=== PATIENT | male | born 1945 | race Caucasian/White ===

== ENCOUNTER → 2016-05-15 | Outpatient (CLI) | payer OTHER, MEDICARE ==
[~2016-05-15] MED LIST: ATV1 PO; CYCL5TAB PO; DOCU100C31 PO; ERGO1CAP35 PO; FERR325T51 PO; FLUO20CA36 PO; FRS/40 PO; GABA-113 PO; HYDR25CA PO; IPRA1AER2 INH; IPRASOL4 INH; ISOS30TA35 PO; MELATAB2 PO; METO25TA3 PO; MONT1TAB3 PO; NAPR1TAB9 PO; OXYC-57 PO; OXYC1TAB3 PO; PANT40TA PO; POLY1POW2 PO; POTA-65 PO; PRVC40 PO; RANI300C PO; SYMIN160 INH; TEMA15CA4 PO; TRAZ100T29 PO; VENL37.593 PO
--- NOTE | 2016-05-15 22:03 | DIAGNOSTIC IMAGING REPORT ---
CT OF THE LUMBAR SPINE WITHOUT CONTRAST CT DOSE: 1117.58 mGycm CLINICAL HISTORY: Right buttock pain. Evaluate for hardware failure. TECHNIQUE: Axial images of the lumbar spine were obtained without IV contrast. Sagittal and coronal reconstructions were viewed. COMPARISON STUDY: Lumbar spine MRI October 24, 2015 and lumbar spine radiographs October 26, 2015. FINDINGS: For purposes of numbering on this exam, the L5-S1 disc space is assigned to axial image 313 of 401. There is an L2-S1 bilateral pedicle screw fusion. Interconnecting rods are present. Lucency is noted surrounding the S1 screws. There are L2-L3, L3-L4 and L5-S1 discectomies with interbody spacers. There is erosion of the inferior endplate of L3, superior endplate of L4, inferior endplate of L5 and superior plate of S1 which has progressed since prior radiograph. There is slight loss of height of these endplates. No acute fracture is identified. Central canal and neural foramen are suboptimally assessed by CT. Bilateral iliac bolts are in place. There is a lucency surrounding the screws. The screws are partially located within the bilateral sacroiliac joints. There is minimal extension into the medial bilateral iliac bones. No suspicious osseous lesion is present. IMPRESSION: 1. Status post L2-S1 bilateral pedicle screw fusion. Mild lucency surrounding the S1 screws raises the possibility of loosening. 2. Status post L2-L3, L3-L4 and L5-S1 discectomies with development of erosion of the inferior endplate of L3, superior endplate of L4, inferior endplate of L5 and superior endplate of S1. No significant fusion at these levels. 3. Extensive lucency surrounding the bilateral iliac bolts which are predominantly located within the sacroiliac joints with minimal extension into the iliac bones. The findings suggest loosening. Electronically signed by: Jesse Gonzalez M.D. 05/15/2016 10:01 PM Dictated Date/Time: 05/15/2016 2:57 PM
== END | disposition home or self-care (01) ==
LOC: C.MRI 09:28
PROVIDERS: ATTEND Orthopaedic Surgery Orthopaedic Surgery of the Spine
DX: M79.1 Myalgia (principal); Z98.1 Arthrodesis status

== ENCOUNTER → 2016-05-17 | Outpatient (CLI) | payer OTHER, MEDICARE ==
--- NOTE | 2016-05-17 10:25 | DIAGNOSTIC IMAGING REPORT ---
LUMBAR SPINE MRI HISTORY: Pain RT BUTTOCK PAIN, ? HARDWARE FAILURE TECHNIQUE: Multiplanar multisequence MRI of the lumbar spine was performed without the use of contrast. COMPARISON: 10/24/2015 FINDINGS: For the purpose of the report the L5-S1 disc space will be located on axial image 27 of 30. Operative changes consistent with fusion from L2 through S1. Iliac bones are not well appreciated on this study. Hardware appears to be intact. Intervertebral disc spaces are generally uniform in appearance. There is moderate reactive bone marrow edema of the endplates about the L5-S1 disc. No major compromise of the spinal canal is appreciated. No evidence for disc herniation or significant component of foraminal stenosis is appreciated. L1-L2: No significant central canal or neural foraminal narrowing. L2-L3: No significant central canal or neural foraminal narrowing. L3-L4: No significant central canal or neural foraminal narrowing. L4-L5: No significant central canal or neural foraminal narrowing. L5-S1: No significant central canal or neural foraminal narrowing. IMPRESSION: Stable postoperative changes to the lumbosacral spine. 2. Hardware appears to be intact with no evidence for major disc herniation or significant component of spinal stenosis. 3. The iliac bones are not well seen in this examination Electronically signed by: Yohan Otto M.D. 05/17/2016 10:24 AM Dictated Date/Time: 05/17/2016 10:18 AM
[2016-05-17 13:32] LABS: HEMATOCRIT 42.1 % (42-52); MEAN CELL VOLUME 77.1 fL (80-100); MEAN CORPUSCULAR HEMOGLOBIN 25.6 pg (25-34); MEAN CORPUSCULAR HGB CONC 33.3 g/dl (32-36); MEAN PLATELET VOLUME 9.8 fL (7.4-10.4); PLATELET COUNT 261 K/uL (130-400); RED BLOOD COUNT 5.46 M/uL (4.7-6.1); WHITE BLOOD COUNT 5.44 K/uL (4.8-10.8)
[2016-05-17 13:45] LABS: ALT/SGPT 25 U/L (12-78); BLOOD UREA NITROGEN 19 mg/dl (7-18); BUN/CREATININE RATIO 17.6 (10-20); CALCIUM 8.9 mg/dl (8.5-10.1); CARBON DIOXIDE 28 mmol/L (21-32); CHLORIDE 102 mmol/L (98-107); CHOLESTEROL 122 mg/dl (0-200); GLUCOSE 117 mg/dl (70-99); POTASSIUM 3.7 mmol/L (3.5-5.1); SODIUM 137 mmol/L (136-145)
[2016-05-17 13:52] LABS: ESTIMATED AVERAGE GLUCOSE 126 mg/dl; HA1C FLAG Normal (Normal)
[2016-05-17 13:56] LABS: ALKALINE PHOSPHATASE 141 U/L (45-117); AST/SGOT 18 U/L (15-37); CHOLESTEROL/HDL RATIO 3.2; HDL CHOLESTEROL 38 mg/dl; LDL CHOLESTEROL CALCULATED 68 mg/dl; TRIGLYCERIDES 82 mg/dl (0-150); VERY LOW DENSITY LIPOPROT CALC 16 mg/dl
== END | disposition home or self-care (01) ==
LOC: C.MRIBC 09:06
PROVIDERS: ATTEND Orthopaedic Surgery Orthopaedic Surgery of the Spine
DX: M79.1 Myalgia (principal); I25.10 Atherosclerotic heart disease of native coronary artery without angina pectoris; R73.03 Prediabetes; E78.5 Hyperlipidemia, unspecified; Z98.890 Other specified postprocedural states; Z79.899 Other long term (current) drug therapy

== ENCOUNTER 2016-09-03 14:40 | Emergency (ER) | payer OTHER, MEDICARE ==
[~2016-09-03] VITALS: Ht 172.7 cm; Wt 108.1 kg
[~2016-09-03 14:40] MED LIST changes: -FLUO20CA36 PO
[2016-09-03 14:46] VITALS: TEMP 37; Ht 172.7 cm; Wt 108.1 kg
[2016-09-03] MEDS ORDERED: FLUO20CA36 PO (14:56)
--- NOTE | 2016-09-03 15:12 | EMERGENCY ROOM VISIT NOTE ---
ED Visit Note First contact with patient: 14:55 CHIEF COMPLAINT: Skin tag left inner thigh HISTORY OF PRESENT ILLNESS: This 71-year-old male presents the ER with chief complaint of a skin tag to his left inner thigh. The patient states that it is getting larger and it is bothersome. He states he would like it removed. The patient states he had other skin tags removed at [place] [facility]. The patient is on blood thinners. REVIEW OF SYSTEMS: 6 system review was performed and was negative unless stated otherwise in history of present illness. PMH: The patient is healthy; asthma, urinary problems SOCIAL HISTORY: Patient lives alone. The patient admits to tobacco use and occasional alcohol use. PHYSICAL EXAM: Vital Signs: Were reviewed Reviewed Nurse's notes. GENERAL: 71- year-old white male appears in no acute distress. MENTAL Status: Alert and oriented 3. LEFT THIGH: On the proximal inner aspect of the left thigh there is a 1 cm skin tag .there are no signs of infection. EMERGENCY DEPARTMENT COURSE: The patient was evaluated. The patient's EMR medication list were reviewed. Using string a knot was placed at the base of the skin tag. DIAGNOSIS: Skin tag left thigh DISCHARGE INSTRUCTIONS & TREATMENT: Keep string in place until skin tag falls off. Any signs of infection, follow-up with your family doctor. Your blood pressure in the emergency room today was 122/73. A blood pressure check in your family doctor's office in 2 days is recommended. Problem List Medical Problems: (1) Anemia Status: Chronic (2) ANXIETY STATE NOS Status: Chronic (3) CANNABIS ABUSE-CONTIN Status: Chronic (4) Carotid endarterectomy Status: Resolved (5) carpal tunnel surgery bilaterally Status: Resolved (6) CARPAL TUNNEL SYNDROME Status: Resolved (7) CHOLELITHIASIS NOS Status: Resolved (8) Chronic low back pain Status: Chronic (9) CHRONIC OBSTRUCTIVE ASTHMA, NOS Status: Chronic (10) CONGESTIVE HEART FAILURE NOS Status: Chronic (11) COPD (chronic obstructive pulmonary disease) Status: Chronic (12) CORONARY ATHEROSCLEROSIS OF [place] CORONARY VESSEL Status: Chronic (13) DEPRESSIVE DISORDER NEC Status: Chronic (14) DIVERTICULOSIS COLON (W/O MENT OF HEMORRHAGE) Status: Chronic (15) History of repair of inguinal hernia Status: Resolved (16) HYPERLIPIDEMIA NEC/NOS Status: Chronic (17) MIGRAINE UNSPECIFIED W/O INTRACT MGRN W/O STATUS MIGRAINOSUS Status: Chronic (18) OBESITY, NOS Status: Chronic (19) OSTEOARTHROS NOS-SHLDER Status: Chronic (20) PERSONAL HISTORY OF URINARY CALCULI Status: Resolved (21) PERSONAL HISTORY, PNEUMONIA (RECURRENT) Status: Resolved (22) PNEUMONIA, ORGANISM NOS Status: Resolved (23) Prior left CVA Status: Resolved (24) SPINAL STENOSIS-LUMBAR Status: Chronic (25) umbilical herniorrhaphy Status: Resolved Surgical Problems: (1) Hx of decompressive lumbar laminectomy Status: Chronic Current/Historical Medications Scheduled Budesonide/Formoterol Fumarate (Symbicort 160/4.5 Inhaler ), 2 PUFFS INH BID Docusate Sodium (Docusate Sodium), 100 MG PO BID Ergocalciferol (Vitamin D Cap), 50,000 INTER.UNIT PO Q2WK Ferrous Sulfate (Iron Supplement), 325 MG PO HS Fluoxetine HCl (Fluoxetine HCl), 20 MG PO DAILY Furosemide (Lasix), 40 MG PO BID Gabapentin (Neurontin), 900 MG PO TID Ipratropium-Albuterol (Combivent Respimat), 1 PUFFS INH QID Ipratropium-Albuterol (Duoneb), 1 TREATMENT INH Q6H Isosorbide Mononitrate Ext Rel (Imdur Ext Rel), 30 MG PO QAM Melatonin (Melatonin Maximum Strengt), 5 MG PO HS Metoprolol Succinate (Toprol Xl), 25 MG PO BID Montelukast Sodium (Singulair), 10 MG PO HS Pantoprazole (Protonix), 40 MG PO QAM Potassium Chloride (Potassium Chloride ER), 20 MEQ PO BID Pravastatin Sod (Pravastatin Sodium), 40 MG PO HS Ranitidine Hcl (Ranitidine Hcl), 300 MG PO BID Temazepam (Restoril), 1 CAP PO HS Venlafaxine Hcl (Venlafaxine Extended Rel), 75 MG PO QAM Scheduled PRN Cyclobenzaprine Hcl (Flexeril), 5 MG PO TID PRN for Muscle Spasms Hydroxyzine Pamoate (Vistaril), 25 MG PO TID PRN for Anxiety Lorazepam (Lorazepam), 1 MG PO Q6H PRN for ANXIETY/SPASMS Oxycodone Ir (Roxicodone Ir), 10 MG PO Q4H PRN for Severe Pain Oxycodone/Acetaminophen 5MG/325MG (Percocet 5MG/325MG), 1 TABLET PO Q6H PRN for Pain Polyethylene Glycol 3350 (Bulk (Polyethylene Glycol 3350), 17 GM PO DAILY PRN for Constipation Trazodone Hcl (Trazodone), 150 MG PO HS PRN for Insomnia Miscellaneous Medications Naproxen (Aleve), 220 MG PO Allergies Coded Allergies: Morphine (Verified Allergy, Intermediate, RASH, 01/23/16) Quinolones (Verified Allergy, Intermediate, unknown, 01/23/16) PATIENT WOULD LIKE TO BE TESTED FOR THIS AT SOME POINT BECAUSE HE DOES NOT BELIEVE HE IS ALLERGIC TO IT. Vital Signs Date Time Temp Pulse Resp B/P (MAP) Pulse Ox O2 Delivery O2 Flow Rate FiO2 09/03/16 14:46 37.0 79 20 131/75 95 Room Air Departure Information Referrals No Doctor, Assigned (PCP) Patient Instructions My [facility]
[2016-09-03 15:22] VITALS: BP 122/73; PULSE 88; O2SAT 95
== END 2016-09-03 15:23 | disposition home or self-care (01) ==
LOC: C.EDB 14:44 → C.EDD 15:23
DX: L91.8 Other hypertrophic disorders of the skin (principal); J45.909 Unspecified asthma, uncomplicated; D64.9 Anemia, unspecified; F41.9 Anxiety disorder, unspecified; I50.9 Heart failure, unspecified; J44.9 Chronic obstructive pulmonary disease, unspecified; E78.5 Hyperlipidemia, unspecified; F32.9 Major depressive disorder, single episode, unspecified; K57.30 Diverticulosis of large intestine without perforation or abscess without bleeding; G43.909 Migraine, unspecified, not intractable, without status migrainosus; E66.9 Obesity, unspecified; M19.90 Unspecified osteoarthritis, unspecified site; Z87.442 Personal history of urinary calculi; M48.06 Spinal stenosis, lumbar region; Z79.899 Other long term (current) drug therapy

== ENCOUNTER → 2016-10-24 | Outpatient (CLI) | payer OTHER, MEDICARE ==
[~2016-10-24] MED LIST changes: +FLUO20CA36 PO
[2016-10-24 12:52] LABS: BASO % 0.2 %; BASO ABS # 0.01 K/uL (0-0.2); COMPLETE YES; EOS % 3.4 %; HEMATOCRIT 41.4 % (42-52); IG% 0.3 %; LYMPH % 19.5 %; LYMPH ABS # 1.21 K/uL (1.2-3.4); MEAN CELL VOLUME 80.4 fL (80-100); MEAN CORPUSCULAR HGB CONC 33.6 g/dl (32-36); MONO % 10.6 %; PLATELET COUNT 336 K/uL (130-400); RED BLOOD COUNT 5.15 M/uL (4.7-6.1); WHITE BLOOD COUNT 6.22 K/uL (4.8-10.8)
[2016-10-24 13:01] LABS: ALT/SGPT 25 U/L (12-78); BLOOD UREA NITROGEN 24 mg/dl (7-18); CARBON DIOXIDE 30 mmol/L (21-32); CHLORIDE 105 mmol/L (98-107); GLUCOSE 100 mg/dl (70-99); POTASSIUM 3.9 mmol/L (3.5-5.1); SODIUM 139 mmol/L (136-145)
[2016-10-24 13:04] LABS: ALKALINE PHOSPHATASE 123 U/L (45-117); AST/SGOT 17 U/L (15-37); CHOLESTEROL 142 mg/dl (0-200); CHOLESTEROL/HDL RATIO 4.1; HDL CHOLESTEROL 35 mg/dl; LDL CHOLESTEROL CALCULATED 82 mg/dl; TRIGLYCERIDES 123 mg/dl (0-150); VERY LOW DENSITY LIPOPROT CALC 25 mg/dl
[2016-10-24 13:33] LABS: ESTIMATED AVERAGE GLUCOSE 126 mg/dl; HA1C FLAG Normal (Normal)
== END | disposition home or self-care (01) ==
LOC: C.LABPBG 07:48
PROVIDERS: ATTEND Family Medicine
DX: I25.10 Atherosclerotic heart disease of native coronary artery without angina pectoris (principal); R73.03 Prediabetes; E78.5 Hyperlipidemia, unspecified

== ENCOUNTER → 2017-02-12 | Outpatient (CLI) | payer OTHER, MEDICARE ==
[2017-02-12 17:22] LABS: BASO % 0.3 %; BASO ABS # 0.03 K/uL (0-0.2); COMPLETE YES; EOS % 1.8 %; IG% 0.5 %; LYMPH ABS # 1.38 K/uL (1.2-3.4); MEAN CELL VOLUME 80.7 fL (80-100); MEAN CORPUSCULAR HEMOGLOBIN 27.2 pg (25-34); MEAN CORPUSCULAR HGB CONC 33.7 g/dl (32-36); MEAN PLATELET VOLUME 9.9 fL (7.4-10.4); MONO % 7.1 %; NEUT % 75.3 %; PLATELET COUNT 243 K/uL (130-400); RED BLOOD COUNT 5.33 M/uL (4.7-6.1)
== END | disposition home or self-care (01) ==
LOC: C.LABPBG 15:45
PROVIDERS: ATTEND Family Medicine
DX: G25.81 Restless legs syndrome (principal)

== ENCOUNTER 2017-04-14 20:39 | Emergency (ER) | payer OTHER, MEDICARE ==
[~2017-04-14] VITALS: Ht 172.7 cm; Wt 104.7 kg
[2017-04-14 20:42] VITALS: TEMP 37.6; Ht 172.7 cm; Wt 104.7 kg
--- NOTE | 2017-04-14 21:19 | EMERGENCY ROOM VISIT NOTE ---
History First contact with patient: 20:48 Chief Complaint: SWELLING TO EXTREMITY Stated Complaint: RT LEG SWELLING History of Present Illness The patient is a 71 year old male who presents to the Emergency Room with complaints of right lower extremity swelling, redness, and pain. The patient states 4 months ago, he was chasing after his ex-girlfriend while drunk. He states he must of fell, because in the morning he noticed some swelling, redness , and multiple abrasions on the left anterior gonzalez. The patient states he was black, blue, and swollen for the past 4 months. He states those symptoms improved yesterday, but the swelling became significantly worse yesterday as well. He is describing pain from swelling. She was recently admitted to [facility] for 2 days, was discharged 3-4 days ago. He was on Lovenox at that time. The patient is having difficulty straightening the leg due to pain. He describes significant pain in the posterior calf, as well as the anterior knee. The patient denies any dyspnea. He denies any numbness or tingling. He can move his lower extremity, but this does cause significant pain. He denies any recent injury. He describes the pain as dull with occasional sharp jabs, and rates it 2/10. He has not taken any pain medication. He does report that he had multiple pulmonary emboli several years ago when he was in his 20s, related to a hospital admission. He denies any chest pain, headache, dizziness, pain in the left leg, or other associated symptoms. Review of Systems A complete 10 point review of systems was reviewed with the patient with pertinent positives and negatives as per history of present illness. All else were negative. Past Medical/Surgical History Medical Problems: (1) Anemia (2) ANXIETY STATE NOS (3) CANNABIS ABUSE-CONTIN (4) Carotid endarterectomy (5) carpal tunnel surgery bilaterally (6) CARPAL TUNNEL SYNDROME (7) CHOLELITHIASIS NOS (8) Chronic low back pain (9) CHRONIC OBSTRUCTIVE ASTHMA, NOS (10) CONGESTIVE HEART FAILURE NOS (11) COPD (chronic obstructive pulmonary disease) (12) CORONARY ATHEROSCLEROSIS OF [place] CORONARY VESSEL (13) DEPRESSIVE DISORDER NEC (14) DIVERTICULOSIS COLON (W/O MENT OF HEMORRHAGE) (15) History of repair of inguinal hernia (16) HYPERLIPIDEMIA NEC/NOS (17) Lumbar stenosis with neurogenic claudication (18) MIGRAINE UNSPECIFIED W/O INTRACT MGRN W/O STATUS MIGRAINOSUS (19) OBESITY, NOS (20) OSTEOARTHROS NOS-SHLDER (21) PERSONAL HISTORY OF URINARY CALCULI (22) PERSONAL HISTORY, PNEUMONIA (RECURRENT) (23) PNEUMONIA, ORGANISM NOS (24) Prior left CVA (25) SPINAL STENOSIS-LUMBAR (26) umbilical herniorrhaphy Surgical Problems: (1) Hx of decompressive lumbar laminectomy Family History Diabetes mellitus Heart disease Social History Smoking Status: Former Smoker Alcohol Use: occasionally Drug Use: marijuana Marital Status: in relationship Housing Status: other Occupation Status: retired Current/Historical Medications Scheduled Aspirin (Aspirin Ec), 81 MG PO DAILY Azithromycin (Zithromax), 500 MG PO DAILY Cephalexin Monohydrate (Keflex), 500 MG PO QID Cholecalciferol (Vitamin D3), 400 UNITS PO DAILY Clopidogrel Bisulfate (Plavix), 75 MG PO DAILY Docusate Sodium (Docusate Sodium), 100 MG PO BID Ferrous Sulfate (Ferrous Sulfate), 325 MG PO HS Fluoxetine (Prozac), 40 MG PO DAILY Fluoxetine HCl (Fluoxetine HCl), 20 MG PO DAILY Furosemide (Lasix), 40 MG PO BID Ipratropium-Albuterol (Combivent Respimat), 1 PUFFS INH QID Ipratropium-Albuterol (Duoneb), 1 TREATMENT INH TID Isosorbide Mononitrate Ext Rel (Imdur Ext Rel), 30 MG PO QAM Melatonin (Melatonin), 10 MG PO HS Metoprolol Succinate (Toprol Xl), 25 MG PO BID Montelukast Sodium (Singulair), 10 MG PO DAILY Pantoprazole (Protonix), 40 MG PO QAM Potassium Chloride (Potassium Chloride ER), 20 MEQ PO BID Pravastatin Sod (Pravastatin Sodium), 40 MG PO HS Prednisone (Prednisone), 10 MG PO DIRECTED Ranitidine Hcl (Ranitidine Hcl), 300 MG PO BID Ropinirole HCl (Ropinirole HCl), 0.5 MG PO HS Sulfa/Trimethoprim (Bactrim Ds 800MG/160MG), 1 TAB PO BID Venlafaxine Hcl (Venlafaxine Extended Rel), 75 MG PO QAM Scheduled PRN Cyclobenzaprine Hcl (Flexeril), 5 MG PO TID PRN for Muscle Spasms Hydroxyzine Pamoate (Vistaril), 25 MG PO TID PRN for Anxiety Lorazepam (Ativan), 1 MG PO Q6H PRN for ANXIETY/SPASMS Naproxen (Aleve), 220 MG PO DIRECTED PRN for Pain Polyethylene Glycol 3350 (Bulk (Polyethylene Glycol 3350), 17 GM PO DAILY PRN for Constipation Physical Exam Vital Signs Date Time Temp Pulse Resp B/P (MAP) Pulse Ox O2 Delivery O2 Flow Rate FiO2 04/14/17 20:42 37.6 114 22 155/85 95 Room Air Physical Exam VITALS: Vitals are noted on the nurse's note and reviewed by myself. Vital signs stable. GENERAL: This is a 71-year-old obese white male, in no acute distress, nondiaphoretic, well-developed well-nourished. SKIN: There is a scarred over area on the anterior right gonzalez. The mid to distal aspect of the right lower leg is edematous with 1+ Pitting edema noted. The posterior aspect of the right calf is erythematous. There is significant tenderness on palpation of the posterior right calf. The skin was without rashes, erythema, edema, or bruising. There is no tenting of the skin. Capillary reflex less than 2 seconds. HEAD: Normocephalic atraumatic. EARS: External auditory canals clear, tympanic membranes pearly hernandez without erythema or effusion bilaterally. EYES: Pupils equal round and reactive to light and accommodation. Conjunctivae without injection, sclerae without icterus. Extraocular movements intact. NOSE: Patent, turbinates without inflammation or discharge. No sinus tenderness. MOUTH: Mucous membranes moist. Tonsils are not enlarged. Pharynx without erythema or exudate. Uvula midline. Airway patent. Tongue does not deviate. NECK: Supple without nuchal rigidity. No lymphadenopathy. No thyromegaly. Cervical spine is nontender. No JVD. HEART: Regular rate and rhythm without murmurs gallops or rubs. Dorsal Pedal pulse 2+. LUNGS: Clear to auscultation bilaterally without wheezes, rales or rhonchi. No dullness to percussion. No retractions or accessory muscle use. ABDOMEN: Positive bowel sounds x 4. Normal tympanic percussion. Soft, nontender, without masses or organomegaly. Mendoza sign negative. No guarding or rebound tenderness. MUSCULOSKELETAL: No muscle atrophy, erythema, or edema noted, except as outlined above. Full range of motion without joint tenderness in all extremities. No tenderness to palpation. Normal gait. Strength 5/5 throughout. NEURO: Patient was alert and oriented to person place and time. Normal sensation to light and sharp touch. Deep tendon reflexes 2+ throughout. No focal neurological deficits. Medical Decision & Procedures ER Provider Diagnostic Interpretation: CBC was the leukocytosis, significant anemia, thrombocytopenia. PE RP did show elevated blood glucose of 144. Renal function and electrolytes normal. R VENOUS DOPP LOWER EXT UNILAT HISTORY: 71 years-old Male Right calf swelling/redness/tenderness acute right calf redness and tenderness COMPARISON: Duplex venous Doppler 07/25/2015 TECHNIQUE: Multiple real-time sonographic images of the right lower extremity deep venous structures were obtained assessing grayscale appearance, color and spectral flow. FINDINGS: Flow, phasicity, augmentation and compressibility within the right lower extremity deep venous structures. There is a large complex linear collection of the right popliteal region and distal calf likely intramuscular measures up to 20.0 x 2.1 x 5.0 cm without internal vascularity. IMPRESSION: 1. No sonographic evidence of deep venous thrombosis. 2. Complex hypoechoic collection within the popliteal fossa and distal calf measuring up to 20.0 cm in length suggests hematoma, likely with intramuscular extension. The above report was generated using voice recognition software. It may contain grammatical, syntax or spelling errors. Electronically signed by: Moi Mark M.D. 04/14/2017 10:15 PM Dictated Date/Time: 04/14/2017 10:09 PM Laboratory Results 04/14/17 21:41 Red Blood Count 4.88, Mean Corpuscular Volume 83.6, Mean Corpuscular Hemoglobin 28.1, Mean Corpuscular Hemoglobin Concent 33.6, Mean Platelet Volume 9.5, Neutrophils (%) (Auto) 82.1, Lymphocytes (%) (Auto) 10.5, Monocytes (%) (Auto) 5.7, Eosinophils (%) (Auto) 0.6, Basophils (%) (Auto) 0.2, Neutrophils # (Auto) 8.22, Lymphocytes # (Auto) 1.05, Monocytes # (Auto) 0.57, Eosinophils # (Auto) 0.06, Basophils # (Auto) 0.02 1/21/18 21:41 Test 04/14/17 21:41 White Blood Count 10.01 K/uL (4.8-10.8) Red Blood Count 4.88 M/uL (4.7-6.1) Hemoglobin 13.7 g/dL (14.0-18.0) Hematocrit 40.8 % (42-52) Mean Corpuscular Volume 83.6 fL (80-100) Mean Corpuscular Hemoglobin 28.1 pg (25-34) Mean Corpuscular Hemoglobin Concent 33.6 g/dl (32-36) Platelet Count 334 K/uL (130-400) Mean Platelet Volume 9.5 fL (7.4-10.4) Neutrophils (%) (Auto) 82.1 % Lymphocytes (%) (Auto) 10.5 % Monocytes (%) (Auto) 5.7 % Eosinophils (%) (Auto) 0.6 % Basophils (%) (Auto) 0.2 % Neutrophils # (Auto) 8.22 K/uL (1.4-6.5) Lymphocytes # (Auto) 1.05 K/uL (1.2-3.4) Monocytes # (Auto) 0.57 K/uL (0.11-0.59) Eosinophils # (Auto) 0.06 K/uL (0-0.5) Basophils # (Auto) 0.02 K/uL (0-0.2) RDW Standard Deviation 45.5 fL (36.4-46.3) RDW Coefficient of Variation 14.9 % (11.5-14.5) Immature Granulocyte % (Auto) 0.9 % Immature Granulocyte # (Auto) 0.09 K/uL (0.00-0.02) Anion Gap 10.0 mmol/L (3-11) Est Creatinine Clear Calc Drug Dose 62.9 ml/min Estimated GFR () 64.5 Estimated GFR (Non- 55.7 BUN/Creatinine Ratio 17.5 (10-20) Calcium Level 8.9 mg/dl (8.5-10.1) Medications Administered Medications (Trade) Dose Ordered Sig/Osiris Route Start Time Stop Time Status Last Admin Dose Admin Cephalexin Monohydrate (Keflex 500MG Home Pack) 1 homepack NOW STAT PO 04/14/17 22:49 04/14/17 22:51 DC 04/14/17 22:49 [facility] Trimethoprim/ Sulfamethoxazole (Sulfameth/ Trimeth Ds 800/ 160MG Home Pack) 1 [facility] UD STAT PO 04/14/17 22:49 04/14/17 22:51 DC 04/14/17 22:49 1 [facility] ED Course The patient was seen and evaluated as above. IV access obtained, labs drawn. The patient was sent for ultrasound of the right lower extremity. I discussed the case with Dr. Carvalho. I did review the ultrasound findings and labs. I discussed the findings with the patient at bedside. Discharge instructions reviewed, and the patient was discharged home in good condition. Medical Decision Etiologies such as DVT, joint effusion, infection, trauma, muscular, lymphedema , idiopathic, CHF, as well as others were entertained. This is a 71-year-old male patient presents to the emergency department today complaining of right lower extremity swelling. He states the swelling, pain, and redness began yesterday. The patient was recently hospitalized, and was on Lovenox. He does have history of a traumatic injury to the right lower extremity after a fall approximately 4 months ago. He is very concerned for DVT , as he had blood clots in his lungs approximately 40 years ago during a hospitalization, and does not want any blood clots from his legs to move to his lungs. Physical exam findings include erythematous, swollen, tender right calf and anterior gonzalez. DVT workup was initiated with basic labs to rule out significant infection. Ultrasound did show findings consistent with a hematoma within the popliteal fossa and distal calf. Based on the patient's physical examination findings and finding of hematoma on ultrasound, the patient will be treated with antibiotics. The patient states he is already on what he believes to be Augmentin for an upper respiratory infection. He will be switched to Keflex and Bactrim, as he is uncertain. The patient does have a follow-up appointment with his PCP scheduled for tomorrow morning at 940. He was encouraged to keep this appointment for follow-up, and return to the emergency Department for concerning symptoms. Medication Reconcilliation Current Medication List: was personally reviewed by me Blood Pressure Screening Patient's blood pressure: Elevated blood pressure Blood pressure disposition: Elevated BP felt to be situational Impression Primary Impression: Hematoma of right lower extremity Departure Information Dispostion Home / Self-Care Condition GOOD Prescriptions Sulfa/Trimethoprim (Bactrim Ds 800MG/160MG) Tab 1 TAB PO BID for 10 Days, #20 TAB Prov: Caterina Saldivar PA-C 04/14/17 Cephalexin Monohydrate (KEFLEX) 500 Mg Cap 500 MG PO QID for 10 Days, #40 CAP Prov: Caterina Saldivar PA-C 04/14/17 Referrals Bethany Goldman DO (PCP) Patient Instructions ED Hematoma, My [facility] Additional Instructions You were seen in the emergency department today for right leg swelling and redness. Hematoma was noted on the ultrasound. No DVT was noted. I do suspect an overlying infection causing the redness and swelling. Cephalexin(Keflex) 500mg: Take one pill four times daily for 10 days for your skin infection. All antibiotics can cause diarrhea. If this occurs and you feel worse or it does not resolve in 1-2 days follow up with your doctor or return to the Emergency Department as this could be signs of serious underlying problems. Any medication can cause an allergic reaction, stop the pills immediately and return to the ER for rash, hives, breathing difficulties, or swelling. Trimethoprim-Sulfamethoxazole(Bactrim DS): Take one pill twice daily for 10 days for your skin infection. All antibiotics can cause diarrhea. If this occurs and you feel worse or it does not resolve in 1-2 days follow up with your doctor or return to the Emergency Department as this could be signs of serious underlying problems. Any medication can cause an allergic reaction, stop the pills immediately and return to the ER for rash, hives, breathing difficulties, or swelling. DISCONTINUE THE AUGMENTIN (OR OTHER ANTIBIOTIC) WHICH YOU ARE CURRENTLY TAKING. As discussed, please follow-up with your PCP tomorrow at your already scheduled appointment for re-evaluation of the redness and swelling. Return to the ED for worsening redness, swelling, pain, purulent drainage, difficulty breathing, chest pain, or other concerning symptoms. Problem Qualifiers Primary Impression: Hematoma of right lower extremity Encounter type: initial encounter Qualified Codes: S80.11XA - Contusion of right lower leg, initial encounter
[2017-04-14] MEDS ORDERED: ATV/1 PO (21:29)
[2017-04-14] MEDS ORDERED: MELA1TAB48 PO (21:29)
[2017-04-14] MEDS ORDERED: FRRS300 PO (21:29)
[2017-04-14] MEDS ORDERED: RQP25 PO (21:34)
[2017-04-14] MEDS ORDERED: AZIT500T26 PO (21:34)
[2017-04-14] MEDS ORDERED: CLOP1TAB5 PO (21:34)
[2017-04-14] MEDS ORDERED: PRED10TA PO (21:34)
[2017-04-14] MEDS ORDERED: CHOL400T PO (21:34)
[2017-04-14] MEDS ORDERED: MONT1TAB3 PO (21:34)
[2017-04-14] MEDS ORDERED: ASPI81TA28 PO (21:34)
[2017-04-14] MEDS ORDERED: FLUO40CA8 PO (21:39)
[2017-04-14 21:45] LABS: BASO % 0.2 %; BASO ABS # 0.02 K/uL (0-0.2); EOS % 0.6 %; EOS ABS # 0.06 K/uL (0-0.5); HEMATOCRIT 40.8 % (42-52); HEMOGLOBIN 13.7 g/dL (14.0-18.0); IG# 0.09 K/uL (0.00-0.02); LYMPH % 10.5 %; LYMPH ABS # 1.05 K/uL (1.2-3.4); MEAN CELL VOLUME 83.6 fL (80-100); MEAN CORPUSCULAR HEMOGLOBIN 28.1 pg (25-34); MEAN CORPUSCULAR HGB CONC 33.6 g/dl (32-36); MEAN PLATELET VOLUME 9.5 fL (7.4-10.4); MONO % 5.7 %; MONO ABS # 0.57 K/uL (0.11-0.59); NEUT % 82.1 %; NEUT ABS # 8.22 K/uL (1.4-6.5); PLATELET COUNT 334 K/uL (130-400); RED CELL DISTRIBUTION WIDTH CV 14.9 % (11.5-14.5); RED CELL DISTRIBUTION WIDTH SD 45.5 fL (36.4-46.3); WHITE BLOOD COUNT 10.01 K/uL (4.8-10.8)
[2017-04-14 22:01] LABS: CALCIUM 8.9 mg/dl (8.5-10.1); CREATININE 1.3 mg/dl (0.60-1.40)
--- NOTE | 2017-04-14 22:09 | EMERGENCY ROOM VISIT NOTE ---
ED Visit Note First contact with patient: 20:48 This Patient was discussed with the physician assistant hvac mechanic, Caterina Saldivar PA-C. The pertinent historical and physical exam findings were confirmed. I agree with the studies ordered and with the interpretations of these studies. I agree with the disposition and care plan.
--- NOTE | 2017-04-14 22:16 | DIAGNOSTIC IMAGING REPORT ---
R VENOUS DOPP LOWER EXT UNILAT HISTORY: 71 years-old Male Right calf swelling/redness/tenderness acute right calf redness and tenderness COMPARISON: Duplex venous Doppler 07/25/2015 TECHNIQUE: Multiple real-time sonographic images of the right lower extremity deep venous structures were obtained assessing grayscale appearance, color and spectral flow. FINDINGS: Flow, phasicity, augmentation and compressibility within the right lower extremity deep venous structures. There is a large complex linear collection of the right popliteal region and distal calf likely intramuscular measures up to 20.0 x 2.1 x 5.0 cm without internal vascularity. IMPRESSION: 1. No sonographic evidence of deep venous thrombosis. 2. Complex hypoechoic collection within the popliteal fossa and distal calf measuring up to 20.0 cm in length suggests hematoma, likely with intramuscular extension. The above report was generated using voice recognition software. It may contain grammatical, syntax or spelling errors. Electronically signed by: Moi Mark M.D. 04/14/2017 10:15 PM Dictated Date/Time: 04/14/2017 10:09 PM
[2017-04-14] MEDS ORDERED: CEPH500C2 PO (22:48)
[2017-04-14] MEDS ORDERED: SULF800T23 PO (22:48)
[2017-04-14] MEDS ORDERED: CEPHALEXIN 500MG HOME PACK 1 EA BTL PO STA (22:49)
[2017-04-14] MEDS ORDERED: SEPTRA DS HOME PACK 1 EA VIAL PO STA (22:49)
[2017-04-14 23:09] VITALS: BP 166/96; PULSE 99; O2SAT 96
== END 2017-04-14 23:11 | disposition home or self-care (01) ==
LOC: C.EDB 20:41
DX: S80.11XD Contusion of right lower leg, subsequent encounter (principal); W19.XXXD Unspecified fall, subsequent encounter; Z86.711 Personal history of pulmonary embolism; D64.9 Anemia, unspecified; F41.9 Anxiety disorder, unspecified; F12.10 Cannabis abuse, uncomplicated; G89.29 Other chronic pain; M54.5 Low back pain; J44.9 Chronic obstructive pulmonary disease, unspecified; I25.10 Atherosclerotic heart disease of native coronary artery without angina pectoris; F32.9 Major depressive disorder, single episode, unspecified; E78.5 Hyperlipidemia, unspecified; E66.9 Obesity, unspecified; Z68.35 Body mass index [BMI] 35.0-35.9, adult; Z87.442 Personal history of urinary calculi; Z86.73 Personal history of transient ischemic attack (TIA), and cerebral infarction without residual deficits; Z83.3 Family history of diabetes mellitus; Z87.01 Personal history of pneumonia (recurrent); Z79.82 Long term (current) use of aspirin; Z79.01 Long term (current) use of anticoagulants; Z79.899 Other long term (current) drug therapy

== ENCOUNTER 2017-04-20 00:51 | Inpatient (IN) | payer OTHER, MEDICARE ==
[2017-04-20] VITALS (13 sets, daily range): BP systolic 115–141; BP diastolic 62–77; PULSE 66–82; TEMP 36.5–36.6; O2SAT 94–98; Ht 172.7 cm; Wt 103.6 kg
[~2017-04-20] VITALS: Ht 172.7 cm; Wt 103.6 kg
[~2017-04-20 00:51] MED LIST changes: +ASPI81TA28 PO; +ATV/1 PO; -ATV1 PO; +AZIT500T26 PO; +CEPH500C2 PO; +CHOL400T PO; +CLOP1TAB5 PO; -ERGO1CAP35 PO; -FERR325T51 PO; +FLUO40CA8 PO; +FRRS300 PO; -GABA-113 PO; +MELA1TAB48 PO; -MELATAB2 PO; -OXYC-57 PO; -OXYC1TAB3 PO; +PRED10TA PO; +RQP25 PO; +SULF800T23 PO; -SYMIN160 INH; -TEMA15CA4 PO; -TRAZ100T29 PO
[2017-04-20] MEDS ORDERED: ONDANSETRON INJ 2 MG/ML 2 ML VIAL IV STA (01:21)
[2017-04-20] MEDS ORDERED: HYDROmorphone INJ 1 MG/ML SYR IV STA ×4 (01:21→03:33)
--- NOTE | 2017-04-20 01:21 | EMERGENCY ROOM VISIT NOTE ---
History Report prepared by Anita: Carmine Del Valle Under the Supervision of: Dr. Farhan Newman M.D. First contact with patient: 01:10 Chief Complaint: LEG PAIN,LEG INJURY Stated Complaint: LEG SWELLING,WAS SEEN LAST SATURDAY FOR SAME SYMPTOM History of Present Illness The patient is a 71 year old male who presents to the Emergency Room with complaints of worsening right leg swelling that began a week ago. Patient has associated symptoms of right leg pain. Patient states that he was in the ED for similar symptoms a week ago. Patient states the original trauma to the leg occurred 4 months ago after a night of drinking. Patient has an extensive history of back surgery. Patient states that he currently takes muscle relaxers. He states he is currently taking antibiotics that he was discharged with last time. He states his doctor changed the antibiotics but he cannot remember to what. Patient states his pain management doctor is Dr. Denson. Source of History: patient Onset: a week ago Position: leg (right) Timing: worsening Modifying Factors (Relieving): other (None) Note: Patient has right leg pain. Review of Systems See HPI for pertinent positives & negatives. A total of 10 systems reviewed and were otherwise negative. 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 (14) DEPRESSIVE DISORDER NEC (15) DIVERTICULOSIS COLON (W/O MENT OF HEMORRHAGE) (16) History of repair of inguinal hernia (17) HYPERLIPIDEMIA NEC/NOS (18) Lumbar stenosis with neurogenic claudication (19) MIGRAINE UNSPECIFIED W/O INTRACT MGRN W/O STATUS MIGRAINOSUS (20) OBESITY, NOS (21) OSTEOARTHROS NOS-SHLDER (22) PERSONAL HISTORY OF URINARY CALCULI (23) PERSONAL HISTORY, PNEUMONIA (RECURRENT) (24) PNEUMONIA, ORGANISM NOS (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 (26) SPINAL STENOSIS-LUMBAR (27) umbilical herniorrhaphy Surgical Problems: (1) Hx of decompressive lumbar laminectomy Family History Diabetes mellitus Heart disease Social History Smoking Status: Former Smoker Alcohol Use: occasionally Drug Use: marijuana Marital Status: in relationship Housing Status: other Occupation Status: retired Current/Historical Medications Scheduled Aspirin (Aspirin Ec), 81 MG PO DAILY Azithromycin (Zithromax), 500 MG PO DAILY Cephalexin Monohydrate (Keflex), 500 MG PO QID Cholecalciferol (Vitamin D3), 400 UNITS PO DAILY Clopidogrel Bisulfate (Plavix), 75 MG PO DAILY Docusate Sodium (Docusate Sodium), 100 MG PO BID Ferrous Sulfate (Ferrous Sulfate), 325 MG PO HS Fluoxetine (Prozac), 40 MG PO DAILY Fluoxetine HCl (Fluoxetine HCl), 20 MG PO DAILY Furosemide (Lasix), 40 MG PO BID Ipratropium-Albuterol (Combivent Respimat), 1 PUFFS INH QID Ipratropium-Albuterol (Duoneb), 1 TREATMENT INH TID Isosorbide Mononitrate Ext Rel (Imdur Ext Rel), 30 MG PO QAM Melatonin (Melatonin), 10 MG PO HS Metoprolol Succinate (Toprol Xl), 25 MG PO BID Montelukast Sodium (Singulair), 10 MG PO DAILY Pantoprazole (Protonix), 40 MG PO QAM Potassium Chloride (Potassium Chloride ER), 20 MEQ PO BID Pravastatin Sod (Pravastatin Sodium), 40 MG PO HS Prednisone (Prednisone), 10 MG PO DIRECTED Ranitidine Hcl (Ranitidine Hcl), 300 MG PO BID Ropinirole HCl (Ropinirole HCl), 0.5 MG PO HS Sulfa/Trimethoprim (Bactrim Ds 800MG/160MG), 1 TAB PO BID Venlafaxine Hcl (Venlafaxine Extended Rel), 75 MG PO QAM Scheduled PRN Cyclobenzaprine Hcl (Flexeril), 5 MG PO TID PRN for Muscle Spasms Hydroxyzine Pamoate (Vistaril), 25 MG PO TID PRN for Anxiety Lorazepam (Ativan), 1 MG PO Q6H PRN for ANXIETY/SPASMS Naproxen (Aleve), 220 MG PO DIRECTED PRN for Pain Polyethylene Glycol 3350 (Bulk (Polyethylene Glycol 3350), 17 GM PO DAILY PRN for Constipation Allergies Coded Allergies: Morphine (Verified Allergy, Intermediate, RASH, 04/14/17) Quinolones (Verified Allergy, Intermediate, unknown, 04/14/17) PATIENT WOULD LIKE TO BE TESTED FOR THIS AT SOME POINT BECAUSE HE DOES NOT BELIEVE HE IS ALLERGIC TO IT. Levofloxacin (Verified Allergy, Unknown, "WAS TOLD NOT TO TAKE"., 04/14/17) Physical Exam Vital Signs Date Time Temp Pulse Resp B/P (MAP) Pulse Ox O2 Delivery O2 Flow Rate FiO2 04/20/17 04:49 85 22 156/92 92 Room Air 04/20/17 04:06 36.7 86 20 140/78 94 Room Air 04/20/17 03:12 89 04/20/17 03:07 36.7 89 20 165/93 94 Room Air 04/20/17 01:04 36.7 89 20 134/77 94 Room Air Physical Exam GENERAL: Patient is a healthy-appearing well-nourished male HEAD: Normocephalic atraumatic EYES: Ocular movements intact pupils equal and react to light OROPHARYNX mucous membranes are moist no exudates present no erythema or edema present NECK: Supple no nuchal rigidity CHEST: Good equal expansion LUNGS: Clear and equal to auscultation CARDIAC: Normal S1 and S2 ABDOMEN: Soft nontender no guarding BACK: No CVA tenderness EXTREMITIES: No pain upon palpation normal muscle strength in all groups no clubbing or cyanosis. Large swelling and bruising to posterior calf. No pain with flexion or extension of right foot. Good distal pulses NEURO: Patient is following commands and answering questions appropriately. Alert and oriented x3 Cranial Nerves 2-12 grossly intact Medical Decision & Procedures ER Provider Diagnostic Interpretation: Radiology results as stated below were interpreted by me: Foot X-Ray: No evidence of fracture, dislocation, or subluxation. Tibia/Fibula X-Ray: No evidence of fracture, dislocation, or subluxation. Laboratory Results 04/20/17 01:40 Red Blood Count 4.68, Mean Corpuscular Volume 83.3, Mean Corpuscular Hemoglobin 27.8, Mean Corpuscular Hemoglobin Concent 33.3, Mean Platelet Volume 9.5, Neutrophils (%) (Auto) 76.5, Lymphocytes (%) (Auto) 11.7, Monocytes (%) (Auto) 7.9, Eosinophils (%) (Auto) 2.3, Basophils (%) (Auto) 0.3, Neutrophils # (Auto) 10.18, Lymphocytes # (Auto) 1.55, Monocytes # (Auto) 1.05, Eosinophils # (Auto) 0.31, Basophils # (Auto) 0.04 04/20/17 01:40 Test 04/20/17 01:40 White Blood Count 13.30 K/uL (4.8-10.8) Red Blood Count 4.68 M/uL (4.7-6.1) Hemoglobin 13.0 g/dL (14.0-18.0) Hematocrit 39.0 % (42-52) Mean Corpuscular Volume 83.3 fL (80-100) Mean Corpuscular Hemoglobin 27.8 pg (25-34) Mean Corpuscular Hemoglobin Concent 33.3 g/dl (32-36) Platelet Count 349 K/uL (130-400) Mean Platelet Volume 9.5 fL (7.4-10.4) Neutrophils (%) (Auto) 76.5 % Lymphocytes (%) (Auto) 11.7 % Monocytes (%) (Auto) 7.9 % Eosinophils (%) (Auto) 2.3 % Basophils (%) (Auto) 0.3 % Neutrophils # (Auto) 10.18 K/uL (1.4-6.5) Lymphocytes # (Auto) 1.55 K/uL (1.2-3.4) Monocytes # (Auto) 1.05 K/uL (0.11-0.59) Eosinophils # (Auto) 0.31 K/uL (0-0.5) Basophils # (Auto) 0.04 K/uL (0-0.2) RDW Standard Deviation 45.7 fL (36.4-46.3) RDW Coefficient of Variation 15.2 % (11.5-14.5) Immature Granulocyte % (Auto) 1.3 % Immature Granulocyte # (Auto) 0.17 K/uL (0.00-0.02) Nucleated RBC Absolute Count (auto) 0.03 K/uL (0-0) Nucleated Red Blood Cells % 0.2 % Anion Gap 6.0 mmol/L (3-11) Est Creatinine Clear Calc Drug Dose 49.3 ml/min Estimated GFR () 49.5 Estimated GFR (Non- 42.7 BUN/Creatinine Ratio 13.7 (10-20) Calcium Level 8.4 mg/dl (8.5-10.1) Total Bilirubin 0.4 mg/dl (0.2-1) Direct Bilirubin < 0.1 mg/dl (0-0.2) Aspartate Amino Transf (AST/SGOT) 26 U/L (15-37) Alanine Aminotransferase (ALT/SGPT) 36 U/L (12-78) Alkaline Phosphatase 100 U/L (45-117) Total Creatine Kinase 183 U/L (39-308) Total Protein 6.9 gm/dl (6.4-8.2) Albumin 3.4 gm/dl (3.4-5.0) Lipase 226 U/L (73-393) Labs reviewed by ED physician. Medications Administered Medications (Trade) Dose Ordered Sig/Osiris Route Start Time Stop Time Status Last Admin Dose Admin Hydromorphone HCl (Dilaudid Inj) 1 mg NOW STAT IV 04/20/17 01:21 04/20/17 01:23 DC 04/20/17 01:41 1 MG Ondansetron HCl (Zofran Inj) 4 mg NOW STAT IV 04/20/17 01:21 04/20/17 01:23 DC 04/20/17 01:41 4 MG Hydromorphone HCl (Dilaudid Inj) 1 mg NOW STAT IV 04/20/17 02:08 04/20/17 02:09 DC 04/20/17 02:14 1 MG Sodium Chloride 1,000 ml @ 999 mls/hr Q1H1M STAT IV 04/20/17 02:37 04/20/17 03:37 DC 04/20/17 03:14 999 MLS/HR Hydromorphone HCl (Dilaudid Inj) 1 mg NOW STAT IV 04/20/17 03:07 04/20/17 03:08 DC 04/20/17 03:15 1 MG Ketorolac Tromethamine (Toradol Inj) 30 mg NOW STAT IV 04/20/17 03:07 04/20/17 03:08 DC 04/20/17 03:15 30 MG Ceftriaxone Sodium (Rocephin Inj) 1 gm NOW STAT IV 04/20/17 03:18 04/20/17 03:19 DC 04/20/17 03:29 1 GM Vancomycin HCl (Vancomycin 1gm/ 270ml Nss) 1 gm NOW STAT IV 04/20/17 03:18 04/20/17 03:20 DC 04/20/17 03:29 1 GM Hydromorphone HCl (Dilaudid Inj) 1 mg NOW STAT IV 04/20/17 03:33 04/20/17 03:34 DC 04/20/17 03:39 1 MG Lorazepam (Ativan Inj) 1 mg NOW STAT IV 04/20/17 05:05 04/20/17 05:06 DC 04/20/17 05:22 1 MG ED Course 0115: Past medical records reviewed. The patient was evaluated in room B5. A complete history and physical examination was performed. 0121: Zofran Inj 4mg IV, Dilaudid Inj 1mg IV 0208: Dilaudid Inj 1mg IV 0237: Sodium Chloride 1000 ml @ 999 mls/hr IV 0307: Toradol Inj 30mg IV, Dilaudid Inj 1mg IV 0318: Vancomycin HCl 1gm IV, Rocephin Inj 1gm IV Medical Decision Differential diagnosis: Etiologies such as cellulitis, abscess, MRSA infection, DVT, necrotizing fasciitis, dermatitis, drug eruption, as well as others were entertained. This is a 71-year-old male who presents emergency department complaining of severe calf pain. The patient was recently evaluated here in the emergency department for this issue and was started on Bactrim and Keflex however the pain has persisted. The patient was sent for CAT scan of the lower extremity as well as an ultrasound. This was concerning for what appears to be a hemorrhagic popliteal cyst. The patient is on Plavix. Over concerns of compartment syndrome based striking her was used to determine the patient's pressures. The pressure of the superficial posterior tibial compartment was found to be 130. After inserting a needle into this compartment a large amount of blood began to drain in the patient's symptoms began to markedly improve. The patient was given a large amount of Dilaudid to control his pain in the emergency department, 1 mg times for as well as Ativan. Over concerns that this popliteal cyst needs to be drained I did discuss the case with the orthopedist reproduction artist. I also discussed the case with the hospitalist. Impression Primary Impression: Leg pain, right Additional Impression: Compartment syndrome of right lower extremity Critical Care I have personally spent greater than 30 minutes of critical care time in the direct management of this patient. This includes bedside care, interpretation of diagnostic studies, and testing, discussion with consultants, patient, and family members, and other required patient management activities. This 30 minutes is in excess of all separately billable procedures. Scribe Attestation The scribe's documentation has been prepared under my direction and personally reviewed by me in its entirety. I confirm that the note above accurately reflects all work, treatment, procedures, and medical decision making performed by me. Departure Information Dispostion Still a Patient Referrals Bethany Goldman DO (PCP) Patient Instructions My [facility] Problem Qualifiers Additional Impression: Compartment syndrome of right lower extremity Encounter type: initial encounter Qualified Codes: T79.A21A - Traumatic compartment syndrome of right lower extremity, initial encounter
[2017-04-20 01:57] LABS: BASO % 0.3 %; BASO ABS # 0.04 K/uL (0-0.2); EOS % 2.3 %; EOS ABS # 0.31 K/uL (0-0.5); IG# 0.17 K/uL (0.00-0.02); LYMPH % 11.7 %; LYMPH ABS # 1.55 K/uL (1.2-3.4); MEAN CELL VOLUME 83.3 fL (80-100); MEAN CORPUSCULAR HEMOGLOBIN 27.8 pg (25-34); MEAN CORPUSCULAR HGB CONC 33.3 g/dl (32-36); MEAN PLATELET VOLUME 9.5 fL (7.4-10.4); MONO % 7.9 %; MONO ABS # 1.05 K/uL (0.11-0.59); NEUT % 76.5 %; NEUT ABS # 10.18 K/uL (1.4-6.5); NUCLEATED RED BLOOD CELL ABS 0.03 K/uL (0-0); PLATELET COUNT 349 K/uL (130-400); RED CELL DISTRIBUTION WIDTH CV 15.2 % (11.5-14.5); RED CELL DISTRIBUTION WIDTH SD 45.7 fL (36.4-46.3)
[2017-04-20 02:16] LABS: ALBUMIN 3.4 gm/dl (3.4-5.0); ALT/SGPT 36 U/L (12-78); AST/SGOT 26 U/L (15-37); BLOOD UREA NITROGEN 22 mg/dl (7-18); CALCIUM 8.4 mg/dl (8.5-10.1); CARBON DIOXIDE 29 mmol/L (21-32); CREATININE 1.62 mg/dl (0.60-1.40); GLUCOSE 143 mg/dl (70-99); LIPASE 226 U/L (73-393); POTASSIUM 3.9 mmol/L (3.5-5.1); SODIUM 138 mmol/L (136-145)
[2017-04-20 02:19] LABS: ALKALINE PHOSPHATASE 100 U/L (45-117); TOTAL PROTEIN 6.9 gm/dl (6.4-8.2)
[2017-04-20] MEDS ORDERED: SODIUM CHLORIDE 0.9% 1000ML 1,000 ML IV STA (02:37)
[2017-04-20] MEDS ORDERED: KETOROLAC TROMETHAMINE 30 MG/ML VIAL IV STA (03:07)
[2017-04-20] MEDS ORDERED: CEFTRIAXONE SOD INJ 1 GM ADDVIAL IV STA (03:18)
[2017-04-20] MEDS ORDERED: VANCOMYCIN 1GM/270ML NSS IV STA (03:18)
[2017-04-20] MEDS ORDERED: LORAZEPAM 2 MG/ML 1 ML VIAL IV STA ×2 (05:05→22:41)
[2017-04-20] MEDS ORDERED: LORAZEPAM 2 MG/ML 1 ML VIAL IV PRN (05:30)
[2017-04-20] MEDS ORDERED: ICU PROTOCOL FOR HYPERGLYCEMIA PRN ×2 (05:30→06:15)
[2017-04-20] MEDS ORDERED: ONDANSETRON INJ 2 MG/ML 2 ML VIAL IV PRN ×2 (05:30→09:15)
[2017-04-20] MEDS ORDERED: NITROGLYCERIN 0.4 MG SL PER TAB CHARGE SL PRN (05:30)
[2017-04-20] MEDS ORDERED: ACETAMINOPHEN IV 100 ML IV PRN (05:30)
[2017-04-20] MEDS ORDERED: PIPERACILL/TAZOBAC CONSULT ACTIVE PRN (06:15)
[2017-04-20] MEDS ORDERED: LEVALBUTEROL 1.25MG/0.5ML NEB INH PRN (06:15)
[2017-04-20] MEDS ORDERED: IPRATROPIUM BROMIDE NEB SOLN 0.02% 2.5 ML VIAL INH PRN (06:15)
[2017-04-20] MEDS ORDERED: VANCOMYCIN CONSULT ACTIVE PRN (06:15)
[2017-04-20] MEDS: SODIUM CHLORIDE 0.9% 1000ML 1,000 ML IV SCH ×3 (06:22→22:42)
[2017-04-20] MEDS ORDERED: VANCOMYCIN INJ 1,500 MG in SODIUM CHLORIDE 0.9% 500ML 500 ML IV STA (06:27)
[2017-04-20] MEDS ORDERED: PIPERACILL/TAZOBAC IV 4.5 GM in DEXTROSE 5% 100ML IV ONE (06:30)
--- NOTE | 2017-04-20 06:50 | Critical Care Consultation ---
Critical Care Consultation Date of Consultation: Apr 20, 2017. Attending Physician: Eben Ramirez M.D. Reason for Consultation: 71-year-old male residing with RIGHT lower extremity cellulitis with associated underlying RIGHT-sided intramuscular hematoma with elevated compartment pressures likely requiring evacuation. History of Present Illness Patient is a 71-year-old male with complicated past medical history who reports having fallen and injuring his RIGHT lower extremity while intoxicated and chasing his girlfriend. He had reported improvement of his symptoms over the last 4 months, however, after a recent admission for COPD exacerbation at an outside facility, he developed increasing pain and swelling to the posterior aspect of the calf after being on Lovenox while hospitalized. The patient initially presented to the ER 6 days ago with complaints of pain and swelling to the RIGHT lower extremity. He was found to have a complex RIGHT posterior calf intramuscular hematoma. In addition, there were concerns for cellulitis overlying this area. The patient was placed on Keflex and Bactrim and discharged home. Patient has complained of increasing pain and swelling to the RIGHT lower extremity prompting visit to the emergency Department this evening. I was asked to help perform compartment pressures by the emergency department physician. Patient was found to have elevation of the posterior medial compartment of the RIGHT lower extremity using the Ronak pressure gauge. Otherwise, the emergency department, the patient was found to have a leukocytosis. CPK was not elevated. Patient has strong pulses bilaterally. His range of motion is somewhat limited, but still intact. Orthopedic surgery was consult by emergency room physician. Patient to be admitted for surgical evaluation for possible hematoma evacuation. Upon arrival to the ICU, the patient recently received a dose of Ativan. He is sleepy and arouses easily to stimuli. He currently denies any headaches, chest pain, palpitations, shortness of breath, nausea, vomiting, abdominal pain, or other extremity pain. Patient lives at home with significant other. He drinks alcohol. He denies any other illicit substance use. Past Medical/Surgical History Medical Problems: (1) Anemia (2) ANXIETY STATE NOS (3) CANNABIS ABUSE-CONTIN (4) Carotid endarterectomy (5) carpal tunnel surgery bilaterally (6) CARPAL TUNNEL SYNDROME (7) CHOLELITHIASIS NOS (8) Chronic low back pain (9) CHRONIC OBSTRUCTIVE ASTHMA, NOS (10) Compartment syndrome of right lower extremity (11) CONGESTIVE HEART FAILURE NOS (12) COPD (chronic obstructive pulmonary disease) (13) CORONARY ATHEROSCLEROSIS OF [place] & [place] CORONARY VESSEL (14) DEPRESSIVE DISORDER NEC (15) DIVERTICULOSIS COLON (W/O MENT OF HEMORRHAGE) (16) History of repair of inguinal hernia (17) HYPERLIPIDEMIA NEC/NOS (18) Lumbar stenosis with neurogenic claudication (19) MIGRAINE UNSPECIFIED W/O INTRACT MGRN W/O STATUS MIGRAINOSUS (20) OBESITY, NOS (21) OSTEOARTHROS NOS-SHLDER (22) PERSONAL HISTORY OF URINARY CALCULI (23) PERSONAL HISTORY, PNEUMONIA (RECURRENT) (24) PNEUMONIA, ORGANISM NOS (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 (26) SPINAL STENOSIS-LUMBAR (27) umbilical herniorrhaphy Surgical Problems: (1) Hx of decompressive lumbar laminectomy Family History Diabetes mellitus Heart disease Noncontributory Social History Smoking Status: Former Smoker Smokeless Tobacco Use: No Alcohol Use: occasionally Drug Use: marijuana Marital Status: in relationship Housing Status: other Occupation Status: retired Allergies Coded Allergies: Morphine (Verified Allergy, Intermediate, RASH, 04/14/17) Quinolones (Verified Allergy, Intermediate, unknown, 04/14/17) PATIENT WOULD LIKE TO BE TESTED FOR THIS AT SOME POINT BECAUSE HE DOES NOT BELIEVE HE IS ALLERGIC TO IT. Levofloxacin (Verified Allergy, Unknown, "WAS TOLD NOT TO TAKE"., 04/14/17) Home Medications Scheduled Aspirin (Aspirin Ec), 81 MG PO DAILY Azithromycin (Zithromax), 500 MG PO DAILY Cephalexin Monohydrate (Keflex), 500 MG PO QID Cholecalciferol (Vitamin D3), 400 UNITS PO DAILY Clopidogrel Bisulfate (Plavix), 75 MG PO DAILY Docusate Sodium (Docusate Sodium), 100 MG PO BID Ferrous Sulfate (Ferrous Sulfate), 325 MG PO HS Fluoxetine (Prozac), 40 MG PO DAILY Fluoxetine HCl (Fluoxetine HCl), 20 MG PO DAILY Furosemide (Lasix), 40 MG PO BID Ipratropium-Albuterol (Combivent Respimat), 1 PUFFS INH QID Ipratropium-Albuterol (Duoneb), 1 TREATMENT INH TID Isosorbide Mononitrate Ext Rel (Imdur Ext Rel), 30 MG PO QAM Melatonin (Melatonin), 10 MG PO HS Metoprolol Succinate (Toprol Xl), 25 MG PO BID Montelukast Sodium (Singulair), 10 MG PO DAILY Pantoprazole (Protonix), 40 MG PO QAM Potassium Chloride (Potassium Chloride ER), 20 MEQ PO BID Pravastatin Sod (Pravastatin Sodium), 40 MG PO HS Prednisone (Prednisone), 10 MG PO DIRECTED Ranitidine Hcl (Ranitidine Hcl), 300 MG PO BID Ropinirole HCl (Ropinirole HCl), 0.5 MG PO HS Sulfa/Trimethoprim (Bactrim Ds 800MG/160MG), 1 TAB PO BID Venlafaxine Hcl (Venlafaxine Extended Rel), 75 MG PO QAM Scheduled PRN Cyclobenzaprine Hcl (Flexeril), 5 MG PO TID PRN for Muscle Spasms Hydroxyzine Pamoate (Vistaril), 25 MG PO TID PRN for Anxiety Lorazepam (Ativan), 1 MG PO Q6H PRN for ANXIETY/SPASMS Naproxen (Aleve), 220 MG PO DIRECTED PRN for Pain Polyethylene Glycol 3350 (Bulk (Polyethylene Glycol 3350), 17 GM PO DAILY PRN for Constipation Current Inpatient Medications Current Inpatient Medications Medications (Trade) Dose Ordered Sig/Osiris Route Start Time Stop Time Status Last Admin Dose Admin Sodium Chloride 1,000 ml @ 100 mls/hr Q10H IV 04/20/17 06:00 05/20/17 05:59 04/20/17 06:22 100 MLS/HR Acetaminophen (Tylenol Tab) 650 mg Q4H PRN PO 04/20/17 05:30 05/20/17 05:29 Lorazepam (Ativan Inj) 1 mg Q4H PRN IV 04/20/17 05:30 05/20/17 05:29 Nitroglycerin (Nitrostat Tab) 0.4 mg UD PRN SL 04/20/17 05:30 05/20/17 05:29 Pantoprazole Sodium 40 mg/ Syringe 10 ml @ 5 mls/min DAILY IV 04/20/17 09:00 05/20/17 08:59 Hydromorphone HCl (Dilaudid Inj) 1 mg Q4H PRN IV 04/20/17 05:30 05/04/17 05:29 Miscellaneous Information (Icu Protocol For Hyperglycemia) 1 ea PRN PRN N/A 04/20/17 05:30 04/22/17 05:29 Fluoxetine HCl (Prozac Cap) 60 mg DAILY PO 04/20/17 09:00 05/20/17 08:59 Nitroglycerin (Nitroglycerin 2% Oint) 1 inch Q6H EXT 04/20/17 06:00 05/20/17 05:59 Metoprolol Tartrate (Lopressor Iv) 5 mg Q4 IV. 04/20/17 08:00 05/20/17 07:59 Ondansetron HCl (Zofran Inj) 4 mg Q6H PRN IV 04/20/17 05:30 05/20/17 05:29 Acetaminophen 100 ml @ 400 mls/hr Q8H PRN IV 04/20/17 05:30 05/20/17 05:29 Ipratropium Dawson (Atrovent 0.02% 0.5MG/2.5ML Neb) 0.5 mg Q6R INH 04/20/17 09:00 05/20/17 08:59 Levalbuterol (Xopenex 1.25MG/ 0.5ML Neb) 1.25 mg Q6R INH 04/20/17 09:00 05/20/17 08:59 Ipratropium Dawson (Atrovent 0.02% 0.5MG/2.5ML Neb) 0.5 mg Q2H PRN INH 04/20/17 06:15 05/20/17 06:14 Levalbuterol (Xopenex 1.25MG/ 0.5ML Neb) 1.25 mg Q2H PRN INH 04/20/17 06:15 05/20/17 06:14 Miscellaneous Information (Icu Protocol For Hyperglycemia) 1 ea PRN PRN N/A 04/20/17 06:15 04/22/17 06:14 UNV Vancomycin HCl 1000 mg/Sodium Chloride 270 ml @ 125 mls/hr Q12 IV 04/20/17 09:00 04/30/17 08:59 UNV Miscellaneous Information (Consult) 1 ea UD PRN N/A 04/20/17 06:15 05/20/17 06:14 UNV Piperacillin Sod/ Tazobactam Sod 3.375 gm/Dextrose 115 ml @ 28.75 mls/ hr Q8 IV 04/20/17 14:00 04/30/17 13:59 UNV Miscellaneous Information (Consult) 1 ea UD PRN N/A 04/20/17 06:15 05/20/17 06:14 UNV Review of Systems A complete 10-point Review of Systems was discussed with the patient, with pertinent positives and negatives listed in the History of Present Illness. All remaining Review of Systems questions can be considered negative unless otherwise specified. Physical Exam Date Time Temp Pulse Resp B/P (MAP) Pulse Ox O2 Delivery O2 Flow Rate FiO2 04/20/17 05:46 36.5 80 21 128/69 96 Nasal Cannula 3.0 04/20/17 05:30 97 Nasal Cannula 3.0 04/20/17 05:30 36.7 83 22 146/84 96 Nasal Cannula 3.0 04/20/17 04:49 85 22 156/92 92 Room Air 04/20/17 04:06 36.7 86 20 140/78 94 Room Air 04/20/17 03:12 89 04/20/17 03:07 36.7 89 20 165/93 94 Room Air 04/20/17 01:04 36.7 89 20 134/77 94 Room Air VITAL SIGNS - Vital signs and nursing notes were reviewed. GENERAL - 71-year-old male appearing older than his stated age who is in no acute distress. Communicates well with provider and answers questions appropriately. SKIN - erythema and edema appreciated to the RIGHT lower extremity in circumferential fashion from the knee to the ankle. Moderate tenderness to palpation with tight skin appreciated in the described areas. HEAD - NC/AT. LUNGS - Chest wall symmetric without accessory muscle use, intercostals retractions, or central cyanosis. Normal vesicular breath sounds CTA B/L. No wheezes, rales, or rhonchi appreciated. CARDIAC - RRR with S1/S2. No murmur, rubs, or gallops appreciated. ABDOMEN - Abdominal contour obese without pulsations or visible masses. BS normoactive all four quadrants. No tenderness, palpable masses, hepatosplenomegaly, or ascites noted. MUSCULOSKELETAL - skin edema and erythema as described above. Moderate ecchymosis noted over the posterior aspect of the extremities. Tightness of the RIGHT lateral and medial compartments appreciated on exam. Still compressible. Posterior medial compartment found to be very taut. Patient able to perform dorsiflexion and plantarflexion of the affected RIGHT lower extremity. +3/5 dorsalis pedis pulses appreciated bilaterally. NEUROLOGIC - Cranial nerves II through XII grossly intact. Sensory intact to light touch throughout. PSYCH - A&Ox3 and cooperates fully with examiner. Pt is very pleasant and interacts well with examiner. Laboratory Results Last 24 Hours Test 04/20/17 01:40 04/20/17 06:15 White Blood Count 13.30 K/uL Red Blood Count 4.68 M/uL Hemoglobin 13.0 g/dL Hematocrit 39.0 % Mean Corpuscular Volume 83.3 fL Mean Corpuscular Hemoglobin 27.8 pg Mean Corpuscular Hemoglobin Concent 33.3 g/dl Platelet Count 349 K/uL Mean Platelet Volume 9.5 fL Neutrophils (%) (Auto) 76.5 % Lymphocytes (%) (Auto) 11.7 % Monocytes (%) (Auto) 7.9 % Eosinophils (%) (Auto) 2.3 % Basophils (%) (Auto) 0.3 % Neutrophils # (Auto) 10.18 K/uL Lymphocytes # (Auto) 1.55 K/uL Monocytes # (Auto) 1.05 K/uL Eosinophils # (Auto) 0.31 K/uL Basophils # (Auto) 0.04 K/uL RDW Standard Deviation 45.7 fL RDW Coefficient of Variation 15.2 % Immature Granulocyte % (Auto) 1.3 % Immature Granulocyte # (Auto) 0.17 K/uL Nucleated RBC Absolute Count (auto) 0.03 K/uL Nucleated Red Blood Cells % 0.2 % Sodium Level 138 mmol/L Potassium Level 3.9 mmol/L Chloride Level 103 mmol/L Carbon Dioxide Level 29 mmol/L Anion Gap 6.0 mmol/L Blood Urea Nitrogen 22 mg/dl Creatinine 1.62 mg/dl Est Creatinine Clear Calc Drug Dose 49.3 ml/min Estimated GFR () 49.5 Estimated GFR (Non- 42.7 BUN/Creatinine Ratio 13.7 Random Glucose 143 mg/dl Calcium Level 8.4 mg/dl Total Bilirubin 0.4 mg/dl Direct Bilirubin < 0.1 mg/dl Aspartate Amino Transf (AST/SGOT) 26 U/L Alanine Aminotransferase (ALT/SGPT) 36 U/L Alkaline Phosphatase 100 U/L Total Creatine Kinase 183 U/L Total Protein 6.9 gm/dl Albumin 3.4 gm/dl Lipase 226 U/L Diagnostic Results Laboratory studies, documentation, and Radiological imaging and reports were reviewed by myself. Assessment & Plan (1) Intramuscular hematoma (2) Lower extremity cellulitis (3) Chronic low back pain (4) Leg pain (5) COPD (chronic obstructive pulmonary disease) (6) Prior left CVA Reason Critically Ill: 71-year-old male residing with RIGHT lower extremity cellulitis with associated underlying RIGHT-sided intramuscular hematoma with elevated compartment pressures likely requiring evacuation. Neuro - * [facility] ICU: NEGATIVE * RIGHT Lower Extremity Pain - Intramuscular Hematoma: * Elevated compartment pressure of the RIGHT posterior-medial compartment. * CPK wnl * Strong distal pulses. * FROM in dorsiflexion/plantarflexion appreciated. * Suspect intramuscular hematoma causing pain. Possibly 2/2 recent Lovenox during hospitalization. * Pain - Dilaudid. * h/o Chronic Low Back Pain: * Order for Dilaudid 1 mg IV q4h - would be judicious at this point. * Depression/Anxiety: * Continue home Rx Cardiac - * Extensive PMHx (CAD, HTN, HLD, etc): * Home Rx. * Monitor on tele. * Will obtain EKG in anticipation for possible OR today (04/20). * ECHO (06/01/2015): * Normal biventricular systolic function.Mild concentric left ventricular hypertrophy.Left ventricular diastolic dysfunction.Borderline left atrial dilatation.No significant valvular abnormality.Borderline left atrial dilatation. Respiratory - * COPD - Home O2 dependent: * Continue NC O2 supplementation. * Home neb/inhalers. * Will add CXR this AM in anticipation for possible OR today. * Would encourage aggressive pulmonary toilet post-operatively. * Low threshold for steroid administration giving likely long-term use. GI - * Prophylaxis - Protonix. * NPO at this point. * AHA diet when able. RENAL/LYTES - * ZEHRA per prior records: * Gentle IVF hydration in the setting of CHF Hx. * Continue to monitor. * Monitor electrolytes. Replace appropriately. - * No Major at this time. Would suggest placement s/p surgical intervention. ENDO - * No h/o DM. * Monitor BSGs - ISS/gtt per protocol * No h/o Thyroid Dz HEME - * Stable H&H at this point. * Will add Type&Cross in the setting of intramuscular hematoma w/ possible need for evacuation. ID - * RIGHT Lower Extremity Cellulitis: * Initially on Bactrim/Keflex at home. * Received Rocephin/Vanc in the ED. * Will place on Zosyn/Vanc for added Pseudomonas coverage. * Blood cultures pending. LINES/IV ACCESS - * PIVs intact. DVT PROPHYLAXIS - * Will refrain from chemoprophylaxis 2/2 patient's described clinical presentation. * Consider avoiding Lovenox 2/2 possible associated bleeding. * Hold SCDs on RLE 2/2 hematoma/cellulitis. This patient was seen and evaluated as a level V inpatient billing. Thank you for this consultation allow us to be part of this patient's care. Please refer to my attending physician's documentation for any further recommendations. The patient was seen, examined independently, chart reviewed, agree with assessment and plan my colleague Wicho. In summary this is 71-year-old gentleman who sustained an injury to his right lower extremity while he was fishing, the patient went to a local hospital in [place] and initially he was evaluated for DVT which was negative, the patient was given Lovenox subcutaneous at that hospital. The patient returned back again to our institution with increasing the size of his calf area on the right. The patient maintains his pulse awls, but he did not have any altered sensation. And the patient was evaluated and seen by orthopedic and he is going to the OR for evacuation of the hematoma in the right calf. His physical exam revealed 71-year-old gentleman without any distress, vital signs are stable, heart examination S1-S2 regular rate and rhythm, lungs are clear, abdomen is benign, he does have almost 10 x 10 cm increase in size of his below popliteal area on the right leg. Pulses are palpable however he felt altered sensorium to touch. He does not appear toxic. Impression: #1 right leg hematoma, planned for OR IND. #2 history of COPD on home O2 but he is not using it religiously. #3 history of coronary artery disease in the past with a stent placement. Plan: #1 the patient will undergo evacuation of right leg hematoma by orthopedic. Case discussed with anesthesia. Appreciate the input of [place] and anesthesia. The patient afterwords can be recovered and disposition to the regular floor once the procedure is done uneventful. #2 continue his current medications. #3 pain control. #4 oral intake once is okay by or so after the procedure. All the records were reviewed, case discussed with multiple disciplines, CCT was 35 minutes. Problem Qualifiers (1) Lower extremity cellulitis: Laterality: right Qualified Codes: L03.115 - Cellulitis of right lower limb (2) Leg pain: Laterality: right Qualified Codes: M79.604 - Pain in right leg
[2017-04-20 07:04] LABS: PTT PATIENT 24.4 SECONDS (21.0-31.0)
--- NOTE | 2017-04-20 07:12 | History and Physical ---
History & Physical Date & Time of Service: Apr 20, 2017 at 07:00 Chief Complaint: Compartment Syndrome Of Right Lower Extremity Primary Care Physician: Bethany Goldman DO History of Present Illness Source: patient, hospital records The patient presents to the emergency department with complaint of worsening right leg pain and swelling that began a week prior to arrival. He reports that it occurred after a drinking episode, and does not report the exact sequence of events. In the emergency department, he was thought to have compartment syndrome, and had compartment pressure measured as elevated, orthopedics has been consulted by the ED, and plans to recommend to the hospital this morning and take the patient to surgery. The patient's symptoms have significantly improved as the pressure was measured, as some tension was released Past Medical/Surgical History Medical Problems: (1) Anemia Status: Chronic (2) ANXIETY STATE NOS Status: Chronic (3) CANNABIS ABUSE-CONTIN Status: Chronic (4) Carotid endarterectomy Status: Resolved (5) carpal tunnel surgery bilaterally Status: Resolved (6) CARPAL TUNNEL SYNDROME Status: Resolved (7) CHOLELITHIASIS NOS Status: Resolved (8) Chronic low back pain Status: Chronic (9) CHRONIC OBSTRUCTIVE ASTHMA, NOS Status: Chronic (10) CONGESTIVE HEART FAILURE NOS Status: Chronic (11) COPD (chronic obstructive pulmonary disease) Status: Chronic (12) CORONARY ATHEROSCLEROSIS OF [place] CORONARY VESSEL Status: Chronic (13) DEPRESSIVE DISORDER NEC Status: Chronic (14) DIVERTICULOSIS COLON (W/O MENT OF HEMORRHAGE) Status: Chronic (15) History of repair of inguinal hernia Status: Resolved (16) HYPERLIPIDEMIA NEC/NOS Status: Chronic (17) MIGRAINE UNSPECIFIED W/O INTRACT MGRN W/O STATUS MIGRAINOSUS Status: Chronic (18) OBESITY, NOS Status: Chronic (19) OSTEOARTHROS NOS-SHLDER Status: Chronic (20) PERSONAL HISTORY OF URINARY CALCULI Status: Resolved (21) PERSONAL HISTORY, PNEUMONIA (RECURRENT) Status: Resolved (22) PNEUMONIA, ORGANISM NOS Status: Resolved (23) Prior left CVA Status: Resolved (24) SPINAL STENOSIS-LUMBAR Status: Chronic (25) umbilical herniorrhaphy Status: Resolved Surgical Problems: (1) Hx of decompressive lumbar laminectomy Status: Chronic Family History Diabetes mellitus Heart disease Social History Smoking Status: Former Smoker Smokeless Tobacco Use: No Alcohol Use: occasionally Drug Use: marijuana Marital Status: in relationship Housing status: lives with family Occupational Status: retired Immunizations History of Influenza Vaccine: Yes Influenza Vaccine Date: Dec 12, 2012 History of Tetanus Vaccine?: Yes History of Pneumococcal: Yes Pneumococcal Date: Feb 04, 2004 History of Hepatitis B Vaccine: No Multi-Drug Resistant Organisms History of MDRO: No Allergies Coded Allergies: Morphine (Verified Allergy, Intermediate, RASH, 04/14/17) Quinolones (Verified Allergy, Intermediate, unknown, 04/14/17) PATIENT WOULD LIKE TO BE TESTED FOR THIS AT SOME POINT BECAUSE HE DOES NOT BELIEVE HE IS ALLERGIC TO IT. Levofloxacin (Verified Allergy, Unknown, "WAS TOLD NOT TO TAKE"., 04/14/17) Home Medications Scheduled Aspirin (Aspirin Ec), 81 MG PO DAILY Azithromycin (Zithromax), 500 MG PO DAILY Cephalexin Monohydrate (Keflex), 500 MG PO QID Cholecalciferol (Vitamin D3), 400 UNITS PO DAILY Clopidogrel Bisulfate (Plavix), 75 MG PO DAILY Docusate Sodium (Docusate Sodium), 100 MG PO BID Ferrous Sulfate (Ferrous Sulfate), 325 MG PO HS Fluoxetine (Prozac), 40 MG PO DAILY Fluoxetine HCl (Fluoxetine HCl), 20 MG PO DAILY Furosemide (Lasix), 40 MG PO BID Ipratropium-Albuterol (Combivent Respimat), 1 PUFFS INH QID Ipratropium-Albuterol (Duoneb), 1 TREATMENT INH TID Isosorbide Mononitrate Ext Rel (Imdur Ext Rel), 30 MG PO QAM Melatonin (Melatonin), 10 MG PO HS Metoprolol Succinate (Toprol Xl), 25 MG PO BID Montelukast Sodium (Singulair), 10 MG PO DAILY Pantoprazole (Protonix), 40 MG PO QAM Potassium Chloride (Potassium Chloride ER), 20 MEQ PO BID Pravastatin Sod (Pravastatin Sodium), 40 MG PO HS Prednisone (Prednisone), 10 MG PO DIRECTED Ranitidine Hcl (Ranitidine Hcl), 300 MG PO BID Ropinirole HCl (Ropinirole HCl), 0.5 MG PO HS Sulfa/Trimethoprim (Bactrim Ds 800MG/160MG), 1 TAB PO BID Venlafaxine Hcl (Venlafaxine Extended Rel), 75 MG PO QAM Scheduled PRN Cyclobenzaprine Hcl (Flexeril), 5 MG PO TID PRN for Muscle Spasms Hydroxyzine Pamoate (Vistaril), 25 MG PO TID PRN for Anxiety Lorazepam (Ativan), 1 MG PO Q6H PRN for ANXIETY/SPASMS Naproxen (Aleve), 220 MG PO DIRECTED PRN for Pain Polyethylene Glycol 3350 (Bulk (Polyethylene Glycol 3350), 17 GM PO DAILY PRN for Constipation Review of Systems The patient denies chest pain, palpitations, shortness of breath, dyspnea on exertion, cough, sore throat, fevers, chills, sweats, nausea, vomiting, diarrhea , constipation, abdominal pain, pelvic pain, blood in urine or stool, dysuria, urinary frequency or urgency, lightheadedness , dizziness, loss of consciousness, generalized weakness, numbness or tingling in arms or left leg, generalized arthralgias or myalgias, change in his chronic back or neck pain, or night sweats. The review of systems is otherwise negative other than for that already noted above, and at least 10 systems have been reviewed. Physical Exam Vital Signs Date Time Temp Pulse Resp B/P (MAP) Pulse Ox O2 Delivery O2 Flow Rate FiO2 04/20/17 05:46 36.5 80 21 128/69 96 Nasal Cannula 3.0 04/20/17 05:30 97 Nasal Cannula 3.0 04/20/17 05:30 36.7 83 22 146/84 96 Nasal Cannula 3.0 04/20/17 04:49 85 22 156/92 92 Room Air 04/20/17 04:06 36.7 86 20 140/78 94 Room Air 04/20/17 03:12 89 04/20/17 03:07 36.7 89 20 165/93 94 Room Air 04/20/17 01:04 36.7 89 20 134/77 94 Room Air The patient is awake, alert and oriented 3, well developed and well nourished, normocephalic and atraumatic, lying in bed and in no further acute distress post pressure release of right lower extremity. HEENT--PERRL, EOMI, mucous membranes and oropharynx dry. Neck--supple. No JVD. No bruits. Thyroid normal, trachea midline, no adenopathy. Heart--normal S1 and S2. No murmurs, rubs or gallops. Lungs--clear bilaterally, no respiratory distress, no accessory muscle use. Abdomen--normal bowel sounds and soft. Nontender. Nondistended, no hernias or masses. Obese Extremities--left lower extremity no cyanosis or clubbing. No edema. Right lower extremity with area of induration and edema. Dermatologic--as above Neurologic--cranial nerves II through XII grossly intact. Rheumatologic--limited range of motion right lower extremity Psychiatric--normal affect. Diagnostics Laboratory Results Results Past 24 Hours Test 04/20/17 01:40 04/20/17 06:38 04/20/17 06:39 Range/Units White Blood Count 13.30 4.8-10.8 K/uL Red Blood Count 4.68 4.7-6.1 M/uL Hemoglobin 13.0 14.0-18.0 g/dL Hematocrit 39.0 42-52 % Mean Corpuscular Volume 83.3 80-100 fL Mean Corpuscular Hemoglobin 27.8 25-34 pg Mean Corpuscular Hemoglobin Concent 33.3 32-36 g/dl Platelet Count 349 130-400 K/uL Mean Platelet Volume 9.5 7.4-10.4 fL Neutrophils (%) (Auto) 76.5 % Lymphocytes (%) (Auto) 11.7 % Monocytes (%) (Auto) 7.9 % Eosinophils (%) (Auto) 2.3 % Basophils (%) (Auto) 0.3 % Neutrophils # (Auto) 10.18 1.4-6.5 K/uL Lymphocytes # (Auto) 1.55 1.2-3.4 K/uL Monocytes # (Auto) 1.05 0.11-0.59 K/uL Eosinophils # (Auto) 0.31 0-0.5 K/uL Basophils # (Auto) 0.04 0-0.2 K/uL RDW Standard Deviation 45.7 36.4-46.3 fL RDW Coefficient of Variation 15.2 11.5-14.5 % Immature Granulocyte % (Auto) 1.3 % Immature Granulocyte # (Auto) 0.17 0.00-0.02 K/uL Nucleated RBC Absolute Count (auto) 0.03 0-0 K/uL Nucleated Red Blood Cells % 0.2 % Sodium Level 138 136-145 mmol/L Potassium Level 3.9 3.5-5.1 mmol/L Chloride Level 103 98-107 mmol/L Carbon Dioxide Level 29 21-32 mmol/L Anion Gap 6.0 3-11 mmol/L Blood Urea Nitrogen 22 7-18 mg/dl Creatinine 1.62 0.60-1.40 mg/dl Est Creatinine Clear Calc Drug Dose 49.3 ml/min Estimated GFR () 49.5 Estimated GFR (Non- 42.7 BUN/Creatinine Ratio 13.7 10-20 Random Glucose 143 70-99 mg/dl Calcium Level 8.4 8.5-10.1 mg/dl Total Bilirubin 0.4 0.2-1 mg/dl Direct Bilirubin < 0.1 0-0.2 mg/dl Aspartate Amino Transf (AST/SGOT) 26 15-37 U/L Alanine Aminotransferase (ALT/SGPT) 36 12-78 U/L Alkaline Phosphatase 100 45-117 U/L Total Creatine Kinase 183 39-308 U/L Total Protein 6.9 6.4-8.2 gm/dl Albumin 3.4 3.4-5.0 gm/dl Lipase 226 73-393 U/L Bedside Glucose 117 70-99 mg/dl Microbiology Results 04/20/17 Blood Culture, Received Pending 04/20/17 Blood Culture, Received Pending EKG EKG shows normal sinus rhythm at 76 bpm, incomplete right bundle branch block, no change compared to 06/03/2015 Impression Assessment and Plan Right lower extremity compartment syndrome-- Admit to the ICU, to undergo surgery by Dr. Dyer from [facility] later this morning Nothing by mouth except essential medications Vancomycin IV and Zosyn IV empirically. CAD/hypertension/CHF-- Hold aspirin, clopidogrel, iron sulfate, furosemide, Imdur extended release, metoprolol succinate and potassium chloride. Lopressor 5 mg IV every 4 hours hold for heart rate less than 60 or systolic blood pressure less than 120 Nitropaste to the anterior chest wall every 6 hours. GERD-- Change pantoprazole to 40 mg IV every morning. Hold oral pantoprazole and ranitidine COPD//marijuana/tobacco abuse-- Xopenex/Atrovent nebulizer every 6 hours while awake and every 2 hours when necessary Anxiety/depression-- continue fluoxetine 60 mg daily and have lorazepam 1 mg IV every 4 hours when necessary available Level of Care Critical Care Advanced Directives Existing Advance Directive: No Existing Living Will: No Existing Power of Quality Assurance Monitor Body: No Resuscitation Status FULL RESUSCITATION VTE Prophylaxis VTE Risk Assessment Done? Y/N: Yes Risk Level: Moderate Given or contraindicated: Contraindicated Note Total Time: Critical Care 30 - 74 minutes
[2017-04-20 07:27] LABS: PHOSPHORUS 4.3 mg/dl (2.5-4.9)
[2017-04-20] MEDS: IPRATROPIUM BROMIDE NEB SOLN 0.02% 2.5 ML VIAL INH SCH ×3 (07:43→19:56)
[2017-04-20] MEDS: LEVALBUTEROL 1.25MG/0.5ML NEB INH SCH ×3 (07:43→19:56)
--- NOTE | 2017-04-20 07:52 | DIAGNOSTIC IMAGING REPORT ---
CHEST ONE VIEW PORTABLE CLINICAL HISTORY: Preoperative evaluation. COMPARISON STUDY: Chest radiograph October 26, 2015. FINDINGS: Postoperative findings within the lower cervical spine are incidentally noted. No pneumothorax or pleural effusion is noted. Linear bibasilar opacities favor atelectasis. There is mild cardiomegaly without evidence of pulmonary edema. IMPRESSION: 1. Bibasilar opacities which favor atelectasis. 2. No acute cardiopulmonary findings. 3. Mild cardiomegaly without evidence of pulmonary edema. Electronically signed by: Jesse Gonzalez M.D. 04/20/2017 7:51 AM Dictated Date/Time: 04/20/2017 7:50 AM
--- NOTE | 2017-04-20 08:40 | Medical Consult ---
Consultation Date of Consultation: Apr 20, 2017. Attending Physician: Charlie Lou D.O. Reason for Consultation: 71 yo white male presenting to the ER last night after he sustained a fall after having some drinks and hitting the right lower leg. Worsening pain after the fall last night. Had prior history of swelling in the posterior aspect of his right knee several days prior which was evaluated by [facility] ED. Negative for DVT at that time. Difficult to obtain further information from the patient as he is falling asleep during our conversation. Past Medical/Surgical History Medical Problems: (1) Chronic low back pain Status: Chronic (2) Chronic shoulder pain Status: Acute (3) COPD (chronic obstructive pulmonary disease) Status: Chronic (4) COPD exacerbation Status: Acute (5) Hematoma of right lower extremity Status: Acute (6) Intractable back pain Status: Acute (7) Intractable pain Status: Acute (8) Intramuscular hematoma Status: Acute (9) Left hip pain Status: Acute (10) Leg pain Status: Acute (11) Lower extremity cellulitis Status: Acute (12) Lumbar radicular pain Status: Acute (13) Skin tag Status: Acute Family History Diabetes mellitus Heart disease Social History Smoking Status: Former Smoker Smokeless Tobacco Use: No Alcohol Use: occasionally Drug Use: marijuana Marital Status: in relationship Housing Status: other Occupation Status: retired Allergies Coded Allergies: Morphine (Verified Allergy, Intermediate, RASH, 04/14/17) Quinolones (Verified Allergy, Intermediate, unknown, 04/14/17) PATIENT WOULD LIKE TO BE TESTED FOR THIS AT SOME POINT BECAUSE HE DOES NOT BELIEVE HE IS ALLERGIC TO IT. Levofloxacin (Verified Allergy, Unknown, "WAS TOLD NOT TO TAKE"., 04/14/17) Current Inpatient Medications Current Inpatient Medications Medications (Trade) Dose Ordered Sig/Osiris Route Start Time Stop Time Status Last Admin Dose Admin Sodium Chloride 1,000 ml @ 100 mls/hr Q10H IV 04/20/17 06:00 05/20/17 05:59 04/20/17 06:22 100 MLS/HR Acetaminophen (Tylenol Tab) 650 mg Q4H PRN PO 04/20/17 05:30 05/20/17 05:29 Lorazepam (Ativan Inj) 1 mg Q4H PRN IV 04/20/17 05:30 05/20/17 05:29 Nitroglycerin (Nitrostat Tab) 0.4 mg UD PRN SL 04/20/17 05:30 05/20/17 05:29 Pantoprazole Sodium 40 mg/ Syringe 10 ml @ 5 mls/min DAILY IV 04/20/17 09:00 05/20/17 08:59 Hydromorphone HCl (Dilaudid Inj) 1 mg Q4H PRN IV 04/20/17 05:30 05/04/17 05:29 Miscellaneous Information (Icu Protocol For Hyperglycemia) 1 ea PRN PRN N/A 04/20/17 05:30 04/22/17 05:29 Fluoxetine HCl (Prozac Cap) 60 mg DAILY PO 04/20/17 09:00 05/20/17 08:59 Nitroglycerin (Nitroglycerin 2% Oint) 1 inch Q6H EXT 04/20/17 06:00 05/20/17 05:59 Metoprolol Tartrate (Lopressor Iv) 5 mg Q4 IV. 04/20/17 08:00 05/20/17 07:59 Ondansetron HCl (Zofran Inj) 4 mg Q6H PRN IV 04/20/17 05:30 05/20/17 05:29 Acetaminophen 100 ml @ 400 mls/hr Q8H PRN IV 04/20/17 05:30 05/20/17 05:29 Ipratropium Chandler (Atrovent 0.02% 0.5MG/2.5ML Neb) 0.5 mg Q6R INH 04/20/17 09:00 05/20/17 08:59 04/20/17 07:43 0.5 MG Levalbuterol (Xopenex 1.25MG/ 0.5ML Neb) 1.25 mg Q6R INH 04/20/17 09:00 05/20/17 08:59 04/20/17 07:43 1.25 MG Ipratropium Chandler (Atrovent 0.02% 0.5MG/2.5ML Neb) 0.5 mg Q2H PRN INH 04/20/17 06:15 05/20/17 06:14 Levalbuterol (Xopenex 1.25MG/ 0.5ML Neb) 1.25 mg Q2H PRN INH 04/20/17 06:15 05/20/17 06:14 Miscellaneous Information (Consult) 1 ea UD PRN N/A 04/20/17 06:15 05/20/17 06:14 Miscellaneous Information (Consult) 1 ea UD PRN N/A 04/20/17 06:15 05/20/17 06:14 Vancomycin HCl 1500 mg/Sodium Chloride 530 ml @ 200 mls/hr NOW STAT IV 04/20/17 06:27 04/20/17 09:05 04/20/17 06:46 200 MLS/HR Piperacillin Sod/ Tazobactam Sod 4.5 gm/Dextrose 120 ml @ 30 mls/hr Q8H IV 04/20/17 11:00 04/30/17 10:59 Review of Systems Constitutional: No fever, No chills Respiratory: + dyspnea on exertion, No cough Cardiovascular: No chest pain Musculoskeletal: + calf pain Physical Exam Date Time Temp Pulse Resp B/P (MAP) Pulse Ox O2 Delivery O2 Flow Rate FiO2 04/20/17 07:59 36.5 79 18 119/69 (86) 94 Room Air 04/20/17 07:43 71 16 97 Nasal Cannula 1.0 04/20/17 05:46 36.5 80 21 128/69 96 Nasal Cannula 3.0 04/20/17 05:30 97 Nasal Cannula 3.0 04/20/17 05:30 36.7 83 22 146/84 96 Nasal Cannula 3.0 04/20/17 04:49 85 22 156/92 92 Room Air 04/20/17 04:06 36.7 86 20 140/78 94 Room Air 04/20/17 03:12 89 04/20/17 03:07 36.7 89 20 165/93 94 Room Air 04/20/17 01:04 36.7 89 20 134/77 94 Room Air General Appearance: no apparent distress, + obese Respiratory/Chest: lungs clear Cardiovascular: regular rate, rhythm Extremities/Musculoskelatal: + swelling, + pertinent finding (Left lower extremity no swelling right lower extremity pitting edema with calf pain) Laboratory Results Last 24 Hours Test 04/20/17 01:40 04/20/17 06:38 04/20/17 06:39 White Blood Count 13.30 K/uL Red Blood Count 4.68 M/uL Hemoglobin 13.0 g/dL Hematocrit 39.0 % Mean Corpuscular Volume 83.3 fL Mean Corpuscular Hemoglobin 27.8 pg Mean Corpuscular Hemoglobin Concent 33.3 g/dl Platelet Count 349 K/uL Mean Platelet Volume 9.5 fL Neutrophils (%) (Auto) 76.5 % Lymphocytes (%) (Auto) 11.7 % Monocytes (%) (Auto) 7.9 % Eosinophils (%) (Auto) 2.3 % Basophils (%) (Auto) 0.3 % Neutrophils # (Auto) 10.18 K/uL Lymphocytes # (Auto) 1.55 K/uL Monocytes # (Auto) 1.05 K/uL Eosinophils # (Auto) 0.31 K/uL Basophils # (Auto) 0.04 K/uL RDW Standard Deviation 45.7 fL RDW Coefficient of Variation 15.2 % Immature Granulocyte % (Auto) 1.3 % Immature Granulocyte # (Auto) 0.17 K/uL Nucleated RBC Absolute Count (auto) 0.03 K/uL Nucleated Red Blood Cells % 0.2 % Sodium Level 138 mmol/L Potassium Level 3.9 mmol/L Chloride Level 103 mmol/L Carbon Dioxide Level 29 mmol/L Anion Gap 6.0 mmol/L Blood Urea Nitrogen 22 mg/dl Creatinine 1.62 mg/dl Est Creatinine Clear Calc Drug Dose 49.3 ml/min Estimated GFR () 49.5 Estimated GFR (Non- 42.7 BUN/Creatinine Ratio 13.7 Random Glucose 143 mg/dl Calcium Level 8.4 mg/dl Total Bilirubin 0.4 mg/dl Direct Bilirubin < 0.1 mg/dl Aspartate Amino Transf (AST/SGOT) 26 U/L Alanine Aminotransferase (ALT/SGPT) 36 U/L Alkaline Phosphatase 100 U/L Total Creatine Kinase 183 U/L Total Protein 6.9 gm/dl Albumin 3.4 gm/dl Lipase 226 U/L Prothrombin Time 10.3 SECONDS Prothromb Time International Ratio 1.0 Activated Partial Thromboplast Time 24.4 SECONDS Partial Thromboplastin Ratio 0.9 Lactic Acid Level 0.7 mmol/L Phosphorus Level 4.3 mg/dl Magnesium Level 2.3 mg/dl Procalcitonin 0.06 ng/ml Bedside Glucose 117 mg/dl Assessment & Plan Right posterior popliteal fossa and posterior lower extremity, large, complex, dissecting hematoma Right popliteal fossa complex mass Plan will be for OR today to evacuate right lower extremity hematoma and excise complex mass this AM by Dr. Dyer
--- NOTE | 2017-04-20 08:55 | DIAGNOSTIC IMAGING REPORT ---
RIGHT LOWER EXTREMITY VENOUS DOPPLER CLINICAL HISTORY: Right lower extremity swelling. COMPARISON STUDY: Right lower extremity venous Doppler April 14, 2017. TECHNIQUE: Sonography of the deep venous system of the right lower extremity was performed. Compression and augmentation were evaluated. FINDINGS: The right common femoral, superficial femoral and popliteal veins were compressible. Augmentation was normal. The calf vessels were suboptimally assessed on this exam. Note is again made of a complex collection which extends from the right popliteal fossa to the distal right calf. This measures 18.4 x 4.3 x 10.1 cm. Overall, this has increased in size since exam of April 14, 2017 with increased complexity. Possible color flow within this abnormality is noted. This could be artifactual. IMPRESSION: 1. No deep venous thrombus within the right lower extremity. 2. Increase in size and complexity of a large right lower leg collection which extends from the level of the popliteal fossa to the distal medial right calf. This suggests a large hematoma. Possible color flow within this abnormality which may be artifactual. However, sonographic follow-up to ensure resolution and exclude the possibility of an underlying mass is recommended. Electronically signed by: Jesse Gonzalez M.D. 04/20/2017 8:53 AM Dictated Date/Time: 04/20/2017 8:47 AM
--- NOTE | 2017-04-20 08:55 | DIAGNOSTIC IMAGING REPORT ---
R TIBIA/FIBULA 2 VIEWS ROUTINE CLINICAL HISTORY: Right leg pain. COMPARISON: Right knee radiographs July 14, 2015. FINDINGS: No acute fracture of the right tibia or fibula is identified. Degenerative changes of the right ankle are noted. There is apparent soft tissue swelling of the right calf. IMPRESSION: No acute fracture of the right tibia or fibula. Right calf soft tissue swelling. Electronically signed by: Jesse Gonzalez M.D. 04/20/2017 8:54 AM Dictated Date/Time: 04/20/2017 8:53 AM
--- NOTE | 2017-04-20 08:57 | DIAGNOSTIC IMAGING REPORT ---
R FOOT MIN 3 VIEWS ROUTINE CLINICAL HISTORY: Right foot pain. COMPARISON: None FINDINGS: Tarsometatarsal joints are intact. Osteoarthritis of the tibiotalar joint is noted. There is no acute fracture within the right foot. IMPRESSION: 1. No acute fracture or dislocation of the right foot. 2. Tibiotalar joint osteoarthritis. Electronically signed by: Jesse Gonzalze M.D. 04/20/2017 8:56 AM Dictated Date/Time: 04/20/2017 8:54 AM
[2017-04-20] MEDS ORDERED: VANCOMYCIN INJ 1,000 MG in SODIUM CHLORIDE 0.9% 250ML 250 ML IV SCH (09:00)
[2017-04-20] MEDS: FLUOXETINE HCL 20 MG CAP PO SCH (09:00)
[2017-04-20] MEDS ORDERED: LEVALBUTEROL/IPRATROPIUM NEB INH SCH (09:00)
[2017-04-20] MEDS ORDERED: PANTOprazole INJ 40 MG in SYRINGE 0 ML IV SCH (09:00)
[2017-04-20] MEDS ORDERED: FLUOXETINE HCL 20 MG CAP PO SCH (09:00)
[2017-04-20] MEDS ORDERED: GLYCOPYRROLATE INJ 0.2 MG/ML VIAL ONE (09:11)
[2017-04-20] MEDS ORDERED: FENTANYL CITRATE INJ 50 MCG/1 ML 2 ML VIAL ONE ×2 (09:11)
[2017-04-20] MEDS ORDERED: MIDAZOLAM HCL 1 MG/ML 2ML VIAL ONE (09:11)
[2017-04-20] MEDS ORDERED: LIDOCAINE HCL 2% 2 ML VIAL (20MG/ML) ONE (09:11)
[2017-04-20] MEDS ORDERED: DEXAMETHASONE SOD INJ 4 MG/ML VIAL ONE (09:11)
[2017-04-20] MEDS ORDERED: ONDANSETRON INJ 2 MG/ML 2 ML VIAL ONE (09:11)
[2017-04-20] MEDS ORDERED: NEOSTIGMINE METHYLSULFATE 5 MG/5 ML SYR ONE (09:11)
[2017-04-20] MEDS ORDERED: PROPOFOL IV EMULSION 10 MG/ML 20 ML VIAL IV ONE (09:11)
[2017-04-20] MEDS ORDERED: EpHEDrine SULFATE INJ 50 MG/ML AMP IV PRN (09:15)
[2017-04-20] MEDS ORDERED: PHENYLEPHRINE 100MCG/ML 5ML SYR IV PRN (09:15)
[2017-04-20] MEDS ORDERED: ATROPINE SULFATE 0.1 MG/ML 5ML SYR IV PRN (09:15)
[2017-04-20] MEDS ORDERED: HYDROmorphone INJ 2 MG/ML SYR/VIAL IV PRN (09:15)
[2017-04-20] MEDS: NITROGLYCERIN 2% OINTMENT 30GM TUBE EXT SCH ×2 (09:16→13:15)
[2017-04-20] MEDS: METOPROLOL TARTRATE 1 MG/ML VIAL IV. SCH ×2 (09:17→13:16)
[2017-04-20] MEDS ORDERED: BACITRACIN 50000 UNIT VIAL ONE (09:26)
[2017-04-20] MEDS ORDERED: BUPIVACAINE 0.5 % 5 MG/1 ML MPF 30ML VIAL ONE (09:26)
--- NOTE | 2017-04-20 09:39 | DIAGNOSTIC IMAGING REPORT ---
CT OF THE RIGHT LOWER LEG WITHOUT CONTRAST CLINICAL HISTORY: Right leg swelling. COMPARISON STUDY: Right lower extremity venous Doppler April 14, 2017 and April 20, 2017 and right tibia and fibula radiographs April 20, 2017. TECHNIQUE: Axial images of the right lower leg were obtained without IV contrast. Sagittal and coronal reconstructions were viewed. FINDINGS: No acute fracture of the right tibia or fibula is noted. There is a moderate size right knee joint effusion without lipohemarthrosis. Note is made of a large mixed attenuation fluid collection of the right lower leg that begins at the level the popliteal fossa and extends to the level of the distal calf. This collection measures 14 x 9.4 x 5.1 cm. Areas of increased attenuation suggest acute clot. The collection extends toward a complex right popliteal cyst. This may be related to a right popliteal cysts or represent a cyst separate hematoma. The hematoma appears to be subfascial in location with significant mass effect upon the medial head of the gastrocnemius. No additional hematomas are present. Degenerative changes of the right knee and ankle are noted. IMPRESSION: 1. 14 x 9.4 x 5.1 cm right lower leg hematoma, likely subfascial in location with significant mass effect upon the adjacent medial head of the gastrocnemius. The findings could be correlated with clinical evidence for compartment syndrome. Complex right popliteal cyst which may be related to hematoma. Findings discussed with Dr. Dyer at time of dictation. 2. No acute fracture of the right tibia or fibula. Electronically signed by: Jesse Gonzalez M.D. 04/20/2017 9:37 AM Dictated Date/Time: 04/20/2017 9:26 AM
--- NOTE | 2017-04-20 09:44 | History & Physical Bridge Note ---
H&P Re-Evaluation Bridge Note: I have examined the patient, reviewed the History & Physical and in the interval since the performance of the History & Physical I have noted the following changes of clinical significance: To OR for evacuation hematoma lower right leg.
--- NOTE | 2017-04-20 10:36 | [facility] Post Operative Brief Note ---
Immediate Operative Summary Operative Date Apr 20, 2017. Pre-Operative Diagnosis Right posterior popliteal fossa and posterior lower extremity, large, complex, dissecting hematoma Post-Operative Diagnosis Right posterior popliteal fossa and posterior lower extremity, large, complex, dissecting hematoma Procedure(s) Performed Evacuation large hematoma right lower leg Surgeon Dr. Maira Dyer Block Making Machine Operator Surgeon(s) Helena Orona PA-C Estimated Blood Loss 5 ML Findings Consistent with Post-Op Diagnosis Specimens None per Surgeon Drains HV x 2 Anesthesia Type General Complication(s) none Disposition Accompanied Pt To Recover: no Disposition: Recovery Room / PACU
--- NOTE | 2017-04-20 11:11 | Anesthesiology Progress Note ---
Anesthesia Post Op Note Date & Time Apr 20, 2017 at 11:11 Vital Signs Pain Intensity: 0 Vital Signs Past 12 Hours Date Time Temp Pulse Resp B/P (MAP) Pulse Ox O2 Delivery O2 Flow Rate FiO2 04/20/17 11:00 36.0 70 16 123/72 94 Oxymask 5 04/20/17 10:50 73 16 120/73 98 Oxymask 10 04/20/17 10:42 36.0 77 16 137/78 Oxymask 10 04/20/17 09:17 78 133/83 04/20/17 08:00 94 Room Air 04/20/17 08:00 94 Room Air 04/20/17 07:59 36.5 79 18 119/69 (86) 94 Room Air 04/20/17 07:43 71 16 97 Nasal Cannula 1.0 04/20/17 05:46 36.5 80 21 128/69 96 Nasal Cannula 3.0 04/20/17 05:30 97 Nasal Cannula 3.0 04/20/17 05:30 36.7 83 22 146/84 96 Nasal Cannula 3.0 04/20/17 04:49 85 22 156/92 92 Room Air 04/20/17 04:06 36.7 86 20 140/78 94 Room Air 04/20/17 03:12 89 04/20/17 03:07 36.7 89 20 165/93 94 Room Air 04/20/17 01:04 36.7 89 20 134/77 94 Room Air Notes Mental Status: alert / awake / arousable, participated in evaluation Pt Amnestic to Procedure: Yes Nausea / Vomiting: adequately controlled Pain: adequately controlled Airway Patency, RR, SpO2: stable & adequate BP & HR: stable & adequate Hydration State: stable & adequate Anesthetic Complications: no major complications apparent
[2017-04-20] MEDS: PIPERACILL/TAZOBAC IV 4.5 GM in DEXTROSE 5% 100ML IV SCH ×2 (11:21→18:43)
[2017-04-20 13:51] LABS: CKMB 2.8 ng/ml (0.5-3.6)
[2017-04-20] MEDS ORDERED: PIPERACILL/TAZOBAC IV 3.375 GM in DEXTROSE 5% 100ML 100 ML IV SCH (14:00)
--- NOTE | 2017-04-20 14:51 | Progress Note ---
Progress Note Date of Service Apr 20, 2017. Progress Note follow up note from admission earlier today patient went to the OR this AM, evacuation of complex right lower extremity hematoma, no immediate complications, returned to ICU, stable to be transferred to PCU patient denies chest pain, difficulty breathing, nausea BP elevated, resumed home medications - Complex right lower extremity hematoma, s/p evacuation on 04/20, concerns for compartment syndrome on my exam this AM he had pulses, foot was warm, good sensation, no pallor, mild paresthesias Dr. Dyer following continue Vancomycin and Zosyn for now, follow up cultures repeat labs tomorrow AM transfer to PCU - CAD: no chest pain, EKG normal resume aspirin and Plavix when okay with ortho - HTN: resume Toprol and Imdur PO, resume Lasix tomorrow GERD-- Change pantoprazole to 40 mg IV every morning. Hold oral pantoprazole and ranitidine COPD//marijuana/tobacco abuse-- Xopenex/Atrovent nebulizer every 6 hours while awake and every 2 hours when necessary Anxiety/depression-- continue fluoxetine 60 mg daily and have lorazepam 1 mg IV every 4 hours when necessary available
--- NOTE | 2017-04-20 15:31 | OPERATIVE REPORT ---
DATE OF OPERATION: 04/20/2017 PREOPERATIVE DIAGNOSIS: Right posterior lower leg large hematoma. POSTOPERATIVE DIAGNOSIS: Same. PROCEDURE PERFORMED: Evacuation of hematoma, right medial posterior lower leg. SURGEON: Suhas Dyer DO. HEALTHCARE SPECIALIST: Helena Orona PA-C, who was present for patient positioning, sterile prep and drape, management of retractors and instruments. He was present through the critical portions of the case including wound closure, application of sterile dressing and transport of the patient to recovery. ANESTHESIA: General endotracheal tube. SPECIMENS: None. DRAINS: Hemovac x2. COMPLICATIONS: None. BLOOD LOSS: 5 mL. PERTINENT HISTORY: This is a 71-year-old gentleman, who had history of right lower leg pain and swelling over the last several days. Apparently, he had injury to his leg previously and was seen and evaluated in the Emergency Department and had ultrasound performed noting no evidence of DVT. The patient is chronically on Plavix. The patient had another fall in his right lower leg yesterday. He then presented to the Emergency Department again, had significant increased size, swelling, and pain in the right posterior lower leg. Compartment pressures were checked and within the region of the hematoma. Pressures were noted to be high; however, the true muscle compartments were soft and within normal range. The patient was then admitted to the hospital with Orthopedics consulted for evacuation of hematoma. The patient was then seen and evaluated and scheduled for surgery as indicated. All potential risks, benefits, complications, alternatives, rehab, potential for incomplete relief of symptoms, need for further surgery, DVT, PE, , persistent pain, swelling, scarring, weakness, neurovascular injury, wound complications, need for further surgery were discussed with the patient. The patient decided to proceed with the procedure as indicated. DESCRIPTION OF PROCEDURE: The patient was taken to the operative suite, placed supine on the operating table. I reviewed consent and identification of proper operative site. The patient was anesthetized. Endotracheal tube was placed. Tourniquet was placed on the right thigh over cast padding. Right lower extremity was then sterilely prepped and draped in the usual fashion, elevated and exsanguinated with an Esmarch bandage. Tourniquet was inflated to 350 mmHg. Next, a 15 blade scalpel was used to make an incision along the posteromedial aspect of the right lower leg, centered over the medial aspect of the medial meatus. Next, the incision was deepened through the skin and subcutaneous tissue. At the level of the fascia, the fascia was then incised and then a significant partially organized hematoma was encountered, at least 200 mL in total. The hematoma was evacuated and then pulsatile lavage 3 L with bacitracin was then used to cleanse the hematoma. There was no active bleeding noted. Two deep 10-[place] Hemovac drains were then placed into the hematoma pouch, and the dermis was closed using buried interrupted 2-0 Vicryl. Skin was closed using 3-0 nylon. A sterile compressive dressing from the toes to the knee was applied consisting of Xeroform gauze, sterile 4 x 4's, cast padding, and an Bill wrap. The tourniquet was released. The patient was awakened and taken to recovery in stable condition. I attest to the content of the Intraoperative Record and any orders documented therein. Any exception s are noted below.
--- NOTE | 2017-04-20 15:50 | Pharmacy Progress Note ---
Pharmacy Abx Initial Consult Date of Service Apr 20, 2017. Pharmacy Dosing Scope Date of Consult: 04/20/17 Consultation requested by: [facility] is consulted to initiate Vancomycin and Zosyn IV dosing therapies for RLE cellulitis in an obese patient (BMI 35kg/m2 or greater; BMI= 35kg/m2), order appropriate labs and adjust drug dose/frequency. Subjective The patient is a 71 year old male admitted on Apr 20, 2017 at 05:18. Objective Height (Feet): 5 Height (Inches): 8.00 Weight (Kilograms): 104.300 Vital Signs (Past 12Hrs) Vital Signs Past 12 Hours Date Time Temp Pulse Resp B/P (MAP) Pulse Ox O2 Delivery O2 Flow Rate FiO2 04/20/17 14:16 75 16 98 Nasal Cannula 3.0 04/20/17 14:00 82 18 115/67 (83) 95 Nasal Cannula 4.0 04/20/17 13:16 78 136/68 04/20/17 12:00 36.5 66 18 122/62 (82) 94 Oxymask 4.0 04/20/17 12:00 95 Oxymask 4.0 04/20/17 11:10 94 Oxymask 5.0 04/20/17 11:00 36.0 70 16 123/72 94 Oxymask 5 04/20/17 10:50 73 16 120/73 98 Oxymask 10 04/20/17 10:42 36.0 77 16 137/78 Oxymask 10 04/20/17 09:17 78 133/83 04/20/17 08:00 94 Room Air 04/20/17 08:00 94 Room Air 04/20/17 07:59 36.5 79 18 119/69 (86) 94 Room Air 04/20/17 07:43 71 16 97 Nasal Cannula 1.0 04/20/17 05:46 36.5 80 21 128/69 96 Nasal Cannula 3.0 04/20/17 05:30 97 Nasal Cannula 3.0 04/20/17 05:30 36.7 83 22 146/84 96 Nasal Cannula 3.0 04/20/17 04:49 85 22 156/92 92 Room Air 04/20/17 04:06 36.7 86 20 140/78 94 Room Air Lab Results (24Hrs) Laboratory Tests (24 Hours) Test 04/20/17 01:40 04/20/17 06:38 04/20/17 13:08 White Blood Count 13.30 K/uL (4.8-10.8) H Red Blood Count 4.68 M/uL (4.7-6.1) L Hemoglobin 13.0 g/dL (14.0-18.0) L Hematocrit 39.0 % (42-52) L Mean Corpuscular Volume 83.3 fL (80-100) Mean Corpuscular Hemoglobin 27.8 pg (25-34) Mean Corpuscular Hemoglobin Concent 33.3 g/dl (32-36) Platelet Count 349 K/uL (130-400) Mean Platelet Volume 9.5 fL (7.4-10.4) Neutrophils (%) (Auto) 76.5 % Lymphocytes (%) (Auto) 11.7 % Monocytes (%) (Auto) 7.9 % Eosinophils (%) (Auto) 2.3 % Basophils (%) (Auto) 0.3 % Neutrophils # (Auto) 10.18 K/uL (1.4-6.5) H Lymphocytes # (Auto) 1.55 K/uL (1.2-3.4) Monocytes # (Auto) 1.05 K/uL (0.11-0.59) H Eosinophils # (Auto) 0.31 K/uL (0-0.5) Basophils # (Auto) 0.04 K/uL (0-0.2) Lactic Acid Level 0.7 mmol/L (0.4-2.0) Procalcitonin 0.06 ng/ml (0-0.5) Total Creatine Kinase 213 U/L (39-308) Micro Results Date/Time Source Procedure Growth Status 04/20/17 06:38 Blood Blood Culture Pending Received 04/20/17 06:30 Blood Blood Culture Pending Received 04/20/17 06:55 Nasal MRSA DNA Surveillance Screen - Final Specimen Negative for MRSA by DNA Probe Complete Risk Factors for Resistance * Antimicrobial use within the last 90 days Keflex and Bactrim (started 04/14/17) Assessment & Plan Assessment 71 year old male * obese (BMI 35kg/m2 or greater; BMI= 35kg/m2) * seen in ED 04/14/17 for RLE cellulitis -- prescribed Keflex and Bactrim --> failed out patient therapy * h/o COPD * h/o tobacco and marijuana use Plan Pharmacy has been consulted for treatment of RLE cellulitis that failed out patient therapy Vancomycin IV * Loading dose: 1000 mg x 1 dose in the ED PLUS 1500 mg once patient admitted to floor (total dose= 2500mg; 24 mg/kg) * Maintenance dose: 1500 mg IV (15 mg/kg) x 1 dose * Patient in [facility] (baseline serum creat. ~1.1 - 1.2mg/dL; serum creat 04/20/17= 1.62mg/dL) * Will give one 15mg/kg dose based on half-life of current serum creat. when estimated Vancomycin serum concentrations are expected to be less than therapeutic. * Goal trough level for cellulitis : ~15 mcg/mL * Random level ordered for 04/21/17 with AM labs * Patient renal function expected to improve. Once serum creat. returns to baseline, pharmacy to establish maintenance Vancomycin dosing. Piperacillin/tazobactam * 4.5 g bolus administered over 30 minutes, then 4.5 g IV extended infusion every 8 hours for CrCl greater than 20 mL/min * Aggressive dosing selected due to BMI 35 or more. Pharmacy will continue to follow and will adjust dose/frequency as necessary. Thank you.
[2017-04-20] MEDS: HYDROmorphone INJ 1 MG/ML SYR IV PRN ×2 (17:47→22:49)
[2017-04-20] MEDS: PRAVASTATIN SOD 40 MG TAB PO SCH (20:00)
[2017-04-20] MEDS: ACETAMINOPHEN 325 MG TAB PO PRN (20:00)
[2017-04-20] MEDS: METOPROLOL SUCC 25MG EXT REL TAB PO SCH (20:00)
[2017-04-20] MEDS ORDERED: VANCOMYCIN INJ 1,500 MG in SODIUM CHLORIDE 0.9% 500ML 500 ML IV SCH (22:00)
[2017-04-20] MEDS ORDERED: NURSING VERBAL MED ORDER ONE (22:45)
[2017-04-21] VITALS (19 sets, daily range): BP systolic 117–158; BP diastolic 55–90; PULSE 67–90; TEMP 36.4–37.9; O2SAT 94–99
[2017-04-21] MEDS: LEVALBUTEROL 1.25MG/0.5ML NEB INH SCH ×4 (02:11→19:42)
[2017-04-21] MEDS: IPRATROPIUM BROMIDE NEB SOLN 0.02% 2.5 ML VIAL INH SCH ×4 (02:11→19:42)
[2017-04-21] MEDS: PIPERACILL/TAZOBAC IV 4.5 GM in DEXTROSE 5% 100ML IV SCH ×3 (03:07→19:00)
[2017-04-21 04:48] LABS: BASO % 0.1 %; BASO ABS # 0.01 K/uL (0-0.2); EOS % 1.2 %; EOS ABS # 0.13 K/uL (0-0.5); HEMATOCRIT 31.7 % (42-52); HEMOGLOBIN 10.2 g/dL (14.0-18.0); IG# 0.06 K/uL (0.00-0.02); LYMPH % 10.8 %; LYMPH ABS # 1.15 K/uL (1.2-3.4); MEAN CELL VOLUME 86.1 fL (80-100); MEAN CORPUSCULAR HEMOGLOBIN 27.7 pg (25-34); MEAN CORPUSCULAR HGB CONC 32.2 g/dl (32-36); MEAN PLATELET VOLUME 9.5 fL (7.4-10.4); MONO % 5.9 %; MONO ABS # 0.63 K/uL (0.11-0.59); NEUT % 81.4 %; PLATELET COUNT 255 K/uL (130-400); RED CELL DISTRIBUTION WIDTH CV 15.3 % (11.5-14.5); RED CELL DISTRIBUTION WIDTH SD 47.6 fL (36.4-46.3); WHITE BLOOD COUNT 10.68 K/uL (4.8-10.8)
[2017-04-21 05:09] LABS: CALCIUM 7.8 mg/dl (8.5-10.1); CREATININE 1.12 mg/dl (0.60-1.40); POTASSIUM 4.2 mmol/L (3.5-5.1)
[2017-04-21] MEDS: SODIUM CHLORIDE 0.9% 1000ML 1,000 ML IV SCH (07:43)
[2017-04-21] MEDS: ISOSORBIDE MONONITRATE 30 MG TABCR PO SCH (07:44)
[2017-04-21] MEDS: PANTOprazole SOD 40 MG TAB PO SCH (07:44)
[2017-04-21] MEDS: METOPROLOL SUCC 25MG EXT REL TAB PO SCH ×2 (07:44→20:56)
[2017-04-21] MEDS: FLUOXETINE HCL 20 MG CAP PO SCH (07:44)
[2017-04-21] MEDS ORDERED: VENLAFAXINE HCL XR 75 MG CAPXR PO SCH (09:00)
--- NOTE | 2017-04-21 10:16 | Orthopedic Progress Note ---
Orthopedic Progress Note Date of Service Apr 21, 2017. Subjective Post OP Day: 1 Reports: feeling well, Denies: chest pain, nausea / vomiting, calf pain Objective calves soft nontender, N/V intact, capillary refill less than 2 sec., A&O x3, toes mobile, hemovac drainage Date Time Temp Pulse Resp B/P (MAP) Pulse Ox O2 Delivery O2 Flow Rate FiO2 04/21/17 08:00 Room Air 04/21/17 07:53 36.7 81 21 147/90 (109) 96 Room Air 04/21/17 07:07 67 18 95 Nasal Cannula 2.0 04/21/17 06:00 72 18 125/79 (94) 98 Nasal Cannula 3.0 04/21/17 05:01 78 25 129/83 (98) 99 Nasal Cannula 3.0 04/21/17 04:00 Nasal Cannula 3.0 04/21/17 04:00 36.6 73 16 118/73 (88) 96 Nasal Cannula 3.0 04/21/17 03:00 80 24 132/86 (101) 98 CPAP 3.0 04/21/17 02:59 81 18 133/78 (96) 94 CPAP 3.0 04/21/17 02:12 76 20 95 BiPAP/CPAP 3.0 04/21/17 02:00 75 15 120/70 (87) 98 CPAP 3.0 04/21/17 01:16 77 15 122/63 (82) 95 CPAP 3.0 04/21/17 01:00 80 16 122/63 (82) 96 CPAP 3.0 04/21/17 00:01 Nasal Cannula 3.0 04/21/17 00:00 36.4 81 17 126/71 (89) 96 CPAP 3.0 04/20/17 22:00 36.5 74 16 141/77 (98) 95 Nasal Cannula 3.0 04/20/17 20:00 82 17 129/66 (87) 98 Nasal Cannula 3.0 04/20/17 20:00 Nasal Cannula 3.0 04/20/17 19:56 80 16 95 Nasal Cannula 3.0 04/20/17 19:01 81 16 119/70 (86) 97 Nasal Cannula 3.0 04/20/17 16:00 36.6 74 18 116/69 (85) 96 Nasal Cannula 4.0 04/20/17 16:00 96 Nasal Cannula 4.0 04/20/17 14:16 75 16 98 Nasal Cannula 3.0 04/20/17 14:00 82 18 115/67 (83) 95 Nasal Cannula 4.0 04/20/17 13:16 78 136/68 04/20/17 12:00 36.5 66 18 122/62 (82) 94 Oxymask 4.0 04/20/17 12:00 95 Oxymask 4.0 04/20/17 11:10 94 Oxymask 5.0 04/20/17 11:00 36.0 70 16 123/72 94 Oxymask 5 04/20/17 10:50 73 16 120/73 98 Oxymask 10 04/20/17 10:42 36.0 77 16 137/78 Oxymask 10 Laboratory Results 24 Hours: Test 04/21/17 04:40 White Blood Count 10.68 K/uL Red Blood Count 3.68 M/uL Hemoglobin 10.2 g/dL Hematocrit 31.7 % Mean Corpuscular Volume 86.1 fL Mean Corpuscular Hemoglobin 27.7 pg Mean Corpuscular Hemoglobin Concent 32.2 g/dl Platelet Count 255 K/uL Mean Platelet Volume 9.5 fL Neutrophils (%) (Auto) 81.4 % Lymphocytes (%) (Auto) 10.8 % Monocytes (%) (Auto) 5.9 % Eosinophils (%) (Auto) 1.2 % Basophils (%) (Auto) 0.1 % Neutrophils # (Auto) 8.70 K/uL Lymphocytes # (Auto) 1.15 K/uL Monocytes # (Auto) 0.63 K/uL Eosinophils # (Auto) 0.13 K/uL Basophils # (Auto) 0.01 K/uL Assessment & Plan Assessment: s/p right lower leg evacuation hematoma Plan: dressing changed today and hemavac was detached, hemavac was reattached and draining Plan for dc drain tomorrow. Inhouse Planning Pain Management: Dilaudid, PO Tylenol DVT Prophylaxis: TEDs Discharge Planning Discharge Planning: uncertain
--- NOTE | 2017-04-21 10:21 | Pharmacy Progress Note ---
Pharmacy Abx Dose Short Note Date of Service Apr 21, 2017. Assessment & Plan Assessment 71 year old male receiving Vancomycin and Zosyn for treatment of cellulitis Day # 2 of antimicrobial therapy. * Renal function improved to baseline @ 1.12 mg/dl * Blood cultures pending * leukocytosis improving Plan Vancomycin * Random level of 13.6 mcg/mL is therapeutic * Ordered a maintenance dose of 1500mg (15mg/kg) q 14 hours. * Goal trough level for cellulitis ~15 mcg/mL * Trough level ordered for: 04/22 @1330 Zosyn * Continue current dose of 4.5gm iv q 8 hours Pharmacy will continue to follow and will adjust dose/frequency as necessary. Thank you.
[2017-04-21] MEDS ORDERED: VANCOMYCIN INJ 1,500 MG in SODIUM CHLORIDE 0.9% 500ML 500 ML IV ONE (10:30)
--- NOTE | 2017-04-21 14:36 | Progress Note ---
Subjective Date of Service: Apr 21, 2017. Subjective Pt evaluation today including: conversation w/ patient, physical exam, lab review, conversation w/ funeral pre need consultant, review of inpatient medication list Pain: better today PO Intake: adequate Voiding: no voiding problems patient feeling well overall, no chest pain, no dyspnea c/o a cough that he has had for a while pain in right leg is subsiding ortho plans to d/c the drain tomorrow Problem List Medical Problems: (1) Chronic low back pain Status: Chronic (2) Chronic shoulder pain Status: Acute (3) COPD (chronic obstructive pulmonary disease) Status: Chronic (4) COPD exacerbation Status: Acute (5) Hematoma of right lower extremity Status: Acute (6) Intractable back pain Status: Acute (7) Intractable pain Status: Acute (8) Intramuscular hematoma Status: Acute (9) Left hip pain Status: Acute (10) Leg pain Status: Acute (11) Lower extremity cellulitis Status: Acute (12) Lumbar radicular pain Status: Acute (13) Skin tag Status: Acute Review of Systems Constitutional: + weakness, + fatigue Respiratory: + cough, + sputum (clear) Musculoskeletal: + swelling (right calf) All Other Systems: Reviewed and Negative Medications Current Inpatient Medications Medications (Trade) Dose Ordered Sig/Osiris Route Start Time Stop Time Status Last Admin Dose Admin Acetaminophen (Tylenol Tab) 650 mg Q4H PRN PO 04/20/17 05:30 05/20/17 05:29 04/20/17 20:00 650 MG Nitroglycerin (Nitrostat Tab) 0.4 mg UD PRN SL 04/20/17 05:30 05/20/17 05:29 Hydromorphone HCl (Dilaudid Inj) 1 mg Q4H PRN IV 04/20/17 05:30 05/04/17 05:29 04/20/17 22:49 1 MG Fluoxetine HCl (Prozac Cap) 60 mg DAILY PO 04/20/17 09:00 05/20/17 08:59 04/21/17 07:44 60 MG Ondansetron HCl (Zofran Inj) 4 mg Q6H PRN IV 04/20/17 05:30 05/20/17 05:29 Acetaminophen 100 ml @ 400 mls/hr Q8H PRN IV 04/20/17 05:30 05/20/17 05:29 Ipratropium [place] (Atrovent 0.02% 0.5MG/2.5ML Neb) 0.5 mg Q6R INH 04/20/17 09:00 05/20/17 08:59 04/21/17 12:59 0.5 MG Levalbuterol (Xopenex 1.25MG/ 0.5ML Neb) 1.25 mg Q6R INH 04/20/17 09:00 05/20/17 08:59 04/21/17 12:59 1.25 MG Ipratropium [place] (Atrovent 0.02% 0.5MG/2.5ML Neb) 0.5 mg Q2H PRN INH 04/20/17 06:15 05/20/17 06:14 Levalbuterol (Xopenex 1.25MG/ 0.5ML Neb) 1.25 mg Q2H PRN INH 04/20/17 06:15 05/20/17 06:14 Miscellaneous Information (Consult) 1 ea UD PRN N/A 04/20/17 06:15 05/20/17 06:14 Miscellaneous Information (Consult) 1 ea UD PRN N/A 04/20/17 06:15 05/20/17 06:14 Piperacillin Sod/ Tazobactam Sod 4.5 gm/Dextrose 120 ml @ 30 mls/hr Q8H IV 04/20/17 11:00 04/30/17 10:59 04/21/17 11:33 30 MLS/HR Pantoprazole Sodium (Protonix Tab) 40 mg QAM PO 04/21/17 09:00 05/21/17 08:59 04/21/17 07:44 40 MG Pravastatin Sodium (Pravachol Tab) 40 mg HS PO 04/20/17 21:00 05/20/17 20:59 04/20/17 20:00 40 MG Metoprolol Succinate (Toprol Xl Tab) 25 mg BID PO 04/20/17 21:00 05/20/17 20:59 04/21/17 07:44 25 MG Isosorbide Mononitrate (Imdur Ext Rel Tab) 30 mg QAM PO 04/21/17 09:00 05/21/17 08:59 04/21/17 07:44 30 MG Vancomycin HCl 1500 mg/Sodium Chloride 530 ml @ 200 mls/hr Q14H IV 04/22/17 00:00 04/30/17 03:29 Codeine Phosphate/ Guaifenesin (Robitussin-AC Sugar Free Syrup) 10 ml Q6H PRN PO 04/21/17 14:30 05/21/17 14:29 UNV Objective Vital Signs Date Time Temp Pulse Resp B/P (MAP) Pulse Ox O2 Delivery O2 Flow Rate FiO2 04/21/17 12:59 84 18 94 Room Air 04/21/17 12:15 37.0 82 16 117/67 (84) 94 Room Air 04/21/17 12:15 Room Air 04/21/17 08:00 Room Air 04/21/17 07:53 36.7 81 21 147/90 (109) 96 Room Air 04/21/17 07:07 67 18 95 Nasal Cannula 2.0 04/21/17 06:00 72 18 125/79 (94) 98 Nasal Cannula 3.0 04/21/17 05:01 78 25 129/83 (98) 99 Nasal Cannula 3.0 04/21/17 04:00 Nasal Cannula 3.0 04/21/17 04:00 36.6 73 16 118/73 (88) 96 Nasal Cannula 3.0 04/21/17 03:00 80 24 132/86 (101) 98 CPAP 3.0 04/21/17 02:59 81 18 133/78 (96) 94 CPAP 3.0 04/21/17 02:12 76 20 95 BiPAP/CPAP 3.0 04/21/17 02:00 75 15 120/70 (87) 98 CPAP 3.0 04/21/17 01:16 77 15 122/63 (82) 95 CPAP 3.0 04/21/17 01:00 80 16 122/63 (82) 96 CPAP 3.0 04/21/17 00:01 Nasal Cannula 3.0 04/21/17 00:00 36.4 81 17 126/71 (89) 96 CPAP 3.0 04/20/17 22:00 36.5 74 16 141/77 (98) 95 Nasal Cannula 3.0 04/20/17 20:00 82 17 129/66 (87) 98 Nasal Cannula 3.0 04/20/17 20:00 Nasal Cannula 3.0 04/20/17 19:56 80 16 95 Nasal Cannula 3.0 04/20/17 19:01 81 16 119/70 (86) 97 Nasal Cannula 3.0 04/20/17 16:00 36.6 74 18 116/69 (85) 96 Nasal Cannula 4.0 04/20/17 16:00 96 Nasal Cannula 4.0 Physical Exam General Appearance: no apparent distress, + obese Eyes: normal inspection, EOMI, sclerae normal ENT: normal ENT inspection, hearing grossly normal, pharynx normal Neck: supple, no adenopathy, no JVD, trachea midline Respiratory/Chest: chest non-tender, lungs clear, normal breath sounds, no respiratory distress, no accessory muscle use Cardiovascular: regular rate, rhythm, no edema, no gallop, no JVD, no murmur Abdomen: normal bowel sounds, non tender, soft, no organomegaly Extremities: no pedal edema, normal capillary refill, pelvis stable, + pertinent finding (right calf tender, less swollen, drain intact) Neurologic/Psychiatric: needle molder II-XII nml as tested, no motor/sensory deficits, alert, normal mood/affect, oriented x 3 Skin: normal color, warm/dry, no rash Laboratory Results Last 24 Hours Test 04/20/17 21:10 04/20/17 22:21 04/21/17 04:40 Total Creatine Kinase 218 U/L Creatine Kinase MB 3.0 ng/ml Creatine Kinase MB Ratio 1.4 Troponin I < 0.015 ng/ml Bedside Glucose 136 mg/dl White Blood Count 10.68 K/uL Red Blood Count 3.68 M/uL Hemoglobin 10.2 g/dL Hematocrit 31.7 % Mean Corpuscular Volume 86.1 fL Mean Corpuscular Hemoglobin 27.7 pg Mean Corpuscular Hemoglobin Concent 32.2 g/dl Platelet Count 255 K/uL Mean Platelet Volume 9.5 fL Neutrophils (%) (Auto) 81.4 % Lymphocytes (%) (Auto) 10.8 % Monocytes (%) (Auto) 5.9 % Eosinophils (%) (Auto) 1.2 % Basophils (%) (Auto) 0.1 % Neutrophils # (Auto) 8.70 K/uL Lymphocytes # (Auto) 1.15 K/uL Monocytes # (Auto) 0.63 K/uL Eosinophils # (Auto) 0.13 K/uL Basophils # (Auto) 0.01 K/uL RDW Standard Deviation 47.6 fL RDW Coefficient of Variation 15.3 % Immature Granulocyte % (Auto) 0.6 % Immature Granulocyte # (Auto) 0.06 K/uL Sodium Level 138 mmol/L Potassium Level 4.2 mmol/L Chloride Level 106 mmol/L Carbon Dioxide Level 29 mmol/L Anion Gap 3.0 mmol/L Blood Urea Nitrogen 19 mg/dl Creatinine 1.12 mg/dl Est Creatinine Clear Calc Drug Dose 72.9 ml/min Estimated GFR () 77.3 Estimated GFR (Non- 66.7 BUN/Creatinine Ratio 16.7 Random Glucose 129 mg/dl Calcium Level 7.8 mg/dl Magnesium Level 2.5 mg/dl Random Vancomycin Level 13.6 mcg/ml Assessment and Plan - Complex right lower extremity hematoma, s/p evacuation on 04/20, concerns for compartment syndrome pulses intact, foot was warm, good sensation, no pallor, can wiggle toes Dr. Dyer following continue Vancomycin and Zosyn for now, if blood cultures negative tomorrow then stop antibiotics WBC now normal, Hb dropped to 10, follow daily, BP stable transfer to medical floor today - CAD: no chest pain, EKG normal resume aspirin and Plavix when okay with ortho - HTN: resume Toprol and Imdur PO, resume Lasix this evening, BID dosing - GERD: Protonix COPD//marijuana/tobacco abuse-- Xopenex/Atrovent nebulizer every 6 hours while awake and every 2 hours when necessary Anxiety/depression-- continue fluoxetine 60 mg daily and have lorazepam 1 mg IV every 4 hours when necessary available Mild productive cough: Robitussin AC PRN, patient on Vancomycin and Zosyn, no signs of infiltrate on CXR transfer to medical floor
[2017-04-21] MEDS: GUAIFENESIN/CODEINE 200MG/20MG 10ML UDC PO PRN ×2 (15:46→21:56)
[2017-04-21] MEDS: HYDROmorphone INJ 1 MG/ML SYR IV PRN (15:47)
[2017-04-21] MEDS: FUROSEMIDE 40 MG TAB PO SCH (17:08)
[2017-04-21] MEDS ORDERED: NURSING VERBAL MED ORDER ONE (19:00)
[2017-04-21] MEDS ORDERED: POLYETHYLENE (MIRALAX) 17 GM PACK PO PRN (19:15)
[2017-04-21] MEDS ORDERED: hydrOXYzine HCL 25 MG TAB PO PRN (19:15)
[2017-04-21] MEDS ORDERED: CYCLOBENZAPRINE HCL 5 MG TAB PO PRN (19:15)
[2017-04-21] MEDS: FERROUS SULFATE 325 MG TAB PO SCH (20:54)
[2017-04-21] MEDS: DOCUSATE SODIUM 100 MG CAP PO SCH (20:54)
[2017-04-21] MEDS: MONTELUKAST SOD 10 MG TAB PO SCH (20:55)
[2017-04-21] MEDS: RANITIDINE HCL 150 MG TAB PO SCH (20:55)
[2017-04-21] MEDS: ROPINIROLE HCL 0.25 MG TAB PO SCH (20:55)
[2017-04-21] MEDS: PRAVASTATIN SOD 40 MG TAB PO SCH (20:56)
[2017-04-21] MEDS: LORAZEPAM 1 MG TAB PO PRN (21:56)
[2017-04-22] VITALS (9 sets, daily range): BP systolic 109–113; BP diastolic 64–74; PULSE 71–92; TEMP 36.7–36.9; O2SAT 92–98
[2017-04-22] MEDS: VANCOMYCIN INJ 1,500 MG in SODIUM CHLORIDE 0.9% 500ML 500 ML IV SCH ×2 (00:17→14:25)
[2017-04-22] MEDS: IPRATROPIUM BROMIDE NEB SOLN 0.02% 2.5 ML VIAL INH SCH ×4 (01:53→20:11)
[2017-04-22] MEDS: LEVALBUTEROL 1.25MG/0.5ML NEB INH SCH ×4 (01:53→20:11)
[2017-04-22] MEDS: PIPERACILL/TAZOBAC IV 4.5 GM in DEXTROSE 5% 100ML IV SCH ×3 (02:35→20:07)
[2017-04-22 07:25] LABS: BASO % 0.4 %; BASO ABS # 0.03 K/uL (0-0.2); EOS % 3.3 %; EOS ABS # 0.27 K/uL (0-0.5); HEMATOCRIT 33.3 % (42-52); HEMOGLOBIN 10.8 g/dL (14.0-18.0); IG# 0.05 K/uL (0.00-0.02); LYMPH % 16.5 %; LYMPH ABS # 1.36 K/uL (1.2-3.4); MEAN CORPUSCULAR HEMOGLOBIN 27.9 pg (25-34); MEAN CORPUSCULAR HGB CONC 32.4 g/dl (32-36); MEAN PLATELET VOLUME 9.3 fL (7.4-10.4); MONO % 5.4 %; MONO ABS # 0.44 K/uL (0.11-0.59); NEUT % 73.8 %; NEUT ABS # 6.07 K/uL (1.4-6.5); PLATELET COUNT 265 K/uL (130-400); RED CELL DISTRIBUTION WIDTH CV 15.6 % (11.5-14.5); RED CELL DISTRIBUTION WIDTH SD 48.1 fL (36.4-46.3); WHITE BLOOD COUNT 8.22 K/uL (4.8-10.8)
[2017-04-22 07:55] LABS: CALCIUM 8.6 mg/dl (8.5-10.1); CREATININE 0.92 mg/dl (0.60-1.40)
--- NOTE | 2017-04-22 08:14 | Orthopedic Progress Note ---
Orthopedic Progress Note Date of Service Apr 22, 2017. Subjective Post OP Day: 2 Reports: feeling well, Denies: chest pain, SOB, light headedness, calf pain Additional Notes: FEELING WELL. STATES PAIN IS A LOT BETTER THAN ON ARRIVAL. HAS BEEN OOB MULTIPLE TIMES TO THE BR. Objective N/V intact, capillary refill less than 2 sec., incision C/D/I, A&O x3, toes mobile MODERATE EDEMA, ECCHYMOSIS. TENDER ALONG ANTERIOLATERAL ASPECT OF THE TIBIAL. NO WOUND DRAINAGE. Date Time Temp Pulse Resp B/P (MAP) Pulse Ox O2 Delivery O2 Flow Rate FiO2 04/22/17 07:30 Room Air 04/22/17 07:18 71 16 98 BiPAP/CPAP 4.5 04/22/17 07:09 78 16 110/65 (80) 98 CPAP 4.5 04/22/17 01:54 85 18 96 BiPAP/CPAP 3.0 04/22/17 01:42 CPAP 04/21/17 23:17 36.6 82 18 158/55 (89) 96 CPAP 04/21/17 20:00 37.9 81 16 129/76 (93) 04/21/17 19:43 84 18 95 Room Air 04/21/17 16:11 86 18 96 Room Air 04/21/17 15:45 Room Air 04/21/17 15:26 36.9 90 16 134/75 (94) 94 Room Air 04/21/17 12:59 84 18 94 Room Air 04/21/17 12:15 37.0 82 16 117/67 (84) 94 Room Air 04/21/17 12:15 Room Air Laboratory Results 24 Hours: Test 04/22/17 06:55 White Blood Count 8.22 K/uL Red Blood Count 3.87 M/uL Hemoglobin 10.8 g/dL Hematocrit 33.3 % Mean Corpuscular Volume 86.0 fL Mean Corpuscular Hemoglobin 27.9 pg Mean Corpuscular Hemoglobin Concent 32.4 g/dl Platelet Count 265 K/uL Mean Platelet Volume 9.3 fL Neutrophils (%) (Auto) 73.8 % Lymphocytes (%) (Auto) 16.5 % Monocytes (%) (Auto) 5.4 % Eosinophils (%) (Auto) 3.3 % Basophils (%) (Auto) 0.4 % Neutrophils # (Auto) 6.07 K/uL Lymphocytes # (Auto) 1.36 K/uL Monocytes # (Auto) 0.44 K/uL Eosinophils # (Auto) 0.27 K/uL Basophils # (Auto) 0.03 K/uL Assessment & Plan Assessment: s/p right lower leg evacuation hematoma Plan: DRESSING CHANGED TODAY. WILL HAVE BARTER RECHECK TODAY ON PM ROUNDS HEMOVAC WAS DISCONNECTED, THEN FELL OUT WHICH MAY ACCOUNT FOR THE SWELLING. WBAT WITH WALKER. WILL HAVE PT/OT SEE HIM TODAY. PAIN MANAGEMENT- TYLENOL ORDERED. WILL ADD TRAMADOL CONTINUE IV VANCO Inhouse Planning Pain Management: Dilaudid, PO Tylenol DVT Prophylaxis: TEDs Discharge Planning Discharge Planning: uncertain
[2017-04-22] MEDS: FUROSEMIDE 40 MG TAB PO SCH ×2 (08:23→16:55)
[2017-04-22] MEDS: ISOSORBIDE MONONITRATE 30 MG TABCR PO SCH (08:23)
[2017-04-22] MEDS: METOPROLOL SUCC 25MG EXT REL TAB PO SCH ×2 (08:23→20:54)
[2017-04-22] MEDS: PANTOprazole SOD 40 MG TAB PO SCH (08:23)
[2017-04-22] MEDS: DOCUSATE SODIUM 100 MG CAP PO SCH ×2 (08:24→20:50)
[2017-04-22] MEDS: CHOLECALCIFEROL 400 INTER.UNIT TAB PO SCH (08:24)
[2017-04-22] MEDS: FLUOXETINE HCL 20 MG CAP PO SCH (08:24)
[2017-04-22] MEDS: RANITIDINE HCL 150 MG TAB PO SCH ×2 (08:24→20:54)
[2017-04-22] MEDS: LORAZEPAM 1 MG TAB PO PRN (08:30)
--- NOTE | 2017-04-22 08:43 | Hospitalist Progress Note ---
Hospitalist Progress Note Date of Service Apr 22, 2017. Subjective Pt evaluation today including: conversation w/ patient, physical exam, chart review, lab review, review of studies Pain: Mild LLE pain with walking PO Intake: Good Voiding: no voiding problems The patient was seen and examined this morning. Pt reports doing fairly well today. He has been up and ambulating without difficulty, using the walker, and pain is well controlled. He had some discomfort overnight. Pt bowels moved this morning. He denies any other acute complaints. ROS: 6 point ROS reviewed and negative otherwise. Objective Vital Signs Date Time Temp Pulse Resp B/P (MAP) Pulse Ox O2 Delivery O2 Flow Rate FiO2 04/22/17 07:30 Room Air 04/22/17 07:18 71 16 98 BiPAP/CPAP 4.5 04/22/17 07:09 78 16 110/65 (80) 98 CPAP 4.5 04/22/17 01:54 85 18 96 BiPAP/CPAP 3.0 04/22/17 01:42 CPAP 04/21/17 23:17 36.6 82 18 158/55 (89) 96 CPAP 04/21/17 20:00 37.9 81 16 129/76 (93) 04/21/17 19:43 84 18 95 Room Air 04/21/17 16:11 86 18 96 Room Air 04/21/17 15:45 Room Air 04/21/17 15:26 36.9 90 16 134/75 (94) 94 Room Air 04/21/17 12:59 84 18 94 Room Air 04/21/17 12:15 37.0 82 16 117/67 (84) 94 Room Air 04/21/17 12:15 Room Air Physical Exam General Appearance: WD/WN, no apparent distress, + obese Eyes: PERRL, EOMI ENT: hearing grossly normal, pharynx normal, + pertinent finding (MMM) Neck: supple, no JVD Respiratory/Chest: lungs clear, no respiratory distress, no accessory muscle use Cardiovascular: regular rate, rhythm, + systolic murmur (soft) Abdomen: normal bowel sounds, non tender, soft Extremities: non-tender, no pedal edema, no calf tenderness, + pertinent finding (LLE with reyes wrap intact, minimal edema around ankle, drain out. ) Neurologic/Psychiatric: no motor/sensory deficits, alert, normal mood/affect Skin: normal color, warm/dry Laboratory Results Last 24 Hours Test 04/21/17 15:55 04/22/17 06:55 Urine Color YELLOW Urine Appearance CLEAR Urine pH 7.0 Urine Specific [place] 1.019 Urine Protein NEG Urine Glucose (UA) NEG Urine Ketones NEG Urine Occult Blood NEG Urine Nitrite NEG Urine Bilirubin NEG Urine Urobilinogen NEG Urine Leukocyte Esterase NEG White Blood Count 8.22 K/uL Red Blood Count 3.87 M/uL Hemoglobin 10.8 g/dL Hematocrit 33.3 % Mean Corpuscular Volume 86.0 fL Mean Corpuscular Hemoglobin 27.9 pg Mean Corpuscular Hemoglobin Concent 32.4 g/dl Platelet Count 265 K/uL Mean Platelet Volume 9.3 fL Neutrophils (%) (Auto) 73.8 % Lymphocytes (%) (Auto) 16.5 % Monocytes (%) (Auto) 5.4 % Eosinophils (%) (Auto) 3.3 % Basophils (%) (Auto) 0.4 % Neutrophils # (Auto) 6.07 K/uL Lymphocytes # (Auto) 1.36 K/uL Monocytes # (Auto) 0.44 K/uL Eosinophils # (Auto) 0.27 K/uL Basophils # (Auto) 0.03 K/uL RDW Standard Deviation 48.1 fL RDW Coefficient of Variation 15.6 % Immature Granulocyte % (Auto) 0.6 % Immature Granulocyte # (Auto) 0.05 K/uL Sodium Level 140 mmol/L Potassium Level 4.0 mmol/L Chloride Level 106 mmol/L Carbon Dioxide Level 28 mmol/L Anion Gap 7.0 mmol/L Blood Urea Nitrogen 11 mg/dl Creatinine 0.92 mg/dl Est Creatinine Clear Calc Drug Dose 88.7 ml/min Estimated GFR () 98.0 Estimated GFR (Non- 84.6 BUN/Creatinine Ratio 11.8 Random Glucose 92 mg/dl Calcium Level 8.6 mg/dl Magnesium Level 2.4 mg/dl Assessment and Plan 71 yo M with PMhx of CHF, anemia, CAD, HLD, hx CVA, spinal stenosis, COPD, mariguana and tobacco abuse, depression, anxiety Complex right lower extremity hematoma, s/p evacuation on 04/20, concerns for compartment syndrome - pulses intact, foot was warm, good sensation, no pallor, can wiggle toes - Ortho on board - Dr. Dyer following - On Vancomycin and Zosyn for now, blood cultures negative, pt had low grade fever overnight so will wait until afebrile x 24 hours before d/c abx. - WBC now normal, Hbg 10.8, follow daily, BP stable CAD: no chest pain, EKG normal - resume aspirin and Plavix when okay with ortho HTN - resume Toprol and Imdur PO, Lasix 40 mg PO BID GERD: stable - Protonix COPD//marijuana/tobacco abuse - Xopenex/Atrovent nebulizer every 6 hours while awake and every 2 hours when necessary Anxiety/depression-- continue fluoxetine 60 mg daily and have lorazepam 1 mg IV every 4 hours when necessary available Mild productive cough: Robitussin AC PRN, patient on Vancomycin and Zosyn, no signs of infiltrate on CXR CODE: FULL Disposition: From home, PT/OT on board, CM assisting with dc planning
[2017-04-22] MEDS ORDERED: OXYCODONE HCL IR 5 MG TAB (IMMEDIATE RELEASE) PO PRN (08:45)
[2017-04-22] MEDS ORDERED: OXYCODONE HCL IR 5 MG TAB (IMMEDIATE RELEASE) ONE (08:58)
[2017-04-22] MEDS: HYDROmorphone INJ 1 MG/ML SYR IV PRN (10:35)
--- NOTE | 2017-04-22 10:53 | Clinical Documentation Query ---
CLINICAL DOCUMENTATION QUERY QUERY 1 OF 2 A 71 year old male who presents to the Emergency Room with complaints of worsening right leg swelling that began a week ago. In your clinical opinion is this patient being managed for: ( X ) Acute kidney failure, resolved ( ) Not Agree ( ) Other explanation of clinical findings (Please Explain) ( ) Unable to determine (Please Define) ( ) Need to Discuss The medical record reflects the following clinical findings, treatment, and risk factors. Clinical Indicators: Creatinine 1.62 trending down to 0.92, GFR 42.7 trending up to 84.6 Treatment: IV hydration, I&O, serial PRPs Risk Factors: Age, alcohol abuse, CHF QUERY 2 OF 2 In your clinical opinion is this patient being managed for: ( X ) Chronic diastolic CHF ( ) Not Agree ( ) Other explanation of clinical findings (Please Explain) ( ) Unable to determine (Please Define) ( ) Need to Discuss The medical record reflects the following clinical findings, treatment, and risk factors. Clinical Indicators: Echo mild concentric left ventricular hypertrophy, grade I diastolic dysfunction, EF = 65-70% Treatment: Home Lasix PO Risk Factors: Age, documented CHF Please clarify and document your clinical opinion in the progress notes and discharge summary. Terms such as "probable", "suspected", "likely", "questionable", "possible", or "still to be ruled out" are acceptable. IF IN AGREEMENT, YOU MUST DOCUMENT ABOVE DIAGNOSTIC STATEMENT IN DAILY PROGRESS NOTES AND DISCHARGE SUMMARY. This document is not part of the patient's record. Thank You, Yesy Limon RN [phone]
[2017-04-22] MEDS ORDERED: VANCOMYCIN TROUGH ONE (13:31)
--- NOTE | 2017-04-22 15:15 | Pharmacy Progress Note ---
Pharmacy Abx Dose Progress Nt Date of Service Apr 22, 2017. Pharmacy Dosing Scope The patient is currently receiving the following antimicrobial agents per Pharmacy consult: Vancomycin 1500 mg IV every 14 hours Objective Height (Feet): 5 Height (Inches): 8.00 Weight (Kilograms): 104.300 Vital Signs (Past 12Hrs) Vital Signs Past 12 Hours Date Time Temp Pulse Resp B/P (MAP) Pulse Ox O2 Delivery O2 Flow Rate FiO2 04/22/17 14:41 85 16 92 Room Air 04/22/17 09:56 92 97 04/22/17 07:30 Room Air 04/22/17 07:18 71 16 98 BiPAP/CPAP 4.5 04/22/17 07:09 78 16 110/65 (80) 98 CPAP 4.5 Lab Results (24Hrs) Laboratory Tests (24 Hours) Test 04/22/17 06:55 White Blood Count 8.22 K/uL (4.8-10.8) Red Blood Count 3.87 M/uL (4.7-6.1) L Hemoglobin 10.8 g/dL (14.0-18.0) L Hematocrit 33.3 % (42-52) L Mean Corpuscular Volume 86.0 fL (80-100) Mean Corpuscular Hemoglobin 27.9 pg (25-34) Mean Corpuscular Hemoglobin Concent 32.4 g/dl (32-36) Platelet Count 265 K/uL (130-400) Mean Platelet Volume 9.3 fL (7.4-10.4) Neutrophils (%) (Auto) 73.8 % Lymphocytes (%) (Auto) 16.5 % Monocytes (%) (Auto) 5.4 % Eosinophils (%) (Auto) 3.3 % Basophils (%) (Auto) 0.4 % Neutrophils # (Auto) 6.07 K/uL (1.4-6.5) Lymphocytes # (Auto) 1.36 K/uL (1.2-3.4) Monocytes # (Auto) 0.44 K/uL (0.11-0.59) Eosinophils # (Auto) 0.27 K/uL (0-0.5) Basophils # (Auto) 0.03 K/uL (0-0.2) Micro Results Date/Time Source Procedure Growth Status 04/20/17 06:38 Blood Blood Culture - Preliminary NO GROWTH TO DATE. Resulted 04/20/17 06:30 Blood Blood Culture - Preliminary NO GROWTH TO DATE. Resulted 04/20/17 06:55 Nasal MRSA DNA Surveillance Screen - Final Specimen Negative for MRSA by DNA Probe Complete Assessment & Plan Assessment 71 year old male receiving Vancomycin and Zosyn for the treatment of cellulitis/ hematoma. Pt did spike a fever overnight, ergo, will hold off on de-escalating for now. Plan Vancomycin IV * Trough level of 12.9 mcg/mL is therapeutic. This is prior to Css and his body habitus may indicate potential Vanco accumulation. However, will hold of adjusting Vanco regimen due to his renal fxn improving. * Continue dose of 1500 mg IV every 14 hours * Goal trough level for Vanco : 15 to 20 mcg/mL * Trough level ordered for: 04/24/17 Zosyn IV * Continue EI Zosyn 4.5g q8, appropriate for eCrCl>20cc/min and clinical status Pharmacy will continue to follow and will adjust dose/frequency as necessary. Thank you.
[2017-04-22] MEDS: OXYCODONE HCL IR 5 MG TAB (IMMEDIATE RELEASE) PO PRN (20:08)
[2017-04-22] MEDS: ACETAMINOPHEN 325 MG TAB PO PRN (20:09)
[2017-04-22] MEDS: MONTELUKAST SOD 10 MG TAB PO SCH (20:54)
[2017-04-22] MEDS: ROPINIROLE HCL 0.25 MG TAB PO SCH (20:54)
[2017-04-22] MEDS: FERROUS SULFATE 325 MG TAB PO SCH (20:54)
[2017-04-22] MEDS: PRAVASTATIN SOD 40 MG TAB PO SCH (20:55)
[2017-04-23] MEDS: PIPERACILL/TAZOBAC IV 4.5 GM in DEXTROSE 5% 100ML IV SCH ×2 (02:17→12:00)
[2017-04-23] MEDS: IPRATROPIUM BROMIDE NEB SOLN 0.02% 2.5 ML VIAL INH SCH ×3 (02:23→14:32)
[2017-04-23] MEDS: LEVALBUTEROL 1.25MG/0.5ML NEB INH SCH ×3 (02:23→14:32)
[2017-04-23 02:24] VITALS: PULSE 77; O2SAT 95
[2017-04-23] MEDS: VANCOMYCIN INJ 1,500 MG in SODIUM CHLORIDE 0.9% 500ML 500 ML IV SCH (03:43)
[2017-04-23] MEDS: OXYCODONE HCL IR 5 MG TAB (IMMEDIATE RELEASE) PO PRN (03:48)
[2017-04-23] MEDS: ACETAMINOPHEN 325 MG TAB PO PRN ×2 (03:49→11:56)
[2017-04-23 06:35] LABS: BASO % 0.4 %; BASO ABS # 0.03 K/uL (0-0.2); EOS % 4.9 %; EOS ABS # 0.34 K/uL (0-0.5); HEMATOCRIT 32.8 % (42-52); HEMOGLOBIN 10.7 g/dL (14.0-18.0); IG# 0.04 K/uL (0.00-0.02); LYMPH % 18.2 %; LYMPH ABS # 1.27 K/uL (1.2-3.4); MEAN CELL VOLUME 85.9 fL (80-100); MEAN CORPUSCULAR HGB CONC 32.6 g/dl (32-36); MEAN PLATELET VOLUME 9.4 fL (7.4-10.4); MONO % 6.8 %; MONO ABS # 0.47 K/uL (0.11-0.59); NEUT % 69.1 %; NEUT ABS # 4.81 K/uL (1.4-6.5); PLATELET COUNT 246 K/uL (130-400); RED CELL DISTRIBUTION WIDTH CV 15.4 % (11.5-14.5); RED CELL DISTRIBUTION WIDTH SD 47.9 fL (36.4-46.3); WHITE BLOOD COUNT 6.96 K/uL (4.8-10.8)
[2017-04-23 07:06] LABS: CALCIUM 8.4 mg/dl (8.5-10.1); CREATININE 1.02 mg/dl (0.60-1.40)
[2017-04-23 07:45] VITALS: BP 116/65; PULSE 65; TEMP 36.6; O2SAT 98
[2017-04-23 07:48] VITALS: PULSE 65; O2SAT 98
[2017-04-23] MEDS: RANITIDINE HCL 150 MG TAB PO SCH (07:59)
[2017-04-23] MEDS: METOPROLOL SUCC 25MG EXT REL TAB PO SCH (07:59)
[2017-04-23] MEDS: DOCUSATE SODIUM 100 MG CAP PO SCH (08:01)
[2017-04-23] MEDS: FLUOXETINE HCL 20 MG CAP PO SCH (08:02)
[2017-04-23] MEDS: ISOSORBIDE MONONITRATE 30 MG TABCR PO SCH (08:02)
[2017-04-23] MEDS: FUROSEMIDE 40 MG TAB PO SCH (08:02)
[2017-04-23] MEDS: CHOLECALCIFEROL 400 INTER.UNIT TAB PO SCH (08:03)
[2017-04-23] MEDS: PANTOprazole SOD 40 MG TAB PO SCH (08:03)
--- NOTE | 2017-04-23 10:56 | Orthopedic Progress Note ---
Orthopedic Progress Note Date of Service Apr 23, 2017. Subjective Post OP Day: 2 Reports: feeling well Additional Notes: Pt states that his leg is feeling a little better. No knew complaints. Objective N/V intact, A&O x3, toes mobile Dressing removed. Wound very benign. Calf soft, mildly tender. Denies increased tenderness with passive flexion of the foot and great toe. No increased calf tenderness with Lopez's exam. Ecchymosis noted. Sensation intact. Date Time Temp Pulse Resp B/P (MAP) Pulse Ox O2 Delivery O2 Flow Rate FiO2 04/23/17 07:55 Room Air 04/23/17 07:48 65 16 98 Room Air 04/23/17 07:45 36.6 65 18 116/65 (82) 98 Room Air 04/23/17 02:24 77 16 95 Room Air 04/22/17 23:45 CPAP 2.0 04/22/17 22:55 36.9 77 16 113/64 (80) 98 CPAP 04/22/17 20:52 89 111/74 (86) 04/22/17 20:13 85 16 97 Room Air 04/22/17 15:25 Room Air 04/22/17 15:10 36.7 81 18 109/66 (80) 95 Room Air 04/22/17 14:41 85 16 92 Room Air Laboratory Results 24 Hours: Test 04/23/17 06:05 White Blood Count 6.96 K/uL Red Blood Count 3.82 M/uL Hemoglobin 10.7 g/dL Hematocrit 32.8 % Mean Corpuscular Volume 85.9 fL Mean Corpuscular Hemoglobin 28.0 pg Mean Corpuscular Hemoglobin Concent 32.6 g/dl Platelet Count 246 K/uL Mean Platelet Volume 9.4 fL Neutrophils (%) (Auto) 69.1 % Lymphocytes (%) (Auto) 18.2 % Monocytes (%) (Auto) 6.8 % Eosinophils (%) (Auto) 4.9 % Basophils (%) (Auto) 0.4 % Neutrophils # (Auto) 4.81 K/uL Lymphocytes # (Auto) 1.27 K/uL Monocytes # (Auto) 0.47 K/uL Eosinophils # (Auto) 0.34 K/uL Basophils # (Auto) 0.03 K/uL Assessment & Plan Assessment: POD 3 s/p right lower leg evacuation hematoma Plan: DRESSING CHANGED TODAY. WBAT WITH WALKER. CONTINUE PT PAIN MANAGEMENT- TYLENOL ORDERED. WILL ADD TRAMADOL CONTINUE IV VANCO ORTHO WILL SIGN OFF AT THIS TIME PLAN FOR 1 WEEK OF PO ANTIBX (KEFLEX 500MG PO QID ) Inhouse Planning Pain Management: Dilaudid, PO Tylenol, Oxy IR DVT Prophylaxis: TEDs Discharge Planning Discharge Planning: uncertain
--- NOTE | 2017-04-23 11:11 | Consultant Recommendations ---
Fundraising Coordinator Recommendations Date of Service Apr 23, 2017. Fundraising Coordinator Recommendations DAILY DRESSING CHANGES. CONTINUE TO USE BASHIR WRAP TO COVER YOUR DRESSING. YOU MAY SHOWER. DO NOT SOAK THE WOUND. NO TUB BATHS.CLEAN AROUND THE WOUND ITSELF. DO NOT SCRUB IT. THE SWELLING GOES DOWN, INCREASE YOUR ACTIVITY IT ALLOWS. WEIGHT TOLERATED ON THE RIGHT LEG. KEEP THE LEG ELEVATED ON 2 PILLOWS WHEN AT REST YOU CAN DO GENTLE ANKLE PUMPS REGULARLY FOLLOW UP WITH DR AHN IN 7-10 DAYS. CALL FOR APPOINTMENT. [phone]
[2017-04-23] MEDS ORDERED: BENZONATATE 100MG CAP PO PRN (11:45)
[2017-04-23] MEDS ORDERED: COUGH DROP (SUGAR FREE) LOZ 24 LOZ/1 BOX LOZ PRN (11:45)
[2017-04-23] MEDS ORDERED: NURSING DECISION MEDICATION ORDER SCH (11:45)
[2017-04-23] MEDS ORDERED: NURSING VERBAL MED ORDER ONE (11:45)
[2017-04-23] MEDS: LORAZEPAM 1 MG TAB PO PRN (11:54)
[2017-04-23] MEDS ORDERED: CEPH500C2 PO (12:06)
[2017-04-23] MEDS ORDERED: BENZ100C7 PO (12:06)
[2017-04-23] MEDS ORDERED: TRAM-10 PO (12:06)
--- NOTE | 2017-04-23 12:18 | Discharge Instructions ---
Discharge Instructions Date of Service Apr 23, 2017. Admission Reason for Admission: Compartment Syndrome Of Right Lower Extremity Discharge Discharge Diagnosis / Problem: Compartment Syndrome of the Right lower extremity Discharge Goals Goal(s): Decrease discomfort, Improve function, Increase independence, Improve disease control Activity Recommendations Activity Limitations: per Instructions/Follow-up section Lifting Limitations: no more than 25 pounds, gradually increase as tolerated Exercise/Sports Limitations: rest today, until after follow-up appointment ( with orthopedics) May Resume Sexual Activity: when tolerated Shower/Bathe: no limitations (see small business consultant recommendations) Driving or Machine Use: Do Not Drive until cleared by orthopedics and your PCP. . Instructions / Follow-Up Instructions / Follow-Up You were admitted to [facility] with Right lower extremity pain and diagnosed with compartment syndrome which required evacuation. You underwent surgical evacuation on 04/20/[address] Ahn. You were treated with pain management, physical therapy and other supportive care. Follow up with orthopedics as below. You should continue to see physical therapy as an outpatient. Medications: Continue taking Keflex 500 mg four times daily for the next 7 days to prevent infection. Continue to use tramadol and tylenol for pain relief as directed. Continue taking your medications as above. Appointments: Follow up with your Primary Care Provider within 1 week. Follow up with Orthopedics With Dr. Ahn within 1 week, please call for an appointment at [phone]. Current Hospital Diet Patient's current hospital diet: AHA Diet (Heart Healthy) Discharge Diet Recommended Diet: AHA Diet (Heart Healthy) Procedures Procedures Performed: Evacuation Hematoma Right Medial Lower Leg Pending Studies Studies pending at discharge: no Medical Emergencies . Who to Call and When: Medical Emergencies: If at any time you feel your situation is an emergency, please call 911 immediately. . Non-Emergent Contact Non-Emergency issues call your: Primary Care Provider, Specialist (Orthopedic surgeon) Call Non-Emergent contact if: you have a fever, temperature is above 100.5, your pain is not controlled, your pain is worsening, your pain is unusual for you, your pain is concerning you, wound has increased drainage, wound has increased redness, wound has increased pain, you have any medication questions other concerns with your health. Call 911 or go directly to the Emergency Department if you experience any of the following: Chest pain, chest tightness, shortness of breath, abdominal pain , lightheadedness, dizziness, gastrointestinal bleeding, or have any other concerns regarding your health. . Past History Medical & Surgical History: (1) Compartment syndrome of right lower extremity (2) COPD (chronic obstructive pulmonary disease) (3) Chronic low back pain (4) Prior left CVA (5) HYPERLIPIDEMIA NEC/NOS (6) OBESITY, NOS (7) CONGESTIVE HEART FAILURE NOS (8) CORONARY ATHEROSCLEROSIS OF [place] CORONARY VESSEL (9) DEPRESSIVE DISORDER NEC (10) CHRONIC OBSTRUCTIVE ASTHMA, NOS (11) CANNABIS ABUSE-CONTIN (12) ANXIETY STATE NOS (13) DIVERTICULOSIS COLON (W/O MENT OF HEMORRHAGE) (14) OSTEOARTHROS NOS-SHLDER . "Provider Documentation" section prepared by Kathe Staples. . Medical Scientific Officer Recommendations Medical Scientific Officer Recommendations: DAILY DRESSING CHANGES. CONTINUE TO USE BASHIR WRAP TO COVER YOUR DRESSING. YOU MAY SHOWER. DO NOT SOAK THE WOUND. NO TUB BATHS.CLEAN AROUND THE WOUND ITSELF. DO NOT SCRUB IT. THE SWELLING GOES DOWN, INCREASE YOUR ACTIVITY IT ALLOWS. WEIGHT TOLERATED ON THE RIGHT LEG. KEEP THE LEG ELEVATED ON 2 PILLOWS WHEN AT REST YOU CAN DO GENTLE ANKLE PUMPS REGULARLY FOLLOW UP WITH DR AHN IN 7-10 DAYS. CALL FOR APPOINTMENT. [phone] VTE Core Measure Inpt VTE Proph given/why not?: Enoxaparin (Lovenox)SQ, Contraindicated
[2017-04-23 14:32] VITALS: PULSE 70; O2SAT 97
[2017-04-23 15:33] VITALS: BP 116/65; PULSE 70; TEMP 36.6; O2SAT 97
[2017-04-23 15:44] VITALS: BP 124/71; PULSE 89; TEMP 36.8; O2SAT 95
--- NOTE | 2017-04-23 16:38 | Discharge Summary ---
Discharge Summary Date of Service Apr 23, 2017. Discharge Summary Admission Date: Apr 20, 2017 at 05:18 Discharge Date: Apr 23, 2017 Discharge Disposition: Home Principal Diagnosis: Compartment Syndrome of the Right lower extremity Problems/Secondary Diagnoses: Medical Problems: (1) Anemia (2) ANXIETY STATE NOS (3) CANNABIS ABUSE-CONTIN (4) Carotid endarterectomy (5) carpal tunnel surgery bilaterally (6) CARPAL TUNNEL SYNDROME (7) CHOLELITHIASIS NOS (8) Chronic low back pain (9) CHRONIC OBSTRUCTIVE ASTHMA, NOS (10) Compartment syndrome of right lower extremity (11) CONGESTIVE HEART FAILURE NOS (12) COPD (chronic obstructive pulmonary disease) (13) CORONARY ATHEROSCLEROSIS OF [place] CORONARY VESSEL (14) DEPRESSIVE DISORDER NEC (15) DIVERTICULOSIS COLON (W/O MENT OF HEMORRHAGE) (16) History of repair of inguinal hernia (17) HYPERLIPIDEMIA NEC/NOS (18) Lumbar stenosis with neurogenic claudication (19) MIGRAINE UNSPECIFIED W/O INTRACT MGRN W/O STATUS MIGRAINOSUS (20) OBESITY, NOS (21) OSTEOARTHROS NOS-SHLDER (22) PERSONAL HISTORY OF URINARY CALCULI (23) PERSONAL HISTORY, PNEUMONIA (RECURRENT) (24) PNEUMONIA, ORGANISM NOS (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 (26) SPINAL STENOSIS-LUMBAR (27) umbilical herniorrhaphy Surgical Problems: (1) Hx of decompressive lumbar laminectomy Immunizations: Have You Had Influenza Vaccine: Yes Influenza Vaccine Date: Dec 12, 2012 History of Tetanus Vaccine?: Yes History of Pneumococcal: Yes Pneumococcal Date: Feb 04, 2004 History of Hepatitis B Vaccine: No Procedures: R TIBIA/FIBULA 2 VIEWS ROUTINE 04/20/17 IMPRESSION: No acute fracture of the right tibia or fibula. Right calf soft tissue swelling. RIGHT LOWER EXTREMITY VENOUS DOPPLER 04/20/17 IMPRESSION: 1. No deep venous thrombus within the right lower extremity. 2. Increase in size and complexity of a large right lower leg collection which extends from the level of the popliteal fossa to the distal medial right calf. This suggests a large hematoma. Possible color flow within this abnormality which may be artifactual. However, sonographic follow-up to ensure resolution and exclude the possibility of an underlying mass is recommended. R FOOT MIN 3 VIEWS ROUTINE 04/20/17 IMPRESSION: 1. No acute fracture or dislocation of the right foot. 2. Tibiotalar joint osteoarthritis. CT OF THE RIGHT LOWER LEG WITHOUT CONTRAST 04/20/17 IMPRESSION: 1. 14 x 9.4 x 5.1 cm right lower leg hematoma, likely subfascial in location with significant mass effect upon the adjacent medial head of the gastrocnemius. The findings could be correlated with clinical evidence for compartment syndrome. Complex right popliteal cyst which may be related to hematoma. Findings discussed with Dr. Dyer at time of dictation. 2. No acute fracture of the right tibia or fibula. CHEST ONE VIEW PORTABLE 04/20/17 IMPRESSION: 1. Bibasilar opacities which favor atelectasis. 2. No acute cardiopulmonary findings. 3. Mild cardiomegaly without evidence of pulmonary edema. 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 Medication Reconciliation New Medications: Tramadol (Ultram) 50 Mg Tab 50 MG PO Q4H PRN for Pain for 7 Days, #28 TAB Benzonatate (Benzonatate) 100 Mg Cap 100 MG PO TID PRN for Cough for 14 Days, #42 CAP Continued Medications: Aspirin (Aspirin Ec) 81 Mg Tab 81 MG PO DAILY Cephalexin Monohydrate (Keflex) 500 Mg Cap 500 MG PO QID for 7 Days, #28 CAP (This prescription has been renewed) Cholecalciferol (Vitamin D3) 400 Unit Tab 400 UNITS PO DAILY Clopidogrel Bisulfate (Plavix) 75 Mg Tab 75 MG PO DAILY, TAB Cyclobenzaprine Hcl (Flexeril) 5 Mg Tab 5 MG PO TID PRN for Muscle Spasms Docusate Sodium (Docusate Sodium) 100 Mg Cap 100 MG PO BID for 7 Days, #14 CAP Ferrous Sulfate (Ferrous Sulfate) 325 Mg Tab 325 MG PO HS Fluoxetine (Prozac) 40 Mg Cap 40 MG PO DAILY, CAP TAKES WITH 20 MG TAB FOR 60 MG DOSE. Fluoxetine HCl (Fluoxetine HCl) 20 Mg Cap 20 MG PO DAILY, #30 TAKES WITH 40 MG FOR 60 MG DOSE. Furosemide (Lasix) 40 Mg Tab 40 MG PO BID, TAB Hydroxyzine Pamoate (Vistaril) 25 Mg Cap 25 MG PO TID PRN for Anxiety Ipratropium-Albuterol (Combivent Respimat) 1 Aer Aer 1 PUFFS INH QID, INH INHALE ONE PUFF 4 TIMES A DAY MAXIMUM OF 6 PUFFS IN 24 HOURS Ipratropium-Albuterol (Duoneb) 3 Ml Nebu 1 TREATMENT INH TID, INHA Isosorbide Mononitrate Ext Rel (Imdur Ext Rel) 30 Mg Tabcr 30 MG PO QAM, TAB Lorazepam (Ativan) 1 Mg Tab 1 MG PO Q6H PRN for ANXIETY/SPASMS, TAB Melatonin (Melatonin) 10 Mg Tab 10 MG PO HS Metoprolol Succinate (Toprol Xl) 25 Mg Tabcr 25 MG PO BID Montelukast Sodium (Singulair) 10 Mg Tab 10 MG PO DAILY, TAB Naproxen (Aleve) 220 Mg Tab 220 MG PO DIRECTED PRN for Pain, TAB Pantoprazole (Protonix) 40 Mg Tab 40 MG PO QAM Polyethylene Glycol 3350 (Bulk (Polyethylene Glycol 3350) 1 Pow Pow 17 GM PO DAILY PRN for Constipation, #255 GM Potassium Chloride (Potassium Chloride ER) 20 Meq Tab 20 MEQ PO BID Pravastatin Sod (Pravastatin Sodium) 40 Mg Tab 40 MG PO HS Ranitidine Hcl (Ranitidine Hcl) 300 Mg Cap 300 MG PO BID Ropinirole HCl (Ropinirole HCl) 0.25 Mg Tab 0.5 MG PO HS Venlafaxine Hcl (Venlafaxine Extended Rel) 37.5 Mg Cap 75 MG PO QAM, 3 Refills Discontinued Medications: Azithromycin (Zithromax) 500 Mg Tab 500 MG PO DAILY, #4 TAB STARTED 04/10/17 FOR 7 DAYS. Prednisone (Prednisone) 10 Mg Tab 10 MG PO DIRECTED, TAB STARTED 04/10/17-TAPERED DOSE 04/14/17-2 TABS X 2 DAYS, THEN 1 TAB X 3 DAYS. Sulfa/Trimethoprim (Bactrim Ds 800MG/160MG) Tab 1 TAB PO BID for 10 Days, #20 TAB Discharge Exam The patient was seen and examined this morning. Pt reports doing well today. He is having a slight lower right leg pain, and currently is lying in bed with his leg above the level of his heart to help reduce swelling. He denies any paresthesias in his foot. He has sensation to light touch in the distal lower right extremity. He has been ambulating about the room without difficulty. Patient denies any fevers, sweats, chills. Discussion was held regarding continuing antibiotics with Keflex for the next 7 days. Ortho has already been in to see the patient and is agreeable to discharge. ROS: Constitutional: No fever, sweats or chills Eyes: No diplopia, no worsening or blurred vision ENT: normal hearing, no trouble swallowing Respiratory: No cough, sputum, dyspnea at rest or on exertion Cardiovascular: No chest pain, tightness or palpitations Abdomen: No pain, nausea, vomiting, diarrhea or constipation Musculoskeletal: See HPI Neurologic: No weakness, numbness/tingling, or balance problems Psychiatric: No anxiety or depression Skin: No rash or itch PE: General Appearance: WD/WN, no apparent distress, + obese Eyes: PERRL, EOMI ENT: hearing grossly normal, pharynx normal, + pertinent finding (MMM) Neck: supple, no JVD Respiratory/Chest: lungs clear, no respiratory distress, no accessory muscle use Cardiovascular: regular rate, rhythm, + systolic murmur (soft) Abdomen: normal bowel sounds, non tender, soft Extremities: non-tender, no pedal edema, no calf tenderness, + pertinent finding (LLE with reyes wrap intact, minimal edema around ankle, drain out. ) Neurologic/Psychiatric: no motor/sensory deficits, alert, normal mood/affect Skin: normal color, warm/dry Hospital Course 71 yo M with PMhx of CHF, anemia, CAD, HLD, hx CVA, spinal stenosis, COPD, mariguana and tobacco abuse, depression, anxiety Complex right lower extremity hematoma, s/p evacuation on 04/20 d/t compartment syndrome - pulses intact, foot was warm, good sensation, no pallor, can wiggle toes, no paresthesias - Ortho on board - Dr. Dyer following - Sp surgical evacuation on 04/20/[address] Dyer. - On Vancomycin and Zosyn during hospitalization, blood cultures negative, pt had low grade fever on 04/21 so received 1 more day of IV antibiotics. Patient should continue Keflex 500 mg QID x 7 more days. This was discussed with orthopedics and they will follow-up in the office within 1 week. - Continue pain control with Tylenol and tramadol alternating. - WBC normal, Hbg stable, follow daily, BP stable CAD: no chest pain, EKG normal - resume aspirin and Plavix today HTN - resume Toprol and Imdur PO, Lasix 40 mg PO BID GERD: stable - Protonix COPD//marijuana/tobacco abuse - Xopenex/Atrovent nebulizer every 6 hours while awake and every 2 hours when necessary - Cessation encouraged Anxiety/depression-- continue fluoxetine 60 mg daily and have lorazepam 1 mg IV every 4 hours when necessary available Mild productive cough: Robitussin AC PRN, patient on Vancomycin and Zosyn, no signs of infiltrate on CXR CODE: FULL Disposition: From home, PT/OT on board, discharged home today. Total Time Spent: Greater than 30 minutes This includes examination of the patient, discharge planning, medication reconciliation, and communication with other providers. Discharge Instructions Please refer to the electronic Patient Visit Report (Discharge Instructions) for additional information. Follow-Up Follow up with your Primary Care Provider within 1 week. Follow up with Orthopedics With Dr. Dyer within 1 week, please call for an appointment at [phone]. Additional Copies To Bethany Goldman,
[2017-04-24] MEDS ORDERED: VANCOMYCIN TROUGH ONE (07:30)
== END 2017-04-23 16:41 | disposition home or self-care (01) | DRG 923 ==
LOC: C.EDB 00:53 → C.MSICU 05:18 → ENRESERV 05:43 → C.3E 04-21 12:12
PROVIDERS: ADMIT Hospitalist; ATTEND Hospitalist
PROC: 0JCN0ZZ Extirpation of Matter from Right Lower Leg Subcutaneous Tissue and Fascia, Open Approach (ICD-10-PCS; principal; 2017-04-20 09:00)
DX: T79.A21A Traumatic compartment syndrome of right lower extremity, initial encounter (principal); I50.32 Chronic diastolic (congestive) heart failure; N17.9 Acute kidney failure, unspecified; L03.115 Cellulitis of right lower limb; S80.11XA Contusion of right lower leg, initial encounter; R05 Cough; I25.10 Atherosclerotic heart disease of native coronary artery without angina pectoris; J44.9 Chronic obstructive pulmonary disease, unspecified; K21.9 Gastro-esophageal reflux disease without esophagitis; I11.0 Hypertensive heart disease with heart failure; D64.9 Anemia, unspecified; E78.5 Hyperlipidemia, unspecified; F32.9 Major depressive disorder, single episode, unspecified; F41.9 Anxiety disorder, unspecified; F12.10 Cannabis abuse, uncomplicated; E66.9 Obesity, unspecified; Z79.899 Other long term (current) drug therapy; Z79.02 Long term (current) use of antithrombotics/antiplatelets; Z79.82 Long term (current) use of aspirin; Z86.73 Personal history of transient ischemic attack (TIA), and cerebral infarction without residual deficits; Z68.34 Body mass index [BMI] 34.0-34.9, adult; Z87.891 Personal history of nicotine dependence; Z83.3 Family history of diabetes mellitus; W19.XXXA Unspecified fall, initial encounter; Y99.8 Other external cause status

== ENCOUNTER 2017-05-10 14:22 | Emergency (ER) | payer OTHER, MEDICARE ==
[~2017-05-10] VITALS: Ht 172.7 cm; Wt 104.0 kg
[~2017-05-10 14:22] MED LIST changes: -AZIT500T26 PO; +BENZ100C7 PO; -METO25TA3 PO; +METO25TA4 PO; -PRED10TA PO; -SULF800T23 PO
[2017-05-10 14:36] VITALS: TEMP 36.8; Ht 172.7 cm; Wt 104.0 kg
--- NOTE | 2017-05-10 18:04 | EMERGENCY ROOM VISIT NOTE ---
History Report prepared by Anita: Jennifer Courtney Under the Supervision of: Dr. Antoni Carvalho D.O. First contact with patient: 17:15 Chief Complaint: WOUND INFECTION Stated Complaint: WOUND INFECTION Nursing Triage Summary: pt here with wound to right lower leg and calf, pt states began with purulent discharge yesterday. had sx [address] dyer for dvt. 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 . His surgery was performed by Dr. Dyer. He reports he first hurt his leg a few months ago. He states he came into the ED because he went to his doctor this morning who recommended he come into the ED. He denies any pain, nausea, vomiting, and problems urinating. He reports he fell recently into dirt when he was working for his job. He also states there was purulent drainage this morning. 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 Positive purulent discharge this morning. Review of Systems See HPI for pertinent positives & negatives. A total of 10 systems reviewed and were otherwise negative. 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 VESSEL (14) DEPRESSIVE DISORDER NEC (15) DIVERTICULOSIS COLON (W/O MENT OF HEMORRHAGE) (16) History of repair of inguinal hernia (17) HYPERLIPIDEMIA NEC/NOS (18) Lumbar stenosis with neurogenic claudication (19) MIGRAINE UNSPECIFIED W/O INTRACT MGRN W/O STATUS MIGRAINOSUS (20) OBESITY, NOS (21) OSTEOARTHROS NOS-SHLDER (22) PERSONAL HISTORY OF URINARY CALCULI (23) PERSONAL HISTORY, PNEUMONIA (RECURRENT) (24) PNEUMONIA, ORGANISM NOS (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 (26) SPINAL STENOSIS-LUMBAR (27) umbilical herniorrhaphy Surgical Problems: (1) Hx of decompressive lumbar laminectomy Family History Diabetes mellitus Heart disease Social History Smoking Status: Former Smoker Alcohol Use: occasionally Drug Use: marijuana Marital Status: in relationship Housing Status: other Occupation Status: retired Current/Historical Medications Scheduled Budesonide/Formoterol Fumarate (Symbicort 160/4.5 Inhaler ), 2 PUFFS INH BID Buspirone Hcl (Buspirone Hcl), 10 MG PO BID Cholecalciferol (Vitamin D3), 50,000 UNITS PO [id number] Clopidogrel Bisulfate (Plavix), 75 MG PO DAILY Docusate Sodium (Docusate Sodium), 100 MG PO BID Ferrous Sulfate (Ferrous Sulfate), 325 MG PO HS Fluoxetine (Prozac), 40 MG PO DAILY Fluoxetine HCl (Fluoxetine HCl), 20 MG PO DAILY Furosemide (Lasix), 40 MG PO BID Ibuprofen (Advil), 600 MG PO BID Ipratropium-Albuterol (Combivent Respimat), 1 PUFFS INH QID Isosorbide Mononitrate Ext Rel (Imdur Ext Rel), 30 MG PO QAM Melatonin (Melatonin), 5 MG PO HS Metoprolol Succinate (Toprol Xl), 25 MG PO BID Montelukast Sodium (Singulair), 10 MG PO DAILY Pantoprazole (Protonix), 40 MG PO QAM Potassium Chloride (Potassium Chloride ER), 20 MEQ PO BID Pravastatin Sod (Pravastatin Sodium), 40 MG PO HS Ropinirole HCl (Ropinirole HCl), 0.5 MG PO HS Venlafaxine Hcl (Venlafaxine Extended Rel), 37.5 MG PO BID Scheduled PRN Cyclobenzaprine HCl (Cyclobenzaprine HCl), 10 MG PO BID PRN for Muscle Spasms Hydroxyzine Pamoate (Vistaril), 25 MG PO TID PRN for Anxiety Ipratropium-Albuterol (Duoneb), 1 TREATMENT INH QID PRN for Shortness of Breath Oxycodone/Acetaminophen 5MG/325MG (Oxycodone/Acetaminophen 5MG/325MG), 1-2 TABLETS PO Q8 PRN for Pain Allergies Coded Allergies: Morphine (Verified Allergy, Intermediate, RASH, 05/10/17) Quinolones (Verified Allergy, Intermediate, unknown, 05/10/17) PATIENT WOULD LIKE TO BE TESTED FOR THIS AT SOME POINT BECAUSE HE DOES NOT BELIEVE HE IS ALLERGIC TO IT. Levofloxacin (Verified Allergy, Unknown, "WAS TOLD NOT TO TAKE"., 05/10/17) Physical Exam Vital Signs Date Time Temp Pulse Resp B/P (MAP) Pulse Ox O2 Delivery O2 Flow Rate FiO2 05/10/17 21:07 72 20 141/83 98 Room Air 05/10/17 19:48 79 20 138/69 97 Room Air 05/10/17 18:35 83 20 104/76 96 Room Air 05/10/17 14:36 36.8 83 20 132/81 96 Room Air Physical Exam GENERAL: Patient is awake, alert, and in no acute distress. Patient is resting comfortably and showing no signs of anxiety EYES: The conjunctivae are clear. The pupils are round and reactive. EARS, NOSE, MOUTH AND THROAT: The nose is without any evidence of any deformity. Mucous membranes are moist tongue is midline NECK: The neck is nontender and supple. RESPIRATORY: Normal respiratory effort is noted there is no evidence of wheezing rhonchi or rales CARDIOVASCULAR: Regular rate and rhythm noted there no murmurs rubs or gallops normal S1 normal S2 GASTROINTESTINAL: The abdomen is soft. Bowel sounds are present in all quadrants. Abdomen is nontender MUSCULOSKELETAL/EXTREMITIES: There is no evidence of gross deformity full range of motion is noted in the hips and shoulders SKIN: Pedal edema noted bilaterally. Erythema and swelling over the right leg. Surgical site noted on the medial right calf. Sutures are in place and area is warm and erythematous. No drainage was noted at this time. NEUROLOGIC: Patient is awake alert and oriented x3. Medical Decision & Procedures ER Provider Diagnostic Interpretation: Radiology results as stated below per my review and radiologist interpretation: R TIBIA/FIBULA 2 VIEWS ROUTINE CLINICAL HISTORY: Right lower extremity pain and swelling. Wound infection. COMPARISON: Right tibia and fibula radiographs and CT of the right lower extremity April 20, 2017. FINDINGS: No fracture or osteolysis is identified within the right tibia or fibula. Talar dome is intact. No soft tissue gas is evident by radiography. There is mild osteoarthritis of the medial compartment of the right knee. IMPRESSION: No osseous abnormality of the right tibia or fibula. Electronically signed by: Jesse Gonzalez M.D. 05/10/2017 7:01 PM Dictated Date/Time: 05/10/2017 6:58 PM RIGHT LOWER EXTREMITY VENOUS DOPPLER CLINICAL HISTORY: Swelling. COMPARISON STUDY: Right lower extremity venous Doppler April 20, 2017. TECHNIQUE: Sonography of the deep venous system of the right lower extremity was performed. Compression and augmentation were evaluated. FINDINGS: The common femoral, superficial femoral and popliteal veins were compressible. Augmentation was normal. Flow was shown within the deep calf vessels. Note is made of a 2.7 x 1.4 x 0.8 cm mildly complex right popliteal fossa fluid collection. This is decreased in size since exam of April 20, 2017. IMPRESSION: 1. No evidence of deep venous thrombus within the right lower extremity. 2. 2.7 x 1.4 x 0.8 cm mildly complex right popliteal fossa fluid collection which has decreased in size since prior ultrasound of April 20, 2017. Electronically signed by: Jesse Gonzalez M.D. 05/10/2017 7:33 PM Dictated Date/Time: 05/10/2017 7:32 PM Laboratory Results 05/10/17 18:21 Red Blood Count 4.10, Mean Corpuscular Volume 82.9, Mean Corpuscular Hemoglobin 26.1, Mean Corpuscular Hemoglobin Concent 31.5, Mean Platelet Volume 8.8, Neutrophils (%) (Auto) 62.3, Lymphocytes (%) (Auto) 23.8, Monocytes (%) (Auto) 7.5, Eosinophils (%) (Auto) 5.6, Basophils (%) (Auto) 0.6, Neutrophils # (Auto) 3.33, Lymphocytes # (Auto) 1.27, Monocytes # (Auto) 0.40, Eosinophils # (Auto) 0.30, Basophils # (Auto) 0.03 05/10/17 18:21 Test 05/10/17 18:21 White Blood Count 5.34 K/uL (4.8-10.8) Red Blood Count 4.10 M/uL (4.7-6.1) Hemoglobin 10.7 g/dL (14.0-18.0) Hematocrit 34.0 % (42-52) Mean Corpuscular Volume 82.9 fL (80-100) Mean Corpuscular Hemoglobin 26.1 pg (25-34) Mean Corpuscular Hemoglobin Concent 31.5 g/dl (32-36) Platelet Count 323 K/uL (130-400) Mean Platelet Volume 8.8 fL (7.4-10.4) Neutrophils (%) (Auto) 62.3 % Lymphocytes (%) (Auto) 23.8 % Monocytes (%) (Auto) 7.5 % Eosinophils (%) (Auto) 5.6 % Basophils (%) (Auto) 0.6 % Neutrophils # (Auto) 3.33 K/uL (1.4-6.5) Lymphocytes # (Auto) 1.27 K/uL (1.2-3.4) Monocytes # (Auto) 0.40 K/uL (0.11-0.59) Eosinophils # (Auto) 0.30 K/uL (0-0.5) Basophils # (Auto) 0.03 K/uL (0-0.2) RDW Standard Deviation 43.7 fL (36.4-46.3) RDW Coefficient of Variation 14.3 % (11.5-14.5) Immature Granulocyte % (Auto) 0.2 % Immature Granulocyte # (Auto) 0.01 K/uL (0.00-0.02) Erythrocyte Sedimentation Rate 10 mm/hr (0-14) Prothrombin Time 10.1 SECONDS (9.0-12.0) Prothromb Time International Ratio 1.0 (0.9-1.1) Activated Partial Thromboplast Time 24.8 SECONDS (21.0-31.0) Partial Thromboplastin Ratio 1.0 Anion Gap 7.0 mmol/L (3-11) Est Creatinine Clear Calc Drug Dose 78.3 ml/min Estimated GFR () 84.5 Estimated GFR (Non- 72.9 BUN/Creatinine Ratio 10.2 (10-20) Calcium Level 8.4 mg/dl (8.5-10.1) Total Bilirubin 0.3 mg/dl (0.2-1) Direct Bilirubin < 0.1 mg/dl (0-0.2) Aspartate Amino Transf (AST/SGOT) 23 U/L (15-37) Alanine Aminotransferase (ALT/SGPT) 39 U/L (12-78) Alkaline Phosphatase 90 U/L (45-117) C-Reactive Protein < 0.29 mg/dl (0-0.29) Total Protein 6.2 gm/dl (6.4-8.2) Albumin 3.3 gm/dl (3.4-5.0) Laboratory results per my review. ED Course 1721: The patient was evaluated in room C3. A complete history and physical examination were performed. 1999: I checked on the patient at this time. He appeared content 2019: I discussed the patient's results with Dr. Dyer, Orthopaedic surgery. He is agreeable with the treatment plan. 2020: Upon reevaluation, the patient is content. I discussed the results and treatment plan with him. He verbalized agreement of the treatment plan. He was discharged home. Medical Decision Prior records reviewed and summarized as above. Triage Nursing notes reviewed. The patient's history was concerning for swelling and redness of the skin. Differential diagnosis: Etiologies such as cellulitis, abscess, MRSA infection, DVT, necrotizing fasciitis, dermatitis, drug eruption, as well as others were entertained.. The patient is a 71-year-old male who recently had surgery on his right leg for possible compartment syndrome because of a large cystic structure behind his right knee which appears to have been a hematoma. The patient presented to the emergency department today because home health felt that this area was infected. The patient had some erythema and induration but this does not appear to be new according to his primary orthopedic physician. His inflammatory markers would not suggest that this is cellulitis in nature. There is no worsening fluid collection. The skin was warm and dry. Pulses were symmetric. I do not feel this is a recurrence of compartment syndrome given the patient's pain level. I discussed patient's laboratory and radiographic studies with the orthopedic physician. They have agreed to evaluate the patient in the office in follow-up. At this time I have encouraged the patient to continue using compression dressing and return to the emergency department immediately if symptoms change worsening of the need arises. Medication Reconcilliation Current Medication List: was personally reviewed by me Blood Pressure Screening Patient's blood pressure: Normal blood pressure Blood pressure disposition: Did not require urgent referral Consults Time Called: 2014 Consulting Physician: Dr. Dyer, Orthopaedic surgery Returned Call: 2018 We discussed the patient's results/ He is agreeable with the treatment plan. Impression Primary Impression: Post-operative pain Additional Impression: Visit for wound check Scribe Attestation The scribe's documentation has been prepared under my direction and personally reviewed by me in its entirety. I confirm that the note above accurately reflects all work, treatment, procedures, and medical decision making performed by me. Departure Information Dispostion Home / Self-Care Referrals No Doctor, Assigned (PCP) Forms HOME CARE DOCUMENTATION FORM, IMPORTANT VISIT INFORMATION, WORK / SCHOOL INSTRUCTIONS Patient Instructions My [facility] Additional Instructions Follow-up with the orthopedic physician as scheduled. Continue to use the wound dressings as instructed. Continue to use the Bill wrap and compression dressing as instructed. Continue to put triple antibiotic ointment to the area 2-3 times a day. Problem Qualifiers
[2017-05-10 18:37] LABS: BASO % 0.6 %; BASO ABS # 0.03 K/uL (0-0.2); EOS % 5.6 %; HEMOGLOBIN 10.7 g/dL (14.0-18.0); IG# 0.01 K/uL (0.00-0.02); LYMPH % 23.8 %; LYMPH ABS # 1.27 K/uL (1.2-3.4); MEAN CELL VOLUME 82.9 fL (80-100); MEAN CORPUSCULAR HEMOGLOBIN 26.1 pg (25-34); MEAN CORPUSCULAR HGB CONC 31.5 g/dl (32-36); MEAN PLATELET VOLUME 8.8 fL (7.4-10.4); MONO % 7.5 %; NEUT % 62.3 %; NEUT ABS # 3.33 K/uL (1.4-6.5); PLATELET COUNT 323 K/uL (130-400); RED CELL DISTRIBUTION WIDTH CV 14.3 % (11.5-14.5); RED CELL DISTRIBUTION WIDTH SD 43.7 fL (36.4-46.3); WHITE BLOOD COUNT 5.34 K/uL (4.8-10.8)
[2017-05-10 18:45] LABS: PTT PATIENT 24.8 SECONDS (21.0-31.0)
[2017-05-10 18:54] LABS: ALBUMIN 3.3 gm/dl (3.4-5.0); ALT/SGPT 39 U/L (12-78); AST/SGOT 23 U/L (15-37); BLOOD UREA NITROGEN 11 mg/dl (7-18); CALCIUM 8.4 mg/dl (8.5-10.1); CARBON DIOXIDE 27 mmol/L (21-32); CREATININE 1.04 mg/dl (0.60-1.40); GLUCOSE 103 mg/dl (70-99); POTASSIUM 4.1 mmol/L (3.5-5.1); SODIUM 142 mmol/L (136-145)
[2017-05-10 18:56] LABS: ALKALINE PHOSPHATASE 90 U/L (45-117); TOTAL PROTEIN 6.2 gm/dl (6.4-8.2)
--- NOTE | 2017-05-10 19:02 | DIAGNOSTIC IMAGING REPORT ---
R TIBIA/FIBULA 2 VIEWS ROUTINE CLINICAL HISTORY: Right lower extremity pain and swelling. Wound infection. COMPARISON: Right tibia and fibula radiographs and CT of the right lower extremity April 20, 2017. FINDINGS: No fracture or osteolysis is identified within the right tibia or fibula. Talar dome is intact. No soft tissue gas is evident by radiography. There is mild osteoarthritis of the medial compartment of the right knee. IMPRESSION: No osseous abnormality of the right tibia or fibula. Electronically signed by: Jesse Gonzalez M.D. 05/10/2017 7:01 PM Dictated Date/Time: 05/10/2017 6:58 PM
--- NOTE | 2017-05-10 19:35 | DIAGNOSTIC IMAGING REPORT ---
RIGHT LOWER EXTREMITY VENOUS DOPPLER CLINICAL HISTORY: Swelling. COMPARISON STUDY: Right lower extremity venous Doppler April 20, 2017. TECHNIQUE: Sonography of the deep venous system of the right lower extremity was performed. Compression and augmentation were evaluated. FINDINGS: The common femoral, superficial femoral and popliteal veins were compressible. Augmentation was normal. Flow was shown within the deep calf vessels. Note is made of a 2.7 x 1.4 x 0.8 cm mildly complex right popliteal fossa fluid collection. This is decreased in size since exam of April 20, 2017. IMPRESSION: 1. No evidence of deep venous thrombus within the right lower extremity. 2. 2.7 x 1.4 x 0.8 cm mildly complex right popliteal fossa fluid collection which has decreased in size since prior ultrasound of April 20, 2017. Electronically signed by: Jesse Gonzalez M.D. 05/10/2017 7:33 PM Dictated Date/Time: 05/10/2017 7:32 PM
[2017-05-10] MEDS ORDERED: CHOL1CAP95 PO (20:36)
[2017-05-10] MEDS ORDERED: SYMIN160 INH (20:36)
[2017-05-10] MEDS ORDERED: FLX10 PO (20:36)
[2017-05-10] MEDS ORDERED: OXYC-643 PO (20:36)
[2017-05-10] MEDS ORDERED: IBUP-1050 PO (20:36)
[2017-05-10] MEDS ORDERED: MELA5CAP PO (20:36)
[2017-05-10] MEDS ORDERED: BUSP-8 PO (20:36)
[2017-05-10 21:07] VITALS: BP 141/83; PULSE 72; O2SAT 98
== END 2017-05-10 21:08 | disposition home or self-care (01) ==
LOC: C.EDB 14:24 → C.EDC 21:08
DX: G89.18 Other acute postprocedural pain (principal); Z48.89 Encounter for other specified surgical aftercare; J44.9 Chronic obstructive pulmonary disease, unspecified; I25.10 Atherosclerotic heart disease of native coronary artery without angina pectoris; F41.9 Anxiety disorder, unspecified; F32.9 Major depressive disorder, single episode, unspecified; E78.5 Hyperlipidemia, unspecified; I50.9 Heart failure, unspecified; Z87.442 Personal history of urinary calculi; Z87.01 Personal history of pneumonia (recurrent); Z86.73 Personal history of transient ischemic attack (TIA), and cerebral infarction without residual deficits; Z87.891 Personal history of nicotine dependence; Z98.890 Other specified postprocedural states; Z83.3 Family history of diabetes mellitus; Z79.02 Long term (current) use of antithrombotics/antiplatelets; Z79.899 Other long term (current) drug therapy

== ENCOUNTER 2017-10-22 01:32 | Inpatient (IN) | payer OTHER, MEDICARE ==
[~2017-10-22] VITALS: Ht 172.7 cm; Wt 99.9 kg
[~2017-10-22 01:32] MED LIST changes: -ASPI81TA28 PO; -ATV/1 PO; -BENZ100C7 PO; +BUSP-8 PO; -CEPH500C2 PO; +CHOL1CAP95 PO; -CHOL400T PO; -CYCL5TAB PO; +FLX10 PO; +IBUP-1050 PO; +IPRA-64 INH; -IPRASOL4 INH; -MELA1TAB48 PO; +MELA5CAP PO; -NAPR1TAB9 PO; +OXYC-643 PO; -POLY1POW2 PO; -RANI300C PO; +SYMIN160 INH
[2017-10-22] MEDS ORDERED: SODIUM CHLORIDE 0.9% 1000ML 1,000 ML IV STA ×2 (01:50→04:02)
[2017-10-22] MEDS ORDERED: ONDANSETRON INJ 2 MG/ML 2 ML VIAL IV STA ×2 (01:50→04:10)
--- NOTE | 2017-10-22 02:02 | EMERGENCY ROOM VISIT NOTE ---
History Report prepared by Anita: Jennifer Courtney Under the Supervision of: Dr. Renzo Damon M.D. 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 He states he went to the bars and drank a lot 3 nights ago. Since then, he has had worsening weakness. He reports he has vomiting, severe abdominal pain and diarrhea about every 15 minutes. associated fatigue and dehydration. Unable to keep anything down. No medications prior to arrival. Nothing makes better nor worse. History of cdiff. No history of abdominal surgery. Denies history of pancreatitis. No trauma nor injuries that he recalls. States he does not drink heavily regularly. 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 A total of 10 systems reviewed and were otherwise negative. 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 (15) DEPRESSIVE DISORDER NEC (16) DIVERTICULOSIS COLON (W/O MENT OF HEMORRHAGE) (17) Gastroenteritis (18) History of repair of inguinal hernia (19) HYPERLIPIDEMIA NEC/NOS (20) Lumbar stenosis with neurogenic claudication (21) MIGRAINE UNSPECIFIED W/O INTRACT MGRN W/O STATUS MIGRAINOSUS (22) OBESITY, NOS (23) OSTEOARTHROS NOS-SHLDER (24) PERSONAL HISTORY OF URINARY CALCULI (25) PERSONAL HISTORY, PNEUMONIA (RECURRENT) (26) PNEUMONIA, ORGANISM NOS (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 (28) SPINAL STENOSIS-LUMBAR (29) umbilical herniorrhaphy Surgical Problems: (1) Hx of decompressive lumbar laminectomy Family History Diabetes mellitus Heart disease Social History Smoking Status: Former Smoker Alcohol Use: occasionally Drug Use: marijuana Marital Status: in relationship Housing Status: other Occupation Status: retired Current/Historical Medications Scheduled Aspirin (Aspirin Ec), 81 MG PO DAILY Budesonide/Formoterol Fumarate (Symbicort 160/4.5 Inhaler ), 2 PUFFS INH BID Buspirone Hcl (Buspirone Hcl), 10 MG PO BID Cholecalciferol (Vitamin D 1000 Unit), 1,000 INTER.UNIT PO DAILY Clopidogrel Bisulfate (Plavix), 75 MG PO DAILY Diphenhydramine Hcl (Benadryl Allergy), 25 MG PO AMHS Docusate Sodium (Docusate Sodium), 100 MG PO BID Ferrous Sulfate (Ferrous Sulfate), 325 MG PO HS Fluoxetine HCl (Fluoxetine HCl), 20 MG PO DAILY Furosemide (Lasix), 40 MG PO BID Ipratropium-Albuterol (Combivent Respimat), 1 PUFFS INH QID Isosorbide Mononitrate Ext Rel (Imdur Ext Rel), 30 MG PO QAM Melatonin (Melatonin), 10 MG PO HS Metoprolol Succinate (Toprol Xl), 25 MG PO BID Montelukast Sodium (Singulair), 10 MG PO DAILY Pantoprazole (Protonix), 40 MG PO QAM Potassium Chloride (Potassium Chloride ER), 20 MEQ PO BID Pravastatin Sod (Pravastatin Sodium), 40 MG PO HS Ranitidine (Zantac), 300 MG PO BID Ropinirole (Requip), 0.5 MG PO HS Tamsulosin HCl (Tamsulosin HCl), 0.4 MG PO DAILY Scheduled PRN Benzonatate (Tessalon Perles), 200 MG PO TID PRN for Cough Cyclobenzaprine HCl (Cyclobenzaprine HCl), 5 MG PO TID PRN for Muscle Spasms Ipratropium-Albuterol (Duoneb), 1 TREATMENT INH QID PRN for Shortness of Breath Polyethylene Glycol 3350 (Miralax), 17 GM PO DAILY PRN for Constipation Allergies Coded Allergies: Morphine (Verified Allergy, Intermediate, RASH, 10/22/17) Quinolones (Verified Allergy, Intermediate, unknown, 05/10/17) PATIENT WOULD LIKE TO BE TESTED FOR THIS AT SOME POINT BECAUSE HE DOES NOT BELIEVE HE IS ALLERGIC TO IT. Levofloxacin (Verified Allergy, Unknown, "WAS TOLD NOT TO TAKE"., 10/22/17) Physical Exam Vital Signs Date Time Temp Pulse Resp B/P (MAP) Pulse Ox O2 Delivery O2 Flow Rate FiO2 10/22/17 05:00 96 17 124/80 92 10/22/17 04:30 97 21 142/91 95 10/22/17 04:07 98 16 148/100 98 10/22/17 03:37 97 24 135/94 95 10/22/17 03:02 97 26 137/100 93 10/22/17 02:32 95 17 134/85 96 10/22/17 02:30 115/80 10/22/17 02:02 100 25 96 10/22/17 01:55 102 10/22/17 01:34 139/85 10/22/17 01:32 37.2 107 22 139/85 97 Nasal Cannula 2.0 Physical Exam GENERAL: Patient is ill appearing and in no acute distress. EYES: No scleral icterus, unremarkable pupils. ENT: Mucous membranes dry, no nasal congestion. NECK: No masses appreciated, no meningismus, trachea is midline. RESPIRATORY: No dyspnea. No wheeze, no rhonchi. Crackles and decreased lung sounds throughout the right lower lobe with a junky productive cough CARDIOVASCULAR: Tachycardic rate and rhythm. No murmurs, rubs, gallops appreciated. GASTROINTESTINAL: Abdomen soft, nontender, no peritonitis. Bowel sounds positive. Hyperactive bowel sounds with vague diffused tenderness. No masses appreciated. BACK: No midline tenderness, no CVA tenderness EXTREMITIES: Normal motion all extremities, no cyanosis, no edema. NEUROLOGIC: Alert and oriented, no acute motor or sensory deficits, no focal weakness, cranial nerves grossly intact. SKIN: No rash, no jaundice, no diaphoresis. Medical Decision & Procedures ER Provider Diagnostic Interpretation: Stat Rad Radiology results and stated below per my review and radiologist interpretation: CT ABDOMEN & PELVIS Without Contrast: Comparison: CT abdomen and pelvis 03/25/15 Cholelithiasis without evidence of acute cholecystitis. Hepatomegaly and steatosis. Spleen, pancreas, adrenal glands, and kidneys are unremarkable. Fluid distended loops of small and large bowel suggesting nonspecific enteritis and diarrheal state. No bowel obstruction. Normal appendix. No free fluid or free air. Urinary bladder and prostate are unremarkable. No acute osseous findings. L2-S1 posterior decompression and osteometallic fusion. Radiologist: Rafaela Castellon M.D. Laboratory Results 10/22/17 02:21 Red Blood Count 5.89, Mean Corpuscular Volume 65.4, Mean Corpuscular Hemoglobin 19.9, Mean Corpuscular Hemoglobin Concent 30.4, Mean Platelet Volume 9.4, Neutrophils (%) (Auto) 73.4, Lymphocytes (%) (Auto) 11.8, Monocytes (%) (Auto) 10.2, Eosinophils (%) (Auto) 3.7, Basophils (%) (Auto) 0.3, Neutrophils # (Auto ) 2.37, Lymphocytes # (Auto) 0.38, Monocytes # (Auto) 0.33, Eosinophils # (Auto ) 0.12, Basophils # (Auto) 0.01 10/22/17 02:21 Test 10/22/17 02:17 10/22/17 02:21 Bedside Lactic Acid Venous 1.81 mmol/L (0.90-1.70) White Blood Count 3.23 K/uL (4.8-10.8) Red Blood Count 5.89 M/uL (4.7-6.1) Hemoglobin 11.7 g/dL (14.0-18.0) Hematocrit 38.5 % (42-52) Mean Corpuscular Volume 65.4 fL (80-100) Mean Corpuscular Hemoglobin 19.9 pg (25-34) Mean Corpuscular Hemoglobin Concent 30.4 g/dl (32-36) Platelet Count 273 K/uL (130-400) Mean Platelet Volume 9.4 fL (7.4-10.4) Neutrophils (%) (Auto) 73.4 % Lymphocytes (%) (Auto) 11.8 % Monocytes (%) (Auto) 10.2 % Eosinophils (%) (Auto) 3.7 % Basophils (%) (Auto) 0.3 % Neutrophils # (Auto) 2.37 K/uL (1.4-6.5) Lymphocytes # (Auto) 0.38 K/uL (1.2-3.4) Monocytes # (Auto) 0.33 K/uL (0.11-0.59) Eosinophils # (Auto) 0.12 K/uL (0-0.5) Basophils # (Auto) 0.01 K/uL (0-0.2) RDW Standard Deviation 43.8 fL (36.4-46.3) RDW Coefficient of Variation 18.9 % (11.5-14.5) Immature Granulocyte % (Auto) 0.6 % Immature Granulocyte # (Auto) 0.02 K/uL (0.00-0.02) Hypochromasia PRESENT Microcytosis PRESENT Ovalocytes 1+ Prothrombin Time 10.6 SECONDS (9.0-12.0) Prothromb Time International Ratio 1.0 (0.9-1.1) Anion Gap 11.0 mmol/L (3-11) Est Creatinine Clear Calc Drug Dose 44.7 ml/min Estimated GFR () 43.5 Estimated GFR (Non- 37.6 BUN/Creatinine Ratio 13.9 (10-20) Calcium Level 8.1 mg/dl (8.5-10.1) Magnesium Level 1.9 mg/dl (1.8-2.4) Total Bilirubin 0.6 mg/dl (0.2-1) Direct Bilirubin 0.2 mg/dl (0-0.2) Aspartate Amino Transf (AST/SGOT) 13 U/L (15-37) Alanine Aminotransferase (ALT/SGPT) 20 U/L (12-78) Alkaline Phosphatase 105 U/L (45-117) Total Creatine Kinase 69 U/L (39-308) Creatine Kinase MB 1.3 ng/ml (0.5-3.6) Creatine Kinase MB Ratio 1.9 (0-3.0) Troponin I < 0.015 ng/ml (0-0.045) Total Protein 7.0 gm/dl (6.4-8.2) Albumin 3.5 gm/dl (3.4-5.0) Lipase 148 U/L (73-393) Laboratory results as reviewed by me. Medications Administered Medications (Trade) Dose Ordered Sig/Osiris Route Start Time Stop Time Status Last Admin Dose Admin Sodium Chloride 1,000 ml @ 999 mls/hr Q1H1M STAT IV 10/22/17 01:50 10/22/17 02:50 DC 10/22/17 02:22 999 MLS/HR Ondansetron HCl (Zofran Inj) 4 mg NOW STAT IV 10/22/17 01:50 10/22/17 01:52 DC 7/31/18 02:22 4 MG Fentanyl Citrate (Fentanyl Inj) 100 mcg NOW STAT IV 10/22/17 02:32 10/22/17 02:33 DC 10/22/17 02:42 100 MCG Sodium Chloride 1,000 ml @ 125 mls/hr Q8H STAT IV 10/22/17 04:02 10/22/17 12:01 10/22/17 04:16 125 MLS/HR Ondansetron HCl (Zofran Inj) 4 mg NOW STAT IV 10/22/17 04:10 10/22/17 04:11 DC 10/22/17 04:16 4 MG ECG Per My Interpretation Indication: weakness Rate (beats per minute): 106 Rhythm: sinus tachycardia Findings: RBBB, no acute ischemic change, no ectopy, other (QTC 470) Comparison ECG Date: 04/21/2017 Change: Compared to EKG from 04/21/2017, morphology is similar ED Course 0147: The patient was evaluated in room B2. A complete history and physical exam was performed. 0150: Ordered Zofran Inj 4 mg IV, Sodium Chloride 1000 ml @ 999 mls/hr V 0409: I checked on the patient at this time. He is becoming more nauseous. 0410: Ordered Zofran Inj 4 mg IV 0422: Discussed the patient's case with Dr. sEsie Ortega PA-C [facility] Hospitalist. The patient will be evaluated for further treatment and disposition. 0425: I checked on the patient at this time. He notes that repeat Zofran helped. Medical Decision Differential: Sepsis, Infectious (UTI/Pneumonia/Meningitis/etc), Metabolic/ Electrolyte Abnormality, Cardiac, Dehydration, Anemia, Hepatic, Endocrine, Toxicologic, Neurologic, amongst other pathologies entertained. 72 yr old male with 3 days nausea, vomiting, diarrhea. Worsening weakness and fatigue. Ill appearing and clearly uncomfortable with dehydration. IV fluids and zofran along with fentanyl for pain. Labs with acute renal insufficiency and I suspect low bicarb is secondary to this as well. CT without surgical findings though is done without contrast. Abdomen is nonsurgical by examination. He has diffuse colitis with moderate amount of gastric distention. Zofran keeping vomiting at bay fortunately thus will hold on NG tube for now. CXR clear and while RLL sounds quite junky he states that this is pretty much his baseline breathing. Labs unremarkable other than renal/ bicarb issue. Awaiting cdiff but given his labs and symptoms reasonable to bring in for further treatment/monitoring. Medication Reconcilliation Current Medication List: was personally reviewed by me Blood Pressure Screening Patient's blood pressure: Normal blood pressure Blood pressure disposition: Did not require urgent referral Consults Time Called: [phone] Consulting Physician: MAURICIO Curran Hospitalist Returned Call: [phone] Discussed the patient's case with MAURICIO Curran Hospitalist. The patient will be evaluated for further treatment and disposition. Impression Primary Impression: Persistent vomiting Additional Impressions: Acute renal insufficiency Dehydration Enteritis Scribe Attestation The scribe's documentation has been prepared under my direction and personally reviewed by me in its entirety. I confirm that the note above accurately reflects all work, treatment, procedures, and medical decision making performed by me. Departure Information Dispostion Being Evaluated By Hospitalist (MAURICIO Curran Hospitalist) Referrals Bethany Goldman DO (PCP) Patient Instructions My [facility] Problem Qualifiers
[2017-10-22 02:30] LABS: BASO % 0.3 %; BASO ABS # 0.01 K/uL (0-0.2); EOS % 3.7 %; EOS ABS # 0.12 K/uL (0-0.5); HEMATOCRIT 38.5 % (42-52); HEMOGLOBIN 11.7 g/dL (14.0-18.0); IG# 0.02 K/uL (0.00-0.02); LYMPH % 11.8 %; LYMPH ABS # 0.38 K/uL (1.2-3.4); MEAN CELL VOLUME 65.4 fL (80-100); MEAN CORPUSCULAR HEMOGLOBIN 19.9 pg (25-34); MEAN CORPUSCULAR HGB CONC 30.4 g/dl (32-36); MEAN PLATELET VOLUME 9.4 fL (7.4-10.4); MONO % 10.2 %; MONO ABS # 0.33 K/uL (0.11-0.59); NEUT % 73.4 %; NEUT ABS # 2.37 K/uL (1.4-6.5); PLATELET COUNT 273 K/uL (130-400); RED CELL DISTRIBUTION WIDTH CV 18.9 % (11.5-14.5); RED CELL DISTRIBUTION WIDTH SD 43.8 fL (36.4-46.3); WHITE BLOOD COUNT 3.23 K/uL (4.8-10.8)
[2017-10-22] MEDS ORDERED: FENTANYL CITRATE INJ 50 MCG/1 ML 2 ML VIAL IV STA (02:32)
[2017-10-22 02:54] LABS: ALBUMIN 3.5 gm/dl (3.4-5.0); ALKALINE PHOSPHATASE 105 U/L (45-117); ALT/SGPT 20 U/L (12-78); AST/SGOT 13 U/L (15-37); BLOOD UREA NITROGEN 25 mg/dl (7-18); CALCIUM 8.1 mg/dl (8.5-10.1); CARBON DIOXIDE 17 mmol/L (21-32); CKMB 1.3 ng/ml (0.5-3.6); CREATININE 1.79 mg/dl (0.60-1.40); GLUCOSE 187 mg/dl (70-99); LIPASE 148 U/L (73-393); SODIUM 136 mmol/L (136-145)
[2017-10-22] MEDS ORDERED: FLM4 PO (04:34)
[2017-10-22] MEDS ORDERED: CHOL100027 PO (04:43)
[2017-10-22] MEDS ORDERED: ROPI0.5T15 PO (04:44)
[2017-10-22] MEDS ORDERED: RANI300T2 PO (04:44)
[2017-10-22] MEDS ORDERED: POLY335019 PO (04:46)
[2017-10-22] MEDS ORDERED: FLX/5 PO (04:51)
[2017-10-22] MEDS ORDERED: ASPI81TA28 PO (04:52)
[2017-10-22] MEDS ORDERED: DIPH1TAB87 PO (04:52)
[2017-10-22] MEDS ORDERED: BENZ1CAP90 PO (04:53)
[2017-10-22] MEDS ORDERED: ALUMINUM/MAGNESIUM/SIMETH (MAALOX MAX) 30 ML UDC PO PRN (05:15)
[2017-10-22] MEDS ORDERED: LORAZEPAM 2 MG/ML 1 ML VIAL IV PRN (05:15)
[2017-10-22] MEDS ORDERED: BENZONATATE 100MG CAP PO PRN (05:15)
[2017-10-22] MEDS ORDERED: ONDANSETRON INJ 2 MG/ML 2 ML VIAL IV PRN (05:15)
--- NOTE | 2017-10-22 05:43 | History and Physical ---
History & Physical Date & Time of Service: Oct 22, 2017 at 05:28 Chief Complaint: Illness, Vomiting, Diarrhea, Primary Care Physician: Bethany Goldman, History of Present Illness Source: patient Patient is a 72yo C male with multiple medical problems presenting with nausea/ vomiting/abdominal pain and diarrhea x 3 days. Patient reports to episode of heavy drinking 3 days ago - drank appx 24 beers in a night. The next day he woke up with nausea and frequent vomiting, non-bloody/non-bilious, last episode appx 30 minutes ago. Also with upper abdominal cramping and pain and multiple loose stools/day. Patient has tried to eat jello, drink milk and eat bland foods with no improvement in his symptoms. He has not been able to keep food down. No additional complaints at this time. ER Course: Zofran 4mg IV x 2, Fentanyl 100mcg, NSS x 2 liters Past Medical/Surgical History Medical Problems: Anemia Anxiety Cannabis abuse Cholelithiasis Asthma CHF - EF of 65-70% with class I diastolic dysfunction per echo 05/2015 COPD Depression C. diff x 2 - most recently 10 years ago Obesity OA Migraine Diverticulosis HLP CVA Surgical Problems: (1) Hx of decompressive lumbar laminectomy Carotid endarterectomy Carpal tunnel release - bilaterally Inguinal hernia repair Family History Diabetes mellitus Heart disease Social History Smoking Status: Current Every Day Smoker Smokeless Tobacco Use: No Alcohol Use: heavy (2-4 beers daily with episodes of increased use) Drug Use: marijuana Marital Status: in relationship Housing status: lives with family Occupational Status: retired Immunizations History of Influenza Vaccine: Yes Influenza Vaccine Date: Dec 12, 2012 History of Tetanus Vaccine?: Yes History of Pneumococcal: Yes Pneumococcal Date: Feb 04, 2004 History of Hepatitis B Vaccine: No Allergies Coded Allergies: Morphine (Verified Allergy, Intermediate, RASH, 10/22/17) Quinolones (Verified Allergy, Intermediate, unknown, 05/10/17) PATIENT WOULD LIKE TO BE TESTED FOR THIS AT SOME POINT BECAUSE HE DOES NOT BELIEVE HE IS ALLERGIC TO IT. Levofloxacin (Verified Allergy, Unknown, "WAS TOLD NOT TO TAKE"., 10/22/17) Home Medications Scheduled Aspirin (Aspirin Ec), 81 MG PO DAILY Budesonide/Formoterol Fumarate (Symbicort 160/4.5 Inhaler ), 2 PUFFS INH BID Buspirone Hcl (Buspirone Hcl), 10 MG PO BID Cholecalciferol (Vitamin D 1000 Unit), 1,000 INTER.UNIT PO DAILY Clopidogrel Bisulfate (Plavix), 75 MG PO DAILY Diphenhydramine Hcl (Benadryl Allergy), 25 MG PO AMHS Docusate Sodium (Docusate Sodium), 100 MG PO BID Ferrous Sulfate (Ferrous Sulfate), 325 MG PO HS Fluoxetine HCl (Fluoxetine HCl), 20 MG PO DAILY Furosemide (Lasix), 40 MG PO BID Ipratropium-Albuterol (Combivent Respimat), 1 PUFFS INH QID Isosorbide Mononitrate Ext Rel (Imdur Ext Rel), 30 MG PO QAM Melatonin (Melatonin), 10 MG PO HS Metoprolol Succinate (Toprol Xl), 25 MG PO BID Montelukast Sodium (Singulair), 10 MG PO DAILY Pantoprazole (Protonix), 40 MG PO QAM Potassium Chloride (Potassium Chloride ER), 20 MEQ PO BID Pravastatin Sod (Pravastatin Sodium), 40 MG PO HS Ranitidine (Zantac), 300 MG PO BID Ropinirole (Requip), 0.5 MG PO HS Tamsulosin HCl (Tamsulosin HCl), 0.4 MG PO DAILY Scheduled PRN Benzonatate (Tessalon Perles), 200 MG PO TID PRN for Cough Cyclobenzaprine HCl (Cyclobenzaprine HCl), 5 MG PO TID PRN for Muscle Spasms Ipratropium-Albuterol (Duoneb), 1 TREATMENT INH QID PRN for Shortness of Breath Polyethylene Glycol 3350 (Miralax), 17 GM PO DAILY PRN for Constipation Review of Systems Constitutional: + chills, No fever Eyes: No worsening of vision ENT: No sore throat Respiratory: + cough, No wheezing, No shortness of breath Cardiovascular: No chest pain, No palpitations Abdomen: + pain, + nausea, + vomiting, + diarrhea, No GI bleeding Genitourinary - Male: No dysuria Neurologic: No weakness Psychiatric: + substance abuse Endocrine: No fatigue Hematologic / Lymphatic: No abnormal bleeding/bruising Integumentary: No rash Physical Exam Vital Signs Date Time Temp Pulse Resp B/P (MAP) Pulse Ox O2 Delivery O2 Flow Rate FiO2 10/22/17 04:07 98 16 148/100 98 10/22/17 03:37 97 24 135/94 95 10/22/17 03:02 97 26 137/100 93 10/22/17 02:32 95 17 134/85 96 10/22/17 02:30 115/80 10/22/17 02:02 100 25 96 10/22/17 01:55 102 10/22/17 01:34 139/85 10/22/17 01:32 37.2 107 22 139/85 97 Nasal Cannula 2.0 General: patient sitting on bedside commode, NAD, AA&O x 4 Skin: warm, dry, intact, no rashes or lesions HEENT: NC/AT, PERRL, EOMI, anicteric sclera, conjunctiva without injection, nares patent, DRY mucus membranes, adentulous, no oropharyngeal lesions, neck supple, trachea midline, no thyromegaly, no LAD Heart: +S1/S2, regular, no m/r/g Lungs: equal air entry bilaterally, coarse breath sounds clear with coughing, no rales/rhonchi/wheezes Abdomen: soft, mildly distended, normo to hyperactive bowel sounds, diffusely tender with deep palpation with voluntary guarding, no rebound/peritoneal signs Extremities: warm, well perfused, no clubbing/cyanosis or edema, 2+ palpable pulses in UE/LE bilaterally Neuro: grossly intact Diagnostics Laboratory Results Results Past 24 Hours Test 10/22/17 02:17 10/22/17 02:21 Range/Units Bedside Lactic Acid Venous 1.81 0.90-1.70 mmol/L White Blood Count 3.23 4.8-10.8 K/uL Red Blood Count 5.89 4.7-6.1 M/uL Hemoglobin 11.7 14.0-18.0 g/dL Hematocrit 38.5 42-52 % Mean Corpuscular Volume 65.4 80-100 fL Mean Corpuscular Hemoglobin 19.9 25-34 pg Mean Corpuscular Hemoglobin Concent 30.4 32-36 g/dl Platelet Count 273 130-400 K/uL Mean Platelet Volume 9.4 7.4-10.4 fL Neutrophils (%) (Auto) 73.4 % Lymphocytes (%) (Auto) 11.8 % Monocytes (%) (Auto) 10.2 % Eosinophils (%) (Auto) 3.7 % Basophils (%) (Auto) 0.3 % Neutrophils # (Auto) 2.37 1.4-6.5 K/uL Lymphocytes # (Auto) 0.38 1.2-3.4 K/uL Monocytes # (Auto) 0.33 0.11-0.59 K/uL Eosinophils # (Auto) 0.12 0-0.5 K/uL Basophils # (Auto) 0.01 0-0.2 K/uL RDW Standard Deviation 43.8 36.4-46.3 fL RDW Coefficient of Variation 18.9 11.5-14.5 % Immature Granulocyte % (Auto) 0.6 % Immature Granulocyte # (Auto) 0.02 0.00-0.02 K/uL Hypochromasia PRESENT Microcytosis PRESENT Ovalocytes 1+ Prothrombin Time 10.6 9.0-12.0 SECONDS Prothromb Time International Ratio 1.0 0.9-1.1 Sodium Level 136 136-145 mmol/L Potassium Level 4.0 3.5-5.1 mmol/L Chloride Level 108 98-107 mmol/L Carbon Dioxide Level 17 21-32 mmol/L Anion Gap 11.0 3-11 mmol/L Blood Urea Nitrogen 25 7-18 mg/dl Creatinine 1.79 0.60-1.40 mg/dl Est Creatinine Clear Calc Drug Dose 44.7 ml/min Estimated GFR () 43.5 Estimated GFR (Non- 37.6 BUN/Creatinine Ratio 13.9 10-20 Random Glucose 187 70-99 mg/dl Calcium Level 8.1 8.5-10.1 mg/dl Magnesium Level 1.9 1.8-2.4 mg/dl Total Bilirubin 0.6 0.2-1 mg/dl Direct Bilirubin 0.2 0-0.2 mg/dl Aspartate Amino Transf (AST/SGOT) 13 15-37 U/L Alanine Aminotransferase (ALT/SGPT) 20 12-78 U/L Alkaline Phosphatase 105 45-117 U/L Total Creatine Kinase 69 39-308 U/L Creatine Kinase MB 1.3 0.5-3.6 ng/ml Creatine Kinase MB Ratio 1.9 0-3.0 Troponin I < 0.015 0-0.045 ng/ml Total Protein 7.0 6.4-8.2 gm/dl Albumin 3.5 3.4-5.0 gm/dl Lipase 148 73-393 U/L Microbiology Results 10/22/17 Blood Culture, Received Pending 10/22/17 Blood Culture, Received Pending 10/22/17 C.difficile Toxin B Gene (PCR), Received Pending Diagnostic Radiology CT Abdomen and Pelvis without contrast: cholelithiasis without evidence of acute cholecystitis. Hepatomegaly and steatosis. Spleen, pancreas, adrenal glands and kidneys are unremarkable. Fluid distended loops of small and large bowel suggesting nonspecific enteritis and diarrheal state. No bowel obstruction. Normal appendix. No free fluid or free air. Urinary bladder and prostate are unremarkable. No acute osseous findings. L2-S1 posterior decompression and osteometallic fusion. EKG The study reveals sinus tachycardia at 106bpm, incomplete RBBB, inferior infarct age undetermined Impression Assessment and Plan 72yo male with multiple medical problems presenting with 3 days of nausea/ vomiting/diarrhea occurring after episode of heavy EtOH intake. Patient with laboratory evidence of volume contraction/dehydration. 1. Nausea/vomiting/diarrhea - still with nausea, last emesis appx 30 minutes ago. Patient afebrile, mildly tachycardic otherwise HD stable. Concern for viral vs bacterial gastroenteritis. -Check stool culture -Stool for c. diff -Zofran PRN -IVF 2. ZEHRA - BUN elevated at 25, Cr=1.79, HCO3=17. Most likely secondary to prerenal azotemia in setting of GI losses and poor PO intake. Patient also reportedly on Lasix. Given 2L NSS in ER -Banana bag x 1 liter -LR x 1 liter -Advance diet as tolerated when abdominal pain resolves 3. COPD/Asthma - stable respiratory status. Adequate oxygenation and ventilation, no complaints of SOB/cough/wheeze or sputum -Continue Tesslon PRN -Conitnue Symbicort -Continue Combivent -Continue Singulair -Smoking cessation counseling 4. CAD - stable, patient denies CP at present. Troponin x 1 negative -Continue ASA, Plavix, Metoprolol, Pravastatin, Imdur -Hold Lasix in setting of volume contraction 5. Anemia - patient with higher H/H from prior most likely secondary to volume contraction. No active bleeding -Continue FeSO4 supplement 6. Depression - stable, patient at baseline mood -Continue Fluoxetine, Buspirone 7. GERD - stable -Continue Ranitidine, Protonix 8. BPH - stable -Continue Flomax 9. RLS - stable -Continue Requip 10. F/E/N - Banana bag x 1, Thiamine 100mg po daily, monitor electrolytes and replete as needed, NPO for now given abdominal pain, advance diet as tolerated 11. Ppx - Lovenox, Protonix 12. Code - Full per discussion with patient 13. Dispo - admit to medical floor Resuscitation Status full VTE Prophylaxis Will order VTE Prophylaxis: Yes
[2017-10-22] MEDS ORDERED: THIAMINE HCL 100 MG TAB PO STA (05:53)
[2017-10-22] MEDS ORDERED: MULTI-VITAMIN INFUSION INJ 10 ML, THIAMINE HCL INJ 100 MG, FoLIC ACID INJ 1 MG in SODIU... IV STA (05:54)
[2017-10-22 06:50] VITALS: BP 136/85; PULSE 91; TEMP 36.6; O2SAT 95; Ht 172.7 cm; Wt 99.9 kg
--- NOTE | 2017-10-22 07:02 | DIAGNOSTIC IMAGING REPORT ---
ABD/PELVIS WITHOUT FOR STONE CT DOSE: 1736.02 mGy.cm HISTORY: Mild change diffuse abdominal pain, vomiting, diarrhea TECHNIQUE: Multiaxial CT images of the abdomen and pelvis were performed without the use of intravenous and oral contrast according to the standard department stone protocol. A dose lowering technique was utilized adhering to the principles of ALARA. COMPARISON STUDY: 03/25/2015 FINDINGS: Lung bases are clear. Gallstone in the gallbladder lumen. Mild hepatomegaly. Postoperative changes to the lumbar spine. Kidneys are considered negative for obstruction. There is a 2 mm nonobstructing cortical calcification inferior pole left kidney. Bowel pattern is consistent with a nonspecific enteritis versus ileus. Several fluid-filled loops of bowel are present. The appendix is normal. IMPRESSION: 1. Nonspecific enteritis versus ileus. 2. Small gallstone. 3. Mild hepatomegaly. 4. Unremarkable postoperative changes lumbar spine. The above report was generated using voice recognition software. It may contain grammatical, syntax or spelling errors. Electronically signed by: Yohan Otto M.D. 10/22/2017 7:01 AM Dictated Date/Time: 10/22/2017 6:54 AM
--- NOTE | 2017-10-22 07:23 | DIAGNOSTIC IMAGING REPORT ---
SINGLE VIEW CHEST CLINICAL HISTORY: Fever. FINDINGS: An AP, portable, upright chest radiograph is compared to study dated 04/20/2017. The examination is significantly degraded by portable technique, apical lordotic positioning, and patient rotation. The heart is mildly enlarged and there is atherosclerotic calcification of the thoracic aorta. The pulmonary vasculature is noncongested. There is minimal left basilar atelectasis. The lungs and pleural spaces are otherwise clear. No pneumothorax is seen. The bony thorax is grossly intact. Fusion hardware is noted in the lower cervical spine. Correlation is made with chest CT dated 06/03/2015. Advanced degenerative changes noted in left shoulder. Chronic widening is seen at the left acromioclavicular joint. IMPRESSION: Mild cardiac enlargement with no acute cardiopulmonary abnormality. Electronically signed by: Hernandez Lynch M.D. 10/22/2017 7:21 AM Dictated Date/Time: 10/22/2017 7:20 AM
[2017-10-22] MEDS ORDERED: LACTATED RINGER'S 1000ML 1,000 ML IV SCH (08:15)
[2017-10-22] MEDS: CLOPIDOGREL BISULFATE 75 MG TAB PO SCH (08:26)
[2017-10-22] MEDS: PANTOprazole SOD 40 MG TAB PO SCH (08:26)
[2017-10-22] MEDS: IPRATROPIUM BROMIDE/ALBUTEROL respimat INH INH SCH ×4 (08:26→21:01)
[2017-10-22] MEDS: TAMSULOSIN HCL 0.4 MG CAP PO SCH (08:26)
[2017-10-22] MEDS: ISOSORBIDE MONONITRATE 30 MG TABCR PO SCH (08:26)
[2017-10-22] MEDS: ASPIRIN 81 MG ECTAB PO SCH (08:26)
[2017-10-22] MEDS: BUDESONIDE/FORMOTEROL FUMARATE 160/4.5 60 PUFFS/INHALER INH SCH ×2 (08:26→21:01)
[2017-10-22] MEDS: FLUOXETINE HCL 20 MG CAP PO SCH (08:26)
[2017-10-22] MEDS: RANITIDINE HCL 150 MG TAB PO SCH ×2 (08:27→21:00)
[2017-10-22] MEDS: CHOLECALCIFEROL 1000 INTER.UNIT TAB PO SCH (08:27)
[2017-10-22] MEDS: METOPROLOL SUCC 25MG EXT REL TAB PO SCH ×2 (08:27→20:59)
[2017-10-22] MEDS: ENOXAPARIN 40 MG/0.4 ML SYR SQ SCH (08:27)
[2017-10-22] MEDS: RASPBERRY SYRUP 5 ML UDP PO SCH ×2 (14:29→21:28)
[2017-10-22] MEDS: VANCOMYCIN HCL 250 MG/5 ML SOLN PO SCH ×2 (14:29→21:02)
[2017-10-22 14:31] VITALS: BP 98/59; PULSE 104; TEMP 36.8; O2SAT 90
[2017-10-22 20:55] VITALS: BP 114/66; PULSE 90; O2SAT 97
[2017-10-22] MEDS: MONTELUKAST SOD 10 MG TAB PO SCH (20:59)
[2017-10-22] MEDS: PRAVASTATIN SOD 40 MG TAB PO SCH (20:59)
[2017-10-22] MEDS: ROPINIROLE HCL 1 MG TAB PO SCH (21:00)
[2017-10-22] MEDS: FERROUS SULFATE 325 MG TAB PO SCH (21:01)
[2017-10-22 23:22] VITALS: BP 113/87; PULSE 83; TEMP 36.7; O2SAT 99
[2017-10-23] MEDS: VANCOMYCIN HCL 250 MG/5 ML SOLN PO SCH ×4 (01:42→20:44)
[2017-10-23] MEDS: RASPBERRY SYRUP 5 ML UDP PO SCH ×4 (01:42→20:44)
[2017-10-23 06:59] VITALS: BP 144/77; PULSE 84; TEMP 36.9; O2SAT 99
[2017-10-23 07:20] LABS: HEMATOCRIT 32.8 % (42-52); HEMOGLOBIN 9.6 g/dL (14.0-18.0); MEAN CELL VOLUME 66.1 fL (80-100); MEAN CORPUSCULAR HEMOGLOBIN 19.4 pg (25-34); MEAN CORPUSCULAR HGB CONC 29.3 g/dl (32-36); RED CELL DISTRIBUTION WIDTH CV 18.9 % (11.5-14.5); RED CELL DISTRIBUTION WIDTH SD 44.8 fL (36.4-46.3); WHITE BLOOD COUNT 3.29 K/uL (4.8-10.8)
[2017-10-23 07:53] LABS: MEAN PLATELET VOLUME 9.6 fL (7.4-10.4); PLATELET COUNT 220 K/uL (130-400)
[2017-10-23 07:54] LABS: BASO % 0.6 %; BASO ABS # 0.02 K/uL (0-0.2); EOS % 6.7 %; EOS ABS # 0.22 K/uL (0-0.5); IG# 0.02 K/uL (0.00-0.02); LYMPH % 22.8 %; LYMPH ABS # 0.75 K/uL (1.2-3.4); MONO % 17.3 %; MONO ABS # 0.57 K/uL (0.11-0.59); NEUT ABS # 1.71 K/uL (1.4-6.5)
[2017-10-23 07:55] LABS: ALBUMIN 2.7 gm/dl (3.4-5.0); ALKALINE PHOSPHATASE 73 U/L (45-117); ALT/SGPT 19 U/L (12-78); AST/SGOT 20 U/L (15-37); BLOOD UREA NITROGEN 15 mg/dl (7-18); CALCIUM 8.1 mg/dl (8.5-10.1); CARBON DIOXIDE 21 mmol/L (21-32); CREATININE 1.07 mg/dl (0.60-1.40); GLUCOSE 89 mg/dl (70-99); PHOSPHORUS 1.8 mg/dl (2.5-4.9); POTASSIUM 3.8 mmol/L (3.5-5.1); SODIUM 142 mmol/L (136-145); TOTAL PROTEIN 5.8 gm/dl (6.4-8.2)
[2017-10-23] MEDS: BUDESONIDE/FORMOTEROL FUMARATE 160/4.5 60 PUFFS/INHALER INH SCH ×2 (08:14→20:43)
[2017-10-23] MEDS: IPRATROPIUM BROMIDE/ALBUTEROL respimat INH INH SCH ×4 (08:14→20:44)
[2017-10-23] MEDS: PANTOprazole SOD 40 MG TAB PO SCH (08:15)
[2017-10-23] MEDS: ISOSORBIDE MONONITRATE 30 MG TABCR PO SCH (08:16)
[2017-10-23] MEDS: FLUOXETINE HCL 20 MG CAP PO SCH (08:16)
[2017-10-23] MEDS: CLOPIDOGREL BISULFATE 75 MG TAB PO SCH (08:17)
[2017-10-23] MEDS: ASPIRIN 81 MG ECTAB PO SCH (08:17)
[2017-10-23] MEDS: THIAMINE HCL 100 MG TAB PO SCH (08:18)
[2017-10-23] MEDS: METOPROLOL SUCC 25MG EXT REL TAB PO SCH ×2 (08:18→20:48)
[2017-10-23] MEDS: RANITIDINE HCL 150 MG TAB PO SCH ×2 (08:18→20:48)
[2017-10-23] MEDS: CHOLECALCIFEROL 1000 INTER.UNIT TAB PO SCH (08:18)
[2017-10-23] MEDS: TAMSULOSIN HCL 0.4 MG CAP PO SCH (08:19)
[2017-10-23] MEDS: ENOXAPARIN 40 MG/0.4 ML SYR SQ SCH (08:20)
[2017-10-23] MEDS ORDERED: POTASSIUM PHOS 3 MMOL/1 ML INFUSION IV STA (08:36)
[2017-10-23] MEDS ORDERED: POTASSIUM PHOSPHATE INJ 15 MMOL in SODIUM CHLORIDE 0.9% 250ML 250 ML IV ONE (09:00)
[2017-10-23 14:49] VITALS: BP 123/67; PULSE 88; TEMP 36.6; O2SAT 97
--- NOTE | 2017-10-23 15:21 | Progress Note ---
Subjective Date of Service: Oct 23, 2017. 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, review of inpatient medication list Voiding: no voiding problems Doing well, feeling hungry 1 to advance diet, was having 14 times diarrhea yesterday, today he has slowing down very much, was 2-3 time diarrhea when I seen him at 9 AM Problem List Medical Problems: (1) Acute renal insufficiency Status: Acute (2) Chronic shoulder pain Status: Acute (3) COPD exacerbation Status: Acute (4) Dehydration Status: Acute (5) Enteritis Status: Acute (6) Hematoma of right lower extremity Status: Acute (7) Intractable back pain Status: Acute (8) Intractable pain Status: Acute (9) Intramuscular hematoma Status: Acute (10) Left hip pain Status: Acute (11) Leg pain Status: Acute (12) Lower extremity cellulitis Status: Acute (13) Lumbar radicular pain Status: Acute (14) Persistent vomiting Status: Acute (15) Post-operative pain Status: Acute (16) Skin tag Status: Acute (17) Visit for wound check Status: Acute Review of Systems Constitutional: No fever, No chills, No sweats, No weight loss, No weakness, No fatigue, No problem reported Eyes: No worsening of vision, No eye pain, No redness, No discharge, No diplopia ENT: No hearing loss, No unusual epistaxis, No nasal symptoms, No sore throat, No tinnitus, No dental problems, No trouble swallowing Respiratory: No cough, No sputum, No wheezing, No shortness of breath, No dyspnea on exertion, No dyspnea at rest, No hemoptysis Cardiac: No chest pain, No orthopnea, No PND, No edema, No claudication, No palpitations Abdomen: + diarrhea (Better), No pain, No nausea, No vomiting, No constipation Musculoskeletal: No joint pain, No muscle pain, No swelling, No calf pain Male : No dysuria, No urinary frequency, No incontinence, No nocturia more than once/night, No slowing stream, No hematuria Neurologic: No memory loss, No paralysis, No weakness, No numbness/tingling, No vertigo, No balance problems Psychiatric: No depression symptoms, No anhedonism, No anxiety, No insomnia, No substance abuse Heme: No abnormal bleeding/bruising, No clotting problems, No swollen lymph nodes, No night sweats Endo: No fatigue, No excessive thirst, No excessive urination Skin: No rash, No itch, No new/changing skin lesions, No color change, No bleeding Objective Vital Signs Date Time Temp Pulse Resp B/P (MAP) Pulse Ox O2 Delivery O2 Flow Rate FiO2 10/23/17 14:49 36.6 88 20 123/67 (85) 97 Room Air 10/23/17 08:30 Room Air 10/23/17 06:59 36.9 84 18 144/77 (99) 99 Room Air 10/23/17 00:00 Room Air 10/22/17 23:22 36.7 83 17 113/87 (96) 99 Room Air 10/22/17 20:55 90 114/66 (82) 97 Room Air 10/22/17 16:51 Nasal Cannula 2.0 Physical Exam General Appearance: WD/WN, no apparent distress, + obese Eyes: normal inspection, PERRL, EOMI, sclerae normal ENT: normal ENT inspection, hearing grossly normal, pharynx normal Neck: supple, no adenopathy, thyroid normal, no JVD, no carotid bruits, trachea midline Respiratory/Chest: chest non-tender, lungs clear, normal breath sounds, no respiratory distress, no accessory muscle use Cardiovascular: regular rate, rhythm, no edema, no gallop, no JVD, no murmur Abdomen: normal bowel sounds, non tender, soft, no organomegaly, no pulsatile mass Extremities: normal range of motion, non-tender, normal inspection, no pedal edema, no calf tenderness, normal capillary refill, pelvis stable 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, no motor/sensory deficits, alert, normal mood/affect, oriented x 3 Skin: normal color, warm/dry, no rash Lymphatic: no adenopathy Laboratory Results Last 24 Hours Test 10/23/17 06:36 White Blood Count 3.29 K/uL Red Blood Count 4.96 M/uL Hemoglobin 9.6 g/dL Hematocrit 32.8 % Mean Corpuscular Volume 66.1 fL Mean Corpuscular Hemoglobin 19.4 pg Mean Corpuscular Hemoglobin Concent 29.3 g/dl Platelet Count 220 K/uL Mean Platelet Volume 9.6 fL Neutrophils (%) (Auto) 52.0 % Lymphocytes (%) (Auto) 22.8 % Monocytes (%) (Auto) 17.3 % Eosinophils (%) (Auto) 6.7 % Basophils (%) (Auto) 0.6 % Neutrophils # (Auto) 1.71 K/uL Lymphocytes # (Auto) 0.75 K/uL Monocytes # (Auto) 0.57 K/uL Eosinophils # (Auto) 0.22 K/uL Basophils # (Auto) 0.02 K/uL RDW Standard Deviation 44.8 fL RDW Coefficient of Variation 18.9 % Immature Granulocyte % (Auto) 0.6 % Immature Granulocyte # (Auto) 0.02 K/uL Hyposegmented Neutrophils 1+ Platelet Estimate NORMAL Hypochromasia PRESENT Ovalocytes 1+ Sodium Level 142 mmol/L Potassium Level 3.8 mmol/L Chloride Level 115 mmol/L Carbon Dioxide Level 21 mmol/L Anion Gap 6.0 mmol/L Blood Urea Nitrogen 15 mg/dl Creatinine 1.07 mg/dl Est Creatinine Clear Calc Drug Dose 73.6 ml/min Estimated GFR () 81.1 Estimated GFR (Non- 70.0 BUN/Creatinine Ratio 13.7 Random Glucose 89 mg/dl Calcium Level 8.1 mg/dl Phosphorus Level 1.8 mg/dl Magnesium Level 2.1 mg/dl Total Bilirubin 0.2 mg/dl Direct Bilirubin < 0.1 mg/dl Aspartate Amino Transf (AST/SGOT) 20 U/L Alanine Aminotransferase (ALT/SGPT) 19 U/L Alkaline Phosphatase 73 U/L Total Protein 5.8 gm/dl Albumin 2.7 gm/dl Assessment and Plan 72yo male with multiple medical problems. On October 22, 2017 with C. difficile diarrhea associated with 3 days of nausea/vomiting/diarrhea hx of heavy EtOH intake. C. difficile diarrhea with nausea/vomiting/diarrhea improving History of C. difficile colitis Start vanco 250 p.o. 4 times daily for 10-14 days today's day 2 of 14 days ZEHRA upon admission Resolved, discontinue IV fluid Advance diet as tolerated when abdominal pain resolves hx of COPD/Asthma - stable respiratory status. Continue Tesslon PRN, Symbicort , Combivent, Singulair, have had smoking cessation counseling CAD - stable, Continue ASA, Plavix, Metoprolol, Pravastatin, Imdur Anemia hemoglobin 9.6 from 11, will continue what Depression GERD BPH RLS The above conditions stable, Code - Full per discussion with patient, pt/PT Continued [facility] stay due to: home environment unsafe for pt Discharge planning: home
[2017-10-23] MEDS: PRAVASTATIN SOD 40 MG TAB PO SCH (20:45)
[2017-10-23] MEDS: FERROUS SULFATE 325 MG TAB PO SCH (20:46)
[2017-10-23] MEDS: ROPINIROLE HCL 1 MG TAB PO SCH (20:47)
[2017-10-23] MEDS: MONTELUKAST SOD 10 MG TAB PO SCH (20:48)
[2017-10-23] MEDS: ACETAMINOPHEN 325 MG TAB PO PRN (22:18)
[2017-10-23 22:37] VITALS: BP 128/75; PULSE 91; TEMP 36.8; O2SAT 97
[2017-10-24] MEDS: RASPBERRY SYRUP 5 ML UDP PO SCH ×4 (02:09→20:16)
[2017-10-24] MEDS: VANCOMYCIN HCL 250 MG/5 ML SOLN PO SCH ×4 (02:09→20:14)
[2017-10-24] MEDS ORDERED: LORAZEPAM INJ 1 MG in SYRINGE 0.5 ML IV ONE ×2 (02:15→22:30)
[2017-10-24 06:32] VITALS: BP 129/81; PULSE 70; TEMP 36.5; O2SAT 99
[2017-10-24] MEDS: IPRATROPIUM BROMIDE/ALBUTEROL respimat INH INH SCH ×4 (08:28→20:14)
[2017-10-24] MEDS: BUDESONIDE/FORMOTEROL FUMARATE 160/4.5 60 PUFFS/INHALER INH SCH ×2 (08:28→20:14)
[2017-10-24] MEDS: ENOXAPARIN 40 MG/0.4 ML SYR SQ SCH (08:29)
[2017-10-24] MEDS: PANTOprazole SOD 40 MG TAB PO SCH (08:29)
[2017-10-24] MEDS: ISOSORBIDE MONONITRATE 30 MG TABCR PO SCH (08:29)
[2017-10-24] MEDS: CLOPIDOGREL BISULFATE 75 MG TAB PO SCH (08:29)
[2017-10-24] MEDS: RANITIDINE HCL 150 MG TAB PO SCH ×2 (08:29→20:18)
[2017-10-24] MEDS: METOPROLOL SUCC 25MG EXT REL TAB PO SCH ×2 (08:29→20:17)
[2017-10-24] MEDS: FLUOXETINE HCL 20 MG CAP PO SCH (08:30)
[2017-10-24] MEDS: CHOLECALCIFEROL 1000 INTER.UNIT TAB PO SCH (08:30)
[2017-10-24] MEDS: ASPIRIN 81 MG ECTAB PO SCH (08:30)
[2017-10-24] MEDS: THIAMINE HCL 100 MG TAB PO SCH (08:30)
[2017-10-24] MEDS: TAMSULOSIN HCL 0.4 MG CAP PO SCH (08:30)
[2017-10-24] MEDS ORDERED: NURSING VERBAL MED ORDER ONE (09:45)
[2017-10-24] MEDS ORDERED: CHLORDIAZEPOXIDE 25 MG CAP PO STA (09:45)
--- NOTE | 2017-10-24 09:51 | Progress Note ---
Subjective Date of Service: Oct 24, 2017. Subjective Pt evaluation today including: conversation w/ patient, physical exam, chart review, lab review, review of studies, review of inpatient medication list was anxious last night, tremor, help with ativan x1, doing ok, now, up and walk , has 2 BM with more solid stool, eating/drinking ok, Problem List Medical Problems: (1) Acute renal insufficiency Status: Acute (2) Chronic shoulder pain Status: Acute (3) COPD exacerbation Status: Acute (4) Dehydration Status: Acute (5) Enteritis Status: Acute (6) Hematoma of right lower extremity Status: Acute (7) Intractable back pain Status: Acute (8) Intractable pain Status: Acute (9) Intramuscular hematoma Status: Acute (10) Left hip pain Status: Acute (11) Leg pain Status: Acute (12) Lower extremity cellulitis Status: Acute (13) Lumbar radicular pain Status: Acute (14) Persistent vomiting Status: Acute (15) Post-operative pain Status: Acute (16) Skin tag Status: Acute (17) Visit for wound check Status: Acute Review of Systems Constitutional: + weakness, + fatigue, No fever, No chills, No sweats, No weight loss, No problem reported Eyes: No worsening of vision, No eye pain, No redness, No discharge, No diplopia ENT: No hearing loss, No unusual epistaxis, No nasal symptoms, No sore throat, No tinnitus, No dental problems, No trouble swallowing Respiratory: No cough, No sputum, No wheezing, No dyspnea on exertion, No dyspnea at rest, No hemoptysis Cardiac: No chest pain, No orthopnea, No PND, No edema, No claudication, No palpitations Abdomen: + problem reported (reported external hemorroid, not new), No pain, No nausea, No vomiting, No diarrhea, No constipation Musculoskeletal: No joint pain, No muscle pain, No swelling, No calf pain Male : No dysuria, No urinary frequency, No incontinence, No nocturia more than once/night, No slowing stream, No hematuria Neurologic: No memory loss, No paralysis, No weakness, No numbness/tingling, No vertigo, No balance problems Psychiatric: No depression symptoms, No anhedonism, No anxiety, No insomnia, No substance abuse Heme: No abnormal bleeding/bruising, No clotting problems, No swollen lymph nodes, No night sweats Endo: No fatigue, No excessive thirst, No excessive urination Skin: No rash, No itch, No new/changing skin lesions, No color change, No bleeding Objective Vital Signs Date Time Temp Pulse Resp B/P (MAP) Pulse Ox O2 Delivery O2 Flow Rate FiO2 10/24/17 09:00 Room Air 10/24/17 06:32 36.5 70 18 129/81 (97) 99 Room Air 10/24/17 00:00 Room Air 10/23/17 22:37 36.8 91 18 128/75 (92) 97 Room Air 10/23/17 16:30 Room Air 10/23/17 14:49 36.6 88 20 123/67 (85) 97 Room Air Physical Exam General Appearance: WD/WN, no apparent distress, + obese, + pertinent finding ( no obvious tremor) Eyes: normal inspection, PERRL, EOMI, sclerae normal ENT: normal ENT inspection, hearing grossly normal, pharynx normal Neck: supple, no adenopathy, thyroid normal, no JVD, no carotid bruits, trachea midline Respiratory/Chest: chest non-tender, lungs clear, normal breath sounds, no respiratory distress, no accessory muscle use Cardiovascular: regular rate, rhythm, no edema, no gallop, no JVD, no murmur Abdomen: normal bowel sounds, non tender, soft, no organomegaly, no pulsatile mass Extremities: normal range of motion, non-tender, normal inspection, no pedal edema, no calf tenderness, normal capillary refill, pelvis stable 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 difficile diarrhea associated with 3 days of nausea/vomiting/diarrhea hx of heavy EtOH intake. C. difficile diarrhea with nausea/vomiting/diarrhea improving History of C. difficile colitis stable , improving, vanco 250 p.o. 4 times daily for 10-14 days today's day 3 of 14 days ZEHRA upon admission Resolved, discontinue IV fluid Advance diet as tolerated when abdominal pain resolves reported decreased UOP, and concentrated urine, check UA alcoholic with possible alcohol withdrawal, no sign of alcohol withdrawal now, Ativan as needed, and start Librium po q12 fro anxiety, will tapering off, counselling quit drinking, offer help to alcohol rehab and [facility], he declined hypophosphatemia, replaced yesterday hx of COPD/Asthma - stable respiratory status. Continue Tesslon PRN, Symbicort , Combivent, Singulair, have had smoking cessation counseling CAD - stable, Continue ASA, Plavix, Metoprolol, Pravastatin, Imdur Anemia hemoglobin 9.6 from 11, will continue what Depression GERD BPH RLS The above conditions stable, Code - Full per discussion with patient, pt/PT ok for home, plan Dc doris Continued [facility] stay due to: home environment unsafe for pt Discharge planning: home
[2017-10-24] MEDS ORDERED: HYDROCORTISONE 1% CR 30 GM TUBE EXT PRN (10:00)
[2017-10-24 15:55] VITALS: BP 118/73; PULSE 73; TEMP 36.5; O2SAT 98
[2017-10-24 20:15] VITALS: BP 111/68; PULSE 78
[2017-10-24] MEDS: MONTELUKAST SOD 10 MG TAB PO SCH (20:17)
[2017-10-24] MEDS ORDERED: CHLORDIAZEPOXIDE 25 MG CAP PO SCH (21:00)
[2017-10-24] MEDS: FERROUS SULFATE 325 MG TAB PO SCH (21:41)
[2017-10-24] MEDS: ROPINIROLE HCL 1 MG TAB PO SCH (21:41)
[2017-10-24] MEDS: PRAVASTATIN SOD 40 MG TAB PO SCH (21:41)
[2017-10-24] MEDS: ACETAMINOPHEN 325 MG TAB PO PRN (22:34)
[2017-10-24 23:15] VITALS: BP 106/65; PULSE 74; TEMP 36.3; O2SAT 96
[2017-10-25] MEDS: RASPBERRY SYRUP 5 ML UDP PO SCH ×3 (01:15→13:43)
[2017-10-25] MEDS: VANCOMYCIN HCL 250 MG/5 ML SOLN PO SCH ×3 (01:15→13:43)
[2017-10-25 07:15] VITALS: BP 107/62; PULSE 74; TEMP 36.6; O2SAT 93
[2017-10-25] MEDS ORDERED: VANC1SUS PO (07:56)
[2017-10-25] MEDS ORDERED: THIA100T10 PO (07:56)
[2017-10-25] MEDS ORDERED: FLV1 PO (07:56)
--- NOTE | 2017-10-25 07:57 | Discharge Instructions ---
Discharge Instructions Date of Service Oct 25, 2017. Admission Reason for Admission: Stuart(Acute Kidney Injury),Gastroenteritis Discharge Discharge Diagnosis / Problem: cdiff diarrhea Discharge Goals Goal(s): Decrease discomfort, Improve function, Increase independence, Improve disease control, Improve nutritional status, Learn about illness, Diagnostic testing, Therapeutic intervention, Screening, Prevent Disease Progression Activity Recommendations Activity Limitations: resume your previous activity Lifting Limitations: none Exercise/Sports Limitations: none . Instructions / Follow-Up Instructions / Follow-Up you have C. difficile diarrhea you need to continue oral vanco 250 p.o. 4 times daily for 10- 10 days more you are heavy alcohol drinker, recommend alcohol rehab and AAA, talk to pcp if you want you have anemia, and external hemorrhoid, need to follow up with pcp too - you need to follow up with your primary care physician in 1 week, need to have BMP, mag checked in the follow up visit - take medication as instructed, never overdose or any misuse, or take with alcohol, because misuse of medicine may cause organ damage or , call me , or your primary care physician if have questions of discharge medicaitons. - call your primary care physician, or go to local emergency room if has any fever/chill, chest pain, shortness of breathing, nausea/vomiting/abdominal pain , facial droop/slurry speech/local weakness, or if has any questions. - fall precaution - diet as instructed Current Hospital Diet Patient's current hospital diet: Regular Diet Discharge Diet Recommended Diet: Regular Diet Pending Studies Studies pending at discharge: no Medical Emergencies . Who to Call and When: Medical Emergencies: If at any time you feel your situation is an emergency, please call 911 immediately. . Non-Emergent Contact Non-Emergency issues call your: Primary Care Provider . . "Provider Documentation" section prepared by Renzo Cervantes. .
[2017-10-25] MEDS: BUDESONIDE/FORMOTEROL FUMARATE 160/4.5 60 PUFFS/INHALER INH SCH (08:10)
[2017-10-25] MEDS: IPRATROPIUM BROMIDE/ALBUTEROL respimat INH INH SCH ×2 (08:10→12:06)
[2017-10-25] MEDS: ASPIRIN 81 MG ECTAB PO SCH (08:11)
[2017-10-25] MEDS: TAMSULOSIN HCL 0.4 MG CAP PO SCH (08:12)
[2017-10-25] MEDS: ISOSORBIDE MONONITRATE 30 MG TABCR PO SCH (08:13)
[2017-10-25] MEDS: CLOPIDOGREL BISULFATE 75 MG TAB PO SCH (08:13)
[2017-10-25] MEDS: PANTOprazole SOD 40 MG TAB PO SCH (08:13)
[2017-10-25] MEDS: FLUOXETINE HCL 20 MG CAP PO SCH (08:14)
[2017-10-25] MEDS: METOPROLOL SUCC 25MG EXT REL TAB PO SCH (08:14)
[2017-10-25] MEDS: THIAMINE HCL 100 MG TAB PO SCH (08:14)
[2017-10-25 08:15] LABS: CALCIUM 8.4 mg/dl (8.5-10.1); CREATININE 0.85 mg/dl (0.60-1.40); PHOSPHORUS 3.1 mg/dl (2.5-4.9); POTASSIUM 3.6 mmol/L (3.5-5.1)
[2017-10-25] MEDS: RANITIDINE HCL 150 MG TAB PO SCH (08:15)
[2017-10-25] MEDS: CHOLECALCIFEROL 1000 INTER.UNIT TAB PO SCH (08:15)
[2017-10-25] MEDS: ENOXAPARIN 40 MG/0.4 ML SYR SQ SCH (08:17)
[2017-10-25] MEDS ORDERED: CHLORDIAZEPOXIDE 25 MG CAP PO PRN ×2 (08:45→09:00)
[2017-10-25] MEDS ORDERED: CHLORDIAZEPOXIDE 10 MG CAP PO PRN (09:30)
[2017-10-25 12:35] VITALS: BP 107/62; PULSE 74; TEMP 36.6; O2SAT 93
--- NOTE | 2017-10-25 16:12 | Discharge Summary ---
Discharge Summary Date of Service Oct 25, 2017. Discharge Summary Admission Date: Oct 22, 2017 at 05:27 Discharge Date: Oct 25, 2017 Discharge Disposition: Home Principal Diagnosis: C. difficile diarrhea Problems/Secondary Diagnoses: C. difficile diarrhea heavy alcohol drinker, anemia, and external hemorrhoid Immunizations: Have You Had Influenza Vaccine: Yes Influenza Vaccine Date: Dec 12, 2012 History of Tetanus Vaccine?: Yes History of Pneumococcal: Yes Pneumococcal Date: Feb 04, 2004 History of Hepatitis B Vaccine: No Procedures: No Consultations: No Medication Reconciliation New Medications: Folic Acid (Folic Acid) 1 Mg Tab 1 MG PO DAILY for 30 Days Thiamine Hcl (Vitamin B-1) 100 Mg Tab 100 MG PO Q24H for 30 Days, #30 TAB Vancomycin HCl (Vancomycin HCl + Syrspend) 50 Mg/Ml Sandra 250 MG PO Q6H for 10 Days Continued Medications: Aspirin (Aspirin Ec) 81 Mg Tab 81 MG PO DAILY Benzonatate (Tessalon Perles) 200 Mg Cap 200 MG PO TID PRN for Cough, CAP Budesonide/Formoterol Fumarate (Symbicort 160/4.5 Inhaler ) Aero 2 PUFFS INH BID, INHALER Buspirone Hcl (Buspirone Hcl) 10 Mg Tab 10 MG PO BID, TAB Cholecalciferol (Vitamin D 1000 Unit) 1,000 Unit Cap 1000 INTER.UNIT PO DAILY, CAP Clopidogrel Bisulfate (Plavix) 75 Mg Tab 75 MG PO DAILY, TAB Cyclobenzaprine HCl (Cyclobenzaprine HCl) 5 Mg Tab 5 MG PO TID PRN for Muscle Spasms Diphenhydramine Hcl (Benadryl Allergy) 25 Mg Tab 25 MG PO AMHS Docusate Sodium (Docusate Sodium) 100 Mg Cap 100 MG PO BID Ferrous Sulfate (Ferrous Sulfate) 325 Mg Tab 325 MG PO HS Fluoxetine HCl (Fluoxetine HCl) 20 Mg Cap 20 MG PO DAILY, #30 TAKES WITH 40 MG FOR 60 MG DOSE. Furosemide (Lasix) 40 Mg Tab 40 MG PO BID, TAB Ipratropium-Albuterol (Combivent Respimat) 1 Aer Aer 1 PUFFS INH QID, INH INHALE ONE PUFF 4 TIMES A DAY MAXIMUM OF 6 PUFFS IN 24 HOURS Ipratropium-Albuterol (Duoneb) 3 Ml Nebu 1 TREATMENT INH QID PRN for Shortness of Breath, INHA Isosorbide Mononitrate Ext Rel (Imdur Ext Rel) 30 Mg Tabcr 30 MG PO QAM, TAB Melatonin (Melatonin) 5 Mg Cap 10 MG PO HS Metoprolol Succinate (Toprol Xl) 25 Mg Tabcr 25 MG PO BID Montelukast Sodium (Singulair) 10 Mg Tab 10 MG PO DAILY, TAB Pantoprazole (Protonix) 40 Mg Tab 40 MG PO QAM Polyethylene Glycol 3350 (Miralax) 1 Pow Pow 17 GM PO DAILY PRN for Constipation, GM Potassium Chloride (Potassium Chloride ER) 20 Meq Tab 20 MEQ PO BID Pravastatin Sod (Pravastatin Sodium) 40 Mg Tab 40 MG PO HS Ranitidine (Zantac) 300 Mg Tab 300 MG PO BID, TAB Ropinirole (Requip) 0.5 Mg Tab 0.5 MG PO HS, TAB Tamsulosin HCl (Tamsulosin HCl) 0.4 Mg Cap 0.4 MG PO DAILY Discharge Exam Open walking the hallway, diarrhea is better, no complaints, Review of Systems: Constitutional: No fever, No chills, No sweats, No weight loss, No weakness , No fatigue, No problem reported Eyes: No worsening of vision, No eye pain, No redness, No discharge, No diplopia, No problem reported ENT: No hearing loss, No unusual epistaxis, No nasal symptoms, No sore throat, No tinnitus, No dental problems, No trouble swallowing, No problem reported Respiratory: No cough, No sputum, No wheezing, No shortness of breath, No dyspnea on exertion, No dyspnea at rest, No hemoptysis, No problem reported Cardiovascular: No chest pain, No orthopnea, No PND, No edema, No claudication, No palpitations, No problem reported Musculoskeletal: No joint pain, No muscle pain, No swelling, No calf pain, No problem reported Genitourinary - Male: No hematuria, No dysuria, No urinary frequency, No urinary urgency, No urinary hesitancy, No urinary retention, No urinary incontinence, No penile discharge, No lesions, No impotence, No problem reported Neurologic: No memory loss, No paralysis, No weakness, No numbness/tingling , No vertigo, No balance problems, No problem reported Psychiatric: No depression symptoms, No anhedonism, No anxiety, No insomnia , No substance abuse, No problem reported Hematologic / Lymphatic: No abnormal bleeding/bruising, No clotting problems , No swollen lymph nodes, No night sweats, No problem reported Physical Exam: General Appearance: WD/WN, no apparent distress, + obese Eyes: normal inspection ENT: normal ENT inspection, hearing grossly normal Neck: supple, no adenopathy Respiratory/Chest: chest non-tender, normal breath sounds, no respiratory distress, no accessory muscle use, + decreased breath sounds Cardiovascular: regular rate, rhythm, no edema, no gallop Abdomen / GI: normal bowel sounds, non tender, soft, no organomegaly, no pulsatile mass Extremities: normal inspection, no calf tenderness, normal capillary refill , no pedal edema 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 difficile diarrhea associated with 3 days of nausea/vomiting/diarrhea hx of heavy EtOH intake. C. difficile diarrhea with nausea/vomiting/diarrhea improving History of C. difficile colitis stable , improving, vanco 250 p.o. 4 times daily for 14 days today's day 4 of 14 days ZEHRA upon admission Resolved, discontinue IV fluid Advance diet as tolerated when abdominal pain resolves reported decreased UOP, and concentrated urine, check UA unremarkable alcoholic with possible alcohol withdrawal, no sign of alcohol withdrawal now, Ativan as needed, and start Librium 25 mg po q12 fro anxiety, will tapering off, counselling quit drinking, offer help to alcohol rehab and [facility], he declined hypophosphatemia, replaced yesterday hx of COPD/Asthma - stable respiratory status. Continue Tesslon PRN, Symbicort , Combivent, Singulair, have had smoking cessation counseling CAD - stable, Continue ASA, Plavix, Metoprolol, Pravastatin, Imdur Anemia hemoglobin 9.6 from 11, will continue what Depression GERD BPH RLS The above conditions stable, Code - Full per discussion with patient, pt/PT ok for home, Discharge instruction you have C. difficile diarrhea you need to continue oral vanco 250 p.o. 4 times daily for 10- 10 days more you are heavy alcohol drinker, recommend alcohol rehab and AAA, talk to pcp if you want you have anemia, and external hemorrhoid, need to follow up with pcp too - you need to follow up with your primary care physician in 1 week, need to have BMP, mag checked in the follow up visit - take medication as instructed, never overdose or any misuse, or take with alcohol, because misuse of medicine may cause organ damage or , call me , or your primary care physician if have questions of discharge medicaitons. - call your primary care physician, or go to local emergency room if has any fever/chill, chest pain, shortness of breathing, nausea/vomiting/abdominal pain , facial droop/slurry speech/local weakness, or if has any questions. - fall precaution - diet as instructed Total Time Spent: Greater than 30 minutes This includes examination of the patient, discharge planning, medication reconciliation, and communication with other providers. Discharge Instructions Please refer to the electronic Patient Visit Report (Discharge Instructions) for additional information. Additional Copies To Bethany Goldman DO
== END 2017-10-25 14:30 | disposition home or self-care (01) | DRG 372 ==
LOC: EDBD 01:32 → C.EDB 01:33 → C.MS4W 05:27 → ENRESERV 06:06 → EDBEDREQ 06:13
PROVIDERS: ADMIT Internal Medicine; ATTEND Hospitalist
DX: A04.72 Enterocolitis due to Clostridium difficile, not specified as recurrent (principal); R19.7 Diarrhea, unspecified; F10.239 Alcohol dependence with withdrawal, unspecified; N17.9 Acute kidney failure, unspecified; F12.10 Cannabis abuse, uncomplicated; J44.9 Chronic obstructive pulmonary disease, unspecified; I50.9 Heart failure, unspecified; I25.10 Atherosclerotic heart disease of native coronary artery without angina pectoris; K57.30 Diverticulosis of large intestine without perforation or abscess without bleeding; E78.5 Hyperlipidemia, unspecified; Z86.73 Personal history of transient ischemic attack (TIA), and cerebral infarction without residual deficits; Z88.5 Allergy status to narcotic agent; Z88.1 Allergy status to other antibiotic agents; Z88.8 Allergy status to other drugs, medicaments and biological substances; E86.0 Dehydration; F17.200 Nicotine dependence, unspecified, uncomplicated; K21.9 Gastro-esophageal reflux disease without esophagitis; N40.0 Benign prostatic hyperplasia without lower urinary tract symptoms; G25.81 Restless legs syndrome; K64.4 Residual hemorrhoidal skin tags; E83.39 Other disorders of phosphorus metabolism

== ENCOUNTER 2017-10-27 10:05 | Inpatient (IN) | payer OTHER, MEDICARE ==
[~2017-10-27] VITALS: Ht 172.7 cm; Wt 100.1 kg
[~2017-10-27 10:05] MED LIST changes: +ASPI81TA28 PO; +BENZ1CAP90 PO; +CHOL100027 PO; -CHOL1CAP95 PO; +DIPH1TAB87 PO; +FLM4 PO; -FLUO40CA8 PO; +FLV1 PO; +FLX/5 PO; -FLX10 PO; -HYDR25CA PO; -IBUP-1050 PO; -OXYC-643 PO; +POLY335019 PO; +RANI300T2 PO; +ROPI0.5T15 PO; -RQP25 PO; +THIA100T10 PO; +VANC1SUS PO; -VENL37.593 PO
[2017-10-27] MEDS ORDERED: SODIUM CHLORIDE 0.9% 1000ML 1,000 ML IV STA ×2 (10:18→14:37)
[2017-10-27] MEDS ORDERED: ONDANSETRON INJ 2 MG/ML 2 ML VIAL IV STA (10:18)
--- NOTE | 2017-10-27 10:24 | EMERGENCY ROOM VISIT NOTE ---
History Report prepared by Aniat: Barb Galeano Under the Supervision of: Dr. Crista Collins D.O. First contact with patient: 10:07 Stated Complaint: NAUSEA, VOMIT History of Present Illness The patient is a 72 year old male who presents to the Emergency Room with complaints of intermittent nausea and vomiting that started 5 hours prior to arrival. The patient reports he was diagnosed with C-Diff and was discharged 2 days ago. He notes he was put on Vancomycin. He states he felt fine the night he was discharged but woke up yesterday morning feeling weak. He also complains of intermittent diarrhea that started this morning. He reports he is having diarrhea about every 15 minutes. He states he has abdominal pain, dizziness, and is lightheaded. He denies any episodes of syncope. The patient reports he had a fall last night and fell "head first into the couch." The patient complains of back and shoulder pain since the fall. He reports he has a history of back pain. Source of History: patient Onset: 5 hours [employer] Timing: intermittent Associated Symptoms: + abdominal pain, + back pain, + diarrhea, + weakness Review of Systems See HPI for pertinent positives & negatives. A total of 10 systems reviewed and were otherwise negative. Past Medical & Surgical Medical Problems: (1) ZEHRA (acute kidney injury) (2) Anemia (3) ANXIETY STATE NOS (4) CANNABIS ABUSE-CONTIN (5) Carotid endarterectomy (6) carpal tunnel surgery bilaterally (7) CARPAL TUNNEL SYNDROME (8) CHOLELITHIASIS NOS (9) Chronic low back pain (10) CHRONIC OBSTRUCTIVE ASTHMA, NOS (11) Compartment syndrome of right lower extremity (12) CONGESTIVE HEART FAILURE NOS (13) COPD (chronic obstructive pulmonary disease) (14) CORONARY ATHEROSCLEROSIS OF IGIUGIG CORONARY VESSEL (15) DEPRESSIVE DISORDER NEC (16) DIVERTICULOSIS COLON (W/O MENT OF HEMORRHAGE) (17) Gastroenteritis (18) History of repair of inguinal hernia (19) HYPERLIPIDEMIA NEC/NOS (20) Lumbar stenosis with neurogenic claudication (21) MIGRAINE UNSPECIFIED W/O INTRACT MGRN W/O STATUS MIGRAINOSUS (22) OBESITY, NOS (23) OSTEOARTHROS NOS-SHLDER (24) PERSONAL HISTORY OF URINARY CALCULI (25) PERSONAL HISTORY, PNEUMONIA (RECURRENT) (26) PNEUMONIA, ORGANISM NOS (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 (28) SPINAL STENOSIS-LUMBAR (29) umbilical herniorrhaphy Surgical Problems: (1) Hx of decompressive lumbar laminectomy Family History Diabetes mellitus Heart disease Social History Smoking Status: Former Smoker Alcohol Use: occasionally Drug Use: marijuana Marital Status: in relationship Housing Status: other Occupation Status: retired Current/Historical Medications Scheduled Aspirin (Aspirin Ec), 81 MG PO DAILY Budesonide/Formoterol Fumarate (Symbicort 160/4.5 Inhaler ), 2 PUFFS INH BID Buspirone Hcl (Buspirone Hcl), 10 MG PO BID Cholecalciferol (Vitamin D 1000 Unit), 1,000 INTER.UNIT PO DAILY Clopidogrel Bisulfate (Plavix), 75 MG PO DAILY Diphenhydramine Hcl (Benadryl Allergy), 25 MG PO AMHS Docusate Sodium (Docusate Sodium), 100 MG PO BID Ferrous Sulfate (Ferrous Sulfate), 325 MG PO HS Fluoxetine HCl (Fluoxetine HCl), 20 MG PO DAILY Folic Acid (Folic Acid), 1 MG PO DAILY Furosemide (Lasix), 40 MG PO BID Ipratropium-Albuterol (Combivent Respimat), 1 PUFFS INH QID Isosorbide Mononitrate Ext Rel (Imdur Ext Rel), 30 MG PO QAM Melatonin (Melatonin), 10 MG PO HS Metoprolol Succinate (Toprol Xl), 25 MG PO BID Montelukast Sodium (Singulair), 10 MG PO DAILY Pantoprazole (Protonix), 40 MG PO QAM Potassium Chloride (Potassium Chloride ER), 20 MEQ PO BID Pravastatin Sod (Pravastatin Sodium), 40 MG PO HS Ranitidine (Zantac), 300 MG PO BID Ropinirole (Requip), 0.5 MG PO HS Tamsulosin HCl (Tamsulosin HCl), 0.4 MG PO DAILY Thiamine Hcl (Vitamin B-1), 100 MG PO Q24H Vancomycin Hcl (Vancomycin), 1 CAP PO Q6 Scheduled PRN Benzonatate (Tessalon Perles), 200 MG PO TID PRN for Cough Cyclobenzaprine HCl (Cyclobenzaprine HCl), 5 MG PO TID PRN for Muscle Spasms Ipratropium-Albuterol (Duoneb), 1 TREATMENT INH QID PRN for Shortness of Breath Polyethylene Glycol 3350 (Miralax), 17 GM PO DAILY PRN for Constipation Allergies Coded Allergies: Morphine (Verified Allergy, Intermediate, RASH, 10/27/17) Quinolones (Verified Allergy, Intermediate, unknown, 10/27/17) PATIENT WOULD LIKE TO BE TESTED FOR THIS AT SOME POINT BECAUSE HE DOES NOT BELIEVE HE IS ALLERGIC TO IT. Levofloxacin (Verified Allergy, Unknown, "WAS TOLD NOT TO TAKE"., 10/27/17) Physical Exam Vital Signs Date Time Temp Pulse Resp B/P (MAP) Pulse Ox O2 Delivery O2 Flow Rate FiO2 10/27/17 15:52 95 20 133/91 99 10/27/17 15:20 99 Room Air 10/27/17 12:36 90 10/27/17 12:31 136/91 10/27/17 12:05 90 11 10/27/17 12:01 116/69 10/27/17 11:41 99/78 10/27/17 11:35 93 21 10/27/17 11:27 91 20 129/94 97 Room Air 10/27/17 11:24 129/94 10/27/17 11:05 89 24 10/27/17 10:52 128/103 10/27/17 10:45 36.7 79 22 128/70 96 Room Air 10/27/17 10:35 86 21 10/27/17 10:26 79 10/27/17 10:22 128/70 Physical Exam GENERAL: alert, ill appearing, well nourished, no distress, non-toxic EYE EXAM: normal conjunctiva, PERRL and EOM's grossly intact OROPHARYNX: no exudate, no erythema, lips, buccal mucosa, and tongue normal and mucous membranes are mildly dry. NECK: supple, no nuchal rigidity, no adenopathy, non-tender LUNGS: Decreased breath sounds, no wheezes, rhonchi, or rales. Normal chest wall mechanics HEART: no murmurs, S1 normal and S2 normal ABDOMEN: abdomen soft, normo-active bowel sounds, no masses, no rebound or guarding. Diffuse mild abdominal tenderness. BACK: Back is symmetrical on inspection and there is no deformity, no midline tenderness, no CVA tenderness. SKIN: no rashes and no bruising UPPER EXTREMITIES: upper extremities are grossly normal. LOWER EXTREMITIES: No pitting edema. NEURO EXAM: Normal sensorium, cranial nerves II-XII grossly intact, normal speech, no gross weakness of arms, no gross weakness of legs. Medical Decision & Procedures ER Provider Diagnostic Interpretation: Radiology results have been interpreted by the radiologist and reviewed by me. THORACIC SPINE WITHOUT CT DOSE: HISTORY: Trauma. Pain. trauma TECHNIQUE: Multiaxial CT images of the thoracic spine were performed and reformatted in the sagittal and coronal plane without the use of contrast. A dose lowering technique was utilized adhering to the principles of ALARA. COMPARISON: None. FINDINGS: No fractures. No subluxation. Paraspinal soft tissues are unremarkable. Moderate degenerative disc changes throughout. The posterior elements are intact throughout. IMPRESSION: No fractures within the thoracic spine. The above report was generated using voice recognition software. It may contain grammatical, syntax or spelling errors. Electronically signed by: Yohan Otto M.D. 10/27/2017 1:36 PM Dictated Date/Time: 10/27/2017 1:34 PM LUMBAR SPINE WITHOUT CT DOSE: HISTORY: Pain trauma TECHNIQUE: Multiaxial CT images of the lumbar spine were performed and reformatted in the sagittal and coronal plane without the use of contrast. A dose lowering technique was utilized adhering to the principles of ALARA. COMPARISON: None. FINDINGS: Considerable degenerative disc change throughout. Findings consistent with posterior laminectomy and fusion from L2 through S1. Hardware appears to be intact. Orthogonal sacral bulges are present. No acute process. No significant compromise of the spinal canal. No evidence for compression deformity. IMPRESSION: Considerable degenerative and postoperative change. No acute process. The above report was generated using voice recognition software. It may contain grammatical, syntax or spelling errors. Electronically signed by: Yohan Otto M.D. 10/27/2017 1:34 PM Dictated Date/Time: 10/27/2017 1:[address] (CHEST) THORAX WITH CT DOSE: HISTORY: Pain. Trauma. trauma TECHNIQUE: Multiaxial CT images of the chest were performed following the intravenous administration of contrast. A dose lowering technique was utilized adhering to the principles of ALARA. COMPARISON: 06/03/2015 FINDINGS: The lungs are clear. The mediastinal vascular structures are within normal limits. No mediastinal or hilar lymphadenopathy. No pleural effusion or pneumothorax. Limited views of the upper abdomen demonstrate a normal liver and spleen. IMPRESSION: No significant abnormality identified within the chest. The above report was generated using voice recognition software. It may contain grammatical, syntax or spelling errors. Electronically signed by: Yohan Otto M.D. 10/27/2017 1:38 PM Dictated Date/Time: 10/27/2017 1:37 PM ABD/PELVIS IV CONTRAST ONLY CT DOSE: 2785.52 mGy.cm HISTORY: Trauma. Pain. trauma TECHNIQUE: Multiaxial CT images of the abdomen and pelvis were performed following the use of intravenous contrast. A dose lowering technique was utilized adhering to the principles of ALARA. COMPARISON STUDY: 10/22/2017 FINDINGS: Lung bases are clear. Liver spleen and pancreas are unremarkable. Small gallstone within the gallbladder lumen. Kidneys enhance uniformly with no evidence for hydronephrosis. Stable postoperative evaluation of the lumbar spine. Mild nonobstructive ileus. No evidence for a true obstructive change. Normal appendix. IMPRESSION: 1. Mild ileus. 2. No acute process of the abdomen or pelvis. The above report was generated using voice recognition software. It may contain grammatical, syntax or spelling errors. Electronically signed by: Yohan Otto M.D. 10/27/2017 1:55 PM Dictated Date/Time: 10/27/2017 1:53 PM Laboratory Results Test 10/27/17 11:08 Ovalocytes 1+ Prothrombin Time 10.3 SECONDS (9.0-12.0) Prothromb Time International Ratio 1.0 (0.9-1.1) Iron Level 22 mcg/dl (35-175) Total Iron Binding Capacity 411 mcg/dl (250-450) Transferrin 316 mg/dl (200-360) Transferrin % Saturation 5 % (20-50) Ferritin 10.7 ng/ml (8.0-388.0) Troponin I < 0.015 ng/ml (0-0.045) Laboratory results per my review. Medications Administered Medications (Trade) Dose Ordered Sig/Osiris Route Start Time Stop Time Status Last Admin Dose Admin Sodium Chloride 1,000 ml @ 250 mls/hr Q4H STAT IV 10/27/17 10:18 10/27/17 14:17 DC 10/27/17 11:27 250 MLS/HR Ondansetron HCl (Zofran Inj) 4 mg NOW STAT IV 10/27/17 10:18 10/27/17 10:19 DC 10/27/17 11:27 4 MG Magnesium Sulfate (Magnesium Sulfate 1gm / D5W) 2 gm NOW STAT IV 10/27/17 11:54 10/27/17 11:55 DC 10/27/17 12:21 2 GM Hydromorphone HCl (Dilaudid Inj) 0.5 mg NOW STAT IV 10/27/17 12:07 10/27/17 12:09 DC 10/27/17 12:21 0.5 MG Pantoprazole Sodium 40 mg/ Syringe 10 ml @ 5 mls/min NOW ONCE IV 10/27/17 12:15 10/27/17 12:16 DC 10/27/17 12:24 5 MLS/MIN Sodium Chloride 1,000 ml @ 999 mls/hr Q1H1M STAT IV 10/27/17 14:37 10/27/17 15:37 DC 10/27/17 14:37 999 MLS/HR Albuterol/ Ipratropium (Combivent Respimat Inh) 1 puffs QID INH 10/27/17 17:00 11/26/17 16:59 10/28/17 18:01 1 PUFFS ECG Per My Interpretation Indication: vomiting Rate (beats per minute): 91 Rhythm: sinus rhythm Findings: RBBB, no acute ischemic change, no ectopy, other (normal axis) ED Course 1009: The patient was evaluated in room B5. A complete history and physical exam was performed. 1018: Ordered Zofran Inj 4 mg IV, Sodium Chloride 1000 ml @ 250 mls/hr IV. 1154: Ordered Magnesium Sulfate 2 gm IV. 1207: Ordered Dilaudid Inj 0.5 mg IV. 1215: Ordered pantoprazole Sodium 40 mg/Syringe 10 ml @ 5 mls/min IV. 1435: I discussed the patient's case with Dr. Angela, [facility] Hospitalist. He will evaluate the patient for further management and care. Medical Decision Differential diagnosis: Etiologies such as gastroenteritis, food borne illness, infections, appendicitis , diverticulitis, inflammatory bowel disease, obstruction, GI bleed, biliary pathology, as well as others were entertained. Patient markedly ill-appearing here with persistent recurrent diarrhea even while in the emergency department. Patient with known C. difficile. Given the vomiting over the last 24 hours he has been unable to keep down his more recent doses of vancomycin orally. Patient rehydrated here, and findings consistent with dehydration. Patient also noted to have markedly elevated lipase. Patient does have prior history of regular alcohol use. No evidence of acute cholecystitis. It is possible this may be alcohol induced. No evidence of peripancreatic inflammation, cyst formation, or necrosis on CT. No other evidence of trauma despite syncope and fall last night due to his weakness and GI symptoms. Case discussed with hospitalist for additional evaluation and management. Patient hemodynamically stable. No evidence of bacteremia/sepsis. No evidence of perforation or bowel obstruction despite known C. difficile enterocolitis. Medication Reconcilliation Current Medication List: was personally reviewed by me Blood Pressure Screening Patient's blood pressure: Elevated blood pressure (monitor by hospitalist) Consults Time Called: 1430 Consulting Physician: Dr. Angela, [facility] Hospitalist Returned Call: [phone] I discussed the patient's case with Dr. Angela, [facility] Hospitalist. He will evaluate the patient for further management and care. Impression Primary Impression: Pancreatitis Additional Impressions: C. difficile colitis Intractable vomiting Dehydration Generalized weakness Hypokalemia Hypomagnesemia Scribe Attestation The scribe's documentation has been prepared under my direction and personally reviewed by me in its entirety. I confirm that the note above accurately reflects all work, treatment, procedures, and medical decision making performed by me. Departure Information Dispostion Being Evaluated By Hospitalist Referrals Bethany Goldman DO (PCP) Problem Qualifiers Primary Impression: Pancreatitis Chronicity: acute Pancreatitis type: unspecified pancreatitis type Acute pancreatitis complication: no infection or necrosis Qualified Codes: K85.90 - Acute pancreatitis without necrosis or infection, unspecified Additional Impressions: Intractable vomiting Vomiting type: unspecified Nausea presence: with nausea Qualified Codes: R11.2 - Nausea with vomiting, unspecified
[2017-10-27 11:18] LABS: BASO % 0.1 %; BASO ABS # 0.01 K/uL (0-0.2); EOS % 3.1 %; EOS ABS # 0.24 K/uL (0-0.5); HEMOGLOBIN 12.5 g/dL (14.0-18.0); IG# 0.04 K/uL (0.00-0.02); LYMPH % 13.9 %; LYMPH ABS # 1.08 K/uL (1.2-3.4); MEAN CELL VOLUME 65.5 fL (80-100); MEAN CORPUSCULAR HEMOGLOBIN 20.5 pg (25-34); MEAN CORPUSCULAR HGB CONC 31.3 g/dl (32-36); MEAN PLATELET VOLUME 9.9 fL (7.4-10.4); MONO % 10.9 %; MONO ABS # 0.85 K/uL (0.11-0.59); NEUT % 71.5 %; NEUT ABS # 5.57 K/uL (1.4-6.5); PLATELET COUNT 335 K/uL (130-400); RED CELL DISTRIBUTION WIDTH CV 19.3 % (11.5-14.5); RED CELL DISTRIBUTION WIDTH SD 43.8 fL (36.4-46.3); WHITE BLOOD COUNT 7.79 K/uL (4.8-10.8)
[2017-10-27] MEDS ORDERED: OPTIRAY 320 IV PRN (11:30)
[2017-10-27 11:41] LABS: ALBUMIN 3.4 gm/dl (3.4-5.0); ALKALINE PHOSPHATASE 93 U/L (45-117); ALT/SGPT 32 U/L (12-78); AST/SGOT 23 U/L (15-37); BLOOD UREA NITROGEN 12 mg/dl (7-18); CALCIUM 8.9 mg/dl (8.5-10.1); CARBON DIOXIDE 24 mmol/L (21-32); GLUCOSE 142 mg/dl (70-99); POTASSIUM 3.3 mmol/L (3.5-5.1); SODIUM 138 mmol/L (136-145); TOTAL PROTEIN 7.1 gm/dl (6.4-8.2)
[2017-10-27 11:53] LABS: LIPASE 2287 U/L (73-393)
[2017-10-27] MEDS ORDERED: MAGNESIUM SULFATE 1GM / D5W 1 GM BAG IV STA (11:54)
[2017-10-27] MEDS ORDERED: HYDROmorphone INJ 0.5 MG/0.5 ML SYR IV STA (12:07)
[2017-10-27] MEDS ORDERED: PANTOprazole INJ 40 MG in SYRINGE 0 ML IV ONE (12:15)
[2017-10-27] MEDS ORDERED: VANC1CAP3 PO (12:59)
--- NOTE | 2017-10-27 13:35 | DIAGNOSTIC IMAGING REPORT ---
LUMBAR SPINE WITHOUT CT DOSE: HISTORY: Pain trauma TECHNIQUE: Multiaxial CT images of the lumbar spine were performed and reformatted in the sagittal and coronal plane without the use of contrast. A dose lowering technique was utilized adhering to the principles of ALARA. COMPARISON: None. FINDINGS: Considerable degenerative disc change throughout. Findings consistent with posterior laminectomy and fusion from L2 through S1. Hardware appears to be intact. Orthogonal sacral bulges are present. No acute process. No significant compromise of the spinal canal. No evidence for compression deformity. IMPRESSION: Considerable degenerative and postoperative change. No acute process. The above report was generated using voice recognition software. It may contain grammatical, syntax or spelling errors. Electronically signed by: Yohan Otto M.D. 10/27/2017 1:34 PM Dictated Date/Time: 10/27/2017 1:32 PM
--- NOTE | 2017-10-27 13:37 | DIAGNOSTIC IMAGING REPORT ---
THORACIC SPINE WITHOUT CT DOSE: HISTORY: Trauma. Pain. trauma TECHNIQUE: Multiaxial CT images of the thoracic spine were performed and reformatted in the sagittal and coronal plane without the use of contrast. A dose lowering technique was utilized adhering to the principles of ALARA. COMPARISON: None. FINDINGS: No fractures. No subluxation. Paraspinal soft tissues are unremarkable. Moderate degenerative disc changes throughout. The posterior elements are intact throughout. IMPRESSION: No fractures within the thoracic spine. The above report was generated using voice recognition software. It may contain grammatical, syntax or spelling errors. Electronically signed by: Yohan Otto M.D. 10/27/2017 1:36 PM Dictated Date/Time: 10/27/2017 1:34 PM
--- NOTE | 2017-10-27 13:40 | DIAGNOSTIC IMAGING REPORT ---
CT (CHEST) THORAX WITH CT DOSE: HISTORY: Pain. Trauma. trauma TECHNIQUE: Multiaxial CT images of the chest were performed following the intravenous administration of contrast. A dose lowering technique was utilized adhering to the principles of ALARA. COMPARISON: 06/03/2015 FINDINGS: The lungs are clear. The mediastinal vascular structures are within normal limits. No mediastinal or hilar lymphadenopathy. No pleural effusion or pneumothorax. Limited views of the upper abdomen demonstrate a normal liver and spleen. IMPRESSION: No significant abnormality identified within the chest. The above report was generated using voice recognition software. It may contain grammatical, syntax or spelling errors. Electronically signed by: Yohan Otto M.D. 10/27/2017 1:38 PM Dictated Date/Time: 10/27/2017 1:37 PM
--- NOTE | 2017-10-27 13:57 | DIAGNOSTIC IMAGING REPORT ---
ABD/PELVIS IV CONTRAST ONLY CT DOSE: 2785.52 mGy.cm HISTORY: Trauma. Pain. trauma TECHNIQUE: Multiaxial CT images of the abdomen and pelvis were performed following the use of intravenous contrast. A dose lowering technique was utilized adhering to the principles of ALARA. COMPARISON STUDY: 10/22/2017 FINDINGS: Lung bases are clear. Liver spleen and pancreas are unremarkable. Small gallstone within the gallbladder lumen. Kidneys enhance uniformly with no evidence for hydronephrosis. Stable postoperative evaluation of the lumbar spine. Mild nonobstructive ileus. No evidence for a true obstructive change. Normal appendix. IMPRESSION: 1. Mild ileus. 2. No acute process of the abdomen or pelvis. The above report was generated using voice recognition software. It may contain grammatical, syntax or spelling errors. Electronically signed by: Yohan Otto M.D. 10/27/2017 1:55 PM Dictated Date/Time: 10/27/2017 1:53 PM
[2017-10-27 15:20] VITALS: O2SAT 99; Ht 172.7 cm; Wt 100.1 kg
[2017-10-27] MEDS ORDERED: MAGNESIUM SULFATE 1GM / D5W 1 GM BAG IV ONE (15:37)
[2017-10-27] MEDS ORDERED: ALBUT/IPRATROP 3MG/0.5MG NEB 3 ML VIAL INH PRN (17:00)
[2017-10-27] MEDS ORDERED: BENZONATATE 100MG CAP PO PRN (17:00)
[2017-10-27] MEDS: IPRATROPIUM BROMIDE/ALBUTEROL respimat INH INH SCH ×3 (17:00→20:38)
[2017-10-27] MEDS ORDERED: ONDANSETRON INJ 2 MG/ML 2 ML VIAL IV PRN (17:15)
[2017-10-27] MEDS ORDERED: ACETAMINOPHEN 325 MG TAB PO PRN (17:15)
--- NOTE | 2017-10-27 17:54 | History and Physical ---
History & Physical Date & Time of Service: Oct 27, 2017 at 17:45 Chief Complaint: Nausea, Vomit Primary Care Physician: Bethany Goldman DO History of Present Illness Source: patient, hospital records 72-year-old male presents emergency department complaining of ongoing diarrhea ( non-bloody) as well as new onset of nausea and vomiting (non-bloody) beginning earlier today. Of note, he was admitted from 22 October to 25 October 2017 for C. difficile diarrhea, ZEHRA, alcohol issues, and hypophosphatemia. Patient states he went home still having some diarrhea but did not have any vomiting. Was able to keep down solid food for about 24 hours. He directly denies drinking any alcohol while at home in this interval period. Then this morning he says he developed acute N/V as well as epigastric abdominal pain. He denies similar pains on the previous admission. Says the diarrhea has become far more frequent and watery, as often as every 15 minutes. He notes some back and shoulder pain as well following a fall when he became dizzy yesterday evening. He denies any chest pain, shortness of breath, headache, focal difficulty moving extremities, or any other acute concerns. Past Medical/Surgical History Medical Problems: (1) Acute bronchitis (2) Acute bronchitis (3) Acute bronchitis with chronic obstructive pulmonary disease (COPD) (4) Acute exacerbation of chronic low back pain (5) Acute renal insufficiency (6) ZEHRA (acute kidney injury) (7) Anemia (8) ANXIETY STATE NOS (9) Back pain (10) Back pain (11) CANNABIS ABUSE-CONTIN (12) Carotid endarterectomy (13) carpal tunnel surgery bilaterally (14) CARPAL TUNNEL SYNDROME (15) Chest pain (16) CHOLELITHIASIS NOS (17) Chronic low back pain (18) CHRONIC OBSTRUCTIVE ASTHMA, NOS (19) Chronic shoulder pain (20) Clostridium difficile colitis (21) Compartment syndrome of right lower extremity (22) CONGESTIVE HEART FAILURE NOS (23) COPD (chronic obstructive pulmonary disease) (24) copd exac, bronchitis (25) COPD exacerbation (26) COPD exacerbation (27) COPD exacerbation (28) CORONARY ATHEROSCLEROSIS OF [place] CORONARY VESSEL (29) Dehydration (30) DEPRESSIVE DISORDER NEC (31) DIVERTICULOSIS COLON (W/O MENT OF HEMORRHAGE) (32) Enteritis (33) Failure of outpatient treatment (34) Gastroenteritis (35) Hematoma of right lower extremity (36) History of repair of inguinal hernia (37) HYPERLIPIDEMIA NEC/NOS (38) Hypoxia (39) [id number] (40) Intractable back pain (41) Intractable pain (42) Intramuscular hematoma (43) Knee pain (44) Laceration of left forearm (45) Left hip pain (46) Left shoulder pain (47) Leg pain (48) Lower back pain (49) Lower extremity cellulitis (50) Lumbar radicular pain (51) Lumbar radiculopathy, right (52) Lumbar stenosis with neurogenic claudication (53) MIGRAINE UNSPECIFIED W/O INTRACT MGRN W/O STATUS MIGRAINOSUS (54) OBESITY, NOS (55) OSTEOARTHROS NOS-SHLDER (56) Peripheral edema (57) Persistent vomiting (58) PERSONAL HISTORY OF URINARY CALCULI (59) PERSONAL HISTORY, PNEUMONIA (RECURRENT) (60) Pneumonia (61) PNEUMONIA, ORGANISM NOS (62) Post-operative pain (63) Prior left CVA (64) Right knee pain (65) Sepsis (66) Shortness of breath (67) SIRS (systemic inflammatory response syndrome) (68) Skin tag (69) Skin tear (70) SPINAL STENOSIS-LUMBAR (71) umbilical herniorrhaphy (72) Visit for wound check Surgical Problems: (1) Hx of decompressive lumbar laminectomy Family History Diabetes mellitus Heart disease Social History Smoking Status: Current Every Day Smoker Drug Use: marijuana Marital Status: in relationship Housing status: lives with family Occupational Status: retired Immunizations History of Influenza Vaccine: Yes Influenza Vaccine Date: Dec 12, 2012 History of Tetanus Vaccine?: Yes History of Pneumococcal: Yes Pneumococcal Date: Feb 04, 2004 History of Hepatitis B Vaccine: No Allergies Coded Allergies: Morphine (Verified Allergy, Intermediate, RASH, 10/27/17) Quinolones (Verified Allergy, Intermediate, unknown, 10/27/17) PATIENT WOULD LIKE TO BE TESTED FOR THIS AT SOME POINT BECAUSE HE DOES NOT BELIEVE HE IS ALLERGIC TO IT. Levofloxacin (Verified Allergy, Unknown, "WAS TOLD NOT TO TAKE"., 10/27/17) Home Medications Scheduled Aspirin (Aspirin Ec), 81 MG PO DAILY Budesonide/Formoterol Fumarate (Symbicort 160/4.5 Inhaler ), 2 PUFFS INH BID Buspirone Hcl (Buspirone Hcl), 10 MG PO BID Cholecalciferol (Vitamin D 1000 Unit), 1,000 INTER.UNIT PO DAILY Clopidogrel Bisulfate (Plavix), 75 MG PO DAILY Diphenhydramine Hcl (Benadryl Allergy), 25 MG PO AMHS Docusate Sodium (Docusate Sodium), 100 MG PO BID Ferrous Sulfate (Ferrous Sulfate), 325 MG PO HS Fluoxetine HCl (Fluoxetine HCl), 20 MG PO DAILY Folic Acid (Folic Acid), 1 MG PO DAILY Furosemide (Lasix), 40 MG PO BID Ipratropium-Albuterol (Combivent Respimat), 1 PUFFS INH QID Isosorbide Mononitrate Ext Rel (Imdur Ext Rel), 30 MG PO QAM Melatonin (Melatonin), 10 MG PO HS Metoprolol Succinate (Toprol Xl), 25 MG PO BID Montelukast Sodium (Singulair), 10 MG PO DAILY Pantoprazole (Protonix), 40 MG PO QAM Potassium Chloride (Potassium Chloride ER), 20 MEQ PO BID Pravastatin Sod (Pravastatin Sodium), 40 MG PO HS Ranitidine (Zantac), 300 MG PO BID Ropinirole (Requip), 0.5 MG PO HS Tamsulosin HCl (Tamsulosin HCl), 0.4 MG PO DAILY Thiamine Hcl (Vitamin B-1), 100 MG PO Q24H Vancomycin Hcl (Vancomycin), 1 CAP PO Q6 Scheduled PRN Benzonatate (Tessalon Perles), 200 MG PO TID PRN for Cough Cyclobenzaprine HCl (Cyclobenzaprine HCl), 5 MG PO TID PRN for Muscle Spasms Ipratropium-Albuterol (Duoneb), 1 TREATMENT INH QID PRN for Shortness of Breath Polyethylene Glycol 3350 (Miralax), 17 GM PO DAILY PRN for Constipation Review of Systems Constitutional: No fever, No chills Respiratory: No cough, No shortness of breath Cardiovascular: No chest pain, No edema Abdomen: + pain, + nausea, + vomiting, + diarrhea Musculoskeletal: No calf pain Neurologic: + weakness (generalized, mild), No numbness/tingling Physical Exam Vital Signs Date Time Temp Pulse Resp B/P (MAP) Pulse Ox O2 Delivery O2 Flow Rate FiO2 10/27/17 15:52 95 20 133/91 99 10/27/17 15:20 99 Room Air 10/27/17 12:36 90 10/27/17 12:31 136/91 10/27/17 12:05 90 11 10/27/17 12:01 116/69 10/27/17 11:41 99/78 10/27/17 11:35 93 21 10/27/17 11:27 91 20 129/94 97 Room Air 10/27/17 11:24 129/94 10/27/17 11:05 89 24 10/27/17 10:52 128/103 10/27/17 10:45 36.7 79 22 128/70 96 Room Air 10/27/17 10:35 86 21 10/27/17 10:26 79 10/27/17 10:22 128/70 General Appearance: Awake, alert & oriented, comfortable in general, NAD. Mildly dry oral mucous membranes. CV: +S1S2 RRR, no murmur. Pulm: Clear to auscultation throughout. Abdomen: +BS, soft, notably tender in the epigastric region, less so in the bilateral upper quadrants. No tenderness in bilateral lower quadrants. Positive mild distention, but question of how much this is his habitus. Extremities: No pedal edema or calf tenderness. Moving all extremities naturally and easily. Neuro: No gross neuro deficits. No present resting tremor. Diagnostics Laboratory Results Results Past 24 Hours Test 10/27/17 11:08 10/27/17 17:02 Range/Units White Blood Count 7.79 4.8-10.8 K/uL Red Blood Count 6.11 4.7-6.1 M/uL Hemoglobin 12.5 14.0-18.0 g/dL Hematocrit 40.0 42-52 % Mean Corpuscular Volume 65.5 80-100 fL Mean Corpuscular Hemoglobin 20.5 25-34 pg Mean Corpuscular Hemoglobin Concent 31.3 32-36 g/dl Platelet Count 335 130-400 K/uL Mean Platelet Volume 9.9 7.4-10.4 fL Neutrophils (%) (Auto) 71.5 % Lymphocytes (%) (Auto) 13.9 % Monocytes (%) (Auto) 10.9 % Eosinophils (%) (Auto) 3.1 % Basophils (%) (Auto) 0.1 % Neutrophils # (Auto) 5.57 1.4-6.5 K/uL Lymphocytes # (Auto) 1.08 1.2-3.4 K/uL Monocytes # (Auto) 0.85 0.11-0.59 K/uL Eosinophils # (Auto) 0.24 0-0.5 K/uL Basophils # (Auto) 0.01 0-0.2 K/uL RDW Standard Deviation 43.8 36.4-46.3 fL RDW Coefficient of Variation 19.3 11.5-14.5 % Immature Granulocyte % (Auto) 0.5 % Immature Granulocyte # (Auto) 0.04 0.00-0.02 K/uL Microcytosis PRESENT Ovalocytes 1+ Prothrombin Time 10.3 9.0-12.0 SECONDS Prothromb Time International Ratio 1.0 0.9-1.1 Sodium Level 138 136-145 mmol/L Potassium Level 3.3 3.5-5.1 mmol/L Chloride Level 107 98-107 mmol/L Carbon Dioxide Level 24 21-32 mmol/L Anion Gap 7.0 3-11 mmol/L Blood Urea Nitrogen 12 7-18 mg/dl Creatinine 1.20 0.60-1.40 mg/dl Est Creatinine Clear Calc Drug Dose 65.6 ml/min Estimated GFR () 70.6 Estimated GFR (Non- 60.9 BUN/Creatinine Ratio 10.3 10-20 Random Glucose 142 70-99 mg/dl Calcium Level 8.9 8.5-10.1 mg/dl Magnesium Level 1.7 1.8-2.4 mg/dl Total Bilirubin 0.6 0.2-1 mg/dl Aspartate Amino Transf (AST/SGOT) 23 15-37 U/L Alanine Aminotransferase (ALT/SGPT) 32 12-78 U/L Alkaline Phosphatase 93 45-117 U/L Troponin I < 0.015 0-0.045 ng/ml Total Protein 7.1 6.4-8.2 gm/dl Albumin 3.4 3.4-5.0 gm/dl Globulin 3.7 2.5-4.0 gm/dl Albumin/Globulin Ratio 0.9 0.9-2 Lipase 2287 73-393 U/L Transferrin % Saturation 20-50 % Diagnostic Radiology CT of the thoracic spine without contrast IMPRESSION: No fractures within the thoracic spine. CT of the lumbar spine without contrast IMPRESSION: Considerable degenerative and postoperative change. No acute process. CT of the chest with IV contrast IMPRESSION: No significant abnormality identified within the chest. CT of the abdomen and pelvis with IV contrast IMPRESSION: 1. Mild ileus. 2. No acute process of the abdomen or pelvis. EKG EKG is normal sinus rhythm, rate 91, with a right bundle branch block. Impression Assessment and Plan 72-year-old male was admitted on 27 October 2017 for epigastric pain, ongoing diarrhea, and acute N/V. Of note, patient was recently admitted from 22 October 2017 through 25 October for C. difficile, ZEHRA, alcohol abuse, and hypophosphatemia. PMH: Acute kidney injury, anemia, anxiety, cannabis abuse, cholelithiasis, COPD , CAD, diverticulosis, hyperlipidemia, lumbar stenosis, migraines, osteoarthritis, kidney stones, pneumonia, CVA. PSH: Patient states multiple, but only noted abdominal surgery was an umbilical hernia repair with mesh. Acute Pancreatitis: Admit lipase was 2287. Recent comparison on 22 October was 148. Patient does have epigastric pain along with new onset N/V. He is a history of alcohol abuse but denies having any alcohol consumption since 22 October. His medical record does note a history of cholelithiasis, including a small gallstone seen on his CT scan on this admission. LFT's normal. - We will treat acutely with aggressive IV fluids, starting with lactated Ringer 's 150 mL an hour. Brief record review noted an echocardiogram in May 2015 with an EF of 65-70%. - We will trend his lipase. If not improving with IV fluids, would consider obtaining RUQ ultrasound to evaluate for acute gallbladder pathology. - Zofran as needed for nausea. Dilaudid as needed for pain (patient says his morphine allergy was a couple of red spots on his arm years ago when treated for kidney stones). - Holding his home Lasix for now. C. difficile diarrhea: As diagnosed during his previous admission. He has been on oral vancomycin since 22 October, including as outpatient. - Continue oral vancomycin during this admission. - Consider switching to dificid if no improvement Electrolyte issues: - Hypokalemia: Admit K 3.3. Likely due to volume losses. Replacing, monitoring. --- Also kept him on his home potassium supplements. - Hypomagnesemia: Admit Mg 1.7. Likely due to volume losses. Replacing, monitoring. - Hypophosphatemia: Was initially on previous admission. Will recheck here. Alcohol abuse: Patient has a long history of the same. He denies alcohol use over the past five days. Prior to that he says he drank beer for two days straight. He expresses interest in quitting at this time. No presents tachycardia, tremors, or overt evidence of alcohol withdrawal. LFTs normal. He was briefly on Librium during last admission. - We will recheck his alcohol level on admission now - lab unable to draw anymore blood. hold off on the lab. - Continue his home folic acid and thiamine supplementation. - We will watch for any evidence of withdrawal. Substance abuse: Patient states he is interested in quitting smoking (started around age 10, max two packs per day, currently one half pack per day) but he is not interested in stopping THC use. - Provided some smoking cessation counseling. Minimally elevated creatinine: Admit Cr 1.2. Baseline may be closer to 0.8 - 1.0. Did have an issue with ZEHRA on previous admission. - Will monitor following IVF administration here. Microcytic anemia: Admit hemoglobin 12.5, MCV 65. No report of bleeding in vomiting or diarrhea. - We will check iron studies and stool guaiac. - Continue his home iron supplements (and docusate). - will need outpatient work up if h/h stable here - COPD/asthma: Continue home Combivent, Symbicort, and Singulair. - TANO: Patient says he will have his home CPAP brought to the hospital. - CAD: Continue home aspirin, Plavix, pravastatin, metoprolol, and Imdur. - Depression / anxiety: Continue home fluoxetine and buspirone. - GERD: Continue home Protonix and Zantac. - BPH: Continue home Tamsulosin. - Restless leg syndrome: Continue home Requip. Code status: Full code Diet: Sips and chips on admission. DVT prophy: Lovenox PT/OT: Deferred Disbo: Admit to MedSurg. Advanced Directives Existing Living Will: No Existing Power of Chief Design Drafter: No Resuscitation Status VTE Prophylaxis Will order VTE Prophylaxis: Yes Resident Tracking Resident Involvement: Resident Care Provided Care Provided: Adult Hospital Medicine (inpatient) Reviewed: Pt Seen/Exam by Me History 72 y/o M with persistent diarrhea after being recently discharge and being treated for C diff associated with upper abdomen pain Constitutional: denies: fever Respiratory: negative: short of breath Cardiovascular: denies chest pain General Appearance: no apparent distress Respiratory: lungs clear, no respiratory distress Cardiovascular: regular rate, rhythm Gastrointestinal: normal bowel sounds, soft, tenderness (upper abdomen) Neurologic/Psychiatric: alert, oriented x 3 Assessment/Plan Resident Physician Supervision Note: I independently interviewed and examined the patient and verified the reed history and physical, reviewed labs and image studies, discussed the case with the resident Dr. Garcia and agree with the findings and care plan.
[2017-10-27 19:00] VITALS: BP 111/77; PULSE 85; TEMP 36.9; O2SAT 96
[2017-10-27] MEDS: LACTATED RINGER'S 1000ML 1,000 ML IV SCH (19:37)
[2017-10-27] MEDS: POTASSIUM CHLR 10 MEQ / WTR 100 ML IV SCH ×3 (19:37→23:55)
[2017-10-27] MEDS: POTASSIUM CHLORIDE 20 MEQ TABCR PO SCH (19:41)
[2017-10-27] MEDS: VANCOMYCIN HCL 250 MG/5 ML SOLN PO SCH ×2 (19:42→23:55)
[2017-10-27] MEDS: RASPBERRY SYRUP 5 ML UDP PO SCH ×2 (19:42→23:55)
[2017-10-27] MEDS: PRAVASTATIN SOD 40 MG TAB PO SCH (19:43)
[2017-10-27] MEDS: ROPINIROLE HCL 0.25 MG TAB PO SCH (19:43)
[2017-10-27] MEDS: ENOXAPARIN 40 MG/0.4 ML SYR SQ SCH (19:44)
[2017-10-27] MEDS: DOCUSATE SODIUM 100 MG CAP PO SCH (19:45)
[2017-10-27] MEDS: FERROUS SULFATE 325 MG TAB PO SCH (19:45)
[2017-10-27] MEDS: METOPROLOL SUCC 25MG EXT REL TAB PO SCH (19:46)
[2017-10-27] MEDS: BUDESONIDE/FORMOTEROL FUMARATE 160/4.5 60 PUFFS/INHALER INH SCH (19:47)
[2017-10-27] MEDS: RANITIDINE HCL 150 MG TAB PO SCH (19:56)
[2017-10-27] MEDS: HYDROmorphone INJ 0.5 MG/0.5 ML SYR IV PRN (19:56)
[2017-10-27] MEDS ORDERED: THIAMINE HCL 100 MG TAB PO SCH (20:00)
[2017-10-27 20:05] LABS: PHOSPHORUS 2.5 mg/dl (2.5-4.9)
[2017-10-27] MEDS ORDERED: NON-FORMULARY MEDICATION (Melatonin 10 MG) PO SCH (21:00)
[2017-10-28] VITALS: BP 132/90; PULSE 77; TEMP 36.7; O2SAT 98
[2017-10-28] MEDS: HYDROmorphone INJ 0.5 MG/0.5 ML SYR IV PRN ×3 (00:02→21:33)
[2017-10-28] MEDS: LACTATED RINGER'S 1000ML 1,000 ML IV SCH ×4 (02:01→20:08)
[2017-10-28] MEDS: POTASSIUM CHLR 10 MEQ / WTR 100 ML IV SCH (02:01)
[2017-10-28] MEDS: VANCOMYCIN HCL 250 MG/5 ML SOLN PO SCH ×4 (05:56→23:51)
[2017-10-28] MEDS: RASPBERRY SYRUP 5 ML UDP PO SCH ×4 (05:56→23:51)
[2017-10-28 07:03] VITALS: BP 120/73; PULSE 83; TEMP 36.8; O2SAT 97
[2017-10-28 07:26] LABS: BASO % 0.6 %; BASO ABS # 0.03 K/uL (0-0.2); EOS % 5.8 %; EOS ABS # 0.29 K/uL (0-0.5); HEMOGLOBIN 10.8 g/dL (14.0-18.0); IG# 0.05 K/uL (0.00-0.02); LYMPH % 24.6 %; LYMPH ABS # 1.23 K/uL (1.2-3.4); MEAN CELL VOLUME 65.9 fL (80-100); MEAN CORPUSCULAR HEMOGLOBIN 19.8 pg (25-34); MEAN PLATELET VOLUME 9.7 fL (7.4-10.4); MONO % 18.6 %; MONO ABS # 0.93 K/uL (0.11-0.59); NEUT % 49.4 %; NEUT ABS # 2.46 K/uL (1.4-6.5); PLATELET COUNT 271 K/uL (130-400); RED CELL DISTRIBUTION WIDTH CV 19.8 % (11.5-14.5); RED CELL DISTRIBUTION WIDTH SD 45.4 fL (36.4-46.3); WHITE BLOOD COUNT 4.99 K/uL (4.8-10.8)
[2017-10-28] MEDS: POTASSIUM CHLORIDE 20 MEQ TABCR PO SCH ×2 (07:36→18:01)
[2017-10-28] MEDS: TAMSULOSIN HCL 0.4 MG CAP PO SCH (07:36)
[2017-10-28] MEDS: RANITIDINE HCL 150 MG TAB PO SCH ×2 (07:36→20:09)
[2017-10-28] MEDS: FLUOXETINE HCL 20 MG CAP PO SCH (07:37)
[2017-10-28] MEDS: CLOPIDOGREL BISULFATE 75 MG TAB PO SCH (07:37)
[2017-10-28] MEDS: ASPIRIN 81 MG ECTAB PO SCH (07:38)
[2017-10-28] MEDS: ISOSORBIDE MONONITRATE 30 MG TABCR PO SCH (07:38)
[2017-10-28] MEDS: PANTOprazole SOD 40 MG TAB PO SCH (07:38)
[2017-10-28] MEDS: CHOLECALCIFEROL 1000 INTER.UNIT TAB PO SCH (07:38)
[2017-10-28] MEDS: MONTELUKAST SOD 10 MG TAB PO SCH (07:38)
[2017-10-28] MEDS: METOPROLOL SUCC 25MG EXT REL TAB PO SCH ×2 (07:38→20:09)
[2017-10-28] MEDS: IPRATROPIUM BROMIDE/ALBUTEROL respimat INH INH SCH ×4 (07:39→20:09)
[2017-10-28] MEDS: BUDESONIDE/FORMOTEROL FUMARATE 160/4.5 60 PUFFS/INHALER INH SCH ×2 (07:39→20:09)
[2017-10-28] MEDS: DOCUSATE SODIUM 100 MG CAP PO SCH ×2 (07:49→20:09)
--- NOTE | 2017-10-28 07:57 | Family Medicine Progress Note ---
Progress Note Date of Service Oct 28, 2017. Subjective Pt evaluation today including: conversation w/ patient, physical exam, chart review, lab review, review of inpatient medication list Pain: Pain has resolved PO Intake: Low fat diet starting later today Voiding: no voiding problems Patient feels better from last evening. Has not needed pain meds aside from earlier in the day. He states his appetite is returning. Constitutional: No fever, No chills Respiratory: No cough, No shortness of breath Cardiovascular: No chest pain, No edema Abdomen: No pain, No nausea, No vomiting, No diarrhea, No GI bleeding Musculoskeletal: + joint pain (lower back) Psychiatric: + depression symptoms (recently broke up with girlfriend of 14 years), + anhedonism, + anxiety, + substance abuse (marijuana, alcohol) All Other Systems: Reviewed and Negative Medications Current Inpatient Medications Medications (Trade) Dose Ordered Sig/Osiris Route Start Time Stop Time Status Last Admin Dose Admin Ioversol (Optiray 320) 111 ml UD PRN IV 10/27/17 11:30 10/31/17 11:29 Aspirin (Ecotrin Tab) 81 mg DAILY PO 10/28/17 09:00 11/27/17 08:59 10/28/17 07:38 81 MG Benzonatate (Tessalon Perles Cap) 200 mg TID PRN PO 10/27/17 17:00 11/26/17 16:59 Budesonide/ Formoterol Fumarate (Symbicort 160/ 4.5 Inh) 2 puffs BID INH 10/27/17 21:00 11/26/17 20:59 10/28/17 07:39 2 PUFFS Cholecalciferol (Vitamin D Tab) 1,000 inter.unit DAILY PO 10/28/17 09:00 11/27/17 08:59 10/28/17 07:38 1,000 INTER.UNIT Clopidogrel Bisulfate (plAVix TAB) 75 mg DAILY PO 10/28/17 09:00 11/27/17 08:59 10/28/17 07:37 75 MG Cyclobenzaprine HCl (Flexeril Tab) 5 mg TID PRN PO 10/27/17 17:00 11/26/17 16:59 Docusate Sodium (coLACE CAP) 100 mg BID PO 10/27/17 21:00 11/26/17 20:59 10/27/17 19:45 100 MG Ferrous Sulfate (Feosol Tab) 325 mg HS PO 10/27/17 21:00 11/26/17 20:59 10/27/17 19:45 325 MG Fluoxetine HCl (Prozac Cap) 20 mg DAILY PO 10/28/17 09:00 11/27/17 08:59 10/28/17 07:37 20 MG Folic Acid (Folvite Tab) 1 mg DAILY PO 10/28/17 09:00 11/27/17 08:59 10/28/17 07:37 1 MG Albuterol/ Ipratropium (Combivent Respimat Inh) 1 puffs QID INH 10/27/17 17:00 11/26/17 16:59 10/28/17 07:39 1 PUFFS Albuterol/ Ipratropium (Duoneb) 3 ml QID PRN INH 10/27/17 17:00 11/26/17 16:59 Isosorbide Mononitrate (Imdur Ext Rel Tab) 30 mg QAM PO 10/28/17 09:00 11/27/17 08:59 10/28/17 07:38 30 MG Metoprolol Succinate (Toprol Xl Tab) 25 mg BID PO 10/27/17 21:00 11/26/17 20:59 10/28/17 07:38 25 MG Montelukast Sodium (Singulair Tab) 10 mg DAILY PO 10/28/17 09:00 11/27/17 08:59 10/28/17 07:38 10 MG Pantoprazole Sodium (Protonix Tab) 40 mg QAM PO 10/28/17 09:00 11/27/17 08:59 10/28/17 07:38 40 MG Pravastatin Sodium (Pravachol Tab) 40 mg HS PO 10/27/17 21:00 11/26/17 20:59 10/27/17 19:43 40 MG Ropinirole HCl (Requip Tab) 0.5 mg HS PO 10/27/17 21:00 11/26/17 20:59 10/27/17 19:43 0.5 MG Tamsulosin HCl (Flomax Cap) 0.4 mg DAILY PO 10/28/17 09:00 11/27/17 08:59 10/28/17 07:36 0.4 MG Thiamine HCl (Vitamin B-1 Tab) 100 mg Q24H PO 10/27/17 20:00 11/26/17 19:59 10/27/17 19:43 100 MG Vancomycin HCl (Vancomycin Oral Soln) 250 mg Q6 PO 10/27/17 19:30 11/06/17 19:29 10/28/17 05:56 250 MG Buspirone HCl (Buspar Tab) 10 mg BID PO 10/27/17 21:00 11/26/17 20:59 10/28/17 07:37 10 MG Potassium Chloride (Klor-Con Tab) 20 meq BIDM PO 10/27/17 18:30 11/26/17 18:29 10/28/17 07:36 20 MEQ Ranitidine HCl (zANTac TAB) 300 mg BID PO 10/27/17 21:00 11/26/17 20:59 10/28/17 07:36 300 MG Enoxaparin Sodium (Lovenox Inj) 40 mg Q24H SQ 10/27/17 20:00 11/26/17 19:59 10/27/17 19:44 40 MG Acetaminophen (Tylenol Tab) 650 mg Q4H PRN PO 10/27/17 17:15 11/26/17 17:14 Ondansetron HCl (Zofran Inj) 4 mg Q4H PRN IV 10/27/17 17:15 11/26/17 17:14 Hydromorphone HCl (Dilaudid Inj) 0.5 mg Q4H PRN IV 10/27/17 17:15 11/10/17 17:14 10/28/17 07:48 0.5 MG Lactated Ringer's 1,000 ml @ 150 mls/hr Q6H40M IV 10/27/17 17:15 11/26/17 17:14 10/28/17 02:01 150 MLS/HR Raspberry (Raspberry Syrup 5ml Cup) 5 ml Q6 PO 10/27/17 19:30 11/10/17 19:29 10/28/17 05:56 5 ML Objective Vital Signs Date Time Temp Pulse Resp B/P (MAP) Pulse Ox O2 Delivery O2 Flow Rate FiO2 10/28/17 07:03 36.8 83 20 120/73 (89) 97 Room Air 10/28/17 00:00 36.7 77 20 132/90 (104) 98 Room Air 10/28/17 00:00 Room Air 10/27/17 19:00 36.9 85 20 111/77 (88) 96 Room Air 10/27/17 18:47 77 20 149/80 100 10/27/17 15:52 95 20 133/91 99 10/27/17 15:20 99 Room Air 10/27/17 12:36 90 10/27/17 12:31 136/91 10/27/17 12:05 90 11 10/27/17 12:01 116/69 10/27/17 11:41 99/78 10/27/17 11:35 93 21 10/27/17 11:27 91 20 129/94 97 Room Air 10/27/17 11:24 129/94 10/27/17 11:05 89 24 10/27/17 10:52 128/103 10/27/17 10:45 36.7 79 22 128/70 96 Room Air 10/27/17 10:35 86 21 10/27/17 10:26 79 10/27/17 10:22 128/70 Physical Exam General Appearance: WD/WN, no apparent distress Eyes: PERRL, EOMI ENT: hearing grossly normal Neck: no carotid bruits, trachea midline Respiratory/Chest: lungs clear, normal breath sounds, no respiratory distress, no accessory muscle use Cardiovascular: regular rate, rhythm, no murmur Abdomen: normal bowel sounds, non tender, soft, + distended Extremities: normal inspection, no pedal edema, no calf tenderness Neurologic/Psychiatric: alert, normal mood/affect, oriented x 3 Skin: normal color, warm/dry Laboratory Results Last Resulted 10/28/17 07:11 Red Blood Count 5.46, Mean Corpuscular Volume 65.9, Mean Corpuscular Hemoglobin 19.8, Mean Corpuscular Hemoglobin Concent 30.0, Mean Platelet Volume 9.7, Neutrophils (%) (Auto) 49.4, Lymphocytes (%) (Auto) 24.6, Monocytes (%) (Auto) 18.6, Eosinophils (%) (Auto) 5.8, Basophils (%) (Auto) 0.6, Neutrophils # (Auto ) 2.46, Lymphocytes # (Auto) 1.23, Monocytes # (Auto) 0.93, Eosinophils # (Auto ) 0.29, Basophils # (Auto) 0.03 Past 24 Hours Test 10/27/17 11:08 Range/Units Prothromb Time International Ratio 1.0 0.9-1.1 Prothrombin Time 10.3 9.0-12.0 SECONDS Troponin I < 0.015 0-0.045 ng/ml Assessment and Plan 72-year-old male was admitted on 27 October 2017 for epigastric pain, ongoing diarrhea, and acute N/V. Patient was recently admitted from 22 October 2017 through 25 October for C. difficile, ZEHRA, alcohol abuse, and hypophosphatemia. PMH: Acute kidney injury, anemia, anxiety, cannabis abuse, cholelithiasis, COPD , CAD, diverticulosis, hyperlipidemia, lumbar stenosis, migraines, osteoarthritis, kidney stones, pneumonia, CVA. PSH: Patient states multiple, but only noted abdominal surgery was an umbilical hernia repair with mesh. Possible Acute Pancreatitis/microlith: - Admit lipase was 2287, 12 hour follow up was 256. - Pt has h/o history of alcohol abuse but denies having any alcohol consumption since 22 October. His medical record does note a history of cholelithiasis, including a small gallstone seen on his CT scan on this admission. LFT's normal. - We will treat acutely with aggressive IV fluids, starting with lactated Ringer 's 150 mL an hour. Brief record review noted an echocardiogram in May 2015 with an EF of 65-70%. - Considering resolution of symptoms and labwork, could consider other upper GI conditions or possibly small stone that has passed - Zofran as needed for nausea. Dilaudid as needed for pain - Hold home Lasix for now. C. difficile diarrhea: - Diagnosed during most recent admission. He has been on oral vancomycin since 22 October, including as outpatient. - Continue oral vancomycin during this admission. - Consider switching to dificid if no improvement Electrolyte issues: - Hypokalemia: Admit K 3.3. Likely due to volume losses. Replacing, monitoring. --- Also kept him on his home potassium supplements. - Hypomagnesemia: Admit Mg 1.7. Likely due to volume losses. Replacing, monitoring. - Hypophosphatemia: Was initially on previous admission. Will recheck here. Alcohol abuse, Possible alcohol withdrawal: - Long h/o same. Denies alcohol use over the past five days. Prior to that he says he drank beer for two days straight. - Pt expresses interest in quitting at this time. LFTs normal. He was briefly on Librium during last admission. - Pt experiencing anxiety, tearfulness, restlessness, started on AWSS protocol - Received 0.5 mg ativan this afternoon - Continue his home folic acid and thiamine supplementation. Substance abuse: Patient states he is interested in quitting smoking (started around age 10, max two packs per day, currently one half pack per day) but he is not interested in stopping THC use. - Provided some smoking cessation counseling. Minimally elevated creatinine: Admit Cr 1.2. Baseline may be closer to 0.8 - 1.0. Did have an issue with ZEHRA on previous admission. - Will monitor following IVF administration here. Microcytic anemia: - Admit hemoglobin 12.5, MCV 65. No report of bleeding in vomiting or diarrhea. - We will check iron studies and stool guaiac (neg). - Continue his home iron supplements (and docusate). - will need outpatient work up if h/h stable here - COPD/asthma: Continue home Combivent, Symbicort, and Singulair. - TANO: Patient says he will have his home CPAP brought to the hospital. - CAD: Continue home aspirin, Plavix, pravastatin, metoprolol, and Imdur. - Depression / anxiety: Continue home fluoxetine and buspirone. - GERD: Continue home Protonix and Zantac. - BPH: Continue home Tamsulosin. - Restless leg syndrome: Continue home Requip. Code status: Full code Diet: low fat DVT prophy: Lovenox PT/OT: Deferred Dispo: Admit to [facility]. Resident Physician Supervision Note: I interviewed and examined the patient. Discussed with Dr. Valladares and agree with findings and plan as documented in the note. Any exceptions or clarifications are listed here: None Documented By: Brooks Britt feeling better pain better hasn't needed pain meds for hours vitals noted pleasantly anxious but nad breathing unlabored, abd soft nd nt no epigastric tenderness whatsoever abdominal pain - transient elevation of lipase now normal, epigastric pain now resolved - suspect microlithiasis causing transient gallstone pancreatitis. ddx also included esophagitis/gastritis but this would not have gotten better so quickly, viral GE superimposed on recent Cdiff (possible), and also possible general GI discomfort from diarrhea (less likely since pain seemed more epigastric) --> follow, low fat diet. hopefully home with close outpt f/u tomorrow. no clear need for cholecystectomy right now, but would follow closely and consider outpt HIDA Resident Tracking Resident Involvement: Resident Care Provided Care Provided: Adult Hospital Medicine
[2017-10-28 08:03] LABS: ALBUMIN 2.7 gm/dl (3.4-5.0); CALCIUM 7.9 mg/dl (8.5-10.1); CREATININE 1.23 mg/dl (0.60-1.40); PHOSPHORUS 2.7 mg/dl (2.5-4.9); TOTAL PROTEIN 5.8 gm/dl (6.4-8.2)
[2017-10-28] MEDS ORDERED: LORAZEPAM 2 MG/ML 1 ML VIAL IV PRN (13:15)
[2017-10-28 13:30] VITALS: BP 125/67; PULSE 71; TEMP 36.7; O2SAT 97
[2017-10-28] MEDS ORDERED: LORAZEPAM INJ 0.5 MG in SYRINGE 0.25 ML IV STA (13:49)
[2017-10-28] MEDS ORDERED: THIAMINE HCL INJ 100 MG in SYRINGE 9 ML IV SCH (13:55)
[2017-10-28 15:36] VITALS: BP 123/67; PULSE 75; TEMP 36.4; O2SAT 96
[2017-10-28] MEDS: ENOXAPARIN 40 MG/0.4 ML SYR SQ SCH (20:08)
[2017-10-28] MEDS: PRAVASTATIN SOD 40 MG TAB PO SCH (20:09)
[2017-10-28] MEDS: FERROUS SULFATE 325 MG TAB PO SCH (20:09)
[2017-10-28] MEDS: ROPINIROLE HCL 0.25 MG TAB PO SCH (20:09)
[2017-10-28 23:01] VITALS: BP 131/80; PULSE 76; TEMP 36.9; O2SAT 92
[2017-10-29] MEDS: LACTATED RINGER'S 1000ML 1,000 ML IV SCH ×2 (02:21→09:34)
[2017-10-29] MEDS: HYDROmorphone INJ 0.5 MG/0.5 ML SYR IV PRN (02:22)
[2017-10-29] MEDS: VANCOMYCIN HCL 250 MG/5 ML SOLN PO SCH ×4 (05:37→23:03)
[2017-10-29] MEDS: RASPBERRY SYRUP 5 ML UDP PO SCH ×4 (05:37→23:04)
[2017-10-29 06:25] VITALS: PULSE 63; O2SAT 98
[2017-10-29 06:36] LABS: HEMATOCRIT 30.7 % (42-52); HEMOGLOBIN 9.4 g/dL (14.0-18.0); MEAN CELL VOLUME 66.3 fL (80-100); MEAN CORPUSCULAR HEMOGLOBIN 20.3 pg (25-34); MEAN CORPUSCULAR HGB CONC 30.6 g/dl (32-36); PLATELET COUNT 266 K/uL (130-400); RED CELL DISTRIBUTION WIDTH CV 19.4 % (11.5-14.5); RED CELL DISTRIBUTION WIDTH SD 45.8 fL (36.4-46.3)
[2017-10-29 07:11] VITALS: BP 121/73; PULSE 70; TEMP 37; O2SAT 97
[2017-10-29 07:17] LABS: ALBUMIN 2.5 gm/dl (3.4-5.0); CALCIUM 7.7 mg/dl (8.5-10.1); CREATININE 0.9 mg/dl (0.60-1.40); POTASSIUM 3.6 mmol/L (3.5-5.1); TOTAL PROTEIN 5.1 gm/dl (6.4-8.2)
[2017-10-29] MEDS: THIAMINE HCL 100 MG TAB PO SCH (07:54)
[2017-10-29] MEDS: CHOLECALCIFEROL 1000 INTER.UNIT TAB PO SCH (07:55)
[2017-10-29] MEDS: CLOPIDOGREL BISULFATE 75 MG TAB PO SCH (07:55)
[2017-10-29] MEDS: MONTELUKAST SOD 10 MG TAB PO SCH (07:56)
[2017-10-29] MEDS: TAMSULOSIN HCL 0.4 MG CAP PO SCH (07:56)
[2017-10-29] MEDS: ISOSORBIDE MONONITRATE 30 MG TABCR PO SCH (07:56)
[2017-10-29] MEDS: FLUOXETINE HCL 20 MG CAP PO SCH (07:56)
[2017-10-29] MEDS: PANTOprazole SOD 40 MG TAB PO SCH (07:56)
[2017-10-29] MEDS: ASPIRIN 81 MG ECTAB PO SCH (07:56)
[2017-10-29] MEDS: METOPROLOL SUCC 25MG EXT REL TAB PO SCH ×2 (07:56→20:12)
[2017-10-29] MEDS: POTASSIUM CHLORIDE 20 MEQ TABCR PO SCH ×2 (07:57→18:24)
[2017-10-29] MEDS: BUDESONIDE/FORMOTEROL FUMARATE 160/4.5 60 PUFFS/INHALER INH SCH ×2 (07:58→20:11)
[2017-10-29] MEDS: DOCUSATE SODIUM 100 MG CAP PO SCH ×2 (07:58→20:12)
[2017-10-29] MEDS: IPRATROPIUM BROMIDE/ALBUTEROL respimat INH INH PRN (07:59)
[2017-10-29] MEDS ORDERED: POTASSIUM CHLORIDE 20 MEQ TABCR PO ONE (08:00)
[2017-10-29] MEDS ORDERED: IRON SUCROSE INJ 100 MG in SODIUM CHLORIDE 0.9% 100ML 100 ML IV SCH (08:00)
[2017-10-29] MEDS: RANITIDINE HCL 150 MG TAB PO SCH ×2 (09:34→20:11)
[2017-10-29] MEDS: TIOTROPIUM BROMIDE 5 PUFF/90 MCG INH INH SCH (10:24)
--- NOTE | 2017-10-29 10:56 | Family Medicine Progress Note ---
Progress Note Date of Service Oct 29, 2017. Subjective Pt evaluation today including: conversation w/ patient, physical exam, chart review, lab review Pain: No pain reported PO Intake: Tolerating well Voiding: no voiding problems Patient is feeling physically better this morning, however expresses concern on the idea of going home. He does not feel that he is ready and reports that he needs help with cooking and getting more steady on his feet. At the suggestion of home health, he states he has had this in the past and 2/3 aides he did not like. He was unaware that he could request other aides. He requests short stay at [facility]. Constitutional: No fever, No chills, No weight loss Respiratory: + shortness of breath, No cough, No wheezing Cardiovascular: No chest pain Abdomen: No pain, No nausea, No vomiting, No diarrhea Musculoskeletal: + joint pain Psychiatric: + anhedonism All Other Systems: Reviewed and Negative Medications Current Inpatient Medications Medications (Trade) Dose Ordered Sig/Osiris Route Start Time Stop Time Status Last Admin Dose Admin Ioversol (Optiray 320) 111 ml UD PRN IV 10/27/17 11:30 10/31/17 11:29 Aspirin (Ecotrin Tab) 81 mg DAILY PO 10/28/17 09:00 11/27/17 08:59 10/29/17 07:56 81 MG Benzonatate (Tessalon Perles Cap) 200 mg TID PRN PO 10/27/17 17:00 11/26/17 16:59 Budesonide/ Formoterol Fumarate (Symbicort 160/ 4.5 Inh) 2 puffs BID INH 10/27/17 21:00 11/26/17 20:59 10/29/17 07:58 2 PUFFS Cholecalciferol (Vitamin D Tab) 1,000 inter.unit DAILY PO 10/28/17 09:00 11/27/17 08:59 10/29/17 07:55 1,000 INTER.UNIT Clopidogrel Bisulfate (plAVix TAB) 75 mg DAILY PO 10/28/17 09:00 11/27/17 08:59 10/29/17 07:55 75 MG Cyclobenzaprine HCl (Flexeril Tab) 5 mg TID PRN PO 10/27/17 17:00 11/26/17 16:59 Docusate Sodium (coLACE CAP) 100 mg BID PO 10/27/17 21:00 11/26/17 20:59 10/28/17 20:09 100 MG Ferrous Sulfate (Feosol Tab) 325 mg HS PO 10/27/17 21:00 11/26/17 20:59 10/28/17 20:09 325 MG Fluoxetine HCl (Prozac Cap) 20 mg DAILY PO 10/28/17 09:00 11/27/17 08:59 10/29/17 07:56 20 MG Folic Acid (Folvite Tab) 1 mg DAILY PO 10/28/17 09:00 11/27/17 08:59 10/29/17 07:56 1 MG Albuterol/ Ipratropium (Duoneb) 3 ml QID PRN INH 10/27/17 17:00 11/26/17 16:59 10/29/17 06:25 3 ML Isosorbide Mononitrate (Imdur Ext Rel Tab) 30 mg QAM PO 10/28/17 09:00 11/27/17 08:59 10/29/17 07:56 30 MG Metoprolol Succinate (Toprol Xl Tab) 25 mg BID PO 10/27/17 21:00 11/26/17 20:59 10/29/17 07:56 25 MG Montelukast Sodium (Singulair Tab) 10 mg DAILY PO 10/28/17 09:00 11/27/17 08:59 10/29/17 07:56 10 MG Pantoprazole Sodium (Protonix Tab) 40 mg QAM PO 10/28/17 09:00 11/27/17 08:59 10/29/17 07:56 40 MG Pravastatin Sodium (Pravachol Tab) 40 mg HS PO 10/27/17 21:00 11/26/17 20:59 10/28/17 20:09 40 MG Ropinirole HCl (Requip Tab) 0.5 mg HS PO 10/27/17 21:00 11/26/17 20:59 10/28/17 20:09 0.5 MG Tamsulosin HCl (Flomax Cap) 0.4 mg DAILY PO 10/28/17 09:00 11/27/17 08:59 10/29/17 07:56 0.4 MG Vancomycin HCl (Vancomycin Oral Soln) 250 mg Q6 PO 10/27/17 19:30 11/06/17 19:29 10/29/17 05:37 250 MG Buspirone HCl (Buspar Tab) 10 mg BID PO 10/27/17 21:00 11/26/17 20:59 10/29/17 07:55 10 MG Potassium Chloride (Klor-Con Tab) 20 meq BIDM PO 10/27/17 18:30 11/26/17 18:29 10/29/17 07:57 20 MEQ Ranitidine HCl (zANTac TAB) 300 mg BID PO 10/27/17 21:00 11/26/17 20:59 10/29/17 09:34 300 MG Enoxaparin Sodium (Lovenox Inj) 40 mg Q24H SQ 10/27/17 20:00 11/26/17 19:59 10/28/17 20:08 40 MG Acetaminophen (Tylenol Tab) 650 mg Q4H PRN PO 10/27/17 17:15 11/26/17 17:14 10/29/17 05:34 650 MG Ondansetron HCl (Zofran Inj) 4 mg Q4H PRN IV 10/27/17 17:15 11/26/17 17:14 Hydromorphone HCl (Dilaudid Inj) 0.5 mg Q4H PRN IV 10/27/17 17:15 11/10/17 17:14 10/29/17 02:22 0.5 MG Lactated Ringer's 1,000 ml @ 150 mls/hr Q6H40M IV 10/27/17 17:15 11/26/17 17:14 10/29/17 09:34 150 MLS/HR Raspberry (Raspberry Syrup 5ml Cup) 5 ml Q6 PO 10/27/17 19:30 11/10/17 19:29 10/29/17 05:37 5 ML Thiamine HCl (Vitamin B-1 Tab) 100 mg DAILY PO 10/29/17 09:00 11/28/17 08:59 10/29/17 07:54 100 MG Lorazepam (Ativan Inj) 1 mg ONE PRN IV 10/28/17 13:15 Albuterol/ Ipratropium (Combivent Respimat Inh) 1 puffs Q4H PRN INH 10/29/17 07:15 11/26/17 16:59 10/29/17 07:59 1 PUFFS Tiotropium [place] (Spiriva Handihaler Inhaler) 1 puff QAM INH 10/29/17 09:00 11/28/17 08:59 10/29/17 10:24 1 PUFF Dronabinol (Marinol Cap) 5 mg BID PO 10/29/17 21:00 11/28/17 20:59 Dronabinol (Marinol Cap) 5 mg 1055 ONCE PO 10/29/17 10:55 10/29/17 10:56 UNV Objective Vital Signs Date Time Temp Pulse Resp B/P (MAP) Pulse Ox O2 Delivery O2 Flow Rate FiO2 10/29/17 08:00 Room Air 10/29/17 07:11 37.0 70 20 121/73 (89) 97 2.0 10/29/17 06:25 63 98 Nasal Cannula 2.0 10/29/17 00:20 Room Air 10/28/17 23:01 36.9 76 18 131/80 (97) 92 Room Air 10/28/17 16:00 Room Air 10/28/17 15:36 36.4 75 18 123/67 (85) 96 Room Air 10/28/17 13:30 36.7 71 18 125/67 (86) 97 Room Air Physical Exam General Appearance: WD/WN, no apparent distress Eyes: PERRL, EOMI ENT: hearing grossly normal Neck: no carotid bruits, trachea midline Respiratory/Chest: lungs clear, normal breath sounds, no respiratory distress, no accessory muscle use Cardiovascular: no edema, no murmur Abdomen: normal bowel sounds, non tender, soft Extremities: normal inspection, no pedal edema, no calf tenderness Neurologic/Psychiatric: alert, normal mood/affect, oriented x 3 Skin: normal color, warm/dry, no rash Laboratory Results Last Resulted 10/29/17 06:02 Last Resulted 10/29/17 06:02 Assessment and Plan 72-year-old male was admitted on 27 October 2017 for epigastric pain, ongoing diarrhea, and acute N/V. Patient was recently admitted from 22 October 2017 through 25 October for C. difficile, ZEHRA, alcohol abuse, and hypophosphatemia. PMH: Acute kidney injury, anemia, anxiety, cannabis abuse, cholelithiasis, COPD , CAD, diverticulosis, hyperlipidemia, lumbar stenosis, migraines, osteoarthritis, kidney stones, pneumonia, CVA. PSH: Patient states multiple, but only noted abdominal surgery was an umbilical hernia repair with mesh. Possible Acute Pancreatitis/microlith: - Admit lipase was 2287, 12 hour follow up was 256. - Pt has h/o history of alcohol abuse but denies having any alcohol consumption since 22 October. His medical record does note a history of cholelithiasis, including a small gallstone seen on his CT scan on this admission. LFT's normal. - Treated acutely with aggressive IV fluids, LR 150, which were DCd 10/29/17. Echocardiogram in May 2015: EF of 65-70%. - Considering resolution of symptoms and labwork, could consider other upper GI conditions or possibly small stone that has passed - Zofran as needed for nausea. Dilaudid as needed for pain - Hold home Lasix for now. C. difficile diarrhea POA, improving: - Diagnosed during most recent admission. He has been on oral vancomycin since 22 October, including as outpatient. - Continue oral vancomycin during this admission. Reports he has been having formed stool today. - Consider switching to dificid if no improvement Electrolyte issues: - Hypokalemia: Admit K 3.3. Likely due to volume losses. Replacing, monitoring. --- Also kept him on his home potassium supplements. - Hypomagnesemia: Admit Mg 1.7. Likely due to volume losses. Replacing, monitoring. - Hypophosphatemia: Was initially on previous admission. Will recheck here. Alcohol abuse, Possible alcohol withdrawal, Anxiety/agitation: - Long h/o same. Denies alcohol use over the past five days. Prior to that he says he drank beer for two days straight. - Pt expresses interest in quitting at this time. LFTs normal. He was briefly on Librium during last admission. - Pt experiencing anxiety, tearfulness, restlessness, started on AWSS protocol, but required only 0.5 ativan x 1 - Pt has long h/o excessive THC use, will attempt marinol to combat potential marijuana withdrawal - Continue his home folic acid and thiamine supplementation. Substance abuse: - Patient states he is interested in quitting smoking (started around age 10, currently one half pack per day) but he is not interested in stopping THC use. - Provided some smoking cessation counseling. - Marinol as above Minimally elevated creatinine: - Admit Cr 1.2. Baseline may be closer to 0.8 - 1.0. Did have an issue with ZEHRA on previous admission. - Will monitor following IVF administration here. Microcytic anemia: - Admit hemoglobin 12.5, MCV 65. No report of bleeding in vomiting or diarrhea. - We will check iron studies and stool guaiac (neg). - Continue his home iron supplements (and docusate). - Received 1x venofer infusion - will need outpatient work up if h/h stable here - COPD/asthma: Continue home Combivent, Symbicort, and Singulair. - TANO: Patient says he will have his home CPAP brought to the hospital. - CAD: Continue home aspirin, Plavix, pravastatin, metoprolol, and Imdur. - Depression / anxiety: Continue home fluoxetine and buspirone. - GERD: Continue home Protonix and Zantac. - BPH: Continue home Tamsulosin. - Restless leg syndrome: Continue home Requip. Code: Full Diet: low fat DVTP: Lovenox PT/OT: Deferred Dispo: Admit to [facility]. Resident Physician Supervision Note: I interviewed and examined the patient. Discussed with Dr. Valladares and agree with findings and plan as documented in the note. Any exceptions or clarifications are listed here: None Documented By: Brooks Britt feeling better overall, was anxious this morning vitals noted nad breathing unlabored, no pallor or icterus abdominal pain - transient elevation of lipase now normal, epigastric pain now resolved - suspect microlithiasis causing transient gallstone pancreatitis. ddx also included esophagitis/gastritis but this would not have gotten better so quickly, viral GE superimposed on recent Cdiff (possible), and also possible general GI discomfort from diarrhea (less likely since pain seemed more epigastric) --> follow, low fat diet. definitely improved. no clear need for cholecystectomy right now, but would follow closely and consider outpt HIDA anxiety and outbursts -does smoke marijuana frequently (?daily) - possibly some of his anxiety is withdrawal. while different pharmacologically, will give trial to marinol to blunt this given his outburts caused himself as well as staff a degree of distress. he is appreciative of this approach Resident Tracking Resident Involvement: Resident Care Provided Care Provided: Adult [facility] Medicine
[2017-10-29] MEDS ORDERED: DRONABINOL 2.5 MG CAP PO SCH (11:30)
[2017-10-29 15:39] VITALS: BP 123/68; PULSE 73; TEMP 37.2; O2SAT 98
[2017-10-29] MEDS: ENOXAPARIN 40 MG/0.4 ML SYR SQ SCH (20:11)
[2017-10-29] MEDS: PRAVASTATIN SOD 40 MG TAB PO SCH (20:12)
[2017-10-29] MEDS: ROPINIROLE HCL 0.25 MG TAB PO SCH (20:12)
[2017-10-29] MEDS: FERROUS SULFATE 325 MG TAB PO SCH (20:12)
[2017-10-29] MEDS: DRONABINOL 2.5 MG CAP PO SCH (21:05)
[2017-10-29 23:12] VITALS: BP 121/70; PULSE 75; TEMP 37.5; O2SAT 94
[2017-10-29] MEDS: CYCLOBENZAPRINE HCL 5 MG TAB PO PRN (23:53)
[2017-10-30] MEDS: VANCOMYCIN HCL 250 MG/5 ML SOLN PO SCH ×4 (05:42→20:21)
[2017-10-30] MEDS: RASPBERRY SYRUP 5 ML UDP PO SCH ×4 (05:42→20:14)
[2017-10-30 06:40] VITALS: BP 112/67; PULSE 67; TEMP 36.8; O2SAT 96
[2017-10-30 07:37] LABS: CALCIUM 7.9 mg/dl (8.5-10.1); CREATININE 0.85 mg/dl (0.60-1.40); POTASSIUM 3.8 mmol/L (3.5-5.1)
[2017-10-30 07:53] LABS: HEMATOCRIT 29.5 % (42-52); HEMOGLOBIN 8.8 g/dL (14.0-18.0); MEAN CELL VOLUME 66.7 fL (80-100); MEAN CORPUSCULAR HEMOGLOBIN 19.9 pg (25-34); MEAN CORPUSCULAR HGB CONC 29.8 g/dl (32-36); MEAN PLATELET VOLUME 9.7 fL (7.4-10.4); PLATELET COUNT 252 K/uL (130-400); RED CELL DISTRIBUTION WIDTH CV 19.5 % (11.5-14.5); RED CELL DISTRIBUTION WIDTH SD 46.5 fL (36.4-46.3)
[2017-10-30] MEDS: DRONABINOL 2.5 MG CAP PO SCH ×2 (08:02→20:49)
[2017-10-30] MEDS: ISOSORBIDE MONONITRATE 30 MG TABCR PO SCH (08:03)
[2017-10-30] MEDS: CHOLECALCIFEROL 1000 INTER.UNIT TAB PO SCH (08:03)
[2017-10-30] MEDS: CLOPIDOGREL BISULFATE 75 MG TAB PO SCH (08:03)
[2017-10-30] MEDS: ASPIRIN 81 MG ECTAB PO SCH (08:04)
[2017-10-30] MEDS: MONTELUKAST SOD 10 MG TAB PO SCH (08:04)
[2017-10-30] MEDS: METOPROLOL SUCC 25MG EXT REL TAB PO SCH ×2 (08:04→20:10)
[2017-10-30] MEDS: PANTOprazole SOD 40 MG TAB PO SCH (08:04)
[2017-10-30] MEDS: POTASSIUM CHLORIDE 20 MEQ TABCR PO SCH ×2 (08:04→17:36)
[2017-10-30] MEDS: RANITIDINE HCL 150 MG TAB PO SCH ×2 (08:04→20:14)
[2017-10-30] MEDS: THIAMINE HCL 100 MG TAB PO SCH (08:04)
[2017-10-30] MEDS: FLUOXETINE HCL 20 MG CAP PO SCH (08:05)
[2017-10-30] MEDS: TIOTROPIUM BROMIDE 5 PUFF/90 MCG INH INH SCH (08:05)
[2017-10-30] MEDS: TAMSULOSIN HCL 0.4 MG CAP PO SCH (08:05)
[2017-10-30] MEDS: BUDESONIDE/FORMOTEROL FUMARATE 160/4.5 60 PUFFS/INHALER INH SCH ×2 (08:05→20:07)
[2017-10-30] MEDS: DOCUSATE SODIUM 100 MG CAP PO SCH ×2 (08:06→20:08)
[2017-10-30] MEDS: IPRATROPIUM BROMIDE/ALBUTEROL respimat INH INH PRN ×2 (08:06→20:18)
[2017-10-30] MEDS: CYCLOBENZAPRINE HCL 5 MG TAB PO PRN (08:13)
[2017-10-30] MEDS ORDERED: LORAZEPAM INJ 0.5 MG in SYRINGE 0.75 ML IV ONE (13:45)
[2017-10-30 15:39] VITALS: BP 107/52; PULSE 78; TEMP 36.5; O2SAT 96
--- NOTE | 2017-10-30 17:31 | Family Medicine Progress Note ---
Progress Note Date of Service Oct 30, 2017. Subjective Pt evaluation today including: conversation w/ patient, physical exam, lab review Pain: Reports no abdominal pain PO Intake: Tolerating well Voiding: no voiding problems Patient reports he has no abdominal pain today. He does state he still feels weak and would like to go to rehab. He is not sure he thinks the marinol helped with his anxiety. He also reports his stool is more formed. Constitutional: No fever, No chills Respiratory: No cough, No shortness of breath Cardiovascular: No chest pain, No edema Abdomen: No pain, No nausea, No vomiting Psychiatric: + anxiety Medications Current Inpatient Medications Medications (Trade) Dose Ordered Sig/Osiris Route Start Time Stop Time Status Last Admin Dose Admin Ioversol (Optiray 320) 111 ml UD PRN IV 10/27/17 11:30 10/31/17 11:29 Aspirin (Ecotrin Tab) 81 mg DAILY PO 10/28/17 09:00 11/27/17 08:59 10/30/17 08:04 81 MG Benzonatate (Tessalon Perles Cap) 200 mg TID PRN PO 10/27/17 17:00 11/26/17 16:59 Budesonide/ Formoterol Fumarate (Symbicort 160/ 4.5 Inh) 2 puffs BID INH 10/27/17 21:00 11/26/17 20:59 10/30/17 08:05 2 PUFFS Cholecalciferol (Vitamin D Tab) 1,000 inter.unit DAILY PO 10/28/17 09:00 11/27/17 08:59 10/30/17 08:03 1,000 INTER.UNIT Clopidogrel Bisulfate (plAVix TAB) 75 mg DAILY PO 10/28/17 09:00 11/27/17 08:59 10/30/17 08:03 75 MG Cyclobenzaprine HCl (Flexeril Tab) 5 mg TID PRN PO 10/27/17 17:00 11/26/17 16:59 10/30/17 08:13 5 MG Docusate Sodium (coLACE CAP) 100 mg BID PO 10/27/17 21:00 11/26/17 20:59 10/28/17 20:09 100 MG Ferrous Sulfate (Feosol Tab) 325 mg HS PO 10/27/17 21:00 11/26/17 20:59 8/18 20:12 325 MG Fluoxetine HCl (Prozac Cap) 20 mg DAILY PO 10/28/17 09:00 11/27/17 08:59 10/30/17 08:05 20 MG Folic Acid (Folvite Tab) 1 mg DAILY PO 10/28/17 09:00 11/27/17 08:59 10/30/17 08:05 1 MG Albuterol/ Ipratropium (Duoneb) 3 ml QID PRN INH 10/27/17 17:00 11/26/17 16:59 10/29/17 06:25 3 ML Isosorbide Mononitrate (Imdur Ext Rel Tab) 30 mg QAM PO 10/28/17 09:00 11/27/17 08:59 10/30/17 08:03 30 MG Metoprolol Succinate (Toprol Xl Tab) 25 mg BID PO 10/27/17 21:00 11/26/17 20:59 10/30/17 08:04 25 MG Montelukast Sodium (Singulair Tab) 10 mg DAILY PO 10/28/17 09:00 11/27/17 08:59 10/30/17 08:04 10 MG Pantoprazole Sodium (Protonix Tab) 40 mg QAM PO 10/28/17 09:00 11/27/17 08:59 10/30/17 08:04 40 MG Pravastatin Sodium (Pravachol Tab) 40 mg HS PO 10/27/17 21:00 11/26/17 20:59 10/29/17 20:12 40 MG Ropinirole HCl (Requip Tab) 0.5 mg HS PO 10/27/17 21:00 11/26/17 20:59 10/29/17 20:12 0.5 MG Tamsulosin HCl (Flomax Cap) 0.4 mg DAILY PO 10/28/17 09:00 11/27/17 08:59 10/30/17 08:05 0.4 MG Vancomycin HCl (Vancomycin Oral Soln) 250 mg Q6 PO 10/27/17 19:30 11/06/17 19:29 10/30/17 12:44 250 MG Buspirone HCl (Buspar Tab) 10 mg BID PO 10/27/17 21:00 11/26/17 20:59 10/30/17 08:03 10 MG Potassium Chloride (Klor-Con Tab) 20 meq BIDM PO 10/27/17 18:30 11/26/17 18:29 10/30/17 08:04 20 MEQ Ranitidine HCl (zANTac TAB) 300 mg BID PO 10/27/17 21:00 11/26/17 20:59 10/30/17 08:04 300 MG Enoxaparin Sodium (Lovenox Inj) 40 mg Q24H SQ 10/27/17 20:00 11/26/17 19:59 10/29/17 20:11 40 MG Acetaminophen (Tylenol Tab) 650 mg Q4H PRN PO 10/27/17 17:15 11/26/17 17:14 10/29/17 05:34 650 MG Ondansetron HCl (Zofran Inj) 4 mg Q4H PRN IV 10/27/17 17:15 11/26/17 17:14 Hydromorphone HCl (Dilaudid Inj) 0.5 mg Q4H PRN IV 10/27/17 17:15 11/10/17 17:14 10/29/17 02:22 0.5 MG Raspberry (Raspberry Syrup 5ml Cup) 5 ml Q6 PO 10/27/17 19:30 11/10/17 19:29 10/30/17 12:44 5 ML Thiamine HCl (Vitamin B-1 Tab) 100 mg DAILY PO 10/29/17 09:00 11/28/17 08:59 10/30/17 08:04 100 MG Lorazepam (Ativan Inj) 1 mg ONE PRN IV 10/28/17 13:15 Albuterol/ Ipratropium (Combivent Respimat Inh) 1 puffs Q4H PRN INH 10/29/17 07:15 11/26/17 16:59 10/30/17 08:06 1 PUFFS Tiotropium [place] (Spiriva Handihaler Inhaler) 1 puff QAM INH 10/29/17 09:00 11/28/17 08:59 10/30/17 08:05 1 PUFF Dronabinol (Marinol Cap) 5 mg BID PO 10/29/17 21:00 11/28/17 20:59 10/30/17 08:02 5 MG Objective Vital Signs Date Time Temp Pulse Resp B/P (MAP) Pulse Ox O2 Delivery O2 Flow Rate FiO2 10/30/17 16:00 Room Air 10/30/17 15:39 36.5 78 16 107/52 (70) 96 Room Air 10/30/17 08:00 Room Air 10/30/17 06:40 36.8 67 18 112/67 (82) 96 Room Air 10/30/17 00:20 Room Air 10/29/17 23:12 37.5 75 18 121/70 (87) 94 Room Air Physical Exam General Appearance: WD/WN, no apparent distress Eyes: PERRL, EOMI ENT: hearing grossly normal Neck: no carotid bruits, trachea midline Respiratory/Chest: lungs clear, normal breath sounds, no respiratory distress, no accessory muscle use Cardiovascular: regular rate, rhythm, no edema, no murmur Abdomen: normal bowel sounds, non tender, soft Extremities: normal inspection, no pedal edema Neurologic/Psychiatric: no motor/sensory deficits, alert, normal mood/affect Skin: normal color, warm/dry Laboratory Results Last Resulted 10/30/17 06:54 Last Resulted 10/30/17 06:54 Assessment and Plan 72-year-old male was admitted on 27 October 2017 for epigastric pain, ongoing diarrhea, and acute N/V. Patient was recently admitted from 22 October 2017 through 25 October for C. difficile, ZEHRA, alcohol abuse, and hypophosphatemia. PMH: Acute kidney injury, anemia, anxiety, cannabis abuse, cholelithiasis, COPD , CAD, diverticulosis, hyperlipidemia, lumbar stenosis, migraines, osteoarthritis, kidney stones, pneumonia, CVA. PSH: Patient states multiple, but only noted abdominal surgery was an umbilical hernia repair with mesh. Possible Acute Pancreatitis/microlith: - Admit lipase was 2287, 12 hour follow up was 256. - Pt has h/o history of alcohol abuse but denies having any alcohol consumption since 22 October. His medical record does note a history of cholelithiasis, including a small gallstone seen on his CT scan on this admission. LFT's normal. - Treated acutely with aggressive IV fluids, LR 150, which were DCd 10/29/17. Echocardiogram in May 2015: EF of 65-70%. - Considering resolution of symptoms and labwork, could consider other upper GI conditions or possibly small stone that has passed - Zofran as needed for nausea. Dilaudid as needed for pain - Hold home Lasix for now. C. difficile diarrhea POA, improving: - Diagnosed during most recent admission. He has been on oral vancomycin since 22 October, including as outpatient. - Continue oral vancomycin during this admission. Reports he has been having formed stool today. Electrolyte issues: - Hypokalemia: Admit K 3.3. Likely due to volume losses. Replacing, monitoring. --- Also kept him on his home potassium supplements. - Hypomagnesemia: Admit Mg 1.7. Likely due to volume losses. Replacing, monitoring. - Hypophosphatemia: Was initially on previous admission. Will recheck here. Alcohol abuse, Possible alcohol withdrawal, Anxiety/agitation: - Long h/o same. Denies alcohol use over the past five days. Prior to that he says he drank beer for two days straight. - Pt expresses interest in quitting at this time. LFTs normal. He was briefly on Librium during last admission. - Pt experiencing anxiety, tearfulness, restlessness, started on AWSS protocol, but required only 0.5 ativan x 2 - Pt has long h/o excessive THC use, attempted marinol to combat potential marijuana withdrawal - Continue his home folic acid and thiamine supplementation. Substance abuse: - Patient states he is interested in quitting smoking (started around age 10, currently one half pack per day) but he is not interested in stopping THC use. - Provided some smoking cessation counseling. - Marinol as above Minimally elevated creatinine: - Admit Cr 1.2. Baseline may be closer to 0.8 - 1.0. Did have an issue with ZEHRA on previous admission. - Will monitor following IVF administration here. Microcytic anemia: - Admit hemoglobin 12.5, MCV 65. No report of bleeding in vomiting or diarrhea. - We will check iron studies and stool guaiac (neg). - Continue his home iron supplements (and docusate). - Received 1x venofer infusion - will need outpatient work up if h/h stable here - COPD/asthma: Continue home Combivent, Symbicort, and Singulair. - TANO: Patient says he will have his home CPAP brought to the hospital. - CAD: Continue home aspirin, Plavix, pravastatin, metoprolol, and Imdur. - Depression / anxiety: Continue home fluoxetine and buspirone. - GERD: Continue home Protonix and Zantac. - BPH: Continue home Tamsulosin. - Restless leg syndrome: Continue home Requip. Code: Full Diet: low fat DVTP: Lovenox Dispo: Admit to [facility]. To go to [facility] tomorrow. Resident Physician Supervision Note: I interviewed and examined the patient. Discussed with Dr. Valladares and agree with findings and plan as documented in the note. Any exceptions or clarifications are listed here: None Documented By: Brooks Britt feeling better overall, anxiety doing better today vitals noted nad breathing unlabored, no pallor or icterus abdominal pain - transient elevation of lipase now normal, epigastric pain now resolved - suspect microlithiasis causing transient gallstone pancreatitis. ddx also included esophagitis/gastritis but this would not have gotten better so quickly, viral GE superimposed on recent Cdiff (possible), and also possible general GI discomfort from diarrhea (less likely since pain seemed more epigastric) --> follow, low fat diet. definitely improved. no clear need for cholecystectomy right now, but would follow closely and consider outpt HIDA. rise in lipase again today - ?with chronic EtOH intake ??some element of chronic pancreatitis? anxiety and outbursts -does smoke marijuana frequently (?daily) - possibly some of his anxiety is withdrawal. while different pharmacologically, trial of marinol to blunt this seems to be helping stable for [facility] once possible. Resident Tracking Resident Involvement: Resident Care Provided Care Provided: Adult [facility] Medicine
[2017-10-30] MEDS: ENOXAPARIN 40 MG/0.4 ML SYR SQ SCH (20:07)
[2017-10-30] MEDS: FERROUS SULFATE 325 MG TAB PO SCH (20:08)
[2017-10-30 20:11] VITALS: BP 119/70; PULSE 77; O2SAT 95
[2017-10-30] MEDS: ROPINIROLE HCL 0.25 MG TAB PO SCH (20:13)
[2017-10-30] MEDS: PRAVASTATIN SOD 40 MG TAB PO SCH (20:17)
[2017-10-30] MEDS: HYDROmorphone INJ 0.5 MG/0.5 ML SYR IV PRN (21:49)
[2017-10-30 23:12] VITALS: BP 101/58; PULSE 78; TEMP 36.7; O2SAT 93
[2017-10-31] MEDS: HYDROmorphone INJ 0.5 MG/0.5 ML SYR IV PRN (03:31)
[2017-10-31] MEDS: VANCOMYCIN HCL 250 MG/5 ML SOLN PO SCH ×2 (05:23→11:17)
[2017-10-31] MEDS: RASPBERRY SYRUP 5 ML UDP PO SCH ×2 (05:23→11:17)
[2017-10-31 07:45] VITALS: BP 146/76; PULSE 64; TEMP 36.7; O2SAT 93
[2017-10-31] MEDS: BUDESONIDE/FORMOTEROL FUMARATE 160/4.5 60 PUFFS/INHALER INH SCH (08:04)
[2017-10-31] MEDS: TIOTROPIUM BROMIDE 5 PUFF/90 MCG INH INH SCH (08:04)
[2017-10-31] MEDS: TAMSULOSIN HCL 0.4 MG CAP PO SCH (08:04)
[2017-10-31] MEDS: POTASSIUM CHLORIDE 20 MEQ TABCR PO SCH (08:04)
[2017-10-31] MEDS: RANITIDINE HCL 150 MG TAB PO SCH (08:05)
[2017-10-31] MEDS: CLOPIDOGREL BISULFATE 75 MG TAB PO SCH (08:05)
[2017-10-31] MEDS: ASPIRIN 81 MG ECTAB PO SCH (08:05)
[2017-10-31] MEDS: FLUOXETINE HCL 20 MG CAP PO SCH (08:05)
[2017-10-31] MEDS: METOPROLOL SUCC 25MG EXT REL TAB PO SCH (08:05)
[2017-10-31] MEDS: CHOLECALCIFEROL 1000 INTER.UNIT TAB PO SCH (08:05)
[2017-10-31] MEDS: MONTELUKAST SOD 10 MG TAB PO SCH (08:05)
[2017-10-31] MEDS: PANTOprazole SOD 40 MG TAB PO SCH (08:05)
[2017-10-31] MEDS: ISOSORBIDE MONONITRATE 30 MG TABCR PO SCH (08:05)
[2017-10-31] MEDS: DOCUSATE SODIUM 100 MG CAP PO SCH (08:05)
[2017-10-31] MEDS: THIAMINE HCL 100 MG TAB PO SCH (08:05)
[2017-10-31 08:11] LABS: HEMATOCRIT 30.6 % (42-52); HEMOGLOBIN 9.1 g/dL (14.0-18.0); MEAN CELL VOLUME 67.7 fL (80-100); MEAN CORPUSCULAR HEMOGLOBIN 20.1 pg (25-34); MEAN CORPUSCULAR HGB CONC 29.7 g/dl (32-36); PLATELET COUNT 247 K/uL (130-400); RED CELL DISTRIBUTION WIDTH CV 20.3 % (11.5-14.5); RED CELL DISTRIBUTION WIDTH SD 48.2 fL (36.4-46.3); WHITE BLOOD COUNT 6.97 K/uL (4.8-10.8)
[2017-10-31] MEDS: DRONABINOL 2.5 MG CAP PO SCH (08:25)
--- NOTE | 2017-10-31 09:55 | Discharge Instructions ---
Discharge Instructions Date of Service Oct 31, 2017. Admission Reason for Admission: C. Difficile Colitis, Pancreatitis Discharge Discharge Diagnosis / Problem: Acute Pancreatitis Discharge Goals Goal(s): Decrease discomfort, Improve disease control, Improve nutritional status, Prevent Disease Progression Activity Recommendations Activity Limitations: per Instructions/Follow-up section . Instructions / Follow-Up Instructions / Follow-Up During this admission, you were evaluated for abdominal pain, nausea, and vomiting. We believe that your pancreas was probably irritated by a small stone, which fortunately quickly passed from your system. The imaging that was performed on your abdomen appeared normal. We recommend that you continue following a low- fat diet. Continuing to decrease your level of alcohol consumption will also help to prevent these symptoms in the future. We recommend that you follow-up with your primary care provider within 7-10 days of being discharged from [facility]. Continue all of your other medications as prescribed. We also recommend that you follow-up with your therapist to discuss your anxiety. If your abdominal symptoms return or worsen please present to the emergency room Current Hospital Diet Patient's current hospital diet: Low Fat Diet Discharge Diet Recommended Diet: Low Fat Diet Pending Studies Studies pending at discharge: no Medical Emergencies . Who to Call and When: Medical Emergencies: If at any time you feel your situation is an emergency, please call 911 immediately. . Non-Emergent Contact Non-Emergency issues call your: Primary Care Provider . . "Provider Documentation" section prepared by Wendy Valladares. .
[2017-10-31 10:38] VITALS: BP 146/76; PULSE 64; TEMP 36.7; O2SAT 93
--- NOTE | 2017-10-31 11:53 | Discharge Summary ---
Discharge Summary Date of Service Oct 31, 2017. Discharge Summary Admission Date: Oct 27, 2017 at 17:12 Discharge Date: Oct 31, 2017 Discharge Disposition: [facility] facility Principal Diagnosis: Acute Pancreatitis Problems/Secondary Diagnoses: Acute kidney injury, anemia, anxiety, cannabis abuse, COPD, CAD, diverticulosis , hyperlipidemia, lumbar stenosis, migraines, osteoarthritis, kidney stones, C. difficile diarrhea, TANO, GERD, BPH, RLS Immunizations: Have You Had Influenza Vaccine: Yes Influenza Vaccine Date: Dec 12, 2012 History of Tetanus Vaccine?: Yes History of Pneumococcal: Yes Pneumococcal Date: Feb 04, 2004 History of Hepatitis B Vaccine: No Medication Reconciliation Continued Medications: Aspirin (Aspirin Ec) 81 Mg Tab 81 MG PO DAILY Benzonatate (Tessalon Perles) 200 Mg Cap 200 MG PO TID PRN for Cough, CAP Budesonide/Formoterol Fumarate (Symbicort 160/4.5 Inhaler ) Aero 2 PUFFS INH BID, INHALER Buspirone Hcl (Buspirone Hcl) 10 Mg Tab 10 MG PO BID, TAB Cholecalciferol (Vitamin D 1000 Unit) 1,000 Unit Cap 1000 INTER.UNIT PO DAILY, CAP Clopidogrel Bisulfate (Plavix) 75 Mg Tab 75 MG PO DAILY, TAB Cyclobenzaprine HCl (Cyclobenzaprine HCl) 5 Mg Tab 5 MG PO TID PRN for Muscle Spasms Diphenhydramine Hcl (Benadryl Allergy) 25 Mg Tab 25 MG PO AMHS Docusate Sodium (Docusate Sodium) 100 Mg Cap 100 MG PO BID Ferrous Sulfate (Ferrous Sulfate) 325 Mg Tab 325 MG PO HS Fluoxetine HCl (Fluoxetine HCl) 20 Mg Cap 20 MG PO DAILY, #30 TAKES WITH 40 MG FOR 60 MG DOSE. Folic Acid (Folic Acid) 1 Mg Tab 1 MG PO DAILY for 30 Days Furosemide (Lasix) 40 Mg Tab 40 MG PO BID, TAB Ipratropium-Albuterol (Combivent Respimat) 1 Aer Aer 1 PUFFS INH QID, INH INHALE ONE PUFF 4 TIMES A DAY MAXIMUM OF 6 PUFFS IN 24 HOURS Ipratropium-Albuterol (Duoneb) 3 Ml Nebu 1 TREATMENT INH QID PRN for Shortness of Breath, INHA Isosorbide Mononitrate Ext Rel (Imdur Ext Rel) 30 Mg Tabcr 30 MG PO QAM, TAB Melatonin (Melatonin) 5 Mg Cap 10 MG PO HS Metoprolol Succinate (Toprol Xl) 25 Mg Tabcr 25 MG PO BID Montelukast Sodium (Singulair) 10 Mg Tab 10 MG PO DAILY, TAB Pantoprazole (Protonix) 40 Mg Tab 40 MG PO QAM Polyethylene Glycol 3350 (Miralax) 1 Pow Pow 17 GM PO DAILY PRN for Constipation, GM Potassium Chloride (Potassium Chloride ER) 20 Meq Tab 20 MEQ PO BID Pravastatin Sod (Pravastatin Sodium) 40 Mg Tab 40 MG PO HS Ranitidine (Zantac) 300 Mg Tab 300 MG PO BID, TAB Ropinirole (Requip) 0.5 Mg Tab 0.5 MG PO HS, TAB Tamsulosin HCl (Tamsulosin HCl) 0.4 Mg Cap 0.4 MG PO DAILY Thiamine Hcl (Vitamin B-1) 100 Mg Tab 100 MG PO Q24H for 30 Days, #30 TAB Vancomycin Hcl (Vancomycin) 250 Mg Cap 1 CAP PO Q6 Discharge Exam Review of Systems: Constitutional: No chills, No sweats Respiratory: No cough Cardiovascular: No chest pain Abdomen: No diarrhea Psychiatric: + anxiety Physical Exam: General Appearance: WD/WN, no apparent distress Eyes: PERRL, sclerae normal ENT: hearing grossly normal Neck: no carotid bruits, trachea midline Respiratory/Chest: lungs clear, normal breath sounds, no respiratory distress, no accessory muscle use Cardiovascular: regular rate, rhythm, no murmur, normal peripheral pulses Abdomen / GI: normal bowel sounds, non tender, soft Extremities: normal inspection, no calf tenderness, no pedal edema Neurologic/Psychiatric: no motor/sensory deficits, alert, oriented x 3 Skin: normal color Hospital Course 72-year-old male was admitted on 27 October 2017 for epigastric pain, ongoing diarrhea, and acute N/V. Patient was recently admitted from 22 October 2017 through 25 October for C. difficile, ZEHRA, alcohol abuse, and hypophosphatemia. PMH: Acute kidney injury, anemia, anxiety, cannabis abuse, cholelithiasis, COPD , CAD, diverticulosis, hyperlipidemia, lumbar stenosis, migraines, osteoarthritis, kidney stones, pneumonia, CVA. PSH: Patient states multiple, but only noted abdominal surgery was an umbilical hernia repair with mesh. Possible Acute Pancreatitis/microlith: - Admit lipase was 2287, 12 hour follow up was 256. - Pt has h/o history of alcohol abuse but denies having any alcohol consumption since 22 October. His medical record does note a history of cholelithiasis, including a small gallstone seen on his CT scan on this admission. LFT's normal. - Treated acutely with aggressive IV fluids, LR 150, which were DCd 10/29/17. Echocardiogram in May 2015: EF of 65-70%. - Considering resolution of symptoms and labwork, could consider other upper GI conditions or possibly microlith C. difficile diarrhea POA, improving: - Diagnosed during most recent admission. He has been on oral vancomycin since 22 October, including as outpatient. - Continue oral vancomycin during this admission. Reports he has been having formed stool today. Electrolyte issues: - Hypokalemia: Admit K 3.3. Likely due to volume losses. Replaced --- Also kept him on his home potassium supplements. - Hypomagnesemia: Admit Mg 1.7. Likely due to volume losses. Replaced Alcohol abuse, Possible alcohol withdrawal, Anxiety/agitation: - Long h/o same. Denies alcohol use since 22 October. Prior to that he says he drank beer for two days straight. - Pt expresses interest in quitting at this time. LFTs normal. He was briefly on Librium during previous admission. - Pt experienced anxiety, tearfulness, restlessness, started on AWSS protocol, but required only 0.5 ativan x 2 - Pt has long h/o excessive THC use, attempted marinol to combat potential marijuana withdrawal but found this to not be as effective as hoped - Continue his home folic acid and thiamine supplementation. Substance abuse: - Patient states he is interested in quitting smoking (started around age 10, currently one half pack per day) but he is not interested in stopping THC use. - Provided some smoking cessation counseling. - Marinol as above Minimally elevated creatinine: - Admit Cr 1.2. Baseline may be closer to 0.8 - 1.0. Did have an issue with ZEHRA on previous admission. - Resolved Microcytic anemia: - Admit hemoglobin 12.5, MCV 65. No report of bleeding in vomiting or diarrhea. - We will check iron studies and stool guaiac (neg). - Continue his home iron supplements (and docusate). - Received 1x venofer infusion - will need outpatient work up - COPD/asthma: Continue home Combivent, Symbicort, and Singulair. - TANO: home CPAP - CAD: Continue home aspirin, Plavix, pravastatin, metoprolol, and Imdur. - Depression / anxiety: Continue home fluoxetine and buspirone. - GERD: Continue home Protonix and Zantac. - BPH: Continue home Tamsulosin. - Restless leg syndrome: Continue home Requip. Code: Full Diet: Low-fat Resident Physician Supervision Note: I interviewed and examined the patient. Discussed with Dr. Valladares and agree with findings and plan as documented in the note. Any exceptions or clarifications are listed here: None Documented By: Brooks Britt feeling ok to go to [facility] vitals noted nad breathing unlabored, no pallor or icterus abdominal pain - transient elevation of lipase now normal, epigastric pain now resolved - suspect microlithiasis causing transient gallstone pancreatitis. ddx also included esophagitis/gastritis but this would not have gotten better so quickly, viral GE superimposed on recent Cdiff (possible), and also possible general GI discomfort from diarrhea (less likely since pain seemed more epigastric) --> follow, low fat diet. definitely improved. no clear need for cholecystectomy right now, but would follow closely and consider outpt HIDA. showing a bit of persistent/frequent asymptomatic low grade lipase elevations as well - ?with chronic EtOH intake ??some element of chronic pancreatitis? anxiety and outbursts -does smoke marijuana frequently (?daily) - possibly some of his anxiety is withdrawal. while different pharmacologically, trial of marinol to blunt this seems to be helping stable for [facility] Total Time Spent: Less than 30 minutes This includes examination of the patient, discharge planning, medication reconciliation, and communication with other providers. Discharge Instructions Please refer to the electronic Patient Visit Report (Discharge Instructions) for additional information. Additional Copies To Bethany Goldman, DO Resident Tracking Resident Involvement: Resident Care Provided Care Provided: Adult Hospital Medicine
== END 2017-10-31 14:15 | DRG 439 ==
LOC: EDBD 10:05 → C.EDB 10:07 → C.MS2W 17:12 → ENRESERV 17:27
PROVIDERS: ADMIT Family Medicine; ATTEND Family Medicine
DX: K85.90 Acute pancreatitis without necrosis or infection, unspecified (principal); A04.72 Enterocolitis due to Clostridium difficile, not specified as recurrent; F10.239 Alcohol dependence with withdrawal, unspecified; E78.5 Hyperlipidemia, unspecified; F32.9 Major depressive disorder, single episode, unspecified; E66.9 Obesity, unspecified; E87.6 Hypokalemia; E83.42 Hypomagnesemia; E83.39 Other disorders of phosphorus metabolism; D50.9 Iron deficiency anemia, unspecified; G47.33 Obstructive sleep apnea (adult) (pediatric); I25.10 Atherosclerotic heart disease of native coronary artery without angina pectoris; F41.9 Anxiety disorder, unspecified; K21.9 Gastro-esophageal reflux disease without esophagitis; N40.0 Benign prostatic hyperplasia without lower urinary tract symptoms; G25.81 Restless legs syndrome; F12.10 Cannabis abuse, uncomplicated; F17.200 Nicotine dependence, unspecified, uncomplicated; Z79.02 Long term (current) use of antithrombotics/antiplatelets; Z79.2 Long term (current) use of antibiotics; Z79.82 Long term (current) use of aspirin; Z79.899 Other long term (current) drug therapy; Z68.33 Body mass index [BMI] 33.0-33.9, adult

== ENCOUNTER → 2017-11-12 | Outpatient (CLI) | payer OTHER, MEDICARE ==
[~2017-11-12] MED LIST changes: +CYCL10TA6 PO; +FERR1TAB10 PO; +FLUO20CA35 PO; +FLUO40CA8 PO; +MELA1TAB48 PO; +PRED10TA PO; +ROPI0.25 PO; +VANC1CAP3 PO; -VANC1SUS PO
[2017-11-12 12:27] LABS: HEMATOCRIT 34.7 % (42-52); HEMOGLOBIN 10.3 g/dL (14.0-18.0); MEAN CORPUSCULAR HEMOGLOBIN 20.5 pg (25-34); MEAN CORPUSCULAR HGB CONC 29.7 g/dl (32-36); MEAN PLATELET VOLUME 9.7 fL (7.4-10.4); PLATELET COUNT 410 K/uL (130-400); RED CELL DISTRIBUTION WIDTH SD 52.3 fL (36.4-46.3); WHITE BLOOD COUNT 4.93 K/uL (4.8-10.8)
[2017-11-12 12:57] LABS: ALBUMIN 3.2 gm/dl (3.4-5.0); ALKALINE PHOSPHATASE 80 U/L (45-117); ALT/SGPT 26 U/L (12-78); AST/SGOT 21 U/L (15-37); BLOOD UREA NITROGEN 13 mg/dl (7-18); CALCIUM 8.6 mg/dl (8.5-10.1); CARBON DIOXIDE 30 mmol/L (21-32); CHOLESTEROL 73 mg/dl (0-200); CREATININE 1.23 mg/dl (0.60-1.40); GLUCOSE 101 mg/dl (70-99); HEMOGLOBIN A1C 5.7 % (4.5-5.6); LDL CHOLESTEROL CALCULATED 19 mg/dl; POTASSIUM 4.9 mmol/L (3.5-5.1); SODIUM 138 mmol/L (136-145); TOTAL PROTEIN 6.3 gm/dl (6.4-8.2)
== END | disposition home or self-care (01) ==
LOC: C.LABPBG 09:10
PROVIDERS: ATTEND Family Medicine
DX: I10 Essential (primary) hypertension (principal); E55.9 Vitamin D deficiency, unspecified; E78.5 Hyperlipidemia, unspecified; R73.03 Prediabetes; E78.00 Pure hypercholesterolemia, unspecified

== ENCOUNTER 2017-11-17 15:27 | Emergency (ER) | payer OTHER, MEDICARE ==
[~2017-11-17] VITALS: Ht 172.7 cm; Wt 96.0 kg
[~2017-11-17 15:27] MED LIST changes: -CYCL10TA6 PO; -FERR1TAB10 PO; -FLUO20CA35 PO; -FLUO40CA8 PO; -MELA1TAB48 PO; -PRED10TA PO; -ROPI0.25 PO
[2017-11-17 15:37] VITALS: Ht 172.7 cm; Wt 96.0 kg
[2017-11-17] MEDS ORDERED: ROPI0.25 PO (16:20)
[2017-11-17] MEDS ORDERED: FERR1TAB10 PO (16:20)
[2017-11-17] MEDS ORDERED: PRED10TA PO (16:20)
[2017-11-17] MEDS ORDERED: CYCL10TA6 PO (16:20)
[2017-11-17] MEDS ORDERED: MELA1TAB48 PO (16:20)
[2017-11-17] MEDS ORDERED: FLUO40CA8 PO (16:20)
[2017-11-17] MEDS ORDERED: FLUO20CA35 PO (16:20)
[2017-11-17] MEDS ORDERED: SODIUM CHLORIDE 0.9% 1000ML 500 ML IV STA (16:34)
[2017-11-17] MEDS ORDERED: SODIUM CHLORIDE 0.9% 1000ML 1,000 ML IV STA (16:34)
[2017-11-17] MEDS ORDERED: ONDANSETRON INJ 2 MG/ML 2 ML VIAL IV STA (16:45)
--- NOTE | 2017-11-17 16:47 | EMERGENCY ROOM VISIT NOTE ---
History Report prepared by Anita: Kenrick Amato Under the Supervision of: Dr. John Chun M.D. First contact with patient: 16:33 Chief Complaint: ABDOMINAL PAIN Stated Complaint: AB PAIN Nursing Triage Summary: pt arrives via EMS reports started tx for c-diff 1 month ago and cont. with abdominal cramping intermittent nausea and vomitting . History of Present Illness The patient is a 72 year old male who presents to the Emergency Room with complaints of sore and crampy abdominal pain as well as excessive, constant diarrhea and nausea that has been going on for the past couple of weeks. He states there is no blood in his stool. He also complains of feeling dizzy and light headed that started today. The patient has a history of C. Diff and drinks a lot of Gatorade in order to stay hydrated. He notes that he has lost his appetite and also has a little chest pain and a headache. The patient denies any back pain but he does use marijuana daily to help relieve the pressure. The patient lives alone and his PCP is Dr. Grimes. Source of History: patient Onset: Last couple of weeks Position: abdomen Quality: cramping Timing: constant Associated Symptoms: + headache, + chest pain, + nausea, + diarrhea, No melena, No hematochezia Review of Systems See HPI for pertinent positives and negatives. A total of ten systems were reviewed and were otherwise negative. Past Medical & Surgical Medical Problems: (1) ZEHRA (acute kidney injury) (2) Anemia (3) ANXIETY STATE NOS (4) CANNABIS ABUSE-CONTIN (5) Carotid endarterectomy (6) carpal tunnel surgery bilaterally (7) CARPAL TUNNEL SYNDROME (8) CHOLELITHIASIS NOS (9) Chronic low back pain (10) CHRONIC OBSTRUCTIVE ASTHMA, NOS (11) Compartment syndrome of right lower extremity (12) CONGESTIVE HEART FAILURE NOS (13) COPD (chronic obstructive pulmonary disease) (14) CORONARY ATHEROSCLEROSIS OF [place] CORONARY VESSEL (15) DEPRESSIVE DISORDER NEC (16) DIVERTICULOSIS COLON (W/O MENT OF HEMORRHAGE) (17) Gastroenteritis (18) History of repair of inguinal hernia (19) HYPERLIPIDEMIA NEC/NOS (20) Lumbar stenosis with neurogenic claudication (21) MIGRAINE UNSPECIFIED W/O INTRACT MGRN W/O STATUS MIGRAINOSUS (22) OBESITY, NOS (23) OSTEOARTHROS NOS-SHLDER (24) PERSONAL HISTORY OF URINARY CALCULI (25) PERSONAL HISTORY, PNEUMONIA (RECURRENT) (26) PNEUMONIA, ORGANISM NOS (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 (28) SPINAL STENOSIS-LUMBAR (29) umbilical herniorrhaphy Surgical Problems: (1) Hx of decompressive lumbar laminectomy Family History Diabetes mellitus Heart disease Social History Smoking Status: Current Every Day Smoker Alcohol Use: occasionally Drug Use: marijuana Marital Status: in relationship Housing Status: other Occupation Status: retired Current/Historical Medications Scheduled Aspirin (Aspirin Ec), 81 MG PO DAILY Cholecalciferol (Vitamin D 1000 Unit), 1,000 INTER.UNIT PO DAILY Clopidogrel Bisulfate (Plavix), 75 MG PO DAILY Diphenhydramine Hcl (Benadryl Allergy), 25 MG PO AMHS Ferrous Fumarate (Ferrous Fumarate), 324 MG PO DAILY Fluoxetine (Prozac), 20 MG PO DAILY Fluoxetine (Prozac), 40 MG PO DAILY Ipratropium-Albuterol (Combivent Respimat), 1 PUFFS INH QID Isosorbide Mononitrate Ext Rel (Imdur Ext Rel), 30 MG PO QAM Melatonin (Melatonin), 10 MG PO HS Metoprolol Succinate (Toprol Xl), 25 MG PO BID Montelukast Sodium (Singulair), 10 MG PO DAILY Pantoprazole (Protonix), 40 MG PO QAM Potassium Chloride (Potassium Chloride ER), 20 MEQ PO BID Pravastatin Sod (Pravastatin Sodium), 40 MG PO HS Prednisone (Prednisone), 1 DOSE PO UD Ropinirole (Requip), 0.25 MG PO DAILY Tamsulosin HCl (Tamsulosin HCl), 0.4 MG PO DAILY Scheduled PRN Cyclobenzaprine Hcl (Flexeril), 10 MG PO TID PRN for Muscle Spasms Ipratropium-Albuterol (Duoneb), 1 TREATMENT INH QID PRN for Shortness of Breath Allergies Coded Allergies: Morphine (Verified Allergy, Intermediate, RASH, 11/17/17) Quinolones (Verified Allergy, Intermediate, unknown, 11/17/17) PATIENT WOULD LIKE TO BE TESTED FOR THIS AT SOME POINT BECAUSE HE DOES NOT BELIEVE HE IS ALLERGIC TO IT. Levofloxacin (Verified Allergy, Unknown, "WAS TOLD NOT TO TAKE"., 11/17/17) Physical Exam Vital Signs Date Time Temp Pulse Resp B/P (MAP) Pulse Ox O2 Delivery O2 Flow Rate FiO2 11/17/17 20:09 37.0 88 18 118/70 98 Room Air 11/17/17 18:53 86 18 114/73 98 Room Air 11/17/17 15:37 36.8 86 20 117/72 98 Room Air Physical Exam GENERAL: Awake, alert, well-appearing, in no distress HENT: Normocephalic, atraumatic. Oropharynx unremarkable. EYES: Normal conjunctiva. Sclera non-icteric. NECK: Supple. No nuchal rigidity. Trachea midline RESPIRATORY: Clear to auscultation. No wheezes. Normal respiratory effort. CARDIAC: Normal rate. Normal rhythm. Extremities warm and well perfused. GI: Soft, non-distended. Mild diffuse abdominal pain on palpation. No Mendoza's sign. No rebound or guarding. No masses. RECTAL: Deferred. MUSCULOSKELETAL: Atraumatic. Chest examination reveals no tenderness. LOWER EXTREMITIES: Calves are equal size bilaterally and non-tender. No edema NEURO: Normal sensorium. No sensory or motor deficits noted. No facial droop. SKIN: Warm and dry. No rash or jaundice noted. Medical Decision & Procedures ER Provider Diagnostic Interpretation: Radiology results as stated below per my review and radiologist interpretation: CHEST ONE VIEW PORTABLE HISTORY: 72 years-old Male CHEST PAIN acute atypical chest pain COMPARISON: Chest radiograph 10/22/2017 TECHNIQUE: Portable AP view of the chest FINDINGS: Cardiomediastinal and hilar silhouettes are within normal limits. Subsegmental left basilar opacities. No pneumothorax, pleural effusion or overt pulmonary edema. The right lung appears generally clear. Calcification of the aortic arch. Degenerative changes of the shoulders and spine with severe osteoarthritis of the left glenohumeral joint. Fusion hardware of the lower cervical spine. IMPRESSION: 1. No acute process. 2. Subsegmental left basilar opacities suggest atelectasis. The above report was generated using voice recognition software. It may contain grammatical, syntax or spelling errors. Electronically signed by: Moi Mark M.D. 11/17/2017 5:24 PM Dictated Date/Time: 11/17/2017 5:22 PM ABDOMEN AND PELVIS CT WITH IV CONTRAST CT DOSE: 972.85 mGy.cm HISTORY: Acute nausea, vomiting and generalized abdominal pain n/v/diarrhea, abdominal pain TECHNIQUE: Multiaxial CT images of the abdomen and pelvis were performed following the use of intravenous contrast. A dose lowering technique was utilized adhering to the principles of ALARA. COMPARISON STUDY: CT abdomen and pelvis 10/27/2017, CTA chest 06/03/2015. FINDINGS: 7 mm solid nodule of the posterior basal segment right lower lobe, previously measuring 4 mm on study from 06/03/2015. Mild tree-in-bud nodularity of the basal right lower lobe is also noted with mild subsegmental atelectasis. Left lung base is generally clear. No pneumatosis or pneumoperitoneum. Imaged inferior cardiac chambers are unremarkable. No pericardial effusion. Cholelithiasis with suggested fundal and mid gallbladder lumen adenomyomatosis. No CT evidence of acute cholecystitis. Liver is unremarkable. No intrahepatic biliary ductal dilation. Patent portal vein. Spleen, pancreas and right adrenal gland are unremarkable. Mild thickening of the left adrenal gland. Hypodense lesions about the left kidney too small to characterize. Cyst of the interpolar left kidney measures 11 mm. 2 mm nonobstructing calculus of the inferior pole left kidney. No ureteral calculi or obstructive uropathy. Partial distention of the bladder. Calcifications of the central prostate. Moderate calcification of the aorta without aneurysm. IVC is within normal limits. No pathologically enlarged lymph nodes. Mild wall thickening of the distal stomach, likely secondary to partial distention. No small bowel obstruction. Fluid-filled nondilated loops of nondilated large bowel are noted with air-fluid levels suggesting diarrheal illness. Terminal ileum and appendix are unremarkable. The appendix is fluid-filled, however is noninflamed and nondilated. Bones appear intact. Remote laminectomy changes with posterior interbody kacy and screw fusion extends from L2 through S1 with bilateral iliac bolts. Mild circumferential lucency surrounds the bilateral iliac bolts, right greater than left. The L2 pedicle screws are in close proximity to the superior endplate L2. Discectomy changes at L2-L3, L3-L4 and L5-S1. Mild circumferential lucency also surrounds the bilateral pedicle screws at S1. No evidence of hardware fracture. IMPRESSION: 1. No bowel obstruction or focal bowel wall thickening. 2. Fluid-filled loops of nondilated large bowel with air-fluid levels suggest diarrheal illness. 3. 7 mm solid pulmonary nodule of the posterior basal segment right lower lobe, previously measured 4 mm on study from 06/03/2015. Continued follow-up recommended. 4. Subsegmental tree-in-bud nodules about the basal right lower lobe suggest infectious or inflammatory bronchiolitis. 5. Cholelithiasis with suggested gallbladder adenomyomatosis. This can be correlated with right upper quadrant ultrasound if of further clinical concern. 6. 2 mm nonobstructing calculus of the inferior pole left kidney. 7. Postoperative changes of the lumbar spine as above with posterior interbody kacy and screw fusion extending from L2 through S1 with bilateral iliac bolts. Circumferential lucency surrounding the iliac bolts and bilateral S1 pedicle screws are suspicious for possible hardware loosening. Please refer to below summary of Fleischner criteria recommendations for follow-up of incidental CT nodules (Fernando Cm, Guidelines for management of small pulmonary nodules detected on CT scans: A statement from the Fleischner Society, Radiology 237: [phone].) SOLID NODULES Solitary nodule size: 6-8 mm * Low risk patients: follow-up at 6-12 months, then consider further follow-up at 18-24 months * high risk patients: initial follow-up CT at 6-12 months and then at 18-24 months if no change Note: newly detected indeterminate nodule in persons 35 years of age or older. * Low risk patients: minimal or absent history of smoking and/or other known risk factors * high risk patients: history of smoking or of other known risk factors (e.g. first degree relative with lung cancer, or exposure to asbestos, radon, uranium) * if a nodule up to 8 mm is partly solid or is ground glass further follow-up is required after 24 months to exclude possible slow growing adenocarcinoma (RADU) The above report was generated using voice recognition software. It may contain grammatical, syntax or spelling errors. Electronically signed by: Moi Mark M.D. 11/17/2017 7:25 PM Dictated Date/Time: 11/17/2017 7:13 PM Laboratory Results 11/17/17 17:30 Red Blood Count 5.36, Mean Corpuscular Volume 67.9, Mean Corpuscular Hemoglobin 20.3, Mean Corpuscular Hemoglobin Concent 29.9, Mean Platelet Volume 9.7, Neutrophils (%) (Auto) 73.0, Lymphocytes (%) (Auto) 12.1, Monocytes (%) (Auto) 10.8, Eosinophils (%) (Auto) 3.9, Basophils (%) (Auto) 0.1, Neutrophils # (Auto ) 5.02, Lymphocytes # (Auto) 0.83, Monocytes # (Auto) 0.74, Eosinophils # (Auto ) 0.27, Basophils # (Auto) 0.01 11/17/17 17:30 Test 11/17/17 17:30 11/17/17 20:00 White Blood Count 6.88 K/uL (4.8-10.8) Red Blood Count 5.36 M/uL (4.7-6.1) Hemoglobin 10.9 g/dL (14.0-18.0) Hematocrit 36.4 % (42-52) Mean Corpuscular Volume 67.9 fL (80-100) Mean Corpuscular Hemoglobin 20.3 pg (25-34) Mean Corpuscular Hemoglobin Concent 29.9 g/dl (32-36) Platelet Count 355 K/uL (130-400) Mean Platelet Volume 9.7 fL (7.4-10.4) Neutrophils (%) (Auto) 73.0 % Lymphocytes (%) (Auto) 12.1 % Monocytes (%) (Auto) 10.8 % Eosinophils (%) (Auto) 3.9 % Basophils (%) (Auto) 0.1 % Neutrophils # (Auto) 5.02 K/uL (1.4-6.5) Lymphocytes # (Auto) 0.83 K/uL (1.2-3.4) Monocytes # (Auto) 0.74 K/uL (0.11-0.59) Eosinophils # (Auto) 0.27 K/uL (0-0.5) Basophils # (Auto) 0.01 K/uL (0-0.2) RDW Standard Deviation 50.4 fL (36.4-46.3) RDW Coefficient of Variation 20.4 % (11.5-14.5) Immature Granulocyte % (Auto) 0.1 % Immature Granulocyte # (Auto) 0.01 K/uL (0.00-0.02) Ovalocytes 1+ Anion Gap 8.0 mmol/L (3-11) Est Creatinine Clear Calc Drug Dose 63.8 ml/min Estimated GFR () 69.9 Estimated GFR (Non- 60.3 BUN/Creatinine Ratio 8.5 (10-20) Calcium Level 8.5 mg/dl (8.5-10.1) Phosphorus Level 3.5 mg/dl (2.5-4.9) Magnesium Level 2.2 mg/dl (1.8-2.4) Total Bilirubin 0.3 mg/dl (0.2-1) Direct Bilirubin 0.1 mg/dl (0-0.2) Aspartate Amino Transf (AST/SGOT) 16 U/L (15-37) Alanine Aminotransferase (ALT/SGPT) 25 U/L (12-78) Alkaline Phosphatase 91 U/L (45-117) Troponin I < 0.015 ng/ml (0-0.045) Total Protein 6.5 gm/dl (6.4-8.2) Albumin 3.1 gm/dl (3.4-5.0) Lipase 299 U/L (73-393) Urine Color YELLOW Urine Appearance CLEAR (CLEAR) Urine pH 5.0 (4.5-7.5) Urine Specific [place] > 1.045 (1.000-1.030) Urine Protein NEG (NEG) Urine Glucose (UA) NEG (NEG) Urine Ketones NEG (NEG) Urine Occult Blood NEG (NEG) Urine Nitrite NEG (NEG) Urine Bilirubin NEG (NEG) Urine Urobilinogen NEG (NEG) Urine Leukocyte Esterase NEG (NEG) Laboratory results reviewed by me Medications Administered Medications (Trade) Dose Ordered Sig/Osiris Route Start Time Stop Time Status Last Admin Dose Admin Sodium Chloride 1,000 ml @ 125 mls/hr Q8H STAT IV 11/17/17 16:34 11/17/17 21:20 DC 11/17/17 17:32 125 MLS/HR Sodium Chloride 500 ml @ 999 mls/hr Q31M STAT IV 11/17/17 16:34 11/17/17 17:04 DC 11/17/17 16:34 999 MLS/HR Ondansetron HCl (Zofran Inj) 4 mg NOW STAT IV 11/17/17 16:45 11/17/17 16:46 DC 11/17/17 17:33 4 MG ECG Per My Interpretation Indication: abdominal pain Rate (beats per minute): 75 Rhythm: normal sinus Findings: RBBB, no ectopy, other (No ST elevation, No T wave inversion, Mildly peaked P waves) Comparison ECG Date: October 27, 2017 Change: Mildly peaked P waves is the only change ED Course 1633: The patient was evaluated in room C6. A complete history and physical exam was performed. 1634: Sodium Chloride 500ml @ 999mls/hr IV, Sodium Chloride 1000ml @ 125mls/hr 1645: Zofran 4mg IV 2134: I reevaluated the patient and updated him on lab and imaging results. 2008: I reevaluated the patient. Discussed results and discharge instructions: He verbalized understanding and agreement. The patient is ready for discharge. Medical Decision Differential diagnosis: Etiologies such as appendicitis, diverticulitis, PUD, biliary pathology, UTI, pancreatitis, obstruction, mesenteric ischemia, aortic pathology, infections, inflammatory bowel disease, renal colic, as well as others were entertained. Patient presents with complaints of weakness worsening diarrhea with abdominal cramping nausea and decreased appetite. Recent admission for C. difficile and then pancreatitis last several weeks. Currently on oral vancomycin. States he had a near syncopal event today and complains of a little bit of epigastric discomfort as well. Lower suspicion for PE or dissection. EKG and troponin were completed but I doubt ACS. Concern for possible recurrent pancreatitis and lipase was completed along with hepatic function to exclude hepatitis. Denies current alcohol use since the beginning of the month. Could be continued symptomatology from C. difficile colitis. Given his pain complaint and multiple issues CT the abdomen pelvis was completed. No evidence of hyperkalemia although some slight peak T waves on EKG. No evidence of kidney injury. No evidence of pneumonia or acute lung abnormality that fits with the clinical picture. No evidence of pancreatitis. CT showed no acute intra- abdominal abnormalities and he has no focal tenderness of the gallbladder and do not believe this is the etiology of his issues today. 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 Was made aware of the pulmonary nodule and recommend for follow-up on this. Not having respiratory symptoms. Also made aware the questionable loosening of some prior lumbar fusion hardware. Discussed return criteria and he has follow-up on Saturday with his regular doctor and has enough oral vancomycin to take until reevaluation. Medication Reconcilliation Current Medication List: was personally reviewed by me Blood Pressure Screening Patient's blood pressure: Normal blood pressure Impression Primary Impression: C. difficile diarrhea Scribe Attestation The scribe's documentation has been prepared under my direction and personally reviewed by me in its entirety. I confirm that the note above accurately reflects all work, treatment, procedures, and medical decision making performed by me. Departure Information Dispostion Home / Self-Care Referrals Bethany Goldman DO (PCP) Forms Call Back Authorization, HOME CARE DOCUMENTATION FORM, IMPORTANT VISIT INFORMATION Patient Instructions My [facility] Additional Instructions Please follow-up with your doctor as scheduled on Saturday. Utilize your oral vancomycin until then and discuss with her continuing a course of this given your continued diarrhea. Maintain hydration and this is of the utmost importance. If he can experience worsening abdominal pain, fever, signs of dehydration, or other concerns please return here for reevaluation at any time. Follow-up with your regular doctor regarding the pulmonary nodule with recommended repeat imaging of your chest in 6 months. Also please follow-up with orthopedic doctor regarding some loose bolts from prior back surgery.
[2017-11-17] MEDS ORDERED: OPTIRAY 320 IV PRN (17:00)
--- NOTE | 2017-11-17 17:25 | DIAGNOSTIC IMAGING REPORT ---
CHEST ONE VIEW PORTABLE HISTORY: 72 years-old Male CHEST PAIN acute atypical chest pain COMPARISON: Chest radiograph 10/22/2017 TECHNIQUE: Portable AP view of the chest FINDINGS: Cardiomediastinal and hilar silhouettes are within normal limits. Subsegmental left basilar opacities. No pneumothorax, pleural effusion or overt pulmonary edema. The right lung appears generally clear. Calcification of the aortic arch. Degenerative changes of the shoulders and spine with severe osteoarthritis of the left glenohumeral joint. Fusion hardware of the lower cervical spine. IMPRESSION: 1. No acute process. 2. Subsegmental left basilar opacities suggest atelectasis. The above report was generated using voice recognition software. It may contain grammatical, syntax or spelling errors. Electronically signed by: Moi Mark M.D. 11/17/2017 5:24 PM Dictated Date/Time: 11/17/2017 5:22 PM
[2017-11-17 18:04] LABS: ALBUMIN 3.1 gm/dl (3.4-5.0); CALCIUM 8.5 mg/dl (8.5-10.1); CREATININE 1.21 mg/dl (0.60-1.40); POTASSIUM 4.6 mmol/L (3.5-5.1); TOTAL PROTEIN 6.5 gm/dl (6.4-8.2)
[2017-11-17 18:05] LABS: PHOSPHORUS 3.5 mg/dl (2.5-4.9)
[2017-11-17 18:16] LABS: HEMATOCRIT 36.4 % (42-52); HEMOGLOBIN 10.9 g/dL (14.0-18.0); MEAN CELL VOLUME 67.9 fL (80-100); MEAN CORPUSCULAR HEMOGLOBIN 20.3 pg (25-34); MEAN CORPUSCULAR HGB CONC 29.9 g/dl (32-36); MEAN PLATELET VOLUME 9.7 fL (7.4-10.4); PLATELET COUNT 355 K/uL (130-400); RED CELL DISTRIBUTION WIDTH CV 20.4 % (11.5-14.5); RED CELL DISTRIBUTION WIDTH SD 50.4 fL (36.4-46.3); WHITE BLOOD COUNT 6.88 K/uL (4.8-10.8)
[2017-11-17 18:24] LABS: BASO % 0.1 %; BASO ABS # 0.01 K/uL (0-0.2); EOS % 3.9 %; EOS ABS # 0.27 K/uL (0-0.5); IG# 0.01 K/uL (0.00-0.02); LYMPH % 12.1 %; LYMPH ABS # 0.83 K/uL (1.2-3.4); MONO % 10.8 %; MONO ABS # 0.74 K/uL (0.11-0.59); NEUT ABS # 5.02 K/uL (1.4-6.5)
--- NOTE | 2017-11-17 19:26 | DIAGNOSTIC IMAGING REPORT ---
ABDOMEN AND PELVIS CT WITH IV CONTRAST CT DOSE: 972.85 mGy.cm HISTORY: Acute nausea, vomiting and generalized abdominal pain n/v/diarrhea, abdominal pain TECHNIQUE: Multiaxial CT images of the abdomen and pelvis were performed following the use of intravenous contrast. A dose lowering technique was utilized adhering to the principles of ALARA. COMPARISON STUDY: CT abdomen and pelvis 10/27/2017, CTA chest 06/03/2015. FINDINGS: 7 mm solid nodule of the posterior basal segment right lower lobe, previously measuring 4 mm on study from 06/03/2015. Mild tree-in-bud nodularity of the basal right lower lobe is also noted with mild subsegmental atelectasis. Left lung base is generally clear. No pneumatosis or pneumoperitoneum. Imaged inferior cardiac chambers are unremarkable. No pericardial effusion. Cholelithiasis with suggested fundal and mid gallbladder lumen adenomyomatosis. No CT evidence of acute cholecystitis. Liver is unremarkable. No intrahepatic biliary ductal dilation. Patent portal vein. Spleen, pancreas and right adrenal gland are unremarkable. Mild thickening of the left adrenal gland. Hypodense lesions about the left kidney too small to characterize. Cyst of the interpolar left kidney measures 11 mm. 2 mm nonobstructing calculus of the inferior pole left kidney. No ureteral calculi or obstructive uropathy. Partial distention of the bladder. Calcifications of the central prostate. Moderate calcification of the aorta without aneurysm. IVC is within normal limits. No pathologically enlarged lymph nodes. Mild wall thickening of the distal stomach, likely secondary to partial distention. No small bowel obstruction. Fluid-filled nondilated loops of nondilated large bowel are noted with air-fluid levels suggesting diarrheal illness. Terminal ileum and appendix are unremarkable. The appendix is fluid-filled, however is noninflamed and nondilated. Bones appear intact. Remote laminectomy changes with posterior interbody kacy and screw fusion extends from L2 through S1 with bilateral iliac bolts. Mild circumferential lucency surrounds the bilateral iliac bolts, right greater than left. The L2 pedicle screws are in close proximity to the superior endplate L2. Discectomy changes at L2-L3, L3-L4 and L5-S1. Mild circumferential lucency also surrounds the bilateral pedicle screws at S1. No evidence of hardware fracture. IMPRESSION: 1. No bowel obstruction or focal bowel wall thickening. 2. Fluid-filled loops of nondilated large bowel with air-fluid levels suggest diarrheal illness. 3. 7 mm solid pulmonary nodule of the posterior basal segment right lower lobe, previously measured 4 mm on study from 06/03/2015. Continued follow-up recommended. 4. Subsegmental tree-in-bud nodules about the basal right lower lobe suggest infectious or inflammatory bronchiolitis. 5. Cholelithiasis with suggested gallbladder adenomyomatosis. This can be correlated with right upper quadrant ultrasound if of further clinical concern. 6. 2 mm nonobstructing calculus of the inferior pole left kidney. 7. Postoperative changes of the lumbar spine as above with posterior interbody kacy and screw fusion extending from L2 through S1 with bilateral iliac bolts. Circumferential lucency surrounding the iliac bolts and bilateral S1 pedicle screws are suspicious for possible hardware loosening. Please refer to below summary of Fleischner criteria recommendations for follow-up of incidental CT nodules (Fernando Cm, Guidelines for management of small pulmonary nodules detected on CT scans: A statement from the Fleischner Society, Radiology 237: [phone].) SOLID NODULES Solitary nodule size: 6-8 mm * Low risk patients: follow-up at 6-12 months, then consider further follow-up at 18-24 months * high risk patients: initial follow-up CT at 6-12 months and then at 18-24 months if no change Note: newly detected indeterminate nodule in persons 35 years of age or older. * Low risk patients: minimal or absent history of smoking and/or other known risk factors * high risk patients: history of smoking or of other known risk factors (e.g. first degree relative with lung cancer, or exposure to asbestos, radon, uranium) * if a nodule up to 8 mm is partly solid or is ground glass further follow-up is required after 24 months to exclude possible slow growing adenocarcinoma (RADU) The above report was generated using voice recognition software. It may contain grammatical, syntax or spelling errors. Electronically signed by: Moi Mark M.D. 11/17/2017 7:25 PM Dictated Date/Time: 11/17/2017 7:13 PM
[2017-11-17 20:09] VITALS: BP 118/70; PULSE 88; TEMP 37; O2SAT 98
== END 2017-11-17 20:17 | disposition home or self-care (01) ==
LOC: EDBD 15:27 → C.EDC 15:28
DX: A04.72 Enterocolitis due to Clostridium difficile, not specified as recurrent (principal); J44.9 Chronic obstructive pulmonary disease, unspecified; I25.10 Atherosclerotic heart disease of native coronary artery without angina pectoris; F32.9 Major depressive disorder, single episode, unspecified; E78.5 Hyperlipidemia, unspecified; Z79.02 Long term (current) use of antithrombotics/antiplatelets; Z79.82 Long term (current) use of aspirin; Z79.899 Other long term (current) drug therapy; Z88.5 Allergy status to narcotic agent; Z88.1 Allergy status to other antibiotic agents

== ENCOUNTER 2018-07-31 09:47 | Inpatient (IN) ==
--- NOTE | 2018-07-03 16:32 | PAT Medication Instructions ---
Medication Instructions Date of Service July 03, 2018 Home Medications aspirin [Aspirin Low Dose] 81 mg PO QAM budesonide-formoterol [Symbicort] 1 puff INHALATION BID cholecalciferol (vitamin D3) 1,000 unit PO QAM clopidogrel [Plavix] 75 mg PO QAM cyclobenzaprine 10 mg PO TID PRN diphenhydramine HCl 25 mg PO AMPM ferrous fumarate 325 mg PO BID fluoxetine 40 mg PO QAM furosemide 40 mg PO BID ipratropium-albuterol 3 ml INHALATION QID PRN ipratropium-albuterol [Combivent 1 puff INHALATION QID isosorbide mononitrate 30 mg PO QAM melatonin 10 mg PO HS montelukast 10 mg PO HS pantoprazole 40 mg PO QAM potassium chloride 20 meq PO BID ropinirole 0.5 mg PO HS tamsulosin 0.4 mg PO DAILY buspirone 30 mg PO BID multivitamin 1 cap PO QAM pravastatin 40 mg PO HS ranitidine HCl 300 mg PO BID vitamin B complex [Super B-50 1 cap PO QAM ASK your prescriber and surgeon aspirin [Aspirin Low Dose] 81 mg PO QAM clopidogrel [Plavix] 75 mg PO QAM STOP taking 24 hours before surgery ropinirole 0.5 mg PO HS DO NOT take the morning of surgery cholecalciferol (vitamin D3) 1,000 unit PO QAM cyclobenzaprine 10 mg PO TID PRN diphenhydramine HCl 25 mg PO AMPM ferrous fumarate 325 mg PO BID furosemide 40 mg PO BID potassium chloride 20 meq PO BID multivitamin 1 cap PO QAM ranitidine HCl 300 mg PO BID vitamin B complex [Super B-50 1 cap PO QAM Take morning of surgery With a small sip of water, OTHERWISE NOTHING TO EAT OR DRINK AFTER MIDNIGHT: budesonide-formoterol [Symbicort] 1 puff INHALATION BID fluoxetine 40 mg PO QAM ipratropium-albuterol 3 ml INHALATION QID PRN (if needed) ipratropium-albuterol [Combivent 1 puff INHALATION QID isosorbide mononitrate 30 mg PO QAM pantoprazole 40 mg PO QAM tamsulosin 0.4 mg PO DAILY buspirone 30 mg PO BID Take evening before surgery budesonide-formoterol [Symbicort] 1 puff INHALATION BID cyclobenzaprine 10 mg PO TID PRN diphenhydramine HCl 25 mg PO AMPM ferrous fumarate 325 mg PO BID furosemide 40 mg PO BID ipratropium-albuterol 3 ml INHALATION QID PRN (if needed) ipratropium-albuterol [Combivent 1 puff INHALATION QID melatonin 10 mg PO HS montelukast 10 mg PO HS potassium chloride 20 meq PO BID buspirone 30 mg PO BID pravastatin 40 mg PO HS ranitidine HCl 300 mg PO BID Other Notes If you have any questions please call us at [phone] or [phone] or [phone] or [phone]
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
[2018-07-04 14:53] LABS: Basophils # (auto) 0.03 K/uL (0-0.2); Basophils % (auto) 0.5 %; Eosinophils # (auto) 0.35 K/uL (0-0.5); Eosinophils % (auto) 6.2 %; Hematocrit (blood only) 40.3 % (42-52); Hemoglobin 12.6 g/dL (14.0-18.0); Immature Granulocytes # (auto) 0.02 K/uL (0.00-0.02); Immature Granulocytes % (auto) 0.4 %; Lymphocytes # (auto) 1.01 K/uL (1.2-3.4); Mean Corpuscular Hgb Conc 31.3 g/dL (32-36); Mean Corpuscular Volume 77.6 fL (80-100); Mean Platelet Volume 10.4 fL (7.4-10.4); Monocytes # (auto) 0.62 K/uL (0.11-0.59); Neutrophils # (auto) 3.59 K/uL (1.4-6.5); Neutrophils % (auto) 63.9 %; Platelet Count 226 K/uL (130-400); RDW Coefficient of Variation 24.7 % (11.5-14.5); RDW Standard Deviation 69.2 fL (36.4-46.3); Red Blood Count 5.19 M/uL (4.7-6.1); White Blood Count 5.62 K/uL (4.8-10.8)
[2018-07-04 15:03] LABS: Appearance Urine Clear (Clear); Bacteria Urine Automated Negative (Negative); Bilirubin Urine Negative (Negative); Blood Urine Negative (Negative); Cast Urine Automated 0 /lpf (0-5); Color Urine Yellow; Glucose Urine UA Negative (Negative); Ketones Urine Negative (Negative); Leukocyte Esterase Urine Trace (Negative); Nitrite Urine Negative (Negative); Protein Urine Negative (Negative); RBC Urine Automated 0-4 /hpf (0-4); Specific Gravity Urine 1.015 (1.000-1.030); Urobilinogen Urine Negative (Negative); pH Urine 5.5 (4.5-7.5)
[2018-07-04 15:05] LABS: Partial Thromboplastin Ratio 0.9; Partial Thromboplastin Time 25.6 Seconds (21.0-31.0)
[2018-07-04 15:09] LABS: Albumin Level 3.7 gm/dl (3.4-5.0); BUN Creatinine Ratio 13.7 (10-20); Creatinine Clr Calc Pharmacy 64.1 ml/min; Est GFR (African American) 66.1; Potassium 4.2 mmol/L (3.5-5.1)
[2018-07-04 16:14] LABS: Anisocytosis Present; Ovalocytes 2+; Polychromasia 1+
[2018-07-05 06:24] LABS: Estimated Average Glucose 105 mg/dl; Hemoglobin A1C 5.3 % (4.5-5.6)
--- NOTE | 2018-07-30 21:23 | History and Physical Report ---
DATE OF ADMISSION: 07/30/2018 CHIEF COMPLAINT: Right shoulder pain and weakness. HISTORY OF PRESENT ILLNESS: This is a 73-year-old male patient of Dr. Webb'phill complaining of chronic right shoulder pain and weakness, longstanding, now progressively getting worse. The patient has failed conservative treatment. He has been diagnosed with end-stage osteoarthritis in his right shoulder with insufficient rotator cuff and he wished to proceed with a right reversed total shoulder arthroplasty. PAST MEDICAL HISTORY: Congenital heart disease, heart valve problem, hypertension, chronic obstructive pulmonary disease, anxiety, history of a mini stroke, anemia, osteoarthritis and kidney stones. SOCIAL HISTORY: Lifelong smoker. Alcohol, 1-2 drinks per week. He does use medical marijuana for back pain. PAST SURGICAL HISTORY: Right total knee replacement, gallbladder removal and hernia repair. FAMILY HISTORY: Noncontributory. REVIEW OF SYSTEMS: The patient complains of right shoulder pain and weakness. Otherwise, denies any shortness of breath, chest pain, nausea, vomiting or any other joint complaints. MEDICATIONS: 1. Guaifenesin 400 mg 1 tablet every 6 hours as needed. 2. Montelukast 10 mg daily. 3. Buspirone 10 mg 1 tablet twice daily. 4. Aspirin 81 mg daily. 5. Cyclobenzaprine 5 mg 1 tablet 3 times daily as needed. 6. Benzonatate 200 mg 1 capsule 3 times daily. 7. Combivent 20/100 one inhalation 4 times daily. 8. Ipratropium albuterol 0.5/2.5 mg per mL inhalation nebulizer as needed. 9. Prednisone 40 mg daily x3, 30 mg daily x3 and 20 mg daily x1. 10. Symbicort 160/4.5 mcg actuation inhaler 2 puffs daily twice. 11. Prednisone 10 mg. 12. Pantoprazole 40 mg daily. 13. Ranitidine 300 mg 1 tablet twice daily. 14. Plavix 75 mg daily. 15. Pravastatin 40 mg at bedtime. 16. Furosemide 40 mg twice daily. 17. Isosorbide mononitrate 30 mg extended release daily. 18. Metoprolol 25 mg daily. 19. Potassium chloride 20 mEq daily. 20. Requip 0.5 mg at bedtime. 21. Tamsulosin 0.4 mg at bedtime. 22. Benadryl 25 mg p.r.n. 23. Ferrous sulfate 325 mg at bedtime. 24. Vitamin D 1000 units daily. ALLERGIES: INCLUDE LEVAQUIN AND MORPHINE. PHYSICAL EXAMINATION: GENERAL: Well-developed, well-nourished, 73-year-old male, in no acute distress. He is alert and oriented x3 and pleasant. HEENT: Normocephalic and atraumatic. Extraocular motions are intact. Pupils are equal and reactive to light. HEART: Regular rate and rhythm. No murmurs appreciated. LUNGS: Clear. ABDOMEN: Soft and nontender. Bowel sounds present. EXTREMITIES: Right shoulder reveals active range of motion to 170 degrees with pain and crepitation. He has 3/5 strength with pain. He has positive impingement maneuvering. NEUROLOGIC: Neurovascularly, he is intact in his right upper extremity. DIAGNOSES: Right shoulder end-stage osteoarthritis with rotator cuff insufficiency and history of heart valve dysplasia, hypertension, chronic obstructive pulmonary disease, anxiety, history of transient ischemic attack, anemia, osteoarthritis and kidney stones. PLAN: The patient was advised of his diagnoses. Indications, risks, benefits and postoperative course have all been reviewed. The patient wished to proceed with a right reversed total shoulder arthroplasty. Necessary consent forms, preoperative testing and clearances will be obtained.
[~2018-07-31 09:47] MED LIST changes: +ACETAMINOPHEN 500 MG TAB PO SCH; -ASPI81TA28 PO; -BENZ1CAP90 PO; -BUSP-8 PO; +CEFAZOLIN 2000MG 2,000 MG/15 ML SYR IV SCH; -CHOL100027 PO; -CLOP1TAB5 PO; +CeleBREX 200 MG CAP PO SCH; -DIPH1TAB87 PO; -DOCU100C31 PO; +FAMOTIDINE 20 MG TAB PO SCH; -FLM4 PO; -FLUO20CA36 PO; -FLV1 PO; -FLX/5 PO; -FRRS300 PO; -FRS/40 PO; +GABAPENTIN 300 MG PO SCH; -IPRA-64 INH; -IPRA1AER2 INH; -ISOS30TA35 PO; +LR 15ML/HR IV SCH; -MELA5CAP PO; -METO25TA4 PO; +METOCLOPRAMIDE HCL 10 MG TABLET PO SCH; -MONT1TAB3 PO; -PANT40TA PO; -POLY335019 PO; -POTA-65 PO; -PRVC40 PO; -RANI300T2 PO; -ROPI0.5T15 PO; +ROPIVACAINE 0.5% 5 MG/ML 30 ML VIAL ONE; +ROPIVACAINE 0.5% HCL/PF 150 MG, BUPIVACAINE 0.5% MPF 30 ML, EPINEPHrine 30MG/30ML (OR U... INFIL SCH; -SYMIN160 INH; -THIA100T10 PO; -VANC1CAP3 PO; +dexAMETHasone 4 MG TAB PO SCH
--- NOTE | 2018-07-31 10:19 | History & Physical Bridge Note ---
Date of Service July 31, 2018 History & Physical Bridge Note I have examined the patient, reviewed the History & Physical and in the interval since the performance of the History & Physical I have noted the following changes of clinical significance: no changes noted
[2018-07-31] MEDS ORDERED: ONDANSETRON INJ 2 MG/ML 2 ML VIAL ONE ×2 (10:49→13:30)
[2018-07-31] MEDS ORDERED: LIDOCAINE HCL 2% 2 ML VIAL/AMP(20MG/ML) INFIL ONE (10:49)
[2018-07-31] MEDS ORDERED: MIDAZOLAM HCL 1 MG/ML 2ML VIAL ONE (10:49)
[2018-07-31] MEDS ORDERED: DEXAMETHASONE SOD INJ 4 MG/ML VIAL ONE (10:49)
[2018-07-31] MEDS ORDERED: PROPOFOL IV EMULSION 10 MG/ML 20 ML VIAL IV ONE (10:49)
[2018-07-31] MEDS ORDERED: GLYCOPYRROLATE 0.2 MG/ML VIAL ONE (10:49)
[2018-07-31] MEDS ORDERED: fentaNYL citrate 100 MCG/2 ML VIAL ONE (10:49)
[2018-07-31] MEDS ORDERED: NEOSTIGMINE METHYLSULFATE 5 MG/5 ML SYR ONE (10:49)
[2018-07-31] MEDS ORDERED: ONDANSETRON INJ 2 MG/ML 2 ML VIAL IV PRN ×2 (11:03→16:47)
[2018-07-31] MEDS ORDERED: ATROPINE SULFATE 0.1 MG/ML 10ML SYR IV PRN (11:03)
[2018-07-31] MEDS ORDERED: ePHEDrine sulfate 50 MG/ML AMP IV PRN (11:03)
[2018-07-31] MEDS ORDERED: BACITRACIN INJ 50,000 UNIT VIAL ONE (11:56)
[2018-07-31] MEDS ORDERED: POVIDONE-IODINE OP SOLN 30 ML BTL ONE (11:56)
[2018-07-31] MEDS ORDERED: ORTHO JOINT ANESTHETIC ONE (11:56)
[2018-07-31] MEDS ORDERED: ePHEDrine sulfate 50 MG/ML SYR ONE (13:05)
[2018-07-31] MEDS ORDERED: ROCURONIUM BROMIDE 10 MG/ML 5 ML VIAL ONE (14:33)
[2018-07-31] MEDS ORDERED: PHENYLEPHRINE 100MCG/ML 5ML SYR ONE (14:33)
[2018-07-31] MEDS ORDERED: HYDROmorphone INJ 2 MG/ML SYR/VIAL ONE (14:58)
--- NOTE | 2018-07-31 15:13 | Post Operative Brief Note ---
Immediate Post Op Note v1 Date of Surgery July 31, 2018 Pre & Post Diagnosis Operation Date: 07/31/18 12:05 Pre-Op Diagnosis: Right Shoulder irreparable rotator cuff tear early rotator cuff arthropathy Post-Op Diagnosis: Same, biceps tendinopathy with biceps tenosynovitis Procedure Operation Date: 07/31/18 12:05 Actual Procedures p Right Reversed Total Shoulder Arthroplasty, right biceps tenodesis(Right) - Abelardo Webb MD Surgeon Abelardo Webb MD [employer] Maintenance Inspector Catracho VOGEL Estimated Blood Loss 100 Findings Consistent with Post-Op Diagnosis Specimens Humeral head Drains Major Catheter and Hemovac Drain Complications none Disposition Accompanied Patient To Recovery: No Disposition: Recovery Room Overlapping Procedure I was present for: the critical portions of procedure.
[2018-07-31] MEDS: fentaNYL citrate 100 MCG/2 ML VIAL IV PRN ×2 (15:46→15:55)
--- NOTE | 2018-07-31 16:01 | XRay Report ---
XR shoulder RT min 2V routine CLINICAL HISTORY: Post shoulder surgery postoperative evaluation COMPARISON: None. DISCUSSION: Anatomic alignment post total right shoulder arthroplasty. Good contact between prostheti c and underlying bone. Expected soft tissue postoperative change IMPRESSION: Anatomic alignment post total right shoulder arthroplasty. The above report was generated using voice recognition software. It may contain grammatical, syntax or spelling errors. Electronically signed by: Yohan Otto M.D. 07/31/2018 4:00 PM
--- NOTE | 2018-07-31 16:11 | Operative Report ---
Post Operative Report Pre & Post Diagnosis Operation Date: 07/31/18 12:05 Pre-Op Diagnosis: Right Shoulder rotator cuff arthropathy, chronic irreparable rotator cuff tear, obesity BMI 36.8 Post-Op Diagnosis: Same, biceps tendinopathy Procedure Operation Date: 07/31/18 12:05 Actual Procedures p Right Reversed Total Shoulder Arthroplasty, right biceps tenodesis(Right), increased difficulty obesity BMI 36.8- Abelardo Webb MD Surgeon Abelardo Webb MD Practice Consultant Catracho VOGEL Estimated Blood Loss 100 Findings Consistent with Post-Op Diagnosis Specimens Humeral head Drains 2 Hemovac Anesthesia Type General Regional Complications none Disposition Accompanied Patient To Recovery: No Indications 73-year-old male with chronic bilateral rotator cuff tears with rotator cuff arthropathy bilaterally is most severe with regard to symptoms. He had a rotator cuff repair which went on to fail in his left shoulder including a subacromial decompression distal clavicle excision his right shoulder did not have prior surgery. MRI of the right shoulder demonstrates large retracted chronic rotator cuff tear with early rotator cuff arthropathy. Discussed with patient that we should proceed with reverse replacement rather than attempting any rotator cuff repair on a massive chronic retracted tear with his history of failed cuff repair in his opposite shoulder. Description of Procedure The patient was taken to the operating room and anesthetized under regional block and general anesthetic. The patient was positioned on the operating table in a 30 beachchair position with a towel roll under the medial border of the right scapula. The arm was draped free to be able to manipulate the shoulder as needed. The right upper extremity was prepped and draped in usual sterile fashion. Exam demonstrated good passive range of motion. He had an obese upper arm. An anterior deltopectoral approach was performed. A longitudinal incision was made in the deltopectoral interval. The skin was incised sharply. Subcutaneous flaps were elevated off the fascia. The cephalic vein was not well-defined and there were some smaller veins in that area some which were cauterized. The clavipectoral fascia was divided at the lateral margin of the conjoined tendon and extended up to the CA ligament. The following findings were noted: Patient had a large bursal fluid collection overlying the rotator cuff and a chronic rotator cuff tear. Subscapularis was intact. He had some remnants of supraspinatus in the rotator interval still attached superiorly and anteriorly but the posterior supraspinatus and anterior infraspinatus were torn and retracted. The upper centimeter of the pectoralis was released for inferior exposure. The biceps tendon findings demonstrated chronic biceps tenosynovitis and in the joint the biceps was widened consistent with chronic tendinopathy. the biceps tendon was tenodesed to the pectoralis tendon with #2 FiberWire. The proximal biceps was resected. The subscapularis tendon was taken down off the lesser tuberosity using a subperiosteal dissection. A #1 Vicryl traction suture was placed into the free end of the subscapularis tendon and capsule. The subscapular muscle fibers were split longitudinally at the level of the circumflex vessels. The circumflex vessels were identified and tied off with silk ties and divided laterally. A Kitner elevator was used to free up the inferior fibers of the subscapularis off of the capsule. The axillary nerve was identified with a tug test and protected with a blunt Lopez retractor between the nerve and the capsule. The subscapularis tendon was then taken down off of the lesser tuberosity subperiosteally and subperiosteal dissection was performed along the neck of the humerus as the arm is gradually actually rotated exposing the humeral head. retractors were readjusted and the inferior osteophytes were all resected using an artist chisel. A Killian elevator was used to assist in releasing the capsule of the neck of the humerus. The capsule was divided with Wilson scissors down to the glenoid released off the anterior glenoid and the rotator interval was released to meet the capsular release and a 360 release of the subscapularis was accomplished. A Fukuda retractor was placed into the joint retracting the humeral head posterior. Glenoid findings demonstrated grade 3 osteoarthritis still had articular cartilage present. The labrum and biceps tendon was resected. an anterior-inferior and posterior inferior capsular release were performed with electrocautery and a Killian elevator on bone with the axillary nerve protected inferiorly by the retractor. Attention was then taken to the humeral preparation. The cutting guide was placed into the humeral head. It was positioned at 20 of retroversion. Oscillating saw was used to resect the humeral head giving the cut above the level of the posterior rotator cuff insertion site. The humerus was then prepared for the stem. I used the [facility] The sizing broaches were used followed by trial broaches up to a size 6B long which had the appropriate fit and fill. The a ppropriate sized cut protector was placed. The humerus was then retracted posterior to the glenoid. The glenoid was sized for a 29 baseplate. The patient's glenoid had a relatively thin AP diameter with a larger superior to inferior diameter. Even with a 36 diameter glenoid sphere there would be overhanging AP. The guide for the baseplate was positioned in a 10 inferior tilt and the central drill hole was made. The reamer for the 29 aequalis baseplate was used. The central drill was widened for the peg. The 29 aequalis baseplate was impacted into position. The base plate was transfixed with superior and inferior locking screws and anterior and posterior compression screws with stable fixation. The fan reamer was used for the 36 millimeter glenoid sphere. After irrigation the 36+2 eccentric glenoid sphere was impacted onto the baseplate and the screw was tightened. Attention was taken back to the humerus. The cut protector was removed and the +0 humeral tray trial was asse mbled to the trial stem rotated appropriately to get bony coverage and then screwed in position. A trial reduction was performed. The reduction was a bit too easy and get appropriate soft tissue tension we went to a +6 high offset tray with a +6 poly-trial insert which demonstrated good stability and no shuck. The trials were removed. 3 drill holes are made into the harder bone in the bicipital groove area and 3 #5 FiberWire sutures were placed transosseously. The canal was irrigated with antibiotic solution with bacitracin. The final component was assembled. The final component was ascend flex 6B long stem +6 high offset humeral tray and 36+6 humeral insert. This was then impacted into the humerus with a tight press-fit. It was reduced to the glenoid sphere. Stability was verified. Subscapularis was repaired with the #5 FiberWire sutures using Chidi-Tahir suture technique. Lateral row soft tissue repair was performed with #2 FiberWire [id number] sutures. The pectoralis was repaired with #2 FiberWire [id number] sutures reinforcing the biceps tendon tenodesis. The arm was taken through a range of motion which demonstrated 50 degrees extra rotation before there was tension on the subscap repair 90 degrees of abduction and 150 degrees of forward elevation. The implant was stable through the range of motion tested. The wound was copiously irrigated. 2 He movac drains were placed. The deltopectoral interval was closed with [id number] #1 Vicryl sutures. The subcutaneous tissues were closed with 2- 0 Vicryl sutures. The skin was closed with caleb. Sterile dressings were applied and a shoulder immobilizer. There was some increased difficulty throughout the procedure mainly with exposure due to the size and obesity of his arm. Catracho VOGEL my physician medical assistant dermatology assisted in the procedure to the entire procedure including patient positioning arm positioning prepping and draping soft tissue retraction instrument management suture management and performed the subcutaneous and skin closure and will participate in the postoperative care of the patient. I attest to the content of the Intraoperative Record and any orders documented therein. Any exceptions are noted below.
--- NOTE | 2018-07-31 16:17 | Anesthesiology Progress Note ---
Date of Service July 31, 2018 Anesthesia Post Procedure Vital Signs Vital Signs: Temp Pulse Resp BP Pulse Ox 07/31/18 16:05 36.9 C 85 17 129/77 93 07/31/18 15:55 37.0 C 84 21 138/81 94 07/31/18 15:45 37.0 C 72 21 129/84 93 07/31/18 15:35 37.0 C 82 24 132/78 95 07/31/18 15:25 37.0 C 84 20 137/73 95 07/31/18 10:20 36.9 C 65 18 108/83 96 Pain Intensity Right Shoulder: Pain Intensity: 10 Transfer of Care Handoff Completed per policy Notes Mental Status: alert / awake / arousable Patient Amnestic to Procedure: Yes Nausea / Vomiting: adequately controlled Pain: adequately controlled Airway Patency, RR, SpO2: stable & adequate BP & HR: stable & adequate Hydration State: stable & adequate Anesthetic Complications: no major complications apparent
[2018-07-31] MEDS ORDERED: NALOXONE HCL 0.4 MG/1 ML VIAL/CARP IV PRN (16:47)
[2018-07-31] MEDS ORDERED: ALBUT/IPRATROP 3MG/0.5MG NEB 3 ML VIAL INH PRN (16:47)
[2018-07-31] MEDS ORDERED: BISACODYL 10 MG SUPP PR PRN (16:47)
[2018-07-31] MEDS ORDERED: MAGNESIUM HYDROXIDE SUSP 30 ML UDC PO PRN (16:47)
[2018-07-31] MEDS ORDERED: SODIUM CHLORIDE 0.9% 1000ML 1,000 ML IV SCH (17:00)
[2018-07-31] MEDS ORDERED: CYCLOBENZAPRINE HCL 10 MG TAB PO PRN (19:00)
[2018-07-31] MEDS: IPRATROPIUM BROMIDE/ALBUTEROL respimat INH INH SCH ×2 (19:55→21:04)
[2018-07-31] MEDS: FUROSEMIDE 40 MG TAB PO SCH (19:56)
[2018-07-31] MEDS: OXYCODONE HCL IR 5 MG TAB (IMMEDIATE RELEASE) PO PRN (20:59)
[2018-07-31] MEDS: CEFAZOLIN 2000MG 2,000 MG/15 ML SYR IV SCH (21:00)
[2018-07-31] MEDS: KETOROLAC TROMETHAMINE 15 MG/ML VIAL IV PRN (21:00)
[2018-07-31] MEDS: BUDESONIDE/FORMOTEROL FUMARATE 160/4.5 60 PUFFS/INHALER INH SCH (21:00)
[2018-07-31] MEDS: DOCUSATE SODIUM 100 MG CAP PO SCH ×2 (21:01→21:07)
[2018-07-31] MEDS: PRAVASTATIN SOD 40 MG TAB PO SCH (21:01)
[2018-07-31] MEDS: POTASSIUM CHLORIDE 20 MEQ TABCR PO SCH (21:01)
[2018-07-31] MEDS: BusPIRone 15 MG TAB PO SCH (21:02)
[2018-07-31] MEDS: MONTELUKAST SODIUM 10 MG TABLET PO SCH (21:02)
[2018-07-31] MEDS: ROPINIROLE HCL 0.25 MG TABLET PO SCH (21:02)
[2018-07-31] MEDS: SENNA 8.6 MG TAB PO SCH ×2 (21:02→21:08)
[2018-07-31] MEDS: ACETAMINOPHEN 500 MG TAB PO SCH (21:03)
[2018-07-31] MEDS: FERROUS SULFATE 325 MG TAB PO SCH (21:03)
[2018-08-01] MEDS: OXYCODONE HCL IR 5 MG TAB (IMMEDIATE RELEASE) PO PRN ×5 (02:16→21:53)
[2018-08-01] MEDS ORDERED: LORazepam 1 MG TAB PO ONE (03:05)
--- NOTE | 2018-08-01 03:15 | Progress Note ---
Date of Service August 01, 2018 Received a page from the bedside nurse that the patient was yelling in his room and seemed a bit agitated. Spoke with patient at bedside. He is presently sitting in his bedside chair. Patient says that he woke up with the phone cord between his legs. He tried to move the cord but then got disoriented, wondering if he was accidentally pulling on his IV line. He then says that made him quite anxious so he yelled out. He says it is also difficult when he has his arm in a sling. At present, he says his shoulder feels a little bit sore but his forearm is the most sore due to resting it on the armrest. I asked the patient if he was in any pain. He then volunteered that a former friend of his unfortunately became involved in methamphetamines. The patient says that he never did any hard drugs like that but occasionally smokes marijuana. When asked if he drinks alcohol, the patient says, "I am an alcoholic. That is what AA says I should say." Initially he said he was drinking about 6 beers per day. He then clarified to say he drinks about 2 beers per day "but not every day". It does not sound like he is ever gone through alcohol withdrawal. Brief record review notes that he underwent a right shoulder arthroplasty and right biceps tenodesis yesterday. Exam: Awake, alert, appears a little anxious but is not aggressive. Conversing easily and pleasantly. 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 Normal cap refill. Right shoulder is dressed and his arm is in a sling. No resting tremor. Plan: - Patient agreed to a single dose of Ativan now to help with some of his anxiety. - Discussed the above with his nurse. Ordered an AWSS scale to further watch for any evidence of alcohol withdrawal. - Added a CMP and folate for morning labs. Moi Garcia, PGY2 Overnight call Results & Data Vital Signs (Past 12 Hours) Vital Signs Temp Pulse Pulse Resp BP Pulse Ox 07/31/18 23:45 36.5 C 85 14 123/73 92 07/31/18 22:04 20 95 07/31/18 19:31 36.7 C 86 18 115/71 91 07/31/18 18:58 95 07/31/18 18:42 89 18 110/67 97 07/31/18 17:29 36.6 C 81 18 129/79 92 07/31/18 17:02 36.6 C 72 18 124/77 97 07/31/18 16:30 36.5 C 83 15 120/75 96 07/31/18 16:15 36.9 C 71 17 124/77 95 07/31/18 16:05 36.9 C 85 17 129/77 93 07/31/18 15:55 37.0 C 84 21 138/81 94 07/31/18 15:45 37.0 C 72 21 129/84 93 07/31/18 15:35 37.0 C 82 24 132/78 95 07/31/18 15:25 37.0 C 84 20 137/73 95
[2018-08-01] MEDS: CEFAZOLIN 2000MG 2,000 MG/15 ML SYR IV SCH (05:00)
[2018-08-01] MEDS: ACETAMINOPHEN 500 MG TAB PO SCH ×3 (06:04→21:53)
[2018-08-01 06:45] LABS: Hemoglobin 12.5 g/dL (14.0-18.0); Immature Granulocytes # (auto) 0.04 K/uL (0.00-0.02); Immature Granulocytes % (auto) 0.4 %; Lymphocytes # (auto) 0.75 K/uL (1.2-3.4); Lymphocytes % (auto) 6.8 %; Mean Corpuscular Hgb Conc 33.8 g/dL (32-36); Mean Corpuscular Volume 77.1 fL (80-100); Mean Platelet Volume 9.8 fL (7.4-10.4); Monocytes # (auto) 0.87 K/uL (0.11-0.59); Monocytes % (auto) 7.9 %; Neutrophils # (auto) 9.32 K/uL (1.4-6.5); Neutrophils % (auto) 84.9 %; Platelet Count 193 K/uL (130-400); RDW Coefficient of Variation 21.3 % (11.5-14.5); RDW Standard Deviation 59.1 fL (36.4-46.3); White Blood Count 10.98 K/uL (4.8-10.8)
[2018-08-01 07:12] LABS: Anisocytosis Present; Ovalocytes 1+
[2018-08-01 07:23] LABS: BUN Creatinine Ratio 14.8 (10-20); Calcium 8.3 mg/dl (8.5-10.1); Creatinine Clr Calc Pharmacy 66.7 ml/min; Est GFR (African American) 68.7; Est GFR (Non-African American) 59.3; Potassium 4.5 mmol/L (3.5-5.1)
[2018-08-01 07:25] LABS: Bilirubin,Total 0.3 mg/dl (0.2-1); Globulin 2.9 gm/dl (2.5-4.0); Total Protein 5.9 gm/dl (6.4-8.2)
[2018-08-01] MEDS: HYDROmorphone INJ 0.5 MG/0.5 ML SYR IV PRN ×4 (07:32→20:18)
[2018-08-01] MEDS: MULTIVITAMIN TAB PO SCH (08:41)
[2018-08-01] MEDS: FUROSEMIDE 40 MG TAB PO SCH ×2 (08:41→16:40)
[2018-08-01] MEDS: POTASSIUM CHLORIDE 20 MEQ TABCR PO SCH ×2 (08:42→20:12)
[2018-08-01] MEDS: FLUOXETINE HCL 20 MG CAP PO SCH (08:42)
[2018-08-01] MEDS: PANTOprazole 40 MG TAB PO SCH (08:42)
[2018-08-01] MEDS: CLOPIDOGREL BISULFATE 75 MG TAB PO SCH (08:42)
[2018-08-01] MEDS: ISOSORBIDE MONO EXTENDED REL 30 MG TABCR PO SCH (08:42)
[2018-08-01] MEDS: ASPIRIN 81 MG ECTAB PO SCH (08:43)
[2018-08-01] MEDS: BusPIRone 15 MG TAB PO SCH ×2 (08:43→20:12)
[2018-08-01] MEDS: TAMSULOSIN HCL 0.4 MG CAP PO SCH (08:43)
[2018-08-01] MEDS: FERROUS SULFATE 325 MG TAB PO SCH ×2 (08:43→20:12)
[2018-08-01] MEDS: DOCUSATE SODIUM 100 MG CAP PO SCH ×2 (08:43→20:12)
[2018-08-01] MEDS: BUDESONIDE/FORMOTEROL FUMARATE 160/4.5 60 PUFFS/INHALER INH SCH ×2 (08:44→20:13)
[2018-08-01] MEDS: IPRATROPIUM BROMIDE/ALBUTEROL respimat INH INH SCH ×4 (08:44→20:12)
--- NOTE | 2018-08-01 09:23 | Orthopedic Progress Note ---
Date of Service August 01, 2018 Assessment & Plan (1) S/p reverse total shoulder arthroplasty: POD#1 right reverse TSA -Pain management -DVT prophylaxis-SCDs, TEDs -PT/OT -D/C planning-Discussed with patient and stated he may want rehab placement -AM labs-hemoglobin stable at 12.5 Subjective Patient seen sitting at bedside. He is doing well, pain controlled. He did have an episode over night in which he became disoriented and began shouting, feeling better now. No other complaints Review of Systems Review of Systems: All systems reviewed & are unremarkable except as noted in HPI & below Physical Exam Physical Exam: Dressing c/d/i, hemovac in place. 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 Results & Data Vital Signs (Past 12 Hours) Vital Signs Temp Pulse Pulse Resp BP Pulse Ox 08/01/18 08:17 36.4 C L 84 20 138/78 91 08/01/18 03:50 36.5 C 71 14 124/76 92 07/31/18 23:45 36.5 C 85 14 123/73 92 07/31/18 22:04 20 95 Laboratory Results Lab Results 07/04/18 07/04/18 07/04/18 Range/Units 13:35 13:35 13:35 WBC 5.62 (4.8-10.8) K/uL RBC 5.19 (4.7-6.1) M/uL Hgb 12.6 L (14.0-18.0) g/dL Hct 40.3 L (42-52) % MCV 77.6 L (80-100) fL MCH 24.3 L (25-34) pg MCHC 31.3 L (32-36) g/dL RDW Std Deviation 69.2 H (36.4-46.3) fL RDW Coeff of Eduardo 24.7 H (11.5-14.5) % Plt Count 226 (130-400) K/uL MPV 10.4 (7.4-10.4) fL Immature Gran % (Auto) 0.4 % Neut % (Auto) 63.9 % Lymph % (Auto) 18.0 % Bullock % (Auto) 11.0 % Eos % (Auto) 6.2 % Baso % (Auto) 0.5 % Immature Gran # (Auto) 0.02 (0.00-0.02) K/uL Neut # (Auto) 3.59 (1.4-6.5) K/uL Lymph # (Auto) 1.01 L (1.2-3.4) K/uL Bullock # (Auto) 0.62 H (0.11-0.59) K/uL Eos # (Auto) 0.35 (0-0.5) K/uL Baso # (Auto) 0.03 (0-0.2) K/uL Polychromasia 1+ Anisocytosis Present Ovalocytes 2+ PT 10.0 (9.0-12.0) Seconds INR 1.0 (0.9-1.1) APTT 25.6 (21.0-31.0) Seconds PTT Ratio 0.9 Sodium 142 (136-145) mmol/L Potassium 4.2 (3.5-5.1) mmol/L Chloride 106 (98-107) mmol/L Carbon Dioxide 33 H (21-32) mmol/L Anion Gap 4.0 (3-11) BUN 17 (7-18) mg/dl Creatinine 1.26 (0.6-1.4) mg/dl Est Cr Clr Drug Dosing 64.1 ml/min Est GFR ( Amer) 66.1 Est GFR (Non-Af Amer) 57.0 BUN/Creatinine Ratio 13.7 (10-20) Glucose 108 H (70-99) mg/dl Estimat Average Glucose mg/dl Hemoglobin A1c (4.5-5.6) % Calcium 9.0 (8.5-10.1) mg/dl Total Bilirubin (0.2-1) mg/dl AST (15-37) U/L ALT (12-78) U/L Alkaline Phosphatase (45-117) U/L Total Protein (6.4-8.2) gm/dl Albumin 3.7 (3.4-5.0) gm/dl Globulin (2.5-4.0) gm/dl Albumin/Globulin Ratio (0.9-2) Folate (>5.38) ng/ml Urine Color Urine Appearance (Clear) Urine pH (4.5-7.5) Ur Specific [place] (1.000-1.030) Urine Protein (Negative) Urine Glucose (UA) (Negative) Urine Ketones (Negative) Urine Blood (Negative) Urine Nitrite (Negative) Urine Bilirubin (Negative) Urine Urobilinogen (Negative) Ur Leukocyte Esterase (Negative) Urine WBC (Auto) (0-5) /hpf Urine RBC (Auto) (0-4) /hpf U Hyaline Cast (Auto) (0-5) /lpf U Epithel Cells (Auto) (0-5) /lpf Urine Bacteria (Auto) (Negative) Blood Type Antibody Screen 07/04/18 07/04/18 07/04/18 Range/Units 13:35 13:35 13:35 WBC (4.8-10.8) K/uL RBC (4.7-6.1) M/uL Hgb (14.0-18.0) g/dL Hct (42-52) % MCV (80-100) fL MCH (25-34) pg MCHC (32-36) g/dL RDW Std Deviation (36.4-46.3) fL RDW Coeff of Eduardo (11.5-14.5) % Plt Count (130-400) K/uL MPV (7.4-10.4) fL Immature Gran % (Auto) % Neut % (Auto) % Lymph % (Auto) % Bullock % (Auto) % Eos % (Auto) % Baso % (Auto) % Immature Gran # (Auto) (0.00-0.02) K/uL Neut # (Auto) (1.4-6.5) K/uL Lymph # (Auto) (1.2-3.4) K/uL Bullock # (Auto) (0.11-0.59) K/uL Eos # (Auto) (0-0.5) K/uL Baso # (Auto) (0-0.2) K/uL Polychromasia Anisocytosis Ovalocytes PT (9.0-12.0) Seconds INR (0.9-1.1) APTT (21.0-31.0) Seconds PTT Ratio Sodium (136-145) mmol/L Potassium (3.5-5.1) mmol/L Chloride (98-107) mmol/L Carbon Dioxide (21-32) mmol/L Anion Gap (3-11) BUN (7-18) mg/dl Creatinine (0.6-1.4) mg/dl Est Cr Clr Drug Dosing ml/min Est GFR ( Amer) Est GFR (Non-Af Amer) BUN/Creatinine Ratio (10-20) Glucose (70-99) mg/dl Estimat Average Glucose 105 mg/dl Hemoglobin A1c 5.3 (4.5-5.6) % Calcium (8.5-10.1) mg/dl Total Bilirubin (0.2-1) mg/dl AST (15-37) U/L ALT (12-78) U/L Alkaline Phosphatase (45-117) U/L Total Protein (6.4-8.2) gm/dl Albumin (3.4-5.0) gm/dl Globulin (2.5-4.0) gm/dl Albumin/Globulin Ratio (0.9-2) Folate (>5.38) ng/ml Urine Color Yellow Urine Appearance Clear (Clear) Urine pH 5.5 (4.5-7.5) Ur Specific [place] 1.015 (1.000-1.030) Urine Protein Negative (Negative) Urine Glucose (UA) Negative (Negative) Urine Ketones Negative (Negative) Urine Blood Negative (Negative) Urine Nitrite Negative (Negative) Urine Bilirubin Negative (Negative) Urine Urobilinogen Negative (Negative) Ur Leukocyte Esterase Trace H (Negative) Urine WBC (Auto) 1-5 (0-5) /hpf Urine RBC (Auto) 0-4 (0-4) /hpf U Hyaline Cast (Auto) 0 (0-5) /lpf U Epithel Cells (Auto) 10-20 H (0-5) /lpf Urine Bacteria (Auto) Negative (Negative) Blood Type A Positive Antibody Screen NEGATIVE 08/01/18 08/01/18 08/01/18 Range/Units 06:09 06:09 06:09 WBC 10.98 H (4.8-10.8) K/uL RBC 4.80 (4.7-6.1) M/uL Hgb 12.5 L (14.0-18.0) g/dL Hct 37.0 L (42-52) % MCV 77.1 L (80-100) fL MCH 26.0 (25-34) pg MCHC 33.8 (32-36) g/dL RDW Std Deviation 59.1 H (36.4-46.3) fL RDW Coeff of Eduardo 21.3 H (11.5-14.5) % Plt Count 193 (130-400) K/uL MPV 9.8 (7.4-10.4) fL Immature Gran % (Auto) 0.4 % Neut % (Auto) 84.9 % Lymph % (Auto) 6.8 % Bullock % (Auto) 7.9 % Eos % (Auto) 0.0 % Baso % (Auto) 0.0 % Immature Gran # (Auto) 0.04 H (0.00-0.02) K/uL Neut # (Auto) 9.32 H (1.4-6.5) K/uL Lymph # (Auto) 0.75 L (1.2-3.4) K/uL Bullock # (Auto) 0.87 H (0.11-0.59) K/uL Eos # (Auto) 0.00 (0-0.5) K/uL Baso # (Auto) 0.00 (0-0.2) K/uL Polychromasia Anisocytosis Present Ovalocytes 1+ PT (9.0-12.0) Seconds INR (0.9-1.1) APTT (21.0-31.0) Seconds PTT Ratio Sodium 141 (136-145) mmol/L Potassium 4.5 (3.5-5.1) mmol/L Chloride 107 (98-107) mmol/L Carbon Dioxide 28 (21-32) mmol/L Anion Gap 6.0 (3-11) BUN 18 (7-18) mg/dl Creatinine 1.22 (0.6-1.4) mg/dl Est Cr Clr Drug Dosing 66.7 ml/min Est GFR ( Amer) 68.7 Est GFR (Non-Af Amer) 59.3 BUN/Creatinine Ratio 14.8 (10-20) Glucose 128 H (70-99) mg/dl Estimat Average Glucose mg/dl Hemoglobin A1c (4.5-5.6) % Calcium 8.3 L (8.5-10.1) mg/dl Total Bilirubin 0.3 (0.2-1) mg/dl AST 24 (15-37) U/L ALT 27 (12-78) U/L Alkaline Phosphatase 69 (45-117) U/L Total Protein 5.9 L (6.4-8.2) gm/dl Albumin 3.0 L (3.4-5.0) gm/dl Globulin 2.9 (2.5-4.0) gm/dl Albumin/Globulin Ratio 1.0 (0.9-2) Folate 20.82 (>5.38) ng/ml Urine Color Urine Appearance (Clear) Urine pH (4.5-7.5) Ur Specific [place] (1.000-1.030) Urine Protein (Negative) Urine Glucose (UA) (Negative) Urine Ketones (Negative) Urine Blood (Negative) Urine Nitrite (Negative) Urine Bilirubin (Negative) Urine Urobilinogen (Negative) Ur Leukocyte Esterase (Negative) Urine WBC (Auto) (0-5) /hpf Urine RBC (Auto) (0-4) /hpf U Hyaline Cast (Auto) (0-5) /lpf U Epithel Cells (Auto) (0-5) /lpf Urine Bacteria (Auto) (Negative) Blood Type Antibody Screen
[2018-08-01] MEDS: KETOROLAC TROMETHAMINE 15 MG/ML VIAL IV PRN (13:18)
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
[2018-08-01] MEDS: PRAVASTATIN SOD 40 MG TAB PO SCH (20:13)
[2018-08-01] MEDS: SENNA 8.6 MG TAB PO SCH (20:13)
[2018-08-01] MEDS: ROPINIROLE HCL 0.25 MG TABLET PO SCH (20:13)
[2018-08-01] MEDS: MONTELUKAST SODIUM 10 MG TABLET PO SCH (20:13)
[2018-08-02] MEDS: HYDROmorphone INJ 0.5 MG/0.5 ML SYR IV PRN ×2 (05:52→11:08)
[2018-08-02] MEDS: ACETAMINOPHEN 500 MG TAB PO SCH ×2 (06:05→13:09)
[2018-08-02 06:08] LABS: Hemoglobin 12.2 g/dL (14.0-18.0); Mean Corpuscular Volume 77.4 fL (80-100); Mean Platelet Volume 9.5 fL (7.4-10.4); Platelet Count 181 K/uL (130-400); RDW Coefficient of Variation 21.5 % (11.5-14.5); RDW Standard Deviation 59.5 fL (36.4-46.3); Red Blood Count 4.78 M/uL (4.7-6.1); White Blood Count 7.27 K/uL (4.8-10.8)
[2018-08-02 06:46] LABS: BUN Creatinine Ratio 18.2 (10-20); Calcium 8.4 mg/dl (8.5-10.1); Creatinine Clr Calc Pharmacy 70.2 ml/min; Potassium 3.7 mmol/L (3.5-5.1)
--- NOTE | 2018-08-02 08:08 | Orthopedic Progress Note ---
Date of Service August 02, 2018 Assessment & Plan (1) S/p reverse total shoulder arthroplasty: POD#2 right reverse TSA -Pain management -DVT prophylaxis-SCDs, TEDs -PT/OT -D/C planning-TO REHAB WHEN BED AVAILABLE, TODAY IF POSSIBLE. Subjective POD #2, doing well, denies sob, cp, n/v. Pain controlled well. States he needs to have his combivent at bedside; if he has breathing issues he needs it right away and cant wait for a nurse to get it. Physical Exam Physical Exam: Right shoulder dressings c/d/i, no drainage, fingers mobile, sling in tact. A&oX3. Results & Data Vital Signs (Past 12 Hours) Vital Signs Temp Pulse Pulse Resp BP Pulse Ox 08/02/18 07:18 36.7 C 90 19 165/82 H 94 08/02/18 07:05 106 H 18 96 08/02/18 06:51 36.6 C 96 H 18 171/83 H 94 08/01/18 23:50 36.4 C L 93 H 16 149/87 H 95
[2018-08-02] MEDS: IPRATROPIUM BROMIDE/ALBUTEROL respimat INH INH SCH ×2 (08:15→13:09)
[2018-08-02] MEDS: FUROSEMIDE 40 MG TAB PO SCH (08:15)
[2018-08-02] MEDS: BUDESONIDE/FORMOTEROL FUMARATE 160/4.5 60 PUFFS/INHALER INH SCH (08:15)
[2018-08-02] MEDS: ASPIRIN 81 MG ECTAB PO SCH (08:15)
[2018-08-02] MEDS: ISOSORBIDE MONO EXTENDED REL 30 MG TABCR PO SCH (08:15)
[2018-08-02] MEDS: FERROUS SULFATE 325 MG TAB PO SCH (08:16)
[2018-08-02] MEDS: POTASSIUM CHLORIDE 20 MEQ TABCR PO SCH (08:16)
[2018-08-02] MEDS: TAMSULOSIN HCL 0.4 MG CAP PO SCH (08:16)
[2018-08-02] MEDS: FLUOXETINE HCL 20 MG CAP PO SCH (08:16)
[2018-08-02] MEDS: BusPIRone 15 MG TAB PO SCH (08:16)
[2018-08-02] MEDS: CLOPIDOGREL BISULFATE 75 MG TAB PO SCH (08:17)
[2018-08-02] MEDS: MULTIVITAMIN TAB PO SCH (08:17)
[2018-08-02] MEDS: DOCUSATE SODIUM 100 MG CAP PO SCH (08:17)
[2018-08-02] MEDS: PANTOprazole 40 MG TAB PO SCH (08:17)
[2018-08-02] MEDS: OXYCODONE HCL IR 5 MG TAB (IMMEDIATE RELEASE) PO PRN ×2 (08:26→13:11)
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
--- NOTE | 2018-08-04 14:14 | Discharge Summary ---
DISCHARGE DIAGNOSES: Right shoulder rotator cuff arthropathy, chronic irreparable rotator cuff tear, obesity. 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 CONSULTS: Wendy Saxena PA-C/Vini Angela MD COMPLICATIONS: None. PROCEDURES: Right reverse total shoulder arthroplasty with right biceps tenodesis. BRIEF HISTORY: As dictated in the history and physical. HOSPITAL SUMMARY: The patient was admitted on the above-noted date and had the above-noted surgery performed which he tolerated well. On the first postoperative day, the patient was seen at the bedside. He was doing well and pain was controlled. He did have an episode overnight once he became disoriented to begin shouting, he was feeling better and had no other complaints. Dressings clean, dry and intact. Hemovac was in place. Sensation and neurovascular status was intact. 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 Vital signs were stable. He was afebrile. Hemoglobin was 12.6 and he was started on his PT and OT protocols and was continued on DVT prophylaxis and medical management per [facility] hospitalist service. By the second postoperative day, he was doing well and denied shortness of breath, chest pain or nausea, vomiting. Pain was controlled. He was stating that he needed to have his Combivent inhaler at the bedside, but was otherwise remaining stable. Right shoulder dressings were intact. No drainage. Fingers were mobile. Sling was intact and vital signs were stable. He was otherwise remaining medically stable and orthopedically stable and it was felt he could be transferred to [facility] for further physical therapy and care. For further review, please see chart. LABORATORY AND X-RAY DATA: As per chart. DISCHARGE INSTRUCTIONS: The patient was discharged to [facility] on 08/02/2018. Diet: Regular. Activity: Nonweightbearing of the affected shoulder. Follow reverse shoulder arthroplasty care instructions. The patient's Combivent inhaler needs to be at bedside for immediate use. Follow up with Dr. Webb in 2 weeks. The patient is to call for appointment if one has not been made for you. DISCHARGE MEDICATIONS: Acetaminophen 1000 mg p.o. q. 8 hours, oxycodone 5 mg p.o. q. 4 hours p.r.n. Continue daily aspirin and clopidogrel. Resume other home medications as listed and stop taking previous oxycodone doses.
== END 2018-08-02 15:22 | DRG 483 ==
LOC: ASU 09:47 → 3E 15:31
DX: K21.9 Gastro-esophageal reflux disease without esophagitis; M75.101 Unspecified rotator cuff tear or rupture of right shoulder, not specified as traumatic; G47.33 Obstructive sleep apnea (adult) (pediatric); Z79.02 Long term (current) use of antithrombotics/antiplatelets; Z88.5 Allergy status to narcotic agent; M75.102 Unspecified rotator cuff tear or rupture of left shoulder, not specified as traumatic; Q24.8 Other specified congenital malformations of heart; Z86.73 Personal history of transient ischemic attack (TIA), and cerebral infarction without residual deficits; R91.1 Solitary pulmonary nodule; E66.9 Obesity, unspecified; F17.210 Nicotine dependence, cigarettes, uncomplicated; M19.012 Primary osteoarthritis, left shoulder; F10.10 Alcohol abuse, uncomplicated; Z86.711 Personal history of pulmonary embolism; Z86.718 Personal history of other venous thrombosis and embolism; G25.81 Restless legs syndrome; Z88.1 Allergy status to other antibiotic agents; Z79.899 Other long term (current) drug therapy; D64.9 Anemia, unspecified; E78.5 Hyperlipidemia, unspecified; Z79.82 Long term (current) use of aspirin; I10 Essential (primary) hypertension; J44.9 Chronic obstructive pulmonary disease, unspecified; Z68.36 Body mass index [BMI] 36.0-36.9, adult; N40.0 Benign prostatic hyperplasia without lower urinary tract symptoms; M19.011 Primary osteoarthritis, right shoulder; F41.9 Anxiety disorder, unspecified

== ENCOUNTER 2019-12-03 07:59 | Inpatient (IN) ==
--- NOTE | 2019-11-02 11:09 | PAT Medication Instructions ---
Medication Instructions Date of Service November 02, 2019 Home Medications Medication Instructions Recorded pantoprazole 40 mg tablet,delayed 40 mg PO QAM #90 tab 11/10/18 release albuterol sulfate 90 mcg/actuation 1 puffs INH .COMPLEX PRN #18 gm 03/30/19 aerosol inhaler budesonide-formoterol HFA 160 2 puffs INH BID #1 inhaler 03/30/19 mcg-4.5 mcg/actuation aerosol inhaler cyclobenzaprine 5 mg tablet 5 mg PO TID PRN #30 tab 05/07/19 ipratropium 0.5 mg-albuterol 3 mg 3 ml INHALATION .COMPLEX PRN #90 ml 05/07/19 (2.5 mg base)/3 mL nebulization soln montelukast 10 mg tablet 10 mg PO HS #90 tab 06/25/19 benzonatate 100 mg capsule 100 mg PO TID PRN #30 cap 09/02/19 buspirone 10 mg tablet 10 mg PO BID #180 tab 09/22/19 clopidogrel 75 mg tablet 75 mg PO QAM #90 tab 09/22/19 fluoxetine 40 mg capsule 40 mg PO QAM #90 cap 09/22/19 isosorbide mononitrate 30 mg 30 mg PO QAM #90 tab 09/22/19 tablet,extended release 24 hr potassium chloride 20 mEq 20 meq PO BID #180 tab 09/22/19 tablet,extended release fluoxetine 20 mg capsule 20 mg PO QAM #90 cap 09/25/19 furosemide 40 mg tablet 40 mg PO BID #180 tab 10/09/19 famotidine 40 mg tablet 40 mg PO BID #180 tab 10/20/19 tamsulosin 0.4 mg capsule 0.4 mg PO HS #90 cap 10/27/19 aspirin [Aspirin Low Dose] 81 mg PO QAM cholecalciferol (vitamin D3) 25 mcg (1,000 unit) tablet 1,000 units PO QAM diphenhydramine HCl 25 mg capsule 25 mg PO BID pantoprazole 40 mg tablet,delayed release 40 mg PO QAM ipratropium-albuterol [Combivent Respimat] 1 puff INHALATION QID PRN albuterol sulfate 90 mcg/actuation aerosol inhaler 1 puffs INH .COMPLEX PRN budesonide-formoterol HFA 160 mcg-4.5 mcg/actuation aerosol inhaler 2 puffs INH BID cyclobenzaprine 5 mg tablet 5 mg PO TID PRN ipratropium 0.5 mg-albuterol 3 mg (2.5 mg base)/3 mL nebulization soln 3 ml INHALATION .COMPLEX PRN montelukast 10 mg tablet 10 mg PO HS ferrous fumarate 324 mg (106 mg iron) tablet 325 mg PO QAM benzonatate 100 mg capsule 100 mg PO TID PRN buspirone 10 mg tablet 10 mg PO BID clopidogrel 75 mg tablet 75 mg PO QAM fluoxetine 40 mg capsule 40 mg PO QAM isosorbide mononitrate 30 mg tablet,extended release 24 hr 30 mg PO QAM potassium chloride 20 mEq tablet,extended release 20 meq PO BID fluoxetine 20 mg capsule 20 mg PO QAM metoprolol succinate 25 mg PO QAM naproxen sodium [Aleve] 220 mg PO Q12H PRN pravastatin 40 mg PO HS prednisone 20 mg PO QAM furosemide 40 mg tablet 40 mg PO BID famotidine 40 mg tablet 40 mg PO BID fluticasone fur. 100 mcg-umeclid 62.5 mcg-vilant 25 mcg inhalat.powder 1 inh INH DAILY PRN tamsulosin 0.4 mg capsule 0.4 mg PO HS Medical Marijuana 1 dose INHALATION UD PRN ASK your surgeon for instructions naproxen sodium [Aleve] 220 mg PO Q12H PRN ASK your prescriber and surgeon clopidogrel 75 mg tablet 75 mg PO QAM DO NOT take the morning of surgery cholecalciferol (vitamin D3) 25 mcg (1,000 unit) tablet 1,000 units PO QAM diphenhydramine HCl 25 mg capsule 25 mg PO BID cyclobenzaprine 5 mg tablet 5 mg PO TID PRN ferrous fumarate 324 mg (106 mg iron) tablet 325 mg PO QAM benzonatate 100 mg capsule 100 mg PO TID PRN potassium chloride 20 mEq tablet,extended release 20 meq PO BID furosemide 40 mg tablet 40 mg PO BID Medical Marijuana 1 dose INHALATION UD PRN Take morning of surgery With a small sip of water, OTHERWISE NOTHING TO EAT OR DRINK AFTER MIDNIGHT: aspirin [Aspirin Low Dose] 81 mg PO QAM pantoprazole 40 mg tablet,delayed release 40 mg PO QAM ipratropium-albuterol [Combivent Respimat] 1 puff INHALATION QID PRN (if needed) albuterol sulfate 90 mcg/actuation aerosol inhaler 1 puffs INH .COMPLEX PRN (if needed) budesonide-formoterol HFA 160 mcg-4.5 mcg/actuation aerosol inhaler 2 puffs INH BID ipratropium 0.5 mg-albuterol 3 mg (2.5 mg base)/3 mL nebulization soln 3 ml INHALATION .COMPLEX PRN (if needed) buspirone 10 mg tablet 10 mg PO BID fluoxetine 40 mg capsule 40 mg PO QAM isosorbide mononitrate 30 mg tablet,extended release 24 hr 30 mg PO QAM fluoxetine 20 mg capsule 20 mg PO QAM metoprolol succinate 25 mg PO QAM prednisone 20 mg PO QAM famotidine 40 mg tablet 40 mg PO BID fluticasone fur. 100 mcg-umeclid 62.5 mcg-vilant 25 mcg inhalat.powder 1 inh INH DAILY PRN (if needed) Take evening before surgery diphenhydramine HCl 25 mg capsule 25 mg PO BID ipratropium-albuterol [Combivent Respimat] 1 puff INHALATION QID PRN (if needed) albuterol sulfate 90 mcg/actuation aerosol inhaler 1 puffs INH .COMPLEX PRN (if needed) budesonide-formoterol HFA 160 mcg-4.5 mcg/actuation aerosol inhaler 2 puffs INH BID cyclobenzaprine 5 mg tablet 5 mg PO TID PRN (if needed) ipratropium 0.5 mg-albuterol 3 mg (2.5 mg base)/3 mL nebulization soln 3 ml INHALATION .COMPLEX PRN (if needed) montelukast 10 mg tablet 10 mg PO HS benzonatate 100 mg capsule 100 mg PO TID PRN (if needed) buspirone 10 mg tablet 10 mg PO BID potassium chloride 20 mEq tablet,extended release 20 meq PO BID pravastatin 40 mg PO HS furosemide 40 mg tablet 40 mg PO BID famotidine 40 mg tablet 40 mg PO BID fluticasone fur. 100 mcg-umeclid 62.5 mcg-vilant 25 mcg inhalat.powder 1 inh INH DAILY PRN (if needed) tamsulosin 0.4 mg capsule 0.4 mg PO HS Medical Marijuana 1 dose INHALATION UD PRN (if needed) Other Notes If you have any questions please call us at [phone] or [phone] or [phone] or [phone]
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
--- NOTE | 2019-11-06 11:43 | XRay Report ---
XR chest Pre-admission PA/Lat CLINICAL HISTORY: pat preoperative evaluation COMPARISON STUDY: 10/01/2019 FINDINGS: Chronic left basilar interstitial/fibrotic change. Lungs otherwise appear clear. Diaphragms are smooth. Prior right shoulder arthroplasty. Postoperative changes low cervical and upper thoracic region. Chronic separation left acromioclavicular joint. IMPRESSION: Chronic change. No acute process. ACT 112: Negative or not required by law. The above report was generated using voice recognition software. It may contain grammatical, syntax or spelling errors. Electronically signed by: Yohan Otto M.D. 11/06/2019 11:42 AM
[2019-11-06 12:14] LABS: Basophils # (auto) 0.01 K/uL (0-0.2); Basophils % (auto) 0.2 %; Eosinophils # (auto) 0.23 K/uL (0-0.5); Eosinophils % (auto) 3.5 %; Hematocrit (blood only) 44.6 % (42-52); Hemoglobin 14.1 g/dL (14.0-18.0); Immature Granulocytes # (auto) 0.05 K/uL (0.00-0.02); Immature Granulocytes % (auto) 0.8 %; Lymphocytes # (auto) 1.16 K/uL (1.2-3.4); Lymphocytes % (auto) 17.5 %; Mean Corpuscular Hemoglobin 27.2 pg (25-34); Mean Corpuscular Hgb Conc 31.6 g/dL (32-36); Mean Corpuscular Volume 86.1 fL (80-100); Mean Platelet Volume 10.2 fL (7.4-10.4); Monocytes # (auto) 0.73 K/uL (0.11-0.59); Neutrophils # (auto) 4.45 K/uL (1.4-6.5); Platelet Count 238 K/uL (130-400); RDW Coefficient of Variation 13.7 % (11.5-14.5); RDW Standard Deviation 42.7 fL (36.4-46.3); Red Blood Count 5.18 M/uL (4.7-6.1); White Blood Count 6.63 K/uL (4.8-10.8)
[2019-11-06 12:18] LABS: Appearance Urine Clear (Clear); Bilirubin Urine Negative (Negative); Blood Urine Negative (Negative); Color Urine Yellow; Glucose Urine UA Negative (Negative); Ketones Urine Negative (Negative); Leukocyte Esterase Urine Negative (Negative); Nitrite Urine Negative (Negative); Protein Urine Negative (Negative); Urobilinogen Urine Negative (Negative); pH Urine 6.5 (4.5-7.5)
[2019-11-06 12:21] LABS: Albumin Level 3.5 gm/dl (3.4-5.0); BUN Creatinine Ratio 15.7 (10-20); Calcium 8.2 mg/dl (8.5-10.1); Creatinine Clr Calc Pharmacy 71.3 ml/min; Est GFR (African American) 75.7; Est GFR (Non-African American) 65.3; Potassium 3.9 mmol/L (3.5-5.1)
[2019-11-06 12:29] LABS: Partial Thromboplastin Time 27.7 Seconds (21.0-31.0); Prothrombin Time 10.3 Seconds (9.0-12.0)
[2019-11-06 12:31] LABS: Estimated Average Glucose 120 mg/dl; Hemoglobin A1C 5.8 % (4.5-5.6)
--- NOTE | 2019-12-02 20:09 | History and Physical Report ---
DATE OF ADMISSION: 12/03/2019 CHIEF COMPLAINT: Chronic left shoulder pain and weakness. HISTORY OF PRESENT ILLNESS: This is a 74-year-old male patient of Dr. Webb'phill complaining of chronic left shoulder pain and weakness, longstanding, now progressively getting worse. The patient has failed conservative treatment including arthroscopic surgery in the past. MRI has confirmed a rotator cuff arthropathy and wishes to proceed with a left reversed total shoulder arthroplasty. PAST MEDICAL HISTORY: Hypertension, hypercholesterolemia, asthma, pulmonary embolism, chronic cough, sleep apnea with use of CPAP, anxiety, history of mini stroke, DVT, osteoarthritis, spine problems, neck problems, acid reflux, obesity, dentures. SOCIAL HISTORY: Occasional smoker, nondrinker. Uses marijuana. PAST SURGICAL HISTORY: Colonoscopy, endoscopy, right hand, hernia, back surgery, multiple right total shoulder and tonsillectomy. FAMILY HISTORY: Noncontributory. REVIEW OF SYSTEMS: Chronic left shoulder pain and weakness. Otherwise, denies any shortness of breath, chest pain, nausea, vomiting or any other joint complaints. MEDICATIONS: 1. Albuterol sulfate 90 mcg actuation every 4 hours as needed. 2. Aspirin 81 mg daily. 3. benzonatate 100 mg 3 times daily. 4. Symbicort 2 puffs twice daily. 5. Buspirone 10 mg twice daily. 6. Vitamin D3 daily. 7. Plavix 75 mg daily. 8. Cyclobenzaprine 5 mg daily. 9. Benadryl 25 mg as needed. 10. Pepcid 40 mg daily as needed. 11. Iron tablet 324 mg daily as needed. 12. Fluoxetine 20 mg daily. 13. Fluoxetine 40 mg daily as needed. 14. Furosemide 40 mg twice daily. 15. Ipratropium nebulizer as needed. 16. Isosorbide nitrate extended release p.o. as needed. 17. Metoprolol 25 mg daily. 18. Montelukast 10 mg at bedtime. 19. Naprosyn as needed. 20. Pantoprazole 40 mg daily. 21. Potassium chloride 20 mEq daily. 22. Pravastatin 40 mg daily. 23. Prednisone 20 mg tablets 2 tablets in the morning. 24. Tamsulosin 0.4 mg daily. ALLERGIES: MORPHINE, QUINOLONES AND LEVOFLOXACIN. PHYSICAL EXAMINATION: GENERAL: Well-developed, well-nourished 74-year-old male in no acute distress. He is alert and oriented x3 and pleasant. HEENT: Normocephalic, atraumatic. Extraocular motions are intact. Pupils are equal and reactive to light. HEART: Regular rate and rhythm, no murmurs. LUNGS: Clear. ABDOMEN: Soft, nontender, bowel sounds present. EXTREMITIES: Left upper extremity active range of motion of 0-100, passively full with pain and crepitation. He has 3/5 strength globally. Neurologically and neurovascularly he is intact in his left upper extremity. DIAGNOSES: Left shoulder rotator cuff arthropathy, hypertension, hypercholesterolemia, asthma, pulmonary embolism, chronic cough, chronic obstructive pulmonary disease, sleep apnea with the use of CPAP, anxiety, history of transient ischemic attack, history of deep venous thrombosis, osteoarthritis, neck problems, spine problems, acid reflux, obesity, kidney failure, dentures. PLAN: The patient was advised of his diagnosis. Indications, risks, benefits, postop course have all been reviewed. The patient wished to proceed with a left reverse total shoulder arthroplasty. Necessary consent forms, preoperative testing and clearances will be obtained. MARCELA
[~2019-12-03 07:59] MED LIST changes: +BUPIVACAINE 0.5 % 5 MG/1 ML PF 10ML VIAL ONE; -CEFAZOLIN 2000MG 2,000 MG/15 ML SYR IV SCH; +EPINEPHrine INJ 1 MG/ML AMP ONE; +GABAPENTIN 300 MG CAP PO SCH; -GABAPENTIN 300 MG PO SCH; -ROPIVACAINE 0.5% HCL/PF 150 MG, BUPIVACAINE 0.5% MPF 30 ML, EPINEPHrine 30MG/30ML (OR U... INFIL SCH; +VANCOMYCIN HCL 1,750 MG in SODIUM CHLORIDE 0.9% 500 ML IV SCH
[2019-12-03] MEDS ORDERED: MIDAZOLAM HCL 1 MG/ML 2ML VIAL ONE (08:52)
[2019-12-03] MEDS ORDERED: fentaNYL citrate 100 MCG/2 ML VIAL ONE ×2 (08:52→12:55)
[2019-12-03] MEDS ORDERED: GLYCOPYRROLATE 0.2 MG/ML VIAL ONE (08:52)
[2019-12-03] MEDS ORDERED: LIDOCAINE HCL 2% 2 ML VIAL/AMP(20MG/ML) INFIL ONE (08:52)
[2019-12-03] MEDS ORDERED: PROPOFOL IV EMULSION 10 MG/ML 20 ML VIAL IV ONE (08:52)
[2019-12-03] MEDS ORDERED: NEOSTIGMINE METHYLSULFATE 5 MG/5 ML SYR ONE (08:52)
[2019-12-03] MEDS ORDERED: ONDANSETRON INJ 2 MG/ML 2 ML VIAL ONE ×2 (08:52→13:04)
[2019-12-03] MEDS ORDERED: ROCURONIUM BROMIDE 10 MG/ML 5 ML VIAL IV ONE ×3 (08:53→11:45)
[2019-12-03] MEDS ORDERED: SODIUM CHLORIDE 0.9% INJ 10 ML VIAL ONE (08:56)
[2019-12-03] MEDS ORDERED: ATROPINE SULFATE 0.1 MG/ML 10ML SYR IV PRN (09:03)
[2019-12-03] MEDS ORDERED: ePHEDrine sulfate 50 MG/ML AMP IV PRN (09:03)
[2019-12-03] MEDS ORDERED: fentaNYL citrate 100 MCG/2 ML VIAL IV PRN (09:03)
[2019-12-03] MEDS ORDERED: ONDANSETRON INJ 2 MG/ML 2 ML VIAL IV PRN ×2 (09:03→14:45)
--- NOTE | 2019-12-03 09:20 | History & Physical Bridge Note ---
Date of Service December 03, 2019 History & Physical Bridge Note I have examined the patient, reviewed the History & Physical and in the interval since the performance of the History & Physical I have noted the following changes of clinical significance: no changes noted
[2019-12-03] MEDS ORDERED: BACITRACIN INJ 50,000 UNIT VIAL ONE (10:26)
[2019-12-03] MEDS ORDERED: SUGAMMADEX SODIUM 200 MG/2 ML VIAL IV ONE (10:57)
[2019-12-03] MEDS ORDERED: HYDROCORTISONE SOD SUCCINATE 100 MG/2 ML VIAL ONE (11:01)
--- NOTE | 2019-12-03 13:38 | Operative Report ---
Post Operative Report Pre & Post Diagnosis Operation Date: 12/03/19 10:50 Pre-Op Diagnosis: Osteoarthritis, Left Shoulder Post-Op Diagnosis: Osteoarthritis, Left Shoulder I identified the patient and participated in the time-out.: Yes Procedure Operation Date: 12/03/19 10:50 Actual Procedures p Left Reverse Total Shoulder Arthroplasty(Left) - Abelardo Webb MD Surgeon Abelardo Webb MD Drums Teacher LELA Aragon Estimated Blood Loss 75 Findings Consistent with Post-Op Diagnosis Specimens Humeral head Drains 2 Hemovac Anesthesia Type General Regional Complications none Disposition Accompanied Patient To Recovery: No Disposition: Recovery Room Indications 74-year-old male with severe osteoarthritis left shoulder. History of previous shoulder surgery in the past. Patient now with rotator cuff tendinopathy and end-stage glenohumeral osteoarthritis grade 4 osteoarthritis. Description of Procedure The patient was taken to the operating room and anesthetized under regional block and general anesthetic. Due to medical comorbidities a-line placement was also performed by anesthesia. The patient was positioned on the operating table in a 30 beachchair position with a towel roll under the medial border of the left scapula. The arm was draped free to be able to manipulate the shoulder as needed. The left upper extremity was prepped and draped in usual sterile fashion. Exam demonstrated [id number] crepitation 120 degrees forward elevation 90 degrees abduction 30 degrees external rotation. An anterior deltopectoral approach was performed. A longitudinal incision was made in the deltopectoral interval. The skin was incised sharply. Subcutaneous flaps were elevated off the fascia. The cephalic vein was dissected out and retracted lateral with the deltoid. The clavipectoral fascia was divided at the lateral margin of the conjoined tendon and extended up to the CA ligament. The following findings were noted there was chronic bursitis over the rotator cuff. The subscapularis tendon was intact. The supraspinatus tendon had tendinopathy but was still intact. The infraspinatus and teres minor were intact. Biceps tendon was either tied down or scarred in the bicipital groove. There was no intra-articular biceps.. The upper centimeter of the pectoralis was released for inferior exposure. . the biceps tendon was left alone is scarred position adjacent to the falciform ligament. The subscapularis tendon was taken down off the lesser tuberosity using a subperiosteal dissection. A #1 Vicryl traction suture was placed into the free end of the subscapularis tendon and capsule. The subscapular muscle fibers were split longitudinally at the level of the circumflex vessels. The circumflex vessels were identified and tied off with silk ties and divided laterally. A Kitner elevator was used to free up the inferior fibers of the subscapularis off of the capsule. The axillary nerve was identified with a tug test and protected with a blunt Lopez retractor between the nerve and the capsule. The subscapularis tendon was then taken down off of the lesser tu berosity subperiosteally and subperiosteal dissection was performed along the neck of the humerus as the arm is gradually externally rotated exposing the humeral head. The humeral head findings demonstrated large inferior humeral osteophytes and osteophyte extending onto the neck of the humerus. There is also superior humeral osteophyte adjacent to the rotator cuff. There was grade 4 advanced osteoarthritis and humeral head.. retractors were readjusted and the inferior osteophytes were all resected using an artist chisel. A Killian elevator was used to assist in releasing the capsule of the neck of the humerus. The capsule was divided with Wilson scissors down to the glenoid released off the anterior glenoid and the rotator interval was released to meet the capsular release and a 360 release of the subscapularis was accomplished. A Fukuda retractor was placed into the joint retracting the humeral head posterior. Glenoid findings demonstrated eccentric posterior wear on the glenoid with a subtle B2 type glenoid. Subchondral cystic changes and degenerative labrum tissue. There is a posterior inferior osteophyte on the glenoid. The labrum was resected. an anterior-inferior and posterior inferior capsular release were performed with electrocautery and a Killian elevator on bone with the axillary nerve protected inferiorly by the retractor. The osteophyte was resected. Attention was then taken to the humeral preparation. The cutting guide was placed into the humeral head. It was positioned at 20 of retroversion. Oscillating saw was used to resect the humeral head giving the cut above the level of the posterior rotator cuff insertion site. The humerus was then prepared for the stem. I used the ascend flex stem from [employer]. The sizing broaches were used followed by trial broaches up to a size 6B long which had the appropriate fit and fill. The appropriate sized cut protector was placed. The humerus was then retracted posterior to the glenoid. The glenoid was sized for a 29. The guide for the baseplate was positioned in a 10 inferior tilt and the central drill hole was made. The reamer for the 29 baseplate was used. The central drill was widened for the peg. The aequalis 29 mm hydroxyapatite-coated baseplate baseplate was impacted into position. The base plate was transfixed with superior and inferior locking screws and anterior and posterior compression screws with stable fixation. The fan reamer was used for the 42 millimeter glenoid sphere. After irrigation the 42 standard glenoid sphere was impacted onto the baseplate and the screw was tightened. Attention was taken back to the humerus. The cut protector was removed and the +0 high offset humeral tray trial was assembled to the trial stem rotated appropriately to get bony coverage and then screwed in position. A trial reduction was performed. A +6 trial insert demonstrated good stability and no shuck. The trials were removed. 3 drill holes are made into the harder bone in the bicipital groove area and 3 #5 FiberWire sutures were placed transosseously. The canal was irrigated with antibiotic solution with bacitracin. The final component was assembled. The final component was 6B long ascend flex PTC stem assembled to plus or high offset 3.5 mm tray with a 42 mm +6 reversed insert polyethylene. This was then impacted into the humerus with a tight press-fit. It was reduced to the glenoid sphere. Stability was verified. Subscapularis was repaired with the #5 FiberWire sutures using Chidi-Tahir suture technique. Lateral row soft tissue repair was performed with #2 FiberWire [id number] sutures. The pectoralis was repaired with #2 FiberWire [id number] sutures reinforcing the biceps tendon tenodesis. The arm was taken through a range of motion which demonstrated 140 degrees forward flexion and 110 degrees abduction and 45 degrees external rotation without tension on repair. The implant was stable through the range of motion tested. The wound was copiously irrigated. 2 Hemovac drains were placed. The deltopectoral interval was closed with [id number] #1 Vicryl sutures. The subcutaneous tissues were closed with 2- 0 Vicryl sutures. The skin was closed with caleb. Sterile dressings were applied and a shoulder immobilizer. LELA Aragon my physician veterinary assistant assisted in the procedure to the entire procedure including patient positioning arm positioning prepping and draping soft tissue retraction instrument management suture management and performed the subcutaneous and skin closure and will participate in the postoperative care of the patient. I attest to the content of the Intraoperative Record and any orders documented therein. Any exceptions are noted below.
--- NOTE | 2019-12-03 14:06 | XRay Report ---
XR shoulder LT min 2V routine CLINICAL HISTORY: Post shoulder surgery COMPARISON STUDY: None. FINDINGS: Status post left reverse total shoulder arthroplasty. The hardware is intact. No fracture o r dislocation. Skin caleb and surgical drains are in place. Resection of the distal left clavicle i s also noted. IMPRESSION: Status post reverse left total shoulder arthroplasty. No evidence for hardware complicat ion. ACT 112: Negative or not required by law. Electronically signed by: Jonathan Fitzpatrick M.D. 12/03/2019 2:05 PM
--- NOTE | 2019-12-03 14:16 | Anesthesiology Progress Note ---
Date of Service December 03, 2019 Anesthesia Post Procedure Vital Signs Vital Signs: Temp Pulse Pulse Resp BP Pulse Ox 12/03/19 14:10 80 16 162/82 H 94 12/03/19 14:00 77 16 144/91 H 96 12/03/19 13:50 80 16 152/82 H 96 12/03/19 13:40 91 H 16 159/88 H 94 12/03/19 13:34 36.7 C 75 16 158/83 H 94 12/03/19 10:00 36.5 C 74 18 124/85 93 12/03/19 09:25 36.8 C 70 20 137/91 95 Pain Intensity Left Shoulder: Pain Intensity: 0 Transfer of Care Handoff Completed per policy Notes Mental Status: alert / awake / arousable and participated in evaluation Patient Amnestic to Procedure: Yes Nausea / Vomiting: adequately controlled Pain: adequately controlled Airway Patency, RR, SpO2: stable & adequate BP & HR: stable & adequate Hydration State: stable & adequate Anesthetic Complications: no major complications apparent and Pt Satisfied with anesthetic care
[2019-12-03] MEDS ORDERED: BENZONATATE 100 MG CAPSULE PO PRN (14:45)
[2019-12-03] MEDS ORDERED: MAGNESIUM HYDROXIDE SUSP 30 ML UDC PO PRN (14:45)
[2019-12-03] MEDS ORDERED: CYCLOBENZAPRINE HCL 5 MG TAB PO PRN (14:45)
[2019-12-03] MEDS ORDERED: NALOXONE HCL 0.4 MG/1 ML VIAL/CARP IV PRN (14:45)
[2019-12-03] MEDS ORDERED: ALBUT/IPRATROP 3MG/0.5MG NEB 3 ML VIAL INH PRN (14:45)
[2019-12-03] MEDS ORDERED: HYDROmorphone INJ 0.5 MG/0.5 ML SYR IV PRN (14:45)
[2019-12-03] MEDS ORDERED: LAVAGE SOLUTION 4000ML PO SCH (14:45)
[2019-12-03] MEDS ORDERED: bisacodyL 10 MG SUPP PR PRN (14:45)
[2019-12-03] MEDS ORDERED: ALBUTEROL HFA 8 GM INHALER INH PRN (14:45)
[2019-12-03] MEDS: CEFAZOLIN 2000MG 2,000 MG/15 ML SYR IV SCH (16:33)
[2019-12-03] MEDS: FUROSEMIDE 40 MG TAB PO SCH (16:33)
[2019-12-03] MEDS: POTASSIUM CHLORIDE 20 MEQ TABCR PO SCH (16:33)
[2019-12-03] MEDS: ACETAMINOPHEN 500 MG TAB PO SCH ×2 (16:34→20:18)
[2019-12-03] MEDS: SODIUM CHLORIDE 0.9% 1000ML 1,000 ML IV SCH (16:34)
[2019-12-03] MEDS: SENNA 8.6 MG TAB PO SCH (20:18)
[2019-12-03] MEDS: DOCUSATE SODIUM 100 MG CAP PO SCH (20:19)
[2019-12-03] MEDS: MONTELUKAST SODIUM 10 MG TABLET PO SCH (20:19)
[2019-12-03] MEDS: FAMOTIDINE 40 MG TABLET PO SCH (20:20)
[2019-12-03] MEDS: PRAVASTATIN SOD 40 MG TAB PO SCH (20:20)
[2019-12-03] MEDS: TAMSULOSIN HCL 0.4 MG CAP PO SCH (20:21)
[2019-12-04] MEDS: CEFAZOLIN 2000MG 2,000 MG/15 ML SYR IV SCH (00:17)
[2019-12-04] MEDS: SODIUM CHLORIDE 0.9% 1000ML 1,000 ML IV SCH (02:49)
[2019-12-04] MEDS: ACETAMINOPHEN 500 MG TAB PO SCH ×3 (05:34→20:07)
[2019-12-04] MEDS: OXYCODONE HCL IR 5 MG TAB (IMMEDIATE RELEASE) PO PRN ×2 (06:12→10:30)
[2019-12-04 07:25] LABS: Hemoglobin 13.2 g/dL (14.0-18.0); Immature Granulocytes # (auto) 0.06 K/uL (0.00-0.02); Immature Granulocytes % (auto) 0.5 %; Lymphocytes # (auto) 0.88 K/uL (1.2-3.4); Lymphocytes % (auto) 6.6 %; Mean Corpuscular Hemoglobin 28.4 pg (25-34); Mean Corpuscular Volume 86.2 fL (80-100); Mean Platelet Volume 10.2 fL (7.4-10.4); Monocytes # (auto) 1.09 K/uL (0.11-0.59); Monocytes % (auto) 8.2 %; Neutrophils # (auto) 11.23 K/uL (1.4-6.5); Neutrophils % (auto) 84.7 %; Platelet Count 248 K/uL (130-400); RDW Coefficient of Variation 13.6 % (11.5-14.5); RDW Standard Deviation 42.8 fL (36.4-46.3); Red Blood Count 4.64 M/uL (4.7-6.1); White Blood Count 13.26 K/uL (4.8-10.8)
[2019-12-04 07:51] LABS: BUN Creatinine Ratio 16.7 (10-20); Calcium 8.4 mg/dl (8.5-10.1); Creatinine Clr Calc Pharmacy 67.2 ml/min; Est GFR (African American) 69.6; Est GFR (Non-African American) 60.1; Potassium 4.2 mmol/L (3.5-5.1)
[2019-12-04] MEDS: FAMOTIDINE 40 MG TABLET PO SCH ×2 (08:20→20:06)
[2019-12-04] MEDS: predniSONE 20 MG TAB PO SCH (08:21)
[2019-12-04] MEDS: POTASSIUM CHLORIDE 20 MEQ TABCR PO SCH ×2 (08:21→15:57)
[2019-12-04] MEDS: FLUOXETINE HCL 20 MG CAP PO SCH (08:21)
[2019-12-04] MEDS: METOPROLOL SUCC 25MG EXT REL TAB PO SCH (08:21)
[2019-12-04] MEDS: DOCUSATE SODIUM 100 MG CAP PO SCH ×2 (08:21→20:08)
[2019-12-04] MEDS: CLOPIDOGREL BISULFATE 75 MG TAB PO SCH (08:21)
[2019-12-04] MEDS: FERROUS SULFATE 325 MG TAB PO SCH (08:21)
[2019-12-04] MEDS: ASPIRIN 81 MG ECTAB PO SCH (08:22)
[2019-12-04] MEDS: ISOSORBIDE MONO EXTENDED REL 30 MG TABCR PO SCH (08:22)
[2019-12-04] MEDS: FUROSEMIDE 40 MG TAB PO SCH ×2 (08:22→15:57)
[2019-12-04] MEDS: MULTIVITAMIN TAB PO SCH (08:22)
[2019-12-04] MEDS: PANTOprazole 40 MG TAB PO SCH (08:22)
[2019-12-04] MEDS: CHOLECALCIFEROL 1,000 UNITS 25 MCG TAB PO SCH (08:22)
[2019-12-04] MEDS: FLUTICASONE/VILANTEROL 100/25MCG 14 PUFFS/INHALER INH SCH (08:23)
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
[2019-12-04] MEDS ORDERED: FLUOXETINE HCL 20 MG CAP PO SCH (09:00)
--- NOTE | 2019-12-04 09:00 | Orthopedic Progress Note ---
Date of Service December 04, 2019 Assessment & Plan (1) Status post reverse arthroplasty of left shoulder: POD #1, Left reverse TSA Limited PT/ OT DVT proph- ASA and plavix D/C plans- Home w HH As per medicine Can transfer to med/ surg per Dr. Webb Admission and Anticipated Discharge Date Admission Date: December 03, 2019 Subjective POD #1, doing well. Denies SOB, CP, N/V, Dizziness Pain controlled well this AM Wishes home w HH on D/C Physical Exam Physical Exam: Left shoulder dressings c/d/i, no drainagge. Fingers mobile. Sling in tact. A&Ox3 Results & Data ([facility]) Vital Signs (Past 12 Hours) Vital Signs Temp Pulse Pulse Resp BP Pulse Ox 12/04/19 07:33 36.7 C 70 19 129/73 95 12/04/19 03:19 36.7 C 70 18 127/75 93 12/04/19 00:51 75 12/03/19 23:51 36.7 C 20 129/79 94
[2019-12-04] MEDS ORDERED: LORazepam 0.5 MG/1 ML VIAL IV STA (14:10)
[2019-12-04] MEDS ORDERED: QUETIAPINE FUMARATE 25 MG TABLET PO PRN (14:38)
[2019-12-04] MEDS ORDERED: LORazepam 1 MG TAB PO PRN (16:15)
[2019-12-04] MEDS: PRAVASTATIN SOD 40 MG TAB PO SCH (20:05)
[2019-12-04] MEDS: MONTELUKAST SODIUM 10 MG TABLET PO SCH (20:05)
[2019-12-04] MEDS: TAMSULOSIN HCL 0.4 MG CAP PO SCH (20:06)
[2019-12-04] MEDS: SENNA 8.6 MG TAB PO SCH (20:08)
[2019-12-05] MEDS: ACETAMINOPHEN 500 MG TAB PO SCH ×2 (05:58→14:51)
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
[2019-12-05] MEDS: DOCUSATE SODIUM 100 MG CAP PO SCH (08:54)
[2019-12-05] MEDS: ASPIRIN 81 MG ECTAB PO SCH (08:55)
[2019-12-05] MEDS: POTASSIUM CHLORIDE 20 MEQ TABCR PO SCH ×2 (08:55→17:39)
[2019-12-05] MEDS: FUROSEMIDE 40 MG TAB PO SCH ×2 (08:55→17:39)
[2019-12-05] MEDS: CLOPIDOGREL BISULFATE 75 MG TAB PO SCH (08:55)
[2019-12-05] MEDS: FAMOTIDINE 40 MG TABLET PO SCH (08:55)
[2019-12-05] MEDS: predniSONE 20 MG TAB PO SCH (08:55)
[2019-12-05] MEDS: FERROUS SULFATE 325 MG TAB PO SCH (08:55)
[2019-12-05] MEDS: FLUOXETINE HCL 20 MG CAP PO SCH (08:55)
[2019-12-05] MEDS: MULTIVITAMIN TAB PO SCH (08:55)
[2019-12-05] MEDS: ISOSORBIDE MONO EXTENDED REL 30 MG TABCR PO SCH (08:55)
[2019-12-05] MEDS: METOPROLOL SUCC 25MG EXT REL TAB PO SCH (08:56)
[2019-12-05] MEDS: FLUTICASONE/VILANTEROL 100/25MCG 14 PUFFS/INHALER INH SCH (08:56)
[2019-12-05] MEDS: CHOLECALCIFEROL 1,000 UNITS 25 MCG TAB PO SCH (08:56)
[2019-12-05] MEDS: PANTOprazole 40 MG TAB PO SCH (08:56)
--- NOTE | 2019-12-05 10:25 | Orthopedic Progress Note ---
Date of Service December 05, 2019 Assessment & Plan (1) Status post reverse arthroplasty of left shoulder: POD #2, Left reverse TSA Limited PT/ OT DVT proph- ASA and plavix D/C plans- Home w HH As per medicine Admission and Anticipated Discharge Date Admission Date: December 03, 2019 Subjective POD #2, doing well. sitting in chair Denies SOB, CP, N/V, Dizziness Physical Exam Physical Exam: Fingers mobile, NVI. Calves soft, non tender. Dressing in place. Results & Data ([facility]) Vital Signs (Past 12 Hours) Vital Signs Temp Pulse Pulse Resp BP Pulse Ox 12/05/19 09:00 97 H 12/05/19 07:48 36.9 C 76 18 144/75 H 92 12/05/19 03:47 36.5 C 70 20 127/66 95 12/04/19 23:10 36.7 C 80 20 160/80 H 97
[2019-12-05 12:58] LABS: Basophils # (auto) 0.01 K/uL (0-0.2); Basophils % (auto) 0.1 %; Eosinophils # (auto) 0.03 K/uL (0-0.5); Eosinophils % (auto) 0.3 %; Hematocrit (blood only) 42.4 % (42-52); Hemoglobin 13.6 g/dL (14.0-18.0); Immature Granulocytes # (auto) 0.05 K/uL (0.00-0.02); Immature Granulocytes % (auto) 0.5 %; Lymphocytes # (auto) 0.72 K/uL (1.2-3.4); Lymphocytes % (auto) 7.4 %; Mean Corpuscular Hemoglobin 27.8 pg (25-34); Mean Corpuscular Hgb Conc 32.1 g/dL (32-36); Mean Corpuscular Volume 86.5 fL (80-100); Mean Platelet Volume 9.7 fL (7.4-10.4); Monocytes # (auto) 0.58 K/uL (0.11-0.59); Monocytes % (auto) 5.9 %; Neutrophils # (auto) 8.36 K/uL (1.4-6.5); Neutrophils % (auto) 85.8 %; Platelet Count 238 K/uL (130-400); RDW Coefficient of Variation 13.7 % (11.5-14.5); RDW Standard Deviation 43.1 fL (36.4-46.3); White Blood Count 9.75 K/uL (4.8-10.8)
[2019-12-05 13:27] LABS: BUN Creatinine Ratio 14.5 (10-20); Calcium 8.2 mg/dl (8.5-10.1); Creatinine Clr Calc Pharmacy 58.9 ml/min; Est GFR (African American) 59.8; Est GFR (Non-African American) 51.6; Potassium 4.1 mmol/L (3.5-5.1)
--- NOTE | 2019-12-05 14:35 | Psychiatric Consultation ---
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 08:21 Dose: 325 mg Documented by: [id number] Fluoxetine HCl (Fluoxetine Hcl 20 Mg Cap) 60 mg PO QAM ALEXANDRA Stop: 01/03/20 08:59 Last Admin: 12/05/19 08:55 Dose: 60 mg Documented by: [id number] Admin: 12/04/19 08:21 Dose: 60 mg Documented by: [id number] Fluticasone/Vilanterol (Fluticasone/Vilanterol 100/25mcg 14 Puffs/Inhaler) 1 puffs INH DAILY ALEXANDRA Stop: 01/03/20 08:59 Last Admin: 12/05/19 08:56 Dose: 1 puffs Documented by: [id number] Admin: 12/04/19 08:23 Dose: 1 puffs Documented by: [id number] Furosemide (Furosemide 40 Mg Tab) 40 mg PO BID17 ALEXANDRA Stop: 01/02/20 16:59 Last Admin: 12/05/19 08:55 Dose: 40 mg Documented by: [id number] Admin: 12/04/19 15:57 Dose: 40 mg Documented by: [id number] Admin: 12/04/19 08:22 Dose: 40 mg Documented by: [id number] Admin: 12/03/19 16:33 Dose: 40 mg Documented by: [id number] Isosorbide Mononitrate (Isosorbide [place] Extended Rel 30 Mg Tabcr) 30 mg PO [facility] Stop: 01/03/20 08:59 Last Admin: 12/05/19 08:55 Dose: 30 mg Documented by: [id number] Admin: 12/04/19 08:22 Dose: 30 mg Documented by: [id number] Lorazepam (Lorazepam 1 Mg Tab) 1 mg PO Q4H PRN PRN Reason: Agitation Stop: 01/03/20 16:14 Last Admin: 12/05/19 06:22 Dose: 1 mg Documented by: [id number] Metoprolol Succinate (Metoprolol Succ 25mg Ext Rel Tab) 25 mg PO [facility] Stop: 01/03/20 08:59 Last Admin: 12/05/19 08:56 Dose: 25 mg Documented by: [id number] Admin: 12/04/19 08:21 Dose: 25 mg Documented by: [id number] Montelukast Sodium (Montelukast Sodium 10 Mg Tablet) 10 mg PO [facility] Stop: 01/02/20 20:59 Last Admin: 12/04/19 20:05 Dose: 10 mg Documented by: [id number] Admin: 12/03/19 20:19 Dose: 10 mg Documented by: [id number] Multivitamins (Multivitamin Tab) 1 tab PO [facility] Stop: 01/03/20 08:59 Last Admin: 12/05/19 08:55 Dose: 1 tab Documented by: [id number] Admin: 12/04/19 08:22 Dose: 1 tab Documented by: [id number] Oxycodone HCl (Oxycodone Hcl Ir 5 Mg Tab (Immediate Release)) 5 - 10 mg PO Q4H PRN PRN Reason: Pain or Pre PT Stop: 12/17/19 14:44 Last Admin: 12/04/19 10:30 Dose: 10 mg Documented by: [id number] Admin: 12/04/19 06:12 Dose: 5 mg Documented by: [id number] Pantoprazole Sodium (Pantoprazole 40 Mg Tab) 40 mg PO [facility] Stop: 01/03/20 08:59 Last Admin: 12/05/19 08:56 Dose: 40 mg Documented by: [id number] Admin: 12/04/19 08:22 Dose: 40 mg Documented by: [id number] Potassium Chloride (Potassium Chloride 20 Meq Tabcr) 20 meq PO BID17 ALEXANDRA Stop: 01/02/20 16:59 Last Admin: 12/05/19 08:55 Dose: 20 meq Documented by: [id number] Admin: 12/04/19 15:57 Dose: 20 meq Documented by: [id number] Admin: 12/04/19 08:21 Dose: 20 meq Documented by: [id number] Admin: 12/03/19 16:33 Dose: 20 meq Documented by: [id number] Pravastatin Sodium (Pravastatin Sod 40 Mg Tab) 40 mg PO [facility] Stop: 01/02/20 20:59 Last Admin: 12/04/19 20:05 Dose: 40 mg Documented by: [id number] Admin: 12/03/19 20:20 Dose: 40 mg Documented by: [id number] Prednisone (Prednisone 20 Mg Tab) 40 mg PO DAILY ALEXANDRA Stop: 01/03/20 08:59 Last Admin: 12/05/19 08:55 Dose: 40 mg Documented by: [id number] Admin: 12/04/19 08:21 Dose: 40 mg Documented by: [id number] Sennosides (Senna 8.6 Mg Tab) 17.2 mg PO [facility] Stop: 01/02/20 20:59 Last Admin: 12/04/19 20:08 Dose: Not Given Documented by: [id number] Admin: 12/03/19 20:18 Dose: Not Given Documented by: [id number] Tamsulosin HCl (Tamsulosin Hcl 0.4 Mg Cap) 0.4 mg PO [facility] Stop: 01/02/20 20:59 Last Admin: 12/04/19 20:06 Dose: 0.4 mg Documented by: [id number] Admin: 12/03/19 20:21 Dose: 0.4 mg Documented by: [id number] Vitamin D (Cholecalciferol 1,000 Units 25 Mcg Tab) 1,000 units PO QA ALEXANDRA Stop: 01/03/20 08:59 Last Admin: 12/05/19 08:56 Dose: 1,000 units Documented by: [id number] Admin: 12/04/19 08:22 Dose: 1,000 units Documented by: [id number] Coding Level of Care Code 86152 [facility] Lvl 3
[2019-12-05] MEDS: OXYCODONE HCL IR 5 MG TAB (IMMEDIATE RELEASE) PO PRN (14:51)
--- NOTE | 2019-12-14 13:53 | Discharge Summary (DS) ---
HISTORY OF PRESENT ILLNESS: A 74-year-old male patient of Dr. Webb's complaining of chronic left shoulder pain and weakness, longstanding, progressively getting worse. The patient failed conservative treatment and elected to proceed with a left reverse total shoulder arthroplasty. PAST MEDICAL HISTORY: Hypertension, hypercholesterolemia, asthma, pulmonary embolism, chronic cough, sleep apnea, anxiety, depression, history of mini stroke, DVT, spine problems, acid reflux, and obesity. POSTOPERATIVE COURSE: The patient underwent a left reversed total shoulder arthroplasty on 12/03/2019. He was followed closely with medical consultation, physical therapy and pain control. He will continue his home DVT prophylaxis including aspirin and Plavix. This was restarted postoperative day #1. There were some concerns postoperatively from the nursing staff that the patient may be harmful to himself. He does have a history of anxiety and depression. He is and lives alone. He "used" his fingers to point to his head as if he was going to shoot himself. Psychiatric consultation was obtained. After thorough evaluation and some adjustments of mood altering medications the patient was deemed okay to be discharged and follow closely with outpatient psychiatric care, which is already arranged for this patient. The patient was discharged home on postoperative day 2 with limited home exercise program only. PHYSICAL EXAMINATION: Left shoulder incision was clean, dry and intact. Michael are intact. Skin edges were approximated well. There was no redness or drainage. Sling was intact. Fingers were mobile. Neurologically and neurovascularly he is intact in his left upper extremity. DIAGNOSES: Status post left reversed total shoulder arthroplasty. He has a history of hypertension, anxiety, depression, hypercholesterolemia, asthma, DVT, pulmonary embolism, spine problems, acid reflux, sleep apnea and obesity. PLAN: The patient was discharged home with home health services. He will follow up with his PCP and/or psychiatric team within 1 week of discharge. He will continue his preadmission medications including his blood thinners of Plavix and aspirin. He will follow up with Dr. Webb as scheduled as an outpatient.
== END 2019-12-05 17:51 | disposition home health service (06) | DRG 483 ==
LOC: ASU 07:59 → 2S 13:46

== ENCOUNTER 2024-02-26 13:20 | Inpatient (IN) ==
[2024-02-26 14:30] LABS: Appearance Urine Clear (Clear); Bacteria Urine Automated None Seen (None Seen); Bilirubin Urine Negative (Negative); Blood Urine Negative (Negative); Cast Urine Automated 0-2 /lpf (0-2); Color Urine Yellow; Epithelial Cell Urine Auto 0-2 /hpf (0-2); Glucose Urine UA Negative (Negative); Ketones Urine Trace (Negative); Leukocyte Esterase Urine Trace (Negative); Nitrite Urine Negative (Negative); Protein Urine Negative (Negative); RBC Urine Automated 0-2 /hpf (0-2); Urobilinogen Urine Negative (Negative); WBC Urine Automated 0-5 /hpf (0-5); pH Urine 6.5 (4.5-7.5)
--- NOTE | 2024-02-26 14:33 | XRay Report ---
XR chest 1V portable CLINICAL HISTORY: med clearence, alcohol COMPARISON STUDY: Chest CT February 15, 2021. Chest radiograph July 15, 2021. FINDINGS: Bilateral shoulder arthroplasties and postoperative findings within the spine are incidenta lly noted. There is no pneumothorax or pleural effusion. There is opacity within the lateral right lo wer lung. The left lung is clear. There is no evidence for pulmonary edema. Cardiomediastinal silhoue tte is normal. IMPRESSION: Opacity within the lateral right lower lung. This may reflect pneumonia. Loculated pleur al fluid could appear similar. Radiographic follow-up to ensure resolution is recommended. ACT 112: Negative or not required by law. Electronically signed by: Jesse Gonzalez M.D. 02/26/2024 2:32 PM
[2024-02-26 14:36] LABS: Basophils # (auto) 0.02 K/uL (0.00-0.20); Basophils % (auto) 0.4 %; Eosinophils # (auto) 0.13 K/uL (0.00-0.50); Eosinophils % (auto) 2.6 %; Hematocrit (blood only) 40.1 % (42.0-52.0); Hemoglobin 13.4 g/dl (14.0-18.0); Immature Granulocytes # (auto) 0.01 K/uL (0.01-0.20); Immature Granulocytes % (auto) 0.2 %; Lymphocytes # (auto) 0.94 K/uL (1.20-3.40); Lymphocytes % (auto) 18.8 %; Mean Corpuscular Hemoglobin 27.6 pg (25.0-34.0); Mean Corpuscular Hgb Conc 33.4 g/dL (32.0-36.0); Mean Corpuscular Volume 82.5 fL (80.0-100.0); Monocytes # (auto) 0.39 K/uL (0.11-0.59); Monocytes % (auto) 7.8 %; Neutrophils # (auto) 3.51 K/uL (1.40-6.50); Neutrophils % (auto) 70.2 %; Platelet Count 280 K/uL (130-400); RDW Coefficient of Variation 14.5 % (11.5-14.5); Red Blood Count 4.86 M/uL (4.70-6.10)
--- NOTE | 2024-02-26 14:49 | CT Scan Report ---
CT OF THE HEAD WITHOUT CONTRAST CLINICAL HISTORY: med clearance, alcohol COMPARISON STUDY: MRI of the brain May 28, 2011. Head CT August 26, 2019. CT DOSE: 547.75 mGy.cm TECHNIQUE: Helical axial images of the head were obtained without IV contrast. Automated exposure con trol was utilized for the study. A dose lowering technique was utilized adhering to the principles o f ALARA. FINDINGS: No acute intracranial hemorrhage, midline shift or mass effect is present. Ventricular syst em is unremarkable. Basal cisterns are patent. There are nodular axial collections. White matter hypo density suggests small vessel disease. An old right parietal lobe infarct is present. There is also a small old infarct within the right external capsule. IMPRESSION: 1. No acute intracranial findings. 2. Several old infarcts, as described above. White matter hypodensities suggestive of small vessel di sease. ACT 112: Negative or not required by law. Electronically signed by: Jesse Gonzalez M.D. 02/26/2024 2:47 PM
[2024-02-26 14:51] LABS: Acetaminophen < 3 ug/ml (10-30); Alanine Aminotransferase 12 U/L (7-52); Albumin Globulin Ratio 1.8 (0.9-2); Albumin Level 3.7 gm/dl (3.4-5.0); Alkaline Phosphatase 76 U/L (34-104); Anion Gap 4 (3-11); Aspartate Aminotransferase 16 U/L (13-39); BUN Creatinine Ratio 15.4 (10-20); Bilirubin,Total 0.6 mg/dl (0.2-1.0); Blood Urea Nitrogen 16 mg/dl (6-23); Calcium 9.2 mg/dl (8.6-10.3); Carbon Dioxide 35 mmol/L (21-32); Chloride 102 mmol/L (98-107); Globulin 2.1 gm/dl (2.5-4.0); Glucose 85 mg/dl (70-99(Fasting)); Potassium 4.5 mmol/L (3.5-5.1); Salicylate < 3.0 mg/dl (3.0-30); Sodium 141 mmol/L (136-145); Total Protein 5.8 gm/dl (6.0-8.3)
[2024-02-26 15:06] LABS: Thyroid Stimulating Hormone 2.068 uIu/ml (0.300-4.500)
[2024-02-26 15:21] LABS: Amphetamines+Metham, Urine Neg (Neg); Barbiturates, Urine Neg (Neg); Benzodiazepine, Urine Neg (Neg); Cocaine, Urine Neg (Neg); Fentanyl, Urine Neg (Neg); MDMA (Ecstacy), Urine Neg (Neg); Marijuana, Urine Pos (Neg); Methadone, Urine Neg (Neg); Opiate, Urine Neg (Neg); Phencyclidine, Urine Neg (Neg)
--- NOTE | 2024-02-26 16:08 | Electrocardiogram Report ---
Test Reason : Blood Pressure : */* mmHG Vent. Rate : 61 BPM Atrial Rate : 61 BPM P-R Int : 202 ms QRS Dur : 140 ms QT Int : 424 ms P-R-T Axes : 27 -82 54 degrees QTcB Int : 426 ms Normal sinus rhythm Right bundle branch block Left anterior fascicular block Bifascicular block Septal infarct , age undetermined Abnormal ECG When compared with ECG of 15-Jul-2021 14:36, Left anterior fascicular block is now Present Confirmed by Antoni Mckeon ([id number]) on 02/26/2024 4:06:22 PM Referred By: Confirmed By: Antoni Mckeon
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
[2024-02-26] MEDS: cefTRIAXone SODIUM 2,000 MG/50 ML BAG IV STA (16:57)
[2024-02-26] MEDS: DOXYCYCLINE HYCLATE 100 MG in DEXTROSE 5% MINI-B 100 ML IV SCH (17:21)
[2024-02-26] MEDS ORDERED: GABAPENTIN 1200MG ALCOHOL WITHDRAWAL LOAD PO STA (20:52)
[2024-02-26] MEDS ORDERED: ONDANSETRON INJ 2 MG/ML 2 ML VIAL IV PRN (20:52)
[2024-02-26] MEDS ORDERED: IPRATROPIUM BROMIDE/ALBUTEROL respimat INH INH PRN (20:52)
[2024-02-26] MEDS: NICOTINE 21 MG/24 HR TDSY TD SCH (21:04)
[2024-02-26] MEDS ORDERED: ALBUTEROL HFA INHALER 8.5 GM INH PRN (21:24)
[2024-02-26] MEDS ORDERED: IPRATROPIUM BROMIDE HFA INHALER INH PRN (21:24)
[2024-02-26] MEDS: GABAPENTIN 600 MG TAB PO ONE (21:54)
[2024-02-26] MEDS: FLUTICASONE/VILANTEROL 100/25MCG 14 PUFFS/INHALER INH SCH (22:00)
--- NOTE | 2024-02-26 23:49 | Ultrasound Report ---
Exam(s): US VENOUS BILATERAL LOWER EXTREMITIES EXAM: US Duplex Bilateral Lower Extremities Veins CLINICAL HISTORY: Reason for exam: r/o DVT. TECHNIQUE: Real-time duplex ultrasound scan of the bilateral lower extremity veins integrating B-mode two-dimensional vascular structure, Doppler spectral analysis, color flow Doppler imaging and compression. COMPARISON: No relevant prior studies available. FINDINGS: Right deep veins: There is a small amount of hyperechoic chronic appearing thrombus within incompletely compressible right common femoral, femoral, and popliteal veins. Right superficial veins: Unremarkable. No thrombus in the visualized right great saphenous vein. Left deep veins: Unremarkable. No DVT in the left common femoral, femoral, proximal deep femoral or popliteal veins. The veins demonstrate normal color flow, are normally compressible, with normal phasic flow and/or augmentation response. Left superficial veins: Unremarkable. No thrombus in the visualized left great saphenous vein. Soft tissues: No acute findings. No popliteal cyst. Other findings: No acute thrombus is seen. IMPRESSION: There is a small amount of chronic appearing thrombus within incompletely compressible right common femoral, femoral, and popliteal veins. Electronically signed by: John Ortega MD 02/26/24 23:48 PM
[2024-02-27] MEDS: GABAPENTIN 600 MG TAB PO SCH ×2 (05:11→21:10)
[2024-02-27 07:17] LABS: Hematocrit (blood only) 38.7 % (42.0-52.0); Hemoglobin 12.9 g/dl (14.0-18.0); Mean Corpuscular Hemoglobin 27.6 pg (25.0-34.0); Mean Corpuscular Hgb Conc 33.3 g/dL (32.0-36.0); Mean Corpuscular Volume 82.9 fL (80.0-100.0); Mean Platelet Volume 9.8 fL (9.4-12.4); Platelet Count 245 K/uL (130-400); RDW Coefficient of Variation 14.5 % (11.5-14.5); RDW Standard Deviation 43.5 fL (36.4-46.3); Red Blood Count 4.67 M/uL (4.70-6.10); White Blood Count 4.37 K/ul (4.8-10.8)
[2024-02-27 07:34] LABS: Calcium 8.6 mg/dl (8.6-10.3); Creatinine Clr Calc Pharmacy 60.8 ml/min; Potassium 3.7 mmol/L (3.5-5.1)
--- NOTE | 2024-02-27 08:36 | XRay Report ---
RIGHT ANKLE 3 VIEWS INDICATION: Pain. COMPARISON: None FINDINGS: Bones are osteopenic. Loss of talar bone height; avascular necrosis cannot be excluded. Tibiotalar and subtalar joint spaces are severely decreased with subchondral cysts and sclerosis. Diffuse soft tissue swelling is noted around the ankle joint. IMPRESSION: 1. Osteopenia. 2. Loss of talar bone height; avascular necrosis cannot be excluded. Correlate clinically as regards further evaluation and follow-up. [id number] 3. Severe osteoarthrosis of the ankle joint. [id number] Electronically signed by Murtaza Rosario 02-27-2024 08:32 AM
[2024-02-27] MEDS: FOLIC ACID 1 MG TAB PO SCH (08:46)
[2024-02-27] MEDS: MULTIVITAMIN TAB PO SCH (08:47)
[2024-02-27] MEDS: THIAMINE HCL 100 MG TAB PO SCH (08:47)
[2024-02-27] MEDS: ASPIRIN 81 MG ECTAB PO SCH (08:47)
[2024-02-27] MEDS: ATORVASTATIN 10 MG TAB PO SCH (08:47)
[2024-02-27] MEDS: PANTOprazole 40 MG TAB PO SCH (08:47)
[2024-02-27] MEDS: DOXYCYCLINE HYCLATE 100 MG CAP PO SCH (08:48)
--- NOTE | 2024-02-27 12:49 | Hospitalist Progress Note ---
Date of Service February 27, 2024 Assessment & Plan (1) Unable to care for self: (2) (HFpEF) heart failure with preserved ejection fraction: (3) Chronic obstructive pulmonary disease: (4) Asthma: (5) HLD (hyperlipidemia): (6) Hypertension: Plan Right ankle pain Abnormal right ankle x-ray Right ankle x-ray with loss of patellar bone height, avascular necrosis cannot be excluded. Severe osteoarthritis noted. Patient presented with right ankle pain. Continue pain management, orthopedic consult. Patient reports better pain control. Alcohol Use Chronic Tobacco Use Chronic marijuana Use Hx of IVDA at age 20-40s - Admit to med tele for possible etoh withdrawal, Last drink 02/25/2024 per patient. He drinks about 4 to 5 cans of beer a day. - c/w Gabapentin withdrawal protocol - UDS + for marijuana, negative for alcohol on 02/25 - Nicotine patch for smoking 1 ppd cigarettes - Noted LFTs are fine upon admission - No recent abd US for review as pt apparently reported abd pain to PCP about 2 weeks ago, no abd pain today. Monitor. - CXR reviewed showing possible RLL pna - started on ceftriaxone and doxy in the ER 02/25, will continue x 5-7 days depending on clinical course. No WBC, afebrile. reports chronic cough, concern for possible aspiration pneumonia. Await speech therapy to evelijah. - Add probiotic Chronic DVT, RLE: Patient did get BLE venous Doppler at admission to rule out DVT due to complaint of RLE pain. Venous Doppler positive for small amount of chronic appearing thrombus within incompletely compressible right common femoral, femoral and popliteal veins. patient asymptomatic, no thigh and calf pain. discussed the case with hematology, no anticoagulation needed due to chronic nature of DVT. COPD TANO not on CPAP - Does not use O2 at baseline - Pt has perviously used nebs but is not using any other home inhalers - c/w Symbicort and duonebs prn here HFpEF HLD - Last echo was NM mycoard per study in June 2021 with EF of 65%. - Recent cholesterol panel as OP: Triglycerides 78, cholesterol 136, HDL 57, LDL 63. No need for statin. Hx of DVT - Will check doppler BLE to r/o DVT with hx of such, he is not on blood thinner, mild peripheral edema - asa 81 mg daily Other chronic medical issues: Degenerative disc disease BPH GERD- Protonix degenerative disc disease and spinal stenosis status post lumbar spine fusion - PT/OT DVT ppx: Hep sc Lines: PIV x 1 FEN/GI: Regular diet, speech therapy evaluation CODE: Full code Dispo: From home, likely to remain in the hospital x 1-2 days. PT/OT cm to assist. Admission and Anticipated Discharge Date Admission Date: February 26, 2024 Subjective Patient was seen and examined at bedside. Patient was sitting up in chair, on room air, eating his breakfast, NAD. Patient is not aware why he is in the hospital, he states that he does not have any ankle pain. Patient did answer orientation question, denied any lower extremity pain. Patient appears to be eating okay, denies fever/chest pain/sore throat/belly pain. Patient reports his chronic smoker's cough. Patient reports drinking 4 to 5 cans of beer every day, last drink evening of 02/25/2024 per patient. Physical Exam Physical Exam: General Appearance:Moderately built and nourished, no apparent distress Head: normocephalic, Atraumatic Eyes: normal inspection, EOMI Neck: supple, Trachea midline Respiratory/Chest: Decreased breath sounds 2/2 poor effort, No accessory muscle use Cardiovascular: S1, S2, No murmur Abdomen/GI:Soft, Non tender, Bowel sounds present Extremities/Musculoskeletal:normal inspection, RLE trace edema, no tenderness or swelling or erythema x RLE. Neurologic/Psych:AAOX2, grossly no focal neurological deficits Skin: normal color, warm Results & Data Results & Data Vital Signs (Past 12 Hours) Vital Signs Temp Pulse Pulse Resp BP Pulse Ox O2 Del Method 02/27/24 11:14 36.6 C 61 18 112/71 96 Room Air 02/27/24 10:45 Room Air 02/27/24 08:06 36.9 C 60 20 119/72 90 Room Air 02/27/24 07:09 59 L 02/27/24 04:30 36.5 C 56 L 18 112/67 91 Room Air
[2024-02-27] MEDS: cefTRIAXone SODIUM 2,000 MG/50 ML BAG IV SCH (16:09)
[2024-02-28 07:09] LABS: Hematocrit (blood only) 40.2 % (42.0-52.0); Hemoglobin 13.4 g/dl (14.0-18.0); Mean Corpuscular Hemoglobin 27.7 pg (25.0-34.0); Mean Corpuscular Hgb Conc 33.3 g/dL (32.0-36.0); Mean Corpuscular Volume 83.2 fL (80.0-100.0); Mean Platelet Volume 10.3 fL (9.4-12.4); Platelet Count 250 K/uL (130-400); RDW Coefficient of Variation 14.3 % (11.5-14.5); RDW Standard Deviation 43.4 fL (36.4-46.3); Red Blood Count 4.83 M/uL (4.70-6.10); White Blood Count 4.36 K/ul (4.8-10.8)
[2024-02-28] MEDS: ADVANCED PROBIOTIC 625 MG CAPSULE PO SCH (08:19)
--- NOTE | 2024-02-28 09:14 | Orthopedic Progress Note ---
Date of Service February 28, 2024 Assessment & Plan (1) Arthritis of right ankle: (2) Unable to care for self: (3) Dementia: (4) Alcohol use disorder: (5) History of DVT (deep vein thrombosis): (6) Obstructive sleep apnea: (7) Polysubstance abuse: (8) Anxiety: (9) Depression: (10) (HFpEF) heart failure with preserved ejection fraction: (11) Cardiovascular arteriosclerosis: (12) Diverticulosis of colon: Plan This is a 78-year-old gentleman who has a quite complex past medical and social history. Patient was admitted with regards to his right ankle as well as failure to thrive and poor living situation. Orthopedics was consulted for his right ankle. On my evaluation, the patient has history, physical exam, imaging findings most consistent with severe osteoarthritis of the right ankle. I do long discussion with the patient regarding the nature of this diagnosis. We discussed in great detail the pathoanatomy, pathophysiology, treatment options. Ankle arthritis in general is managed with supportive care focused on relieving inflammation as this is usually a primary source of pain for patients. As a final option follows fails, surgery may be indicated in selected patients. Surgery for ankle arthritis includes either a ankle fusion or a total ankle replacement. I do not believe that this patient is an appropriate candidate for surgery due to his social situation as well as his current tobacco use. No plans for acute orthopedic intervention. Should the patient desire, he can follow-up as needed for this ankle. Admission and Anticipated Discharge Date Admission Date: February 26, 2024 Subjective This is a 78-year-old man with PMHx of COPD, HLD, HFpEF, TANO on CPAP, degenerative disc disease, BPH, GERD, spinal stenosis status post lumbar spine fusion who recently established with [facility] PCP and outpatient at the end of January this year. He is a chronic alcohol user, previously drinking 5-10 beers per night on EMR review. He is also a chronic tobacco smoker. He had presented to the clinic yesterday for complaints of abdominal pain and due to his EtOH abuse history . Quite complex. Her the admission note, "patient is a case for Adult Protective Services/welfare. Medical request was filled out on 02/11. A member from Adult Protective Services had concerns that the patient was withdrawing money from back multiple times daily, hoarding. He was noted in outpatient EMR to be a habitual heavy cocaine and medical marijuana user, friend recently stopped helping him because it has become overwhelming for him, confusing/dangerous so removed himself from the situation. Family is estranged. History of family member overdosing on drugs and is on home and there while he was present. Poor oral intake, patient states that he only has alcohol in his house, no food." Patient's main reason for presentation is with regards to his right ankle and failure to thrive. He denies any recent falls or trauma. He was admitted for this right ankle pain and due to concerns for his housing situation. Since his admission, he has had a chest x-ray which was concerning for potential pneumonia as well as an ultrasound of his right lower extremity demonstrating chronic appearing clots. Orthopedics was consulted for his right ankle. The patient states on my evaluation this morning that he has had ankle pain for many years. He denies fevers or chills. He denies any trauma to the area. Review of Systems Review of Systems: All systems reviewed & are unremarkable except as noted in HPI & below Physical Exam Physical Exam: Right ankle patient is tender to palpation about his right ankle. No swelling or ecchymosis noted. He has severely limited ankle range of motion in all of his dorsiflexion plantarflexion comes from his midfoot. He is tender palpation about the ankle mortise. He has diminished sensation which is at baseline per the patient in a stocking-like distribution. His foot is warm and well-pe rfused. Results & Data Vital Signs (Past 12 Hours) Vital Signs Temp Pulse Pulse Resp BP BP Pulse Ox 02/28/24 08:12 91 02/28/24 07:58 36.7 C 66 18 139/95 88 L 02/28/24 07:06 62 02/28/24 04:00 36.5 C 65 18 102/62 95 02/28/24 00:17 02/27/24 23:00 36.6 C 62 18 128/77 94 02/27/24 21:42 68 O2 Del Method 02/28/24 08:12 Room Air 02/28/24 07:58 Room Air 02/28/24 07:06 02/28/24 04:00 Room Air 02/28/24 00:17 Room Air 02/27/24 23:00 Room Air 02/27/24 21:42 Diagnostic Findings X-rays of the right ankle were personally interpreted and reviewed. These demonstrate findings consistent with severe degenerative joint disease of the right ankle with evidence of joint space narrowing, subchondral sclerosis and cyst, osteophytes.
--- NOTE | 2024-02-28 09:30 | Orthopedic Consultation ---
Date of Consultation February 28, 2024 Assessment & Plan (1) Arthritis of right ankle: (2) Unable to care for self: (3) Dementia: (4) Alcohol use disorder: (5) History of DVT (deep vein thrombosis): (6) Obstructive sleep apnea: (7) Polysubstance abuse: (8) Anxiety: (9) Depression: (10) (HFpEF) heart failure with preserved ejection fraction: (11) Cardiovascular arteriosclerosis: (12) Diverticulosis of colon: Plan This is a 78-year-old gentleman who presents to the hospital with right ankle pain and failure to thrive, and a poor living situation in his home. Orthopedics was consulted for his right ankle. Patient has a quite complex past medical history and social history. This will certainly be a factor in determining appropriate care for him. With regards the patient's right ankle, his history, physical exam, imaging findings are most consistent with severe osteoarthritis of the right ankle. I had a long discussion with the patient regarding the nature of this diagnosis. We discussed in great detail the pathoanatomy, pathophysiology, treatment opti ons for arthritis. In general, nonoperative modalities include measures to decrease inflammation in the could include anti-inflammatories, injections, bracing, physical for in severe cases when nonoperative modalities fail, operative modalities may be indicated. Operative considerations for ankle arthritis include ankle fusion or ankle replacement. Given the patient's poor home situation, his continued alcohol and tobacco abuse, I do not believe that he is a candidate for operative intervention at this time. Patient is welcome to follow-up on an as-needed basis. No acute plans for orthopedic intervention with regards to his right ankle. History of Present Illness Reason for Consultation: This is a 78-year-old man with PMHx of COPD, HLD, HFpEF, TANO on CPAP, degenerative disc disease, BPH, GERD, spinal stenosis status post lumbar spine fusion who recently established with [facility] PCP and outpatient at the end of January this year. He is a chronic alcohol user, previously drinking 5-10 beers per night on EMR review. He is also a chronic tobacco smoker. He had presented to the clinic yesterday for complaints of abdominal pain and due to his EtOH abuse history . Quite complex. Her the admission note, "patient is a case for Adult Protective Services/welfare. Medical request was filled out on 02/11. A member from Adult Protective Services had concerns that the patient was withdrawing money from back multiple times daily, hoarding. He was noted in outpatient EMR to be a habitual heavy cocaine and medical marijuana user, friend recently stopped helping him because it has become overwhelming for him, confusing/dangerous so removed himself from the situation. Family is estranged. History of family member overdosing on drugs and is on home and there while he was present. Poor oral intake, patient states that he only has alcohol in his house, no food." Patient's main reason for presentation is with regards to his right ankle and failure to thrive. He denies any recent falls or trauma. He was admitted for this right ankle pain and due to concerns for his housing situation. Since his admission, he has had a chest x-ray which was concerning for potential pneumonia as well as an ultrasound of his right lower extremity demonstrating chronic appearing clots. Orthopedics was consulted for his right ankle. The patient states on my evaluation this morning that he has had ankle pain for many years. He denies fevers or chills. He denies any trauma to the area Attending Physician: Mai Arenas MD Allergies Allergy/AdvReac Type Severity Reaction Status Date / Time morphine Allergy Mild Rash Verified 02/26/24 13:51 levofloxacin AdvReac Intermediate "Gets mean" Verified 02/26/24 13:51 Quinolones AdvReac Intermediate "Gets Verified 02/26/24 13:51 ben" Home Medications Medication Instructions Recorded Confirmed Type Medical Adam 1 dose inhalation UD PRN 06/04/22 02/26/24 History PAIN/ANXIETY aspirin 81 mg tablet,delayed 81 mg PO QAM #90 tabs 11/22/22 02/26/24 Rx release (Katie Low Dose Aspirin) pantoprazole 40 mg tablet,delayed 40 mg PO QAM #90 tabs 11/22/22 02/26/24 Rx release budesonide-formoterol HFA 160 2 puff inhalation BID #1 inhaler 04/15/23 02/26/24 Rx mcg-4.5 mcg/actuation aerosol inhaler (Symbicort) atorvastatin 10 mg tablet 10 mg PO DAILY 02/26/24 02/26/24 History ipratropium 20 mcg-albuterol 100 1 puff inhalation QID PRN Wheezing 12/04/24 12/04/24 History mcg/actuation mist for inhalation (Combivent Respimat) Patient History Medical History Chronic obstructive pulmonary disease Chronic back pain Abdominal aortic ectasia Poor historian Sleep apnea Anxiety and depression Heart failure History of DVT (deep vein thrombosis) Surgical History History of spinal surgery History of spinal surgery (09/2022) History of left cataract extraction (06/2022) History of right cataract surgery (05/2022) Status post reverse arthroplasty of left shoulder History of tooth extraction History of esophagogastroduodenoscopy (EGD) History of colonoscopy H/O decompression of ulnar nerve Status post carpal tunnel release of both wrists S/P arthroscopy of left shoulder S/P evacuation of hematoma History of umbilical hernia repair H/O neck surgery S/P lumbar laminectomy S/P inguinal hernia repair S/p reverse total shoulder arthroplasty H/O endarterectomy History of hand surgery History of tonsillectomy History of repair of rotator cuff Family History Mother Family history non-contributory Dementia Father Diabetes Cardiac pacemaker Hypertension Family history of diabetes mellitus Sister Family hx colonic polyps Family/Other Cerebral aneurysm Other Crohn's colitis Heart disease No family history of adverse response to anesthesia Ulcerative colitis Denies family history of Ovarian cancer Prostate cancer Myocardial infarction Breast cancer Colorectal cancer Social History (System 02/26/24 @ 13:51 by Jasmin Yepez) Smoking Status: Current every day smoker Tobacco Type: Cigarettes Age Started Using Tobacco: 10; Age Quit Using Tobacco: 76; packs per day: 0.5; Cigarettes Per Day: 1 ppd/55 years; Second Hand Exposure: No; Do You Dip or Chew Tobacco: No; Hx Alcohol Use: Yes Alcohol type: beer Alcohol type Comment: 6 beers daily, "light beer" Alcohol Intake Frequency: 4 or More x per/Week Hx Substance Use: Yes Prescribed Medications: Marijuana Last Used Substance: Unknown Substance Use Type Other:: ONLY USES MEDICAL MARIJUANA Preferred Language: Gabonese Communication Ability: Effective Communication Ability Comment: sometimes needs someone to help communicate Visual Impairment: No Limitations Hearing Ability: Normal Transportation Assistant Required: No Beliefs That Will Affect Care: None marital status: Single Current Living Situation: Alone Current Living Situation Comment: LIVES BY SELF>A NURSE COMES IN FROM [facility] current occupational status: retired How many Children do You have: 3 How many Children do You have Comment: 2 sons, 1 daughter Feels Safe at Home: Yes Childhood Exposure to Second-Hand Smoke: Yes caffeine: Yes (Tea x 2 cups per day.) during the past year weight has: remained stable Dental Care, Regularly: No Physical Activity Frequency: Does not Exercise Seatbelt Use: always Sunscreen Use: No Assistive Devices: Denture - Upper and Denture - Lower Review of Systems Review of Systems: All systems reviewed & are unremarkable except as noted in HPI & below Physical Exam Physical Exam: Right ankle: Tender to palpation about the ankle mortise. He has severely limited ankle range of motion with crepitus noted. His ankle dorsiflexion plantarflexion actually is coming from his midfoot. He does not have significant swelling or erythema. Sensation is diminished in a stocking-like distribution which is at baseline per the patient. His foot is warm and well-perfused but pulses are weak. Results & Data Vital Signs (Past 12 Hours) Vital Signs Temp Pulse Pulse Resp BP BP Pulse Ox 02/28/24 08:12 91 02/28/24 07:58 36.7 C 66 18 139/95 88 L 02/28/24 07:06 62 02/28/24 04:00 36.5 C 65 18 102/62 95 02/28/24 00:17 02/27/24 23:00 36.6 C 62 18 128/77 94 02/27/24 21:42 68 O2 Del Method 02/28/24 08:12 Room Air 02/28/24 07:58 Room Air 02/28/24 07:06 02/28/24 04:00 Room Air 02/28/24 00:17 Room Air 02/27/24 23:00 Room Air 02/27/24 21:42 Diagnostic Findings X-rays of the right ankle were personally interpreted and reviewed. These demonstrate no acute osseous abnormalities. Patient has severe joint disease of his right ankle with evidence of joint space narrowing, subchondral sclerosis and cyst, osteophytes.
[2024-02-28 09:45] LABS: BUN Creatinine Ratio 15.4 (10-20); Calcium 8.7 mg/dl (8.6-10.3); Chol HDL Ratio 2.5 (0-5); Creatinine Clr Calc Pharmacy 66.8 ml/min; Magnesium 2.1 mg/dl (1.7-2.4)
[2024-02-28] MEDS: NICOTINE POLACRILEX 2 MG GUM MT PRN (10:50)
[2024-02-28] MEDS: LORazepam 2 MG/1 ML VIAL IV PRN (12:42)
--- NOTE | 2024-02-28 12:52 | Hospitalist Progress Note ---
Date of Service February 28, 2024 Assessment & Plan (1) Arthritis of right ankle: (2) Alcohol use disorder: (3) (HFpEF) heart failure with preserved ejection fraction: (4) Chronic obstructive pulmonary disease: (5) Unable to care for self: (6) Asthma: (7) HLD (hyperlipidemia): (8) Hypertension: Plan Right ankle pain Abnormal right ankle x-ray Right ankle x-ray with loss of Talar bone height, avascular necrosis cannot be excluded. Severe osteoarthritis noted. Patient presented with right ankle pain and the pain has been ongoing Continue pain management, orthopedic consult. Appreciate orthopedic input and recommendation for conservative management now Pain is reasonably controlled with current pain medications Will need PT and OT evaluation prior to discharge Alcohol Use Chronic Tobacco Use Chronic marijuana Use Hx of IVDA at age 20-40s - Admit to med tele for possible etoh withdrawal, Last drink 02/25/2024 per patient. He drinks about 4 to 5 cans of beer a day. - c/w Gabapentin withdrawal protocol - UDS + for marijuana, negative for alcohol on 02/25 - Nicotine patch for smoking 1 ppd cigarettes - No recent abd US for review as pt apparently reported abd pain to PCP about 2 weeks ago, no abd pain today. Monitor. - CXR reviewed showing possible RLL pna - started on ceftriaxone and doxy in the ER 02/25, will continue x 5-7 days depending on clinical course. No WBC, afebrile. reports chronic cough, concern for possible aspiration pneumonia. Await speech therapy to eval. - Add probiotic - has been requiring occasional doses of Ativan for withdrawal symptoms Chronic DVT, RLE: Patient did get BLE venous Doppler at admission to rule out DVT due to complaint of RLE pain. Venous Doppler positive for small amount of chronic appearing thrombus within incompletely compressible right common femoral, femoral and popliteal veins. patient asymptomatic, no thigh and calf pain. Discussed the case with hematology, no anticoagulation needed due to chronic nature of DVT. COPD TANO not on CPAP - Does not use O2 at baseline - Pt has perviously used nebs but is not using any other home inhalers - c/w Symbicort and duonebs prn here - COPD remains stable at this time HFpEF HLD - Last echo was NM mycoard per study in June 2021 with EF of 65%. - Recent cholesterol panel as OP: Triglycerides 78, cholesterol 136, HDL 57, LDL 63. No need for statin. Hx of DVT - Will check doppler BLE to r/o DVT with hx of such, he is not on blood thinner, mild peripheral edema - asa 81 mg daily Other chronic medical issues: Degenerative disc disease BPH GERD- Protonix degenerative disc disease and spinal stenosis status post lumbar spine fusion - PT/OT DVT ppx: Hep sc Lines: PIV x 1 FEN/GI: Regular diet, speech therapy evaluation CODE: Full code Dispo: From home, likely to remain in the hospital x 1-2 days. PT/OT cm to assist. Admission and Anticipated Discharge Date Admission Date: February 26, 2024 Subjective 02/28/2024 Patient was seen and examined in medical telemetry unit He has been out of bed on a chair and denies any significant discomfort Complains to have pain in the right ankle which has been ongoing No significant restlessness, anxiety or agitation during my examination Review of Systems Review of Systems: All systems reviewed and are unremarkable except as noted below Physical Exam Physical Exam: Sitting on a chair without any acute distress Constitutional: + ill appearing and average body habitus Eyes: PERRL, conjunctivae normal, anicteric sclerae ENMT: external ear and nose normal, oropharynx normal Neck: trachea midline, no thyromegaly Respiratory: no respiratory distress Auscultation: lungs clear to auscultation bilaterally Cardiovascular: Rate/Rhythm: regular rate and regular rhythm Heart Sounds: normal S1 and normal S2; no murmur Extremities: no edema Gastrointestinal (Abdomen): Inspection/Auscultation: normal bowel sounds; abdomen not distended Percussion/Palpation: abdomen soft; abdomen nontender Musculoskeletal: Ankle: + ankle abnormal to inspection ( right ankle is minimally swollen), + deformity ( minimal deformity involving the right ankle) and + joint line tenderness (ankle) ( mild to moderate pain with movement of the right ankle joint) Neurologic: normal touch/pain/proprioception and moves all extremities; no focal motor deficits Lymphatic: no cervical or axillary lymphadenopathy Results & Data Results & Data Vital Signs (Past 12 Hours) Vital Signs Temp Pulse Pulse Resp BP BP Pulse Ox 02/28/24 08:12 91 02/28/24 07:58 36.7 C 66 18 139/95 88 L 02/28/24 07:06 62 02/28/24 04:00 36.5 C 65 18 102/62 95 O2 Del Method 02/28/24 08:12 Room Air 02/28/24 07:58 Room Air 02/28/24 07:06 02/28/24 04:00 Room Air Laboratory Results Short CBC 02/28/24 Range/Units 05:58 WBC 4.36 L (4.8-10.8) K/ul Hgb 13.4 L (14.0-18.0) g/dl Hct 40.2 L (42.0-52.0) % Plt Count 250 (130-400) K/uL BMP 02/28/24 05:58 Sodium 140 Potassium 4.0 Chloride 105 Carbon Dioxide 31 BUN 14 Creatinine 0.91 Glucose 97 Calcium 8.7 Medications Administered Current Inpatient Medications Acetaminophen (Acetaminophen 325 Mg Tab) 650 mg PO Q4H PRN PRN Reason: Moderate Pain (Scale 4, 5, 6) Stop: 03/27/24 20:51 Albuterol (Albuterol Hfa Inhaler 8.5 Gm) 1 puffs INH QIDR PRN PRN Reason: Shortness Of Breath Stop: 03/27/24 21:23 Aspirin (Aspirin 81 Mg Ectab) 81 mg PO QAM [facility] Stop: 03/28/24 08:59 Last Admin: 02/28/24 08:21 Dose: 81 mg Atorvastatin Calcium (Atorvastatin 10 Mg Tab) 10 mg PO DAILY [facility] Stop: 03/28/24 08:59 Last Admin: 02/28/24 08:21 Dose: 10 mg Doxycycline Hyclate (Doxycycline Hyclate 100 Mg Cap) 100 mg PO BID [facility] Stop: 02/29/24 08:59 Last Admin: 02/28/24 08:21 Dose: 100 mg Fluticasone/Vilanterol (Fluticasone/Vilanterol 100/25mcg 14 Puffs/Inhaler) 1 puffs INH DAILY [facility]; Protocol Stop: 03/27/24 21:29 Last Admin: 02/28/24 08:19 Dose: 1 puffs Folic Acid (Folic Acid 1 Mg Tab) 1 mg PO QAM [facility] Stop: 03/28/24 08:59 Last Admin: 02/28/24 08:21 Dose: 1 mg Gabapentin (Gabapentin 600 Mg Tab) 600 mg PO Q8H [facility] Stop: 02/28/24 14:01 Last Admin: 02/28/24 06:03 Dose: 600 mg Gabapentin (Gabapentin 600 Mg Tab) 600 mg PO Q12H [facility] Stop: 02/29/24 12:01 Gabapentin (Gabapentin 600 Mg Tab) 600 mg PO Q24H [facility] Stop: 03/01/24 12:01 Doxycycline Hyclate 100 mg/ (Dextrose) 100 mls @ 50 mls/hr IV Q12H [facility] Stop: 03/02/24 16:14 Last Infusion: 02/28/24 06:18 Dose: Infused Ceftriaxone Sodium (Rocephin) 2,000 mg in 50 mls @ 100 mls/hr IV Q24H [facility]; Protocol Stop: 03/03/24 16:29 Last Infusion: 02/27/24 16:53 Dose: Infused Ipratropium Craig (Ipratropium Craig Hfa Inhaler) 1 puffs INH QIDR PRN PRN Reason: Shortness Of Breath Stop: 03/27/24 21:23 Lactobacillus Acidophilus (Advanced Probiotic 625 Mg Capsule) 1,250 mg PO DAILY [facility] Stop: 03/29/24 08:59 Last Admin: 02/28/24 08:19 Dose: 1,250 mg Miscellaneous (Remove Nicoderm Patch) 1 each N/A DAILY@0859 [facility] Stop: 03/28/24 08:58 Last Admin: 02/28/24 08:19 Dose: 1 each Multivitamins ([facility]ivitamin Tab) [facility] Stop: 03/28/24 08:59 Last Admin: 02/28/24 08:21 Dose: 1 tab Nicotine (Nicotine 21 Mg/24 Hr Tdsy) 1 patch TD QAM [facility] Stop: 03/27/24 16:59 Last Admin: 02/28/24 08:20 Dose: 1 patch Nicotine Polacrilex (Nicotine Polacrilex 2 Mg Gum) 1 piece MT Q2H PRN PRN Reason: Agitation Stop: 03/29/24 10:22 Last Admin: 02/28/24 10:50 Dose: 1 piece Ondansetron HCl (Ondansetron Inj 2 Mg/Ml 2 Ml Vial) 4 mg IV Q4H PRN PRN Reason: Nausea And Vomiting Stop: 03/27/24 20:51 Pantoprazole Sodium (Pantoprazole 40 Mg Tab) [facility] [place] Stop: 03/28/24 08:59 Last Admin: 02/28/24 08:21 Dose: 40 mg Thiamine HCl (Thiamine Hcl 100 Mg Tab) 100 mg PO QA [facility] Stop: 03/28/24 08:59 Last Admin: 02/28/24 08:21 Dose: 100 mg
[2024-02-28] MEDS: GABAPENTIN 600 MG TAB PO SCH (23:18)
[2024-02-29] MEDS: ACETAMINOPHEN 325 MG TAB PO PRN (06:11)
[2024-02-29 10:48] LABS: Marijuana Quant, GCMS Urine 24 ng/mL (<5)
--- NOTE | 2024-02-29 13:05 | Hospitalist Progress Note ---
Date of Service February 29, 2024 Assessment & Plan (1) Arthritis of right ankle: (2) Alcohol use disorder: (3) (HFpEF) heart failure with preserved ejection fraction: (4) Chronic obstructive pulmonary disease: (5) Unable to care for self: Plan: He was 19 by the adult protective services due to poor living condition and inability of the patient to take care of self He wants to go home today and awaiting window caser evaluation before he can leave the hospital (6) Asthma: (7) HLD (hyperlipidemia): (8) Hypertension: Plan Right ankle pain Abnormal right ankle x-ray Right ankle x-ray with loss of Talar bone height, avascular necrosis cannot be excluded. Severe osteoarthritis noted. Patient presented with right ankle pain and the pain has been ongoing Continue pain management, orthopedic consult. 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 He drinks about 4 to 5 cans of beer a day. - c/w Gabapentin withdrawal protocol - UDS + for marijuana, negative for alcohol on 02/25 - Nicotine patch for smoking 1 ppd cigarettes - No recent abd US for review as pt apparently reported abd pain to PCP about 2 weeks ago, no abd pain today. Monitor. - CXR reviewed showing possible RLL pna - started on ceftriaxone and doxy in the ER 02/25, will continue x 5-7 days depending on clinical course. No WBC, afebrile. reports chronic cough, concern for possible aspiration pneumonia. Await speech therapy to eval. - Add probiotic - has been requiring occasional doses of Ativan for withdrawal symptoms Does not have any signs or symptoms of withdrawal Chronic DVT, RLE: Patient did get BLE venous Doppler at admission to rule out DVT due to complaint of RLE pain. Venous Doppler positive for small amount of chronic appearing thrombus within incompletely compressible right common femoral, femoral and popliteal veins. patient asymptomatic, no thigh and calf pain. Discussed the case with hematology, no anticoagulation needed due to chronic nature of DVT. COPD TANO not on CPAP - Does not use O2 at baseline - Pt has perviously used nebs but is not using any other home inhalers - c/w Symbicort and duonebs prn here - COPD remains stable at this time HFpEF HLD - Last echo was NM mycoard per study in June 2021 with EF of 65%. - Recent cholesterol panel as OP: Triglycerides 78, cholesterol 136, HDL 57, LDL 63. No need for statin. Hx of DVT - Will check doppler BLE to r/o DVT with hx of such, he is not on blood thinner, mild peripheral edema - asa 81 mg daily Other chronic medical issues: Degenerative disc disease BPH GERD- Protonix degenerative disc disease and spinal stenosis status post lumbar spine fusion - PT/OT DVT ppx: Hep sc Lines: PIV x 1 FEN/GI: Regular diet, speech therapy evaluation CODE: Full code Dispo: From home, likely to remain in the hospital x 1-2 days. PT/OT cm to assist. Admission and Anticipated Discharge Date Admission Date: February 26, 2024 Subjective 02/28/2024 Patient was seen and examined in medical telemetry unit He has been out of bed on a chair and denies any significant discomfort Complains to have pain in the right ankle which has been ongoing No significant restlessness, anxiety or agitation during my examination 02/29/2024 The patient was seen and examined in medical telemetry unit He has been stable and does not have any withdrawal symptoms He is right ankle pain is tolerable and he wants to go home Review of Systems Review of Systems: All systems reviewed and are unremarkable except as noted below Physical Exam Physical Exam: Sitting on a chair without any acute distress Constitutional: + ill appearing and average body habitus Eyes: PERRL, conjunctivae normal, anicteric sclerae ENMT: external ear and nose normal, oropharynx normal Neck: trachea midline, no thyromegaly Respiratory: no respiratory distress Auscultation: lungs clear to auscultation bilaterally Cardiovascular: Rate/Rhythm: regular rate and regular rhythm Heart Sounds: normal S1 and normal S2; no murmur Extremities: no edema Gastrointestinal (Abdomen): Inspection/Auscultation: normal bowel sounds; abdomen not distended Percussion/Palpation: abdomen soft; abdomen nontender Musculoskeletal: Ankle: + ankle abnormal to inspection ( right ankle is minimally swollen), + deformity ( minimal deformity involving the right ankle) and + joint line tenderness (ankle) ( mild to moderate pain with movement of the right ankle joint) Neurologic: normal touch/pain/proprioception and moves all extremities; no focal motor deficits Lymphatic: no cervical or axillary lymphadenopathy Results & Data Results & Data Vital Signs (Past 12 Hours) Vital Signs Temp Pulse Resp BP BP Pulse Ox O2 Del Method 02/29/24 11:23 36.8 C 66 18 116/70 92 Room Air 02/29/24 08:04 36.6 C 71 18 128/73 90 Room Air 02/29/24 07:38 Room Air 02/29/24 03:59 36.5 C 71 16 98/60 L 93 Room Air Medications Administered Current Inpatient Medications Acetaminophen (Acetaminophen 325 Mg Tab) 650 mg PO Q4H PRN PRN Reason: Moderate Pain (Scale 4, 5, 6) Stop: 03/27/24 20:51 Last Admin: 02/29/24 06:11 Dose: 650 mg Albuterol (Albuterol Hfa Inhaler 8.5 Gm) 1 puffs INH QIDR PRN PRN Reason: Shortness Of Breath Stop: 03/27/24 21:23 Aspirin (Aspirin 81 Mg Ectab) 81 mg PO QAM [facility] Stop: 03/28/24 08:59 Last Admin: 02/29/24 08:26 Dose: 81 mg Atorvastatin Calcium (Atorvastatin 10 Mg Tab) 10 mg PO DAILY [facility] Stop: 03/28/24 08:59 Last Admin: 02/29/24 08:27 Dose: 10 mg Fluticasone/Vilanterol (Fluticasone/Vilanterol 100/25mcg 14 Puffs/Inhaler) 1 puffs INH DAILY [facility]; Protocol Stop: 03/27/24 21:29 Last Admin: 02/29/24 08:27 Dose: 1 puffs Folic Acid (Folic Acid 1 Mg Tab) 1 mg PO QAM [facility] Stop: 03/28/24 08:59 Last Admin: 02/29/24 08:26 Dose: 1 mg Gabapentin (Gabapentin 600 Mg Tab) 600 mg PO Q24H [facility] Stop: 03/01/24 12:01 Ceftriaxone Sodium (Rocephin) 2,000 mg in 50 mls @ 100 mls/hr IV Q24H [facility]; Protocol Stop: 03/03/24 16:29 Last Infusion: 02/28/24 21:36 Dose: Infused Ipratropium [place] (Ipratropium [place] Hfa Inhaler) 1 puffs INH QIDR PRN PRN Reason: Shortness Of Breath Stop: 03/27/24 21:23 Lactobacillus Acidophilus (Advanced Probiotic 625 Mg Capsule) 1,250 mg PO DAILY [facility] Stop: 03/29/24 08:59 Last Admin: 02/29/24 08:26 Dose: 1,250 mg Miscellaneous (Remove Nicoderm Patch) 1 each N/A DAILY@0859 [facility] Stop: 03/28/24 08:58 Last Admin: 02/29/24 08:28 Dose: 1 each Multivitamins (Multivitamin Tab) 1 tab PO [facility] Stop: 03/28/24 08:59 Last Admin: 02/29/24 08:26 Dose: 1 tab Nicotine (Nicotine 21 Mg/24 Hr Tdsy) 1 patch TD [facility] Stop: 03/27/24 16:59 Last Admin: 02/29/24 08:22 Dose: 1 patch Nicotine Polacrilex (Nicotine Polacrilex 2 Mg Gum) 1 piece MT Q2H PRN PRN Reason: Agitation Stop: 03/29/24 10:22 Last Admin: 02/28/24 13:43 Dose: 1 piece Ondansetron HCl (Ondansetron Inj 2 Mg/Ml 2 Ml Vial) 4 mg IV Q4H PRN PRN Reason: Nausea And Vomiting Stop: 03/27/24 20:51 Pantoprazole Sodium (Pantoprazole 40 Mg Tab) 40 mg PO [facility] Stop: 03/28/24 08:59 Last Admin: 02/29/24 08:27 Dose: 40 mg Thiamine HCl (Thiamine Hcl 100 Mg Tab) 100 mg PO [facility] Stop: 03/28/24 08:59 Last Admin: 02/29/24 08:26 Dose: 100 mg
--- OUTSIDE RECORDS SUMMARY | 2024-02-29 14:28 | External Medical Summary | Summary of Care ---
Author Name Unknown Organization [facility] Address [address] [address] Phone [phone] Care Team Providers Care Film Examiner Name Role Phone Nate Melendrez MD Primary Care Provide r Reason for Visit * Reason Onset Date Comments Advice 02/05/2024 Appointment 02/05/2024 [facility] Encounter Details Date Type Department Care Team (Late st Contact Info) Description 02/05/2024 Telephone Family Medicine [address] [place] [address] Nate Melendrez MD [address] [place] [address] [place] [phone] Advice; Appointment ([facility] ) Allergies No known active allergiesdocumented as of this encounter (statuses as of 02/18/2024) Medications aspirin enteric coated 81 MG TBEC Take 1 Tab by mouth daily. 100 Tab 11/02/19 18 Active CPAP every night at bedtime . Active busPIRone (BUSPAR) 10 MG Tablet Take 1 Tab by mouth 2 times a day. 60 Tab 11/02/19 18 024 Discontin ued(Medic ation List Clean Up) Vitamin D, Cholecalciferol, 1000 units TABS Take 1 Tab by mouth daily. 30 Tab 11/02/19 18 024 Discontin ued(Medic ation List Clean Up) docusate sodium (COLACE) 100 MG Capsule Take 1 Capsule by mouth in the morning and 1 Capsule before bedtime. Discontin ued(Medic ation List Clean Up) oxygen IN GAS 3 LPM bled through PAP therapy during sleep 1 Each 11/03/19 Discontin ued(Medic ation List Clean Up) Glucosamine HCl 1000 MG Oral Tablet Take 1 Tablet by mouth in the morning. Discontin ued(Medic ation List Clean Up) Isosorbide Mononitrate ER 30 MG Oral Tablet Extended Release 24 HourIndications:Ch ronic diastolic congestive heart failure (HCC) Take 1 Tablet by mouth in the morning. Do not cut, crush or chew. 30 Tablet 11 05/02/19 24 Discontin ued(Medic ation List Clean Up) Furosemide 40 MG Oral Tablet (Lasix)Indications :Chronic diastolic congestive heart failure (HCC) Take 0.5 Tablets by mouth in the morning and 0.5 Tablets before bedtime. 35 Tablet 05/02/19 24 Discontin ued(Medic ation List Clean Up) Pravastatin Sodium 40 MG Oral Tablet (Pravachol)Indicat ions:Hyperlipidemi a with target LDL less than 100 Take 1 Tablet by mouth at bedtime. 30 Tablet 11 05/02/19 24 Discontin ued(Medic ation List Clean Up) Budesonide-Formote rol Fumarate 160-4.5 MCG/ACT Inhalation Aerosol (Symbicort)Indicat ions:COPD, group B, by GOLD 2017 classification ([facility]) Inhale 2 Puffs by mouth in the morning and 2 Puffs before bedtime. 6 g 3 05/02/19 24 Discontin ued(Refil l) Ipratropium-[place] rol 0.5-2.5 (3) MG/3ML Inhalation Solution (Duoneb)Indication s:COPD, group B, by GOLD 2017 classification ([facility]) Inhale 3 mL by mouth every 6 hours as needed for Shortness of Breath. 100 mL 5 05/02/19 24 Discontin ued(Medic ation List Clean Up) Combivent Respimat 20-100 MCG/ACT Inhalation Aerosol Solution (Ipratropium-Albut pedro)Indications:C OPD, group B, by GOLD 2017 classification (HCC) Inhale 1 Puff by mouth in the morning and 1 Puff at noon and 1 Puff in the evening and 1 Puff before bedtime. 4 g 3 05/02/19 24 024 Discontin ued(Refil l) Potassium Chloride Katelyn ER 20 MEQ Oral Tablet Extended Release (Klor-Con M20)Indications:Ch ronic diastolic congestive heart failure (HCC) Take 1 Tablet by mouth in the morning. 30 Tablet 11 05/02/19 24 024 Discontin ued(Medic ation List Clean Up) Pantoprazole Sodium 40 MG Oral Tablet Delayed Release (Protonix)Indicati ons:Gastroesophage al reflux disease without esophagitis TAKE ONE TABLET BY MOUTH IN THE MORNING 90 Tablet 3 07/19/19 24 024 Discontin ued(Refil l) Montelukast Sodium 10 MG Oral Tablet (Singulair)Indicat ions:Other allergic rhinitis TAKE 1 TABLET BY MOUTH EVERY MORNING 90 Tablet 3 07/19/19 24 024 Discontin ued(Medic ation List Clean Up) Tamsulosin HCl 0.4 MG Oral Capsule (Flomax) in the evening 90 Capsule 1 10/11/19 24 024 Discontin ued(Medic ation List Clean Up) Metoprolol Succinate ER 25 MG Oral Tablet Extended Release 24 Hour (toPROL XL)Indications:Chr onic diastolic congestive heart failure (HCC) TAKE ONE TABLET BY MOUTH IN THE MORNING 90 Tablet 3 10/11/19 24 024 Discontin ued(Medic ation List Clean Up) Diclofenac Sodium 75 MG Oral Tablet Delayed Release (Voltaren)Indicati ons:Other osteoarthritis of spine, lumbosacral region Take 1 Tablet by mouth in the morning and 1 Tablet before bedtime. With food.. 60 Tablet 3 11/28/19 24 024 Discontin ued(Medic ation List Clean Up) Pregabalin 75 MG Oral Capsule (Lyrica)Indication s:Other osteoarthritis of spine, lumbosacral region Take 1 Capsule by mouth in the morning and 1 Capsule before bedtime. 60 Capsule 01/08/20 24 024 Discontin ued(Medic ation List Clean Up) Baclofen 10 MG Oral Tablet (Lioresal)Indicati ons:Other osteoarthritis of spine, lumbosacral region TAKE ONE TABLET BY MOUTH TWICE DAILY NEEDED 60 Tablet 01/08/20 024 Discontin ued(Medic ation List Clean Up) documented as of this encounter (statuses as of 02/18/2024) Active Problems Problem Noted Date Diagnosed Date Chronic heart failure with preserved ejection fr action 02/11/2024 Spinal stenosis of lumbar re gion without neurogenic claudication 11/15/2023 S/P lumbar spinal fusion 11/15/2023 COPD, group B, by GOLD 2017 classification 03/05 Overview: Per COPD GOLD Classification Uncomplicated alcohol dependence 08/18/2021 Hyperlipidemia with target LDL less than 100 12/2017 Diverticulosis of large intestine without hemorr megha 11/01/2017 Cholelithiasis 11/01/2017 Acute pancreatitis 10/27/2017 Deviated nasal septum 10/18/2017 GERD (gastroesophageal reflux disease) 8 History of Helicobacter infection 08/09/2017 TANO on CPAP 02/22/2014 Lumbosacral spondylosis 04/13/2010 Overview (04/13/2010): DDD L3-4 min stenosis L3-4,4-5 Cervical spondylosis 04/13/2010 Overview (04/13/2010): S/P C3-6 ACDF- Nov C6-7 Unilateral inguinal hernia 01/27/2007 FOREIGN BODY FOOT & TOE 12/04/2005 JOINT PAIN-SHLDER 07/04/2004 Other allergic rhinitis 01/31/2004 Overview (01/15/2017): ICD-10 update of inactive term Generalized osteoarthritis 01/31/2004 Tobacco use disorder 01/31/2004 Arthropathy of multiple sites 01/31/2004 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 Alcohol abuse Cannabis abuse Clostridium difficile diarrhea RBBB documented as of this encounter (statuses as of 02/18/2024) Resolved Problems Problem Noted Date Diagnosed Date Resolved Date Chronic obstructive pulmonary disease 11/01/2017 03/08/2022 Overview: Per COPD GOLD Classification Asthma, allergic 01/31/2004 09/15/2009 COPD, severity to be determined 01/31/2004 03/08/2022 documented as of this encounter (statuses as of 02/18/2024) Immunizations Name Administration Dates Next Due COVID-19 mRNA, LNP-s, No Pre serve, 2-Dose Series (Moderna) 09/07/2020,08/09/2020 COVID-19, LNP-s, No Preserve , Navin-sucrose, Ages 12+ (Pfizer) 09/18/2021 Pneumococcal Conjugate Vacc, 13 Valent (Prevnar) 01/24/2017 Pneumococcal Polysaccharide PPV23 (Pneumovax) 02/22/2014,03/06/2013,02/04/2004 Seasonal Influenza Vac., MDV , IM, 0.5 mL (Fluzone) 01/17/2015,02/22/2014,11/24/2011 TD - Tetanus/Diptheria (ADULT) 12/04/2005 documented as of this encounter Social History Tobacco Use Types Packs/Day Years Used Date Smoking Tobacco: Former Cigarettes 1 64 0 [birth year]/17/1957 - 08/17/2021 Smokeless Tobacco: Former Chew, Snuff Comments:been chewing for ap prox 48 yrs- quit chewing tobacco 12/01 Alcohol Use Standard Drinks/Week Comments Yes 28 (1 standard drink = 0.6 oz pu re alcohol) 4-6 beers a night Sex and Gender Information Value Date Recorded Sex Assigned at Not on file Legal Sex Male 5:11 AM EST Gender Identity Not on file Sexual Orientation Not on file Occupation Industry Job Start Date Job End Date retired Not on file Not on file Not on file [employer] Not on file Not on file Not on file documented as of this encounter Miscellaneous Notes * Telephone Encounter - Nate Melendrez MD - 02/18/2024 10:43 AM EST Pt was only seen in the clinic by me once - will address alll these issues during the next clinic visit * Telephone Encounter - Lyubov Du LPN - 02/18/2024 10:29 AM EST Spoke to Nino, states he is from Adult protective services - States he sent over a medical request on 02/11 to be filled out. Concerns are regarding gentleman helping with finances, is concerned because he is going to bank multiple times, taking out money, hoarding in his house, spending it and losing it & then going back to the bank for more money, that he does not have anymore His bills are now going unpaid now because he has no money left at all He is a habitual heavy cocaine & medical marijuana user, per reports from friend who was helping him. Friend has stopped helping him because it has become way too over whelming for him and confusing and dangerous, so he pulled himself from the situation. States that his family is estranged & he does not talk to them. They are into drugs and one person did OD on drugs in his own home & there while he was home. His driving is reckless and dangerous. He's pulling out in front of people and not obeying traffic signs Cannot remember if he is eating at all. Nino states when he met with him, he said he goes to the bar and drinks & plays the lotto and then gets something to eat randomly while at the bar. States he doesn't remember coming here at all. He doesn't know who Dr. Vela is. Nino is going to send a release to [facility], because the patient did not know who he was seeing & he had to figure that out before he could send one over. He does not know who his friend that helps him with his finances at all- Nino had to take the pts phone & found only one number in the phone so he called with, so he called that number & found that the isaac Morfin, has been helping him for 6 months, but things have gone downhill very very fast and he does not know anything. Adult protective services are going out to his home tomorrow to hopefully get crisis to do a 302 for inability to care for himself as long as he is home. He tells them he will be there, but then whenthey show up he is not at his home and doesn't remember talking to them at all and setting up a time to meet. * Telephone Encounter - Rosa Nascimento OSA - 02/18/2024 10:24 AM EST Nino from [facility] calling that he needs to talk to some one in the Office Transfer call To [facility] * Telephone Encounter - Jenn Victoria OSA - 02/12/2024 2:06 PM EST Pt did not checkout when he was here yesterday, I have been trying to reach him since yesterday, phone numbers do not work. He needs to be scheduled for an abdominal US. * Telephone Encounter - Diane Rangel RN - 02/12/2024 1:40 PM EST Pt was seen in the clinic * Telephone Encounter - Falguni Dillon OSA - 02/11/2024 11:56 AM EST Patient calling in to check on the status of previous message. Patient Called after 48 hour timeframe and escalation e-mail was sent to clinic leadership. * Telephone Encounter - Marybeth Pierre OSA - 02/05/2024 10:01 AM EST Nino from [facility] states there are several concerns with this Pt. Pt is very confused. Call Nino @ [phone] * Telephone Encounter - Marybeth Pierre OSA - 02/05/2024 9:55 AM EST Reason for patient's call: [facility] Protective services @ [phone] Caller was transferred to No Answer at the nurse line. documented in this encounter Plan of Treatment Upcoming Encounters Date Type Department Care Team (Late st Contact Info) Description 03/12/2024 1:00 PM EST Office Visit Family [address] [place] [phone] Nate Melendrez MD [address] [place] [address] [place] [phone] Scheduled Procedures Name Priority Associated Diagnoses Date/Ti me ESOPHAGOGASTRODUODENOSCOPY ( EGD), FLEXIBLE, TRANSORAL, DIAGNOSTIC Recall Intestinal metaplasia of gastric cardia Health Maintenance Due Date Last Done Comments Depression Screening 1959 Alpha-1 Antitrypsin 1965 Hepatitis C Screening 1965 Zoster Vaccines (1 of 2) 1997 Adult Wellness Visit 2013 COVID-19 Vaccine ( season) 2023 03/02/2022, 09/18/2021, 09/18/2021, Additional history exists Influenza Vaccine (FLU shot) (#1) 2023 01/17/2015, 03/25/2014, 02/22/2014, Additional history exists O2 ASSESSMENT COMPLETED IN PAST YEAR FOR COPD 02/10/2025 02/11/2024 DTap/Tdap Vaccines (3 - Tdap) 11/23/2031 11/22/2021, 06/26/2014, 12/04/2005 Colonoscopy Discontinued 12/29/2003 Colorectal Cancer Screening Discontinued Pneumococcal Vaccine: 65+ Years Completed 01/24/2017, 03/25/2014, 02/22/2014, Additional history exists Lung Cancer Screening Completed 08/30/2021 Cologuard Discontinued Fecal Occult Blood Test Discontinued HPV (Gardasil) Vaccine Aged Out No lo nger eligible based on patient's age to complete this topic Hepatitis B Vaccine Aged Out No longe r eligible based on patient's age to complete this topic MENINGOCOCCAL (MENACTRA/MENVEO) Aged Out No longer eligible based on patient's age to complete this topic Sigmoidoscopy Discontinued documented as of this encounter Medical Devices Not on filedocumented as of this encounter Advance Directives * Full Code (Latest Code Status on File) Date Activated Date Inactivated Comments 12/31/2017 11:30 AM 12/31/2017 4:04 PM This order reflects the patients wishes and were consensually agreed upon. Question Answer Comments Discussion of Advance Directives occurred with: Not Discussed * Full Code Date Activated Date Inactivated Comments 06/30/2015 7:29 AM 06/30/2015 2:00 PM This order ref lects the patients wishes and were consensually agreed upon. Question Answer Comments Discussion of Advance Directives occurred with: Patient * Full Code Date Activated Date Inactivated Comments 01/27/2007 6:07 PM 01/28/2007 3:50 PM Care Teams Film Examiner Relationship Specialty Start Date End Date Nate Melendrez MD [address] [place] [address] [place] [id number] PCP - General Family Medicine 04/25/23 documented as of this encounter
--- OUTSIDE RECORDS SUMMARY | 2024-02-29 14:28 | External Medical Summary | Summary of Care ---
Author Name Unknown Organization [facility] Address [address] [address] [address] Phone [phone] Care Team Providers Care Metal Grinder Name Role Phone Nate Melendrez MD Primary Care Provide r Reason for Visit * Reason Onset Date Comments Advice 02/05/2024 Appointment 02/05/2024 [facility] Encounter Details Date Type Department Care Team (Late st Contact Info) Description 02/05/2024 Telephone Family Medicine [address] [place] [phone] Nate Melendrez MD [address] [place] [address] [place] [phone] Advice; Appointment ([facility] ) Allergies No known active allergiesdocumented as [...] group B, by GOLD 2017 classification ([facility]) Inhale 2 Puffs by mouth in the morning and 2 Puffs before bedtime. 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 assembly technician Not on file Not on file Not on file documented as of this encounter Miscellaneous Notes * Telephone Encounter - Lyubov Du LPN [...] [facility] because the patient did not know who [...] that number & found that the isaac Navjot, has been helping him for 6 months, [...] - 02/18/2024 10:24 AM EST Nino from [employer] calling that he needs to talk to some one in the Office Transfer call To Lyubov * Telephone Encounter - Jenn Victoria OSA [...] - 02/05/2024 10:01 AM EST Nino from protective services states there are several concerns with this Pt. Pt is very confused. Call Nino @ [phone] * Telephone Encounter - Marybeth Pierre OSA - 02/05/2024 9:55 AM EST Reason for patient's call: Nino [employer] @ [phone] Caller was transferred to No Answer at the nurse line. documented in this encounter Plan of Treatment Upcoming Encounters Date Type Department Care Team (Late st Contact Info) Description 03/12/2024 1:00 PM EST Office Visit Family Medicine [address] [phone] Nate Melendrez MD [address] [place] [address] [place] [phone] Scheduled Procedures Name Priority Associated Diagnoses Date/Ti [...] 6:07 PM 01/28/2007 3:50 PM Care Teams Metal Grinder Relationship Specialty Start Date End Date Nate Melendrez MD [address] [place] [address] [place] [phone] PCP - General Family Medicine 04/25/23 documented as of this encounter
--- OUTSIDE RECORDS SUMMARY | 2024-02-29 14:29 | External Medical Summary | Summary of Care ---
Author Name Unknown Organization [facility] Address [address] [place] [address] Phone [phone] Care Team Providers Care Tennis Player Name Role Phone Nate Melendrez MD Primary Care Provide r Reason for Visit * Reason Onset Date Comments Advice 02/05/2024 Appointment 02/05/2024 [facility] Encounter Details Date Type Department Care Team (Late st Contact Info) Description 02/05/2024 Telephone Family Medicine [address] [phone] Nate Melendrez MD [address] [place] [address] [place] [phone] Advice; Appointment ([facility] ) Allergies No known active allergiesdocumented as of this encounter (statuses as of 02/12/2024) Medications aspirin enteric coated 81 MG TBEC [...] not cut, crush or chew. 30 Tablet 05/02/19 24 Discontin ued(Medic ation List Clean Up) Furosemide 40 MG Oral Tablet (Lasix)Indications :Chronic diastolic congestive heart failure (HCC) Take 0.5 Tablets by mouth in the morning and 0.5 Tablets before bedtime. 35 Tablet 05/02/19 Discontin ued(Medic ation List Clean Up) Pravastatin Sodium 40 MG Oral Tablet (Pravachol)Indicat ions:Hyperlipidemi a with target LDL less than 100 Take 1 Tablet by mouth at bedtime. 30 Tablet 05/02/19 24 Discontin ued(Medic ation List Clean Up) Budesonide-Formote rol Fumarate 160-4.5 MCG/ACT Inhalation Aerosol (Symbicort)Indicat ions:COPD, group B, by GOLD 2017 classification ([facility]) Inhale 2 Puffs by mouth in the morning and 2 Puffs before bedtime. 6 g 3 05/02/19 24 Discontin ued(Refil l) Ipratropium-Albute rol 0.5-2.5 (3) MG/3ML Inhalation Solution (Duoneb)Indication s:COPD, group B, by GOLD 2017 classification ([facility]) Inhale 3 mL by mouth every 6 hours as needed for Shortness of Breath. 100 mL 5 05/02/19 24 Discontin ued(Medic ation List Clean Up) Combivent Respimat 20-100 MCG/ACT Inhalation Aerosol Solution (Ipratropium-Albut pedro)Indications:C OPD, group B, by GOLD 2017 classification ([facility]) Inhale 1 Puff by mouth in the [...] MOUTH TWICE DAILY NEEDED 60 Tablet 01/08/20 24 024 Discontin ued(Medic ation List Clean Up) documented as of this encounter (statuses as of 02/12/2024) Active Problems Problem Noted Date Diagnosed Date [...] as of this encounter (statuses as of 02/12/2024) Resolved Problems Problem Noted Date Diagnosed Date Resolved Date Chronic obstructive pulmonary disease 11/01/2017 03/08/2022 Overview: Per COPD GOLD Classification Asthma, allergic 01/31/2004 09/15/2009 COPD, severity to be determined 01/31/2004 03/08/2022 documented as of this encounter (statuses as of 02/12/2024) Immunizations Name Administration Dates Next Due COVID-19 [...] file Not on file Not on file 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 Call Nino @ [phone] * Telephone Encounter - Marybeth Pierre OSA - 02/05/2024 9:55 AM EST Reason for patient's call: Nino [employer] @ [phone] Caller was transferred to No Answer at the nurse line. documented in this encounter Plan of Treatment Upcoming Encounters Date Type Department Care Team (Late st Contact Info) Description 03/12/2024 1:00 PM EST Office Visit Family Medicine [address] [place] [phone] Nate Melendrez MD [address] [place] [address] [place] [phone] Scheduled Procedures Name Priority Associated Diagnoses Date/Ti [...] 6:07 PM 01/28/2007 3:50 PM Care Teams Tennis Player Relationship Specialty Start Date End Date Nate Melendrez MD [address] [place] [address] [place] [phone] PCP - General Family Medicine 04/25/23 documented as of this encounter
--- OUTSIDE RECORDS SUMMARY | 2024-02-29 14:29 | External Medical Summary | Summary of Care ---
Author Name Unknown Organization [facility] Address [address] [address] Phone [phone] Care Team Providers Care Operations Management Trainee Name Role Phone Nate Melendrez MD Primary Care Provide r Reason for Visit * Reason Comments Walk In Chest pain Encounter Details Date Type Department Care Team (Latest Contact Info) Description 02/11/2024 2:00 PM EST Office Visit Family Medicine [address] [place] [phone] Nate Melendrez MD [address] [place] [address] [place] [phone] Chest pain, unspecified type*; Hyperlipidemia with target LDL less than 100; COPD, group B, by GOLD 2017 classification ([facility]); Chronic heart failure with preserved ejection fraction ([facility]); Elevated glucose; Abdominal pain, right upper quadrant; Gastroesophageal reflux disease without esophagitis; Alcohol abuse Allergies No known active allergiesdocumented as of this encounter (statuses as of 02/11/2024) Medications aspirin enteric coated 81 MG TBEC Take 1 Tab by mouth daily. 100 Tab 11/02/19 18 Active CPAP every night at bedtime . Active Budesonide-Formote rol Fumarate 160-4.5 MCG/ACT Inhalation Aerosol (Symbicort)Indicat ions:COPD, group B, by GOLD 2017 classification ([facility]) Inhale 2 Puffs by mouth in the morning and 2 Puffs before bedtime. 6 g 3 02/11/20 24 Active Combivent Respimat 20-100 MCG/ACT Inhalation Aerosol Solution (Ipratropium-Albut pedro)Indications:C OPD, group B, by GOLD 2017 classification ([facility]) Inhale 1 Puff by mouth 4 times a day as needed for Wheezing or Cough. 4 g 3 02/11/20 24 Active Pantoprazole Sodium 40 MG Oral Tablet Delayed Release (Protonix)Indicati ons:Abdominal pain, right upper quadrant,Gastroeso phageal reflux disease without esophagitis Take 1 Tablet by mouth in the morning. In the morning.. 90 Tablet 3 02/11/20 24 Active Atorvastatin Calcium 10 MG Oral Tablet (Lipitor)Indicatio ns:Hyperlipidemia with target LDL less than 100,Chronic heart failure with preserved ejection fraction (HCC) Take 1 Tablet by mouth in the morning. 30 Tablet 5 02/11/20 24 Active busPIRone (BUSPAR) 10 MG Tablet Take [...] the morning and 1 Capsule before bedtime. 024 Discontin ued(Medic ation List Clean Up) oxygen IN GAS 3 LPM bled through PAP therapy during sleep 1 Each 11/03/19 Discontin ued(Medic ation List Clean Up) Glucosamine HCl 1000 MG Oral Tablet Take 1 Tablet by mouth in the morning. 024 Discontin ued(Medic ation List Clean Up) Isosorbide Mononitrate ER 30 MG Oral Tablet Extended Release 24 HourIndications:Ch ronic diastolic congestive heart failure (HCC) Take 1 Tablet by mouth in the morning. Do not cut, crush or chew. 30 Tablet 11 05/02/19 24 024 Discontin ued(Medic ation List Clean Up) Furosemide 40 MG Oral Tablet (Lasix)Indications :Chronic diastolic congestive heart failure (HCC) Take 0.5 Tablets by mouth in the morning and 0.5 Tablets before bedtime. 35 Tablet 10 05/02/19 24 024 Discontin ued(Medic ation List Clean Up) Pravastatin Sodium 40 MG Oral Tablet (Pravachol)Indicat ions:Hyperlipidemi a with target LDL less than 100 Take 1 Tablet by mouth at bedtime. 30 Tablet 05/02/19 24 024 Discontin ued(Medic ation List Clean Up) Budesonide-Formote rol Fumarate 160-4.5 MCG/ACT Inhalation Aerosol (Symbicort)Indicat ions:COPD, group B, by GOLD 2017 classification ([facility]) Inhale 2 Puffs by mouth in the morning and 2 Puffs before bedtime. 6 g 05/02/19 24 024 Discontin ued(Refil l) Ipratropium-Albute rol 0.5-2.5 (3) MG/3ML Inhalation Solution (Duoneb)Indication s:COPD, group B, by GOLD 2017 classification ([facility]) Inhale 3 mL by mouth every 6 hours as needed for Shortness of Breath. 100 mL 05/02/19 Discontin ued(Medic ation List Clean Up) Combivent Respimat 20-100 MCG/ACT Inhalation Aerosol Solution (Ipratropium-Albut pedro)Indications:C OPD, group B, by GOLD 2017 classification ([facility]) Inhale 1 Puff by mouth in the morning and 1 Puff at noon and 1 Puff in the evening and 1 Puff before bedtime. 4 g 05/02/19 024 Discontin ued(Refil l) Potassium Chloride Katelyn ER 20 MEQ Oral Tablet Extended Release (Klor-Con M20)Indications:Ch ronic diastolic congestive heart failure (HCC) Take 1 Tablet by mouth in the morning. 30 Tablet 05/02/19 24 024 Discontin ued(Medic ation List Clean Up) Pantoprazole Sodium 40 MG Oral Tablet Delayed Release (Protonix)Indicati ons:Gastroesophage al reflux disease without esophagitis TAKE ONE TABLET BY MOUTH IN THE MORNING 90 Tablet 07/19/19 24 024 Discontin ued(Refil l) Montelukast [...] as of this encounter (statuses as of 02/11/2024) Active Problems Problem Noted Date Diagnosed Date [...] as of this encounter (statuses as of 02/11/2024) Resolved Problems Problem Noted Date Diagnosed Date Resolved Date Chronic obstructive pulmonary disease 11/01/2017 03/08/2022 Overview: Per COPD GOLD Classification Asthma, allergic 01/31/2004 09/15/2009 COPD, severity to be determined 01/31/2004 03/08/2022 documented as of this encounter (statuses as of 02/11/2024) Immunizations Name Administration Dates Next Due COVID-19 [...] file Not on file Not on file [employer]wiring [employer] Not on file Not on file Not on file documented as of this encounter Last Filed Vital Signs Vital Sign Reading Time Taken Comments Blood Pressure 96/64 02/11/2024 1:10 PM EST Pulse 81 02/11/2024 1:10 PM EST Temperature 36.4 C (97.5 F) 02/11/2024 1:10 PM ES T Respiratory Rate - - Oxygen Saturation 98% 02/11/2024 1:10 PM EST Inhaled Oxygen Concentration - - Weight 70 kg (154 lb 6.4 oz) 02/11/2024 1:10 PM EST Height - - Body Mass Index 23.48 11/15/2023 11:33 AM EDT documented in this encounter Progress Notes * Nate Melendrez MD - 02/11/2024 12:58 PM EST Subjective: HPI: Yfn Nagel . is a 78 year old male with hx of COPD, HLD, Spinal stenosis s/p L spine fusion,TANO on CPAP, BPH, GERD, DJD, HFpEF seen for First time seeing the pt Pt walked into the clinic for acute appt Per pt he started having R lower chest wall pain - now it is in the RUQ area - denied any nausea, vomiting, or diarrhea - per pt he is eating well - quit smoking yesterday - per pt he stopped taking all his medications including his inhalers - he is drinking 5-10 beers/night - pt denied any CP with exertion - does have baseline SOB from COPD and daily smoking Pt's friend recently who used to take him to clinic appointment -- currently pt is driving himself Patient Active Problem List Diagnosis Other allergic rhinitis Generalized osteoarthritis Tobacco use disorder Arthropathy of multiple sites Calcium nephrolithiasis JOINT PAIN-[employer] BODY FOOT & TOE Unilateral inguinal hernia Lumbosacral spondylosis Cervical spondylosis TANO on CPAP GERD (gastroesophageal reflux disease) History of Helicobacter infection Deviated nasal septum Acute pancreatitis Alcohol abuse Cannabis abuse Clostridium difficile diarrhea RBBB Hyperlipidemia with target LDL less than 100 Diverticulosis of large intestine without hemorrhage Cholelithiasis Uncomplicated alcohol dependence ([facility]) COPD, group B, by GOLD 2017 classification ([facility]) Spinal stenosis of lumbar region without neurogenic claudication S/P lumbar spinal fusion Chronic heart failure with preserved ejection fraction ([facility]) Current Outpatient Medications Medication Sig Dispense Refill aspirin enteric coated 81 MG TBEC Take 1 Tab by mouth daily. 100 Tab 0 Budesonide-Formoterol Fumarate 160-4.5 MCG/ACT Inhalation Aerosol (Symbicort) Inhale 2 Puffs by mouth in the morning and 2 Puffs before bedtime. 6 g 3 Combivent Respimat 20-100 MCG/ACT Inhalation Aerosol Solution (Ipratropium- Albuterol) Inhale 1 Puffby mouth 4 times a day as needed for Wheezing or Cough. 4 g 3 Pantoprazole Sodium 40 MG Oral Tablet Delayed Release (Protonix) Take 1 Tablet by mouth in the morning. In the morning.. 90 Tablet 3 Atorvastatin Calcium 10 MG Oral Tablet (Lipitor) Take 1 Tablet by mouth in the morning. 30 Tablet 5 CPAP every night at bedtime . No current facility-administered medications for this visit. Past Medical History: Diagnosis Date Acute pancreatitis 10/27/2017 Alcohol abuse Anemia, unspecified Anxiety state, unspecified Arthropathy of multiple sites Asthma, allergic Calcium nephrolithiasis Cannabis abuse Cardiomegaly Carpal tunnel syndrome Chronic airway obstruction, not elsewhere classified Chronic pain disorder Clostridium difficile diarrhea Clostridium difficile infection COPD (chronic obstructive pulmonary disease) ([facility]) COPD, severity to be determined ([facility]) Depressive disorder, not elsewhere classified Diarrhea Diverticulosis of colon (without mention of hemorrhage) Esophageal reflux Generalized osteoarthritis Helicobacter pylori (H. pylori) Hypoxemia Insomnia, unspecified Intervertebral cervical disc disorder with myelopathy, cervical region Iron deficiency anemia, unspecified Lesion of ulnar nerve Lesion of ulnar nerve Neck pain Obesity, unspecified Obstructive sleep apnea (adult) (pediatric) Occlusion and stenosis of carotid artery without mention of cerebral infarction Other hemoglobinopathies ([facility]) Primary localized osteoarthrosis, hand Pure hypercholesterolemia RBBB Tobacco use disorder Unspecified essential hypertension Unspecified late effects of cerebrovascular disease Unspecified venous (peripheral) insufficiency Unspecified vitamin D deficiency Viral warts, unspecified Past Surgical History: Procedure Laterality Date CLOSE ANAL FISSURE W/RECTAL ADVANCE done about 20 years ago COLONOSCOPY 06/13/2012 Dr. Martinez COLONOSCOPY, REMOVE LESION 12/29/2003 Dr Rodríguez had colonoscopy and removed 2 polyps and burned one CT ABD/PELVIS W IV CONTRAST - WO ORAL CONTRAST 10/27/2017 mild ileus, no acute process. [facility] CT CHEST/ABD W IV CONTRAST - WO ORAL CONTRAST 10/27/2017 normal. [facility] CT L SPINE W WO CONTRAST 10/27/2017 DDD no fxs, [facility] EGD, FLEXIBLE, DIAGNOSTIC 06/13/2012 Dr. Martinez EGD, FLEXIBLE, DIAGNOSTIC 12/23/2014 Non-obstructing gastric ulcers with clean base. + hyplori. repeat in 3 months/ESOPHAGOGASTRODUODENOSCOPY (EGD), FLEXIBLE, TRANSORAL, DIAGNOSTIC performed by Jenaro Sánchez DO at ENDOSCOPY [facility] EGD, FLEXIBLE, DIAGNOSTIC N/A 06/30/2015 biopsy shows h pylori/antibiotics/protonix there after/ESOPHAGOGASTRODUODENOSCOPY (EGD), FLEXIBLE, TRANSORAL, DIAGNOSTIC performed by Jenaro Sánchez DO at OR [facility] EGD, FLEXIBLE, DIAGNOSTIC N/A 12/31/2017 gastritis/biopsy from stomach show inflammation with intestinal metaplastia/recall 3 years/ESOPHAGOGASTRODUODENOSCOPY (EGD), FLEXIBLE, TRANSORAL, DIAGNOSTIC performed by Jenaro Sánchez DO at OR [facility] EKG 10/27/2017 NSR, RBBB. [facility] INCISION OF EXTERNAL HEMORRHOID INFORMATION back surgery IOF CT T SPINE WO CONTRAST 10/27/2017 no fx, [facility] MISCELLANEOUS ORDER ([facility] ONLY) lithotripsy done three times MISCELLANEOUS ORDER ([facility] ONLY) left index finger repair 2001 NECK/CHEST SURGERY PROCEDURE NEC REPAIR INITIAL INGUINAL HERNIA REDUCIBLE AGE 5 OR MORE left done more than 30 years ago REPAIR RECURRENT INGUINAL HERNIA 01/27/2007 REPAIR RECURRENT INGUINAL HERNIA REDUCIBLE performed by NAY PEREZ at OR [facility] SURGICAL PROCEDURE ONLY 06/17/2023 Laparoscopic inguinal hernia by Dr. Emiliano Tabares. THROMBOENDARECTOMY W/PATCH,NECK INCISION UMBIL HERNIA REPAIR (INCARCERATED) AGE 5+YR 2002 VIDEO CAPSULE ENDOSCOPY 10/08/2012 Review of patient's allergies indicates: No Known Allergies Family History Problem Relation Name Age of Onset Diabetes Father was on dialysis Heart disease Father Dementia Mother Cancer Sister Unknown type Diabetes Sister Lianne Social History Tobacco Use Smoking status: Former Current packs/day: 0.00 Average packs/day: 1 pack/day for 64.0 years (64.0 ttl pk-yrs) Types: Cigarettes Start date: 08/17/1957 Quit date: 08/17/2021 Years since quittin.4 Smokeless tobacco: Former Types: Chew, Snuff Tobacco comments: been chewing for approx 48 yrs- quit chewing tobacco 12/01 Substance Use Topics Alcohol use: Yes Alcohol/week: 28.0 standard drinks of alcohol Types: 28 12 oz of beer per week Comment: 4-6 beers a night Vaping/E-Cigarette Use Vaping/E-Cigarette Substances Vaping/E-Cigarette Devices ROS: -Per HPI OBJECTIVE: BP 96/64 | Pulse 81 | Temp 97.5 F (36.4 C) | Wt 154 lb 6.4 oz (70 kg) | SpO2 98% | BMI 23.48 kg/m | BSA 1.83 m PHYSICAL EXAM: Vitals are reviewed General:. NAD, well developed HEENT:. Normal Conjunctiva, EOMI Cardiac:. Normal S1, S2, no murmur Lungs:. Fair air entry b/l, no wheezing or crackles Abd:.TTP of the RUQ (deep palpation), no Chest wall TTP ,soft, ND MSK:. No LE edema Psych:. AAOx3, normal affect ASSESSMENT/PLAN: EKG: NSR, RBBB, TWI on V1 - similar to previous EKGs Pt has stopped all his meds - fortunately he is euvolemic --- considering his low normal BP did not feel comfortable restarting BB or Lasix --- restarted his aspirin and lipitor Due to his ETOH abuse hx will get abd US and labs today Currently symptoms could be liver related vs GERD related (pt also had epigastric discomfort on palpation) Due to medical complexity and multiple chronic conditions need a close follow up with me Chest pain, unspecified type (Primary) - EKG; Future; Expected date: 02/11/2024 Hyperlipidemia with target LDL less than 100 - LIPID PANEL WITHOUT DIRECT LDL - Atorvastatin Calcium 10 MG Oral Tablet (Lipitor); Take 1 Tablet by mouth in the morning. COPD, group B, by GOLD 2017 classification ([facility]) - Budesonide-Formoterol Fumarate 160-4.5 MCG/ACT Inhalation Aerosol (Symbicort); Inhale 2 Puffs by mouth in the morning and 2 Puffs before bedtime. - Combivent Respimat 20-100 MCG/ACT Inhalation Aerosol Solution (Ipratropium- Albuterol); Inhale 1 Puff by mouth 4 times a day as needed for Wheezing or Cough. Chronic heart failure with preserved ejection fraction (HCC) - HEMOGLOBIN A1C - CBC WITH WBC DIFFERENTIAL - COMPREHENSIVE METABOLIC PANEL - ALBUMIN / CREATININE RATIO, URINE - Atorvastatin Calcium 10 MG Oral Tablet (Lipitor); Take 1 Tablet by mouth in the morning. Elevated glucose - HEMOGLOBIN A1C Abdominal pain, right upper quadrant - US ABDOMEN LIMITED - Pantoprazole Sodium 40 MG Oral Tablet Delayed Release (Protonix); Take 1 Tablet by mouth in the morning. In the morning.. Gastroesophageal reflux disease without esophagitis - Pantoprazole Sodium 40 MG Oral Tablet Delayed Release (Protonix); Take 1 Tablet by mouth in the morning. In the morning.. Alcohol abuse Follow-up: Return in about 1 month (around 03/12/2024). | Check-out note: With me Nate Melendrez MD Family medicine, [address] [address] documented in this encounter Nursing Notes * aBrb Mcdaniel CMA - 02/11/2024 1:07 PM EST He woke up with chest pain on the right side last night that has gotten worse. Tried to reconcile med list. Patient just keeps saying he doesn't take any medications. No fluid pills, heart meds, blood pressure pills, etc "nothing'. documented in this encounter Plan of Treatment Upcoming Encounters Date Type Department Care Team (Late st Contact Info) Description 02/12/2024 12:00 PM EST Office Visit Family Medicine [address] [phone] Nate Melendrez MD [address] [place] [address] [place] [phone] 03/12/2024 1:00 PM EST Office Visit [address] [phone] Nate Melendrez MD [address] [place] [address] [place] [phone] Pending Results Name Type Priority Associated Diagnoses Date /Time LIPID PANEL WITHOUT DIRECT LDL Lab Routine Hyperlipidemia with target LDL less than 100 02/11/2024 2:28 PM EST HEMOGLOBIN A1C Lab Routine Chronic heart failure with preserved ejection fraction (HCC) Elevated glucose 02/11/2024 2:28 PM EST CBC WITH WBC DIFFERENTIAL Lab Routine Chronic heart failure with preserved ejection fraction (HCC) 02/11/2024 2:28 PM EST COMPREHENSIVE METABOLIC PANEL Lab Routine Chronic heart failure with preserved ejection fraction (HCC) 02/11/2024 2:28 PM EST ALBUMIN / CREATININE RATIO, URINE Lab Routine Chronic heart failure with preserved ejection fraction (HCC) 02/11/2024 2:28 PM EST CBC Lab Routine Chronic heart failure with preserved ejection fraction (HCC) 02/11/2024 2:28 PM EST DIFFERENTIAL, AUTOMATED Lab Routine Chronic heart failure with preserved ejection fraction (HCC) 02/11/2024 2:28 PM EST Scheduled Orders Name Type Priority Associated Diagnoses Orde r Schedule EKG EKG Routine Chest pain, unspecified type Expected: 02/11/2024 (Approximate), Expires: 03/12/2025 ABDOMEN LIMITED Medical Imaging Routine Abdominal pain, right upper quadrant Ordered: 02/11/2024 Scheduled Procedures Name Priority Associated Diagnoses Date/Ti oh ESOPHAGOGASTRODUODENOSCOPY ( EGD), FLEXIBLE, TRANSORAL, DIAGNOSTIC Recall [...] ASSESSMENT COMPLETED IN PAST YEAR FOR COPD 11/27/2024 11/28/2023 DTap/Tdap Vaccines (3 - Tdap) 11/23/2031 11/22/2021, [...] Not on filedocumented as of this encounter Visit Diagnoses Diagnosis Chest pain, unspecified type- Primary Hyperlipidemia with target LDL less than 100 Other and unspecified hyperlipidemia COPD, group B, by GOLD 2017 classification (HCC) Chronic heart failure with preserved ejection fraction (HCC) Elevated glucose Other abnormal glucose Abdominal pain, right upper quadrant Gastroesophageal reflux disease without esophagitis Esophageal reflux Alcohol abuse Alcohol abuse, unspecified documented in this encounter Advance Directives * Full Code [...] 6:07 PM 01/28/2007 3:50 PM Care Teams Operations Management Trainee Relationship Specialty Start Date End Date Nate Melendrez MD [address] [place] [address] [place] [id number] PCP - General Family Medicine 04/25/23 documented as of this encounter
--- OUTSIDE RECORDS SUMMARY | 2024-02-29 14:29 | External Medical Summary | Summary of Care ---
Author Name Unknown Organization [facility] Address [address] [facility] [address] Phone [phone] Care Team Providers Care Silver Service Waiter Name Role Phone Nate Melendrez MD Primary Care Provide r Reason for Visit * Reason Onset Date Comments Medication Refill 11/18/2023 Encounter Details Date Type Department Care Team (Late st Contact Info) Description 11/18/2023 Refill Family Medicine [address] [place] [phone] Nate Melendrez MD [address] [place] [address] [place] [address] Spinal stenosis of lumbar region without neurogenic claudication Allergies No known active allergiesdocumented as of this encounter (statuses as of 11/18/2023) Medications Medication Sig Dispensed Refills Start Date End Date Status aspirin enteric coated 81 MG TBEC Take 1 Tab by mouth daily. 100 Tab 11/01/2017 Active busPIRone (BUSPAR) 10 MG Tablet Take 1 Tab by mouth 2 times a day. 60 Tab 11/01/2017 Active Additional Information Patient taking differently: 5 mgOral BID (.AM/PM), Reported on 10/16/2022 Vitamin D, Cholecalciferol, 1000 units TABS Take 1 Tab by mouth daily. 30 Tab 11/01/2017 Active docusate sodium (COLACE) 100 MG Capsule Take 1 Capsule by mouth in the morning and 1 Capsule before bedtime. Active CPAP every night at bedtime . Active Celecoxib 200 MG Oral Capsule (CeleBREX) TAKE 1 CAPSULE BY MOUTH 2 TIMES A DAY 08/13/2021 Active oxygen IN GAS 3 LPM bled through PAP therapy during sleep 1 Each 11/02/2021 Active Glucosamine HCl 1000 MG Oral Tablet Take 1 Tablet by mouth in the morning. Active Isosorbide Mononitrate ER 30 MG Oral Tablet Extended Release 24 HourIndications:Concrete Foreman malachi diastolic congestive heart failure (HCC) Take 1 Tablet by mouth in the morning. Do not cut, crush or chew. 30 Tablet 11 05/02/2023 Active Furosemide 40 MG Oral Tablet (Lasix)Indications:C hronic diastolic congestive heart failure (HCC) Take 0.5 Tablets by mouth in the morning and 0.5 Tablets before bedtime. 35 Tablet 10 05/02/2023 Active Pravastatin Sodium 40 MG Oral Tablet (Pravachol)Indicatio ns:Hyperlipidemia with target LDL less than 100 Take 1 Tablet by mouth at bedtime. 30 Tablet 05/02/2023 Active Budesonide-Formotero l Fumarate 160-4.5 MCG/ACT Inhalation Aerosol (Symbicort)Indicatio ns:COPD, group B, by GOLD 2017 classification ([facility]) Inhale 2 Puffs by mouth in the morning and 2 Puffs before bedtime. 6 g 3 05/02/2023 Active Ipratropium-Albutero l 0.5-2.5 (3) MG/3ML Inhalation Solution (Duoneb)Indications: COPD, group B, by GOLD 2017 classification ([facility]) Inhale 3 mL by mouth every 6 hours as needed for Shortness of Breath. 100 mL 5 05/02/2023 Active Combivent Respimat 20-100 MCG/ACT Inhalation Aerosol Solution (Ipratropium-Albuter ol)Indications:COPD, group B, by GOLD 2017 classification ([facility]) Inhale 1 Puff by mouth in the morning and 1 Puff at noon and 1 Puff in the evening and 1 Puff before bedtime. 4 g 3 05/02/2023 Active Potassium Chloride Katelyn ER 20 MEQ Oral Tablet Extended Release (Klor-Con M20)Indications:Concrete Foreman malachi diastolic congestive heart failure (HCC) Take 1 Tablet by mouth in the morning. 30 Tablet 11 05/02/2023 Active Naproxen 500 MG Oral Tablet (Naprosyn) Take 1 Tablet by mouth 2 times a day with morning and evening meals. Active Pantoprazole Sodium 40 MG Oral Tablet Delayed Release (Protonix)Indication s:Gastroesophageal reflux disease without esophagitis TAKE ONE TABLET BY MOUTH IN THE MORNING 90 Tablet 3 07/19/2023 Active Montelukast Sodium 10 MG Oral Tablet (Singulair)Indicatio ns:Other allergic rhinitis TAKE 1 TABLET BY MOUTH EVERY MORNING 90 Tablet 3 07/19/2023 Active Tamsulosin HCl 0.4 MG Oral Capsule (Flomax) in the evening 90 Capsule 1 10/11/2023 Active Metoprolol Succinate ER 25 MG Oral Tablet Extended Release 24 Hour (toPROL XL)Indications:Chron ic diastolic congestive heart failure (HCC) TAKE ONE TABLET BY MOUTH IN THE MORNING 90 Tablet 3 10/11/2023 Active predniSONE 20 MG Oral Tablet (Deltasone)Indicatio ns:Spinal stenosis of lumbar region without neurogenic claudication 1 tab 3 times a day for 3 days, then 1 tab 2 times a day for 3 days, then 1 tab daily for 3 days 18 Tablet 11/15/2023 Active predniSONE 10 MG Oral Tablet (Deltasone)Indicatio ns:Spinal stenosis of lumbar region without neurogenic claudication Take 5 tabs for 2 days, 4 tabs for 2 days, 3 tabs for 2 days, 2 tabs for 2 days 1 tab for 2 days 30 Tablet 11/18/2023 Active documented as of this encounter (statuses as of 11/18/2023) Active Problems Problem Noted Date Diagnosed Date Spinal stenosis of lumbar re gion without [...] TANO on CPAP 02/22/2014 Lumbosacral spondylosis 04/13/2010 Overview: DDD L3-4 min stenosis L3-4,4-5 Cervical spondylosis 04/13/2010 Overview: S/P C3-6 ACDF- Nov C6-7 Unilateral inguinal hernia 01/27/2007 FOREIGN BODY FOOT & TOE 12/04/2005 JOINT PAIN-SHLDER 07/04/2004 Other allergic rhinitis 01/31/2004 Overview: ICD-10 update of inactive term Generalized osteoarthritis 01/31/2004 Tobacco use disorder 01/31/2004 Arthropathy of multiple sites 01/31/2004 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 Alcohol abuse Cannabis abuse Clostridium difficile diarrhea RBBB documented as of this encounter (statuses as of 11/18/2023) Resolved Problems Problem Noted Date Diagnosed Date Resolved Date Chronic obstructive pulmonary disease 11/01/2017 03/08/2022 Overview: Per COPD GOLD Classification Asthma, allergic 01/31/2004 09/15/2009 COPD, severity to be determined 01/31/2004 03/08/2022 documented as of this encounter (statuses as of 11/18/2023) Immunizations Name Administration Dates Next Due COVID-19 mRNA, LNP-s, No Pre serve, 2-Dose Series (Moderna) 09/07/2020,08/09/2020 COVID-19, LNP-s, No Preserve , Navin-sucrose, Ages 12+ (Pfizer) 09/18/2021 Pneumococcal Conjugate Vacc, 13 Valent (Prevnar) 01/24/2017 Pneumococcal Polysaccharide PPV23 (Pneumovax) 02/22/2014,03/06/2013,02/04/2004 Seasonal Influenza, Split, I IV3, With Preserve, Inj 01/17/2015,02/22/2014,11/24/2011 TD - Tetanus/Diptheria (ADULT) 12/04/2005 documented [...] Recorded Sex Assigned at Not on file Gender Identity Not on file Sexual Orientation Not on file Job Start Date Occupation Industry Not on file Not on file Not on file documented as of this encounter Miscellaneous Notes * Addendum Note - Nate Melendrez MD - 11/18/2023 12:41 PM EDTAddended by: NATE MELENDREZ on: 11/18/2023 12:41 PM Modules accepted: Orders * Telephone Encounter - Nate Melendrez MD - 11/18/2023 12:40 PM EDT Will do refill - will go over the correct way to take the medication * Telephone Encounter - Barb Mcdaniel CMA - 11/18/2023 12:36 PM EDT The patient came to the office today. He took all the medication at one time by mistake. Dr. Vela said he would refill it one time. He asked me to tell the patient to take it as the label instructs and reinforce that it is a taper. * Telephone Encounter - Diane Rangel RN - 11/18/2023 12:26 PM EDTRefused Prescriptions: Disp Refills predniSONE 20 MG Oral Tablet (Deltasone) 18 Tab*0 Si tab 3 times a day for 3 days, then 1 tab 2 times a day for 3 days, then 1 tab daily for 3 daysRefused By: DIANE RANGEL MReason for Refusal: Duplicate Request * Telephone Encounter - Diane Rangel RN - 11/18/2023 12:26 PM EDT duplicate req * Telephone Encounter - Leena Nina OSA - 11/18/2023 12:18 PM EDT Did you pend patient's preferred pharmacy and medication before forwarding?yes Pharmacy: [facility], [address] [place] Pending Prescriptions: Disp Refills predniSONE 20 MG Oral Tablet (Deltasone) 18 Tab*0 Si tab 3 times a day for 3 days, then 1 tab 2 times a day for 3 days, then 1 tab daily for 3 days Last Visit: 11/15/2023 (in office), Visit date not found (telemedicine) Next Visit: 02/12/2024 If no future appointments scheduled, and last appointment is greater than a year ago, please schedule patient for a follow-up appointment Last date the medication was ordered: 11.15.23 Is this request for a controlled substance?No Urine Drug Screen:No results found for this or any previous visit. Patient Phone Numbers Labs: Lab Results Component Value Date/Time CREAT 1.0 2023 02:05 PM CREAT 1.0 12/16/2014 11:52 AM POTASSIUM 4.7 2023 02:05 PM POTASSIUM 4.3 12/16/2014 11:52 AM ALT 30 12/16/2014 11:52 AM documented in this encounter Plan of Treatment Upcoming Encounters Date Type Department Care Team (Late st Contact Info) Description 01/17/2024 11:25 AM EDT Office Visit [facility], [address] [place] [phone] Jovanna Murphy MD [address] [place] [address] [place] [phone] 02/12/2024 12:00 PM EST Office Visit Family Medicine [address] [place] [phone] Nate Melendrez MD [address] [place] [address] [place] [phone] Scheduled Procedures Name Priority Associated Diagnoses Date/Ti me ESOPHAGOGASTRODUODENOSCOPY ( EGD), FLEXIBLE, TRANSORAL, DIAGNOSTIC Recall Intestinal metaplasia of gastric cardia Health Maintenance Due Date Last Done Comments Depression Screening 1959 Alpha-1 Antitrypsin 1965 Hepatitis C Screening 1965 Zoster Vaccines (1 of 2) 1997 Adult Wellness Visit 2013 COVID-19 Vaccine ( season) 2022 03/02/2022, 09/18/2021, 09/18/2021, Additional history exists Influenza Vaccine (FLU shot) (#1) 2023 01/17/2015, 03/25/2014, 02/22/2014, Additional history exists O2 ASSESSMENT COMPLETED IN PAST YEAR FOR COPD 11/14/2024 11/15/2023 DTaP,Tdap,and Td Vaccines (3 - Tdap) 11/23/2031 11/22/2021, 06/26/2014, [...] as of this encounter Visit Diagnoses Diagnosis Spinal stenosis of lumbar region without neurogenic claudication Spinal stenosis, lumbar region, without neurogenic claudication documented in this encounter Advance Directives * [...] 6:07 PM 01/28/2007 3:50 PM Care Teams Silver Service Waiter Relationship Specialty Start Date End Date Nate Melendrez MD [address] [place] [address] [place] [phone] PCP - General Family Medicine 04/25/23 documented as of this encounter
--- OUTSIDE RECORDS SUMMARY | 2024-02-29 14:29 | External Medical Summary ---
Author Name Unknown Address Unknown Organization [id number]:[facility] [place] [address] [facility] [address] Laboratory Report Ordering Provider Test Date Status CHRISTIANO PELAEZ 02/11/2024 14:28:14 Mitzy l Observation Date Value Abnormality Reference (Units ) Status SYNC LEUKOCYTES IN BLOOD BY AUTOMATED COUNT 02/11/2024 14:28:14 6.80 4.00-10.80 (K/uL) Final Segs 02/11/2024 14:28:14 70.9 40.0-75.0 (%) Final Lymphs % 02/11/2024 14:28:14 15.0 Below low normal 18.0-42.0 (%) Final Monos 02/11/2024 14:28:14 12.8 Above high normal 1.0-11.0 (%) Final Eosinophils 02/11/2024 14:28:14 0.7 0.0-6.0 (%) Final Basos 02/11/2024 14:28:14 0.3 0.0-2.0 (%) Final Immature Granulocyte, Percent 02/11/2024 14:28:14 0.3 0.0-2.0 (%) Final Absolute Segs 02/11/2024 14:28:14 4.82 1.80-7.70 (K/uL) Final Lymphs, absolute 02/11/2024 14:28:14 1.02 1.00-4.80 (K/ul) Final Monos, Abs 02/11/2024 14:28:14 0.87 0.00-1.10 (K/uL) Final Eos, Abs 02/11/2024 14:28:14 0.05 0.00-0.70 (K/uL) Final Basos, Abs 02/11/2024 14:28:14 0.02 0.00-0.20 (K/uL) Final Immature Granulocytes, Number 02/11/2024 14:28:14 0.02 0.00-0.20 (K/uL) Final Performing Location [facility] [place] - [facility] [address] [place] [facility] [address]
--- OUTSIDE RECORDS SUMMARY | 2024-02-29 14:29 | External Medical Summary | Summary of Care ---
Author Name Unknown Organization [facility] Address [address] [place] [address] Phone [phone] Care Team Providers Care Alpaca Farmer Name Role Phone Nate Melendrez MD Primary Care Provide r Reason for Visit * Reason Comments eRx-Medication Refill Encounter Details Date Type Department Care Team (Late st Contact Info) Description 01/06/2024 Refill Family Medicine [address] [phone] Murtaza Aguero MD [address] [place] [address] [place] [address] Other osteoarthritis of spine, lumbosacral region Allergies No known active allergiesdocumented as of this encounter (statuses as of 01/08/2024) Medications Medication Sig Dispensed Refills Start Date End Date Status aspirin enteric coated 81 MG TBEC Take 1 Tab by mouth daily. 100 Tab 8 Active busPIRone (BUSPAR) 10 MG Tablet Take 1 Tab by mouth 2 times a day. 60 Tab 8 Active Additional Information Patient taking differently: 5 mgOral BID (.AM/PM), Reported on 10/16/2022 Vitamin D, Cholecalciferol, 1000 units TABS Take 1 Tab by mouth daily. 30 Tab 8 Active docusate sodium (COLACE) 100 MG Capsule Take 1 Capsule by mouth in the morning and 1 Capsule before bedtime. Active CPAP every night at bedtime . Active oxygen IN GAS 3 LPM bled through PAP therapy during sleep 1 Each 2 Active Glucosamine HCl 1000 MG Oral Tablet Take 1 Tablet by mouth in the morning. Active Isosorbide Mononitrate ER 30 MG Oral Tablet Extended Release 24 HourIndications:Chr onic diastolic congestive heart failure (HCC) Take 1 Tablet by mouth in the morning. Do not cut, crush or chew. 30 Tablet 4 Active Furosemide 40 MG Oral Tablet (Lasix)Indications: Chronic diastolic congestive heart failure (HCC) Take 0.5 Tablets by mouth in the morning and 0.5 Tablets before bedtime. 35 Tablet 10 4 Active Pravastatin Sodium 40 MG Oral Tablet (Pravachol)Indicati ons:Hyperlipidemia with target LDL less than 100 Take 1 Tablet by mouth at bedtime. 30 Tablet 4 Active Budesonide-Formoter ol Fumarate 160-4.5 MCG/ACT Inhalation Aerosol (Symbicort)Indicati ons:COPD, group B, by GOLD 2017 classification ([facility]) Inhale 2 Puffs by mouth in the morning and 2 Puffs before bedtime. 6 g 4 Active Ipratropium-Albuter ol 0.5-2.5 (3) MG/3ML Inhalation Solution (Duoneb)Indications :COPD, group B, by GOLD 2017 classification ([facility]) Inhale 3 mL by mouth every 6 hours as needed for Shortness of Breath. 100 mL 4 Active Combivent Respimat 20-100 MCG/ACT Inhalation Aerosol Solution (Ipratropium-Albute rol)Indications:[place]IR[place] GUIDE D, group B, by GOLD 2017 classification ([facility]) Inhale 1 Puff by mouth in the morning and 1 Puff at noon and 1 Puff in the evening and 1 Puff before bedtime. 4 g 3 4 Active Potassium Chloride Katelyn ER 20 MEQ Oral Tablet Extended Release (Klor-Con M20)Indications:Chr onic diastolic congestive heart failure (HCC) Take 1 Tablet by mouth in the morning. 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 With food.. 60 Tablet 3 4 Active Pregabalin 75 MG Oral Capsule (Lyrica)Indications :Other osteoarthritis of spine, lumbosacral region Take 1 Capsule by mouth in the morning and 1 Capsule before bedtime. 60 Capsule 4 Active Baclofen 10 MG Oral Tablet (Lioresal)Indicatio ns:Other osteoarthritis of spine, lumbosacral region TAKE ONE TABLET BY MOUTH TWICE DAILY NEEDED 60 Tablet 4 Active Pregabalin 75 MG Oral Capsule (Lyrica)Indications :Other osteoarthritis of spine, lumbosacral region Take 1 Capsule by mouth in the morning and 1 Capsule before bedtime. 60 Capsule 4 01/08/20 24 Discontinued Baclofen 10 MG Oral Tablet (Lioresal)Indicatio ns:Other osteoarthritis of spine, lumbosacral region Take 1 Tablet by mouth in the morning and 1 Tablet before bedtime. As needed. 60 Tablet 4 01/08/20 24 Discontinued documented as of this encounter (statuses as of 01/08/2024) Active Problems Problem Noted Date Diagnosed Date [...] as of this encounter (statuses as of 01/08/2024) Resolved Problems Problem Noted Date Diagnosed Date Resolved Date Chronic obstructive pulmonary disease 11/01/2017 03/08/2022 Overview: Per COPD GOLD Classification Asthma, allergic 01/31/2004 09/15/2009 COPD, severity to be determined 01/31/2004 03/08/2022 documented as of this encounter (statuses as of 01/08/2024) Immunizations Name Administration Dates Next Due COVID-19 [...] encounter Miscellaneous Notes * Telephone Encounter - Walter العراقي MD - 01/08/2024 12:48 PM EDT Signed Prescriptions: Disp Refills Pregabalin 75 MG Oral Capsule (Lyrica) 60 Cap*0 Sig: Take 1 Capsule by mouth in the morning and 1 Capsule before bedtime. Authorizing Provider: WALTER العراقي Baclofen 10 MG Oral Tablet (Lioresal) 60 Tab*0 Sig: TAKE ONE TABLET BY MOUTH TWICE DAILY NEEDED Authorizing Provider: WALTER العراقي --- * Telephone Encounter - Leeann Sosa [facility] - 01/08/2024 8:00 AM EDT Pending Prescriptions: Disp Refills Pregabalin 75 MG Oral Capsule (Lyrica) 60 Cap*0 Sig: Take 1 Capsule by mouth in the morning and 1 Capsule before bedtime. Baclofen 10 MG Oral Tablet (Lioresal) 60 Tab*0 Sig: TAKE ONE TABLET BY MOUTH TWICE DAILY NEEDED * Telephone Encounter - Leeann Sosa RPh - 01/08/2024 8:00 AM EDT I have reviewed the patients controlled substance dispensing history in the Prescription Drug Monitoring Program in compliance with the [facility] regulations before prescribing a controlled substance. PDMP checked on 01/08/2024. Pending Prescriptions: Disp Refills Pregabalin 75 MG Oral Capsule (Lyrica) [P*60 Cap*0 Sig: Take 1 Capsule by mouth in the morning and 1 Capsule before bedtime. Last Visit: 11/28/2023 (in office), Visit date not found (telemedicine) Next Visit: 02/12/2024 Date medication was last filled: 11/27 Date medication is due for refill: 12/26 Pharmacy: [facility], [address] [place] Is this request for a controlled substance? Yes and Urine Drug Screen Not completed Toxicology results: No results found for this or any previous visit. Please approve if appropriate. Thank you, Leeann Sosa, PharmD. Clinical Pharmacist [facility] ([facility]) 01/08/2024, 8:00 AM documented in this encounter Plan of Treatment Upcoming Encounters Date Type Department Care Team (Late st Contact Info) Description 01/17/2024 11:25 AM EDT Office Visit [facility], [address] [place] [address] Jovanna Murphy MD [address] [place] [address] [place] [address] 02/12/2024 12:00 PM EST Office Visit Family Medicine [address] [place] [phone] Nate Melendrez MD [address] [place] [address] [place] [phone] Scheduled Procedures Name Priority Associated Diagnoses Date/Ti [...] as of this encounter Visit Diagnoses Diagnosis Other osteoarthritis of spine, lumbosacral region documented in this encounter Advance Directives * [...] 6:07 PM 01/28/2007 3:50 PM Care Teams Alpaca Farmer Relationship Specialty Start Date End Date Nate Melendrez MD [address] [place] [address] [place] [address] PCP - General Family Medicine 04/25/23 documented as of this encounter
--- OUTSIDE RECORDS SUMMARY | 2024-02-29 14:29 | External Medical Summary ---
Author Name Unknown Address Unknown Organization [id number]:[facility] [place] - [address] [place] [address] Laboratory Report Ordering Provider Test Date Status CHRISTIANO PELAEZ 02/11/2024 14:28:14 Mitzy l Normal: <30 mg/g creatinine< br/>High: 30-300 mg/g creatinine
Very High: >300 mg/g creatinine
Nephrotic: >2200 mg/g creatinine Observation Date Value Abnormality Reference (Units ) Status Albumin, Urine 02/11/2024 14:28:14 <1.20 (mg/dL) Final Creatinine, Urine 02/11/2024 14:28:14 204 (mg/dL) Final Albumin/Creatinine [Mass Ratio] in Urine 02/11/2024 14:28:14 <6 <30 (mg/g Creat) Final Performing Location [facility] [place] - [address] [place] [address]
--- OUTSIDE RECORDS SUMMARY | 2024-02-29 14:29 | External Medical Summary ---
Author Name Unknown Address Unknown Organization [id number]:[facility] [place] [address] [place] [address] [place] [address] Laboratory Report Ordering Provider Test Date Status CHRISTIANO PELAEZ 02/11/2024 14:28:14 Mitzy l Observation Date Value Abnormality Reference (Units ) Status BUN 02/11/2024 14:28:14 20 6-20 (mg/dL) Final Creatinine 02/11/2024 14:28:14 1.2 0.6-1.2 (mg/dL) Final Glomerular filtration rate/1.73 sq M.predicted [Volume Rate/Area] in Serum, Plasma or Blood by Creatinine-based formula (CKD-EPI) 02/11/2024 14:28:14 61 >=60 (mL/min) Final eGFR is calculated based on the CKD-EPI 2020 equation. Sodium 02/11/2024 14:28:14 140 135-146 (m mol/L) Final Potassium 02/11/2024 14:28:14 4.7 3.5-5.1 (m mol/L) Final Cl 02/11/2024 14:28:14 100 98-107 (mm ol/L) Final CO2 02/11/2024 14:28:14 27 22-32 (mmo l/L) Final Anion gap 02/11/2024 14:28:14 13 7-15 (mmol /L) Final Glucose 02/11/2024 14:28:14 90 70-120 (mg /dL) Final Albumin 02/11/2024 14:28:14 4.2 3.8-5.0 (g /dL) Final AST (Aspartate aminotransferase) 02/11/2024 14:28:14 14 10-50 (U/L) Fin al Alk Phos 02/11/2024 14:28:14 104 35-130 (U/ L) Final Bilirubin, Total 02/11/2024 14:28:14 0.9 <=1 .2 (mg/dL) Final Calcium 02/11/2024 14:28:14 9.4 8.4-10.2 ( mg/dL) Final Protein 02/11/2024 14:28:14 6.2 6.0-8.3 (g /dL) Final ALT (Alanine aminotransferase) 02/11/2024 14:28:14 8 Below low normal 10-50 (U/L) Final Performing Location [facility] [place] - [address] [facility] [address]
--- OUTSIDE RECORDS SUMMARY | 2024-02-29 14:29 | External Medical Summary ---
Author Name Unknown Address Unknown Organization [id number]:[facility] [place] - [address] [place] [address] Laboratory Report Ordering Provider Test Date Status CHRISTIANO PELAEZ 02/11/2024 14:28:14 Mitzy l Observation Date Value Abnormality Reference (Units ) Status WBC, Total 02/11/2024 14:28:14 6.80 4.00-10.80 (K/uL) Final RBC 02/11/2024 14:28:14 5.40 4.50-5.25 (M/uL) Final Hemoglobin 02/11/2024 14:28:14 15.4 14.0-16.8 (g/dL) Final HCT 02/11/2024 14:28:14 47.3 40.0-48.4 (%) Final MCV 02/11/2024 14:28:14 87.6 82.0-99.5 (fL) Final MCH 02/11/2024 14:28:14 28.5 27.0-34.0 (pg) Final MCHC 02/11/2024 14:28:14 32.6 32.0-36.0 (g/dL) Final RDW 02/11/2024 14:28:14 15.1 11.5-15.5 (%) Final Platelets 02/11/2024 14:28:14 277 140-400 (K/uL) Final MPV 02/11/2024 14:28:14 10.6 6.6-11.1 (fL) Final Nucleated erythrocytes/100 leukocytes [Ratio] in Blood by Automated count 02/11/2024 14:28:14 0 <=0 (/100 WBCs) Final Performing Location [facility] [place] - [address] [place] [address]
--- OUTSIDE RECORDS SUMMARY | 2024-02-29 14:29 | External Medical Summary | Summary of Care ---
Author Name Unknown Organization [facility] Address [address] [facility] [address] Phone [phone] Care Team Providers Care Marble Polisher Hand Name Role Phone Nate Melendrez MD Primary Care Provide r Reason for Visit * Reason Onset Date Comments Advice 02/05/2024 Appointment 02/05/2024 [facility] Encounter Details Date Type Department Care Team (Late st Contact Info) Description 02/05/2024 Telephone Family Medicine [address] [place] [address] Nate Melendrez MD [address] [place] [address] [place] [address] Advice; Appointment ([facility] ) Allergies No known active allergiesdocumented [...] ions:COPD, group B, by GOLD 2017 classification ([facility]) Inhale 2 Puffs by mouth in the morning and 2 Puffs before bedtime. 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 Pt is very confused. Call Nino @ [phone] * Telephone Encounter - Marybeth Pierre OSA - 02/05/2024 9:55 AM EST Reason for patient's call: [facility]ino [employer] services @ [phone] Caller was transferred to No Answer at the nurse line. documented in this encounter Plan of Treatment Upcoming Encounters Date Type Department Care Team (Late st Contact Info) Description 03/12/2024 1:00 PM EST Office Visit Family [address] [place] [phone] Nate Melendrez MD [address] [place] [address] [place] [address] Scheduled Procedures Name Priority Associated Diagnoses Date/Ti [...] 6:07 PM 01/28/2007 3:50 PM Care Teams Marble Polisher Hand Relationship Specialty Start Date End Date Nate Melendrez MD [address] [place] [address] [place] [address] PCP - General Family Medicine 04/25/23 documented as of this encounter
--- OUTSIDE RECORDS SUMMARY | 2024-02-29 14:29 | External Medical Summary | Summary of Care ---
Author Name Unknown Organization [facility] Address [address] [facility] [address] Phone [phone] Care Team Providers Care Cleaner And Preparer Name Role Phone Nate Melendrez MD Primary Care Provide r Reason for Visit * Reason Onset Date Comments Advice 02/05/2024 Appointment 02/05/2024 [facility] Encounter Details Date Type Department Care Team (Late st Contact Info) Description 02/05/2024 Telephone Family Medicine [address] [place] [address] Nate Melendrez MD [address] [place] [address] [place] [address] Advice; Appointment ([facility] ) Allergies No known active allergiesdocumented as [...] file Not on file Not on file 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 Call Nino @ [phone] * Telephone Encounter - Marybeth Pierre OSA - 02/05/2024 9:55 AM EST Reason for patient's call: [facility] [employer] services @ [phone] Caller was transferred to No Answer at the nurse line. documented in this encounter Plan of Treatment Upcoming Encounters Date Type Department Care Team (Late st Contact Info) Description 03/12/2024 1:00 PM EST Office Visit Family Medicine [address] [place] [phone] Nate Melendrez MD [address] [place] [address] [place] [address] Scheduled Procedures Name Priority Associated Diagnoses Date/Ti [...] 6:07 PM 01/28/2007 3:50 PM Care Teams Cleaner And Preparer Relationship Specialty Start Date End Date Nate Melendrez MD [address] [place] [address] [place] [phone] PCP - General Family Medicine 04/25/23 documented as of this encounter
--- OUTSIDE RECORDS SUMMARY | 2024-02-29 14:29 | External Medical Summary ---
Author Name Unknown Address Unknown Organization K01:[facility] [place] [address] [facility] [place] [address] Laboratory Report Ordering Provider Test Date Status CHRISTIANO PELAEZ 02/11/2024 14:28:14 Mitzy l Observation Date Value Abnormality Reference (Units ) Status Triglyceride 02/11/2024 14:28:14 78 <=174 ( mg/dL) Final Triglyceride Reference Range s (mg/dL):
<150 Acceptable
150-174 Borderline high
175-499 High
>=500 Very high Cholesterol 02/11/2024 14:28:14 136 <200 (mg /dL) Final Total Cholesterol Reference Ranges (mg/dL):
<200 Desirable
200-239 Borderline high
>=240 High HDL 02/11/2024 14:28:14 57 >39 (mg/dL ) Final HDL Cholesterol Reference Ra nges (mg/dL):
>=60 High (Desirable)
<50 Low (Undesirable) For Females
<40 Low (Undesirable) For Males NON-HDL CHOLESTEROL 02/11/2024 14:28:14 79 <=159 (mg/dL) Final Non-HDL Cholesterol Referenc e Range (mg/dL):
<100 Target level for high risk ASCVD patient
<130 Optimal for general population
130-159 Near optimal for general population
160-189 Borderline High
190-219 High
>=220 Very High LDL, (calculated) 02/11/2024 14:28:14 63 <= 129 (mg/dL) Final LDL Cholesterol Reference Ra nges (mg/dL):
<70 Target level for high risk ASCVD patient
<100 Optimal for general population
100-129 Near optimal for general population
130-159 Borderline high
160-189 High
>=190 Very high Performing Location [facility] [place] - [address] [facility] [address]
--- OUTSIDE RECORDS SUMMARY | 2024-02-29 14:29 | External Medical Summary | Summary of Care ---
Author Name Unknown Organization [facility] Address [address] [facility] [address] Phone [phone] Care Team Providers Care Gusset Folder Name Role Phone Nate Melendrez MD Primary Care Provide r Reason for Visit * Reason Comments Walk In Chest pain Encounter Details Date Type Department Care Team (Latest Contact Info) Description 02/11/2024 2:00 PM EST Office Visit Family Medicine [address] [place] [phone] Nate Melendrez MD [address] [place] [address] [place] [address] Chest pain, unspecified type*; Hyperlipidemia with target LDL less than 100; COPD, group B, by GOLD 2017 classification ([facility]); Chronic heart failure with preserved ejection fraction ([facility]); Elevated glucose; Abdominal pain, right upper [...] B, by GOLD 2017 classification ([facility]) Inhale 2 Puffs by mouth in the morning and 2 Puffs before bedtime. 6 g 3 02/11/20 24 Active Combivent Respimat 20-100 MCG/ACT Inhalation Aerosol Solution (Ipratropium-Albut pedro)Indications:C OPD, group B, by GOLD 2017 classification ([facility]) Inhale 1 Puff by mouth 4 [...] B, by GOLD 2017 classification ([facility]) Inhale 2 Puffs by mouth in the morning and 2 Puffs before bedtime. 6 g 05/02/19 24 024 Discontin ued(Refil l) Ipratropium-Albute rol 0.5-2.5 (3) MG/3ML Inhalation Solution (Duoneb)Indication s:COPD, group B, by GOLD 2017 classification ([facility]) Inhale 3 mL by mouth every 6 hours as needed for Shortness of Breath. 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 file Not on file Not [...] intestine without hemorrhage Cholelithiasis Uncomplicated alcohol dependence ([facility]) COPD, group B, by GOLD 2017 classification ([facility]) Spinal stenosis of lumbar region without neurogenic claudication S/P lumbar spinal fusion Chronic heart failure with preserved ejection fraction ([facility]) Current Outpatient Medications Medication Sig Dispense [...] difficile infection COPD (chronic obstructive pulmonary disease) ([facility]) COPD, severity to be determined ([facility]) Depressive disorder, not elsewhere classified Diarrhea [...] without mention of cerebral infarction 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 [facility] CT CHEST/ABD W IV CONTRAST - WO ORAL CONTRAST 10/27/2017 normal. [facility] CT L SPINE W WO CONTRAST 10/27/2017 DDD no fxs, [facility] EGD, FLEXIBLE, DIAGNOSTIC 06/13/2012 Dr. Martinez EGD, FLEXIBLE, DIAGNOSTIC 12/23/2014 Non-obstructing gastric ulcers with clean base. + hyplori. repeat in 3 months/ESOPHAGOGASTRODUODENOSCOPY (EGD), FLEXIBLE, TRANSORAL, DIAGNOSTIC performed by Jenaro Sánchez DO at [facility] EGD, FLEXIBLE, DIAGNOSTIC N/A 06/30/2015 biopsy shows h pylori/antibiotics/protonix there after/ESOPHAGOGASTRODUODENOSCOPY (EGD), FLEXIBLE, TRANSORAL, DIAGNOSTIC performed by Jenaro Sánchez DO at OR [facility] EGD, FLEXIBLE, DIAGNOSTIC N/A 12/31/2017 gastritis/biopsy from stomach show inflammation with intestinal metaplastia/recall 3 years/ESOPHAGOGASTRODUODENOSCOPY (EGD), FLEXIBLE, TRANSORAL, DIAGNOSTIC performed by Jenaro Sánchez DO at OR [facility] EKG 10/27/2017 NSR, RBBB. [facility] INCISION OF EXTERNAL HEMORRHOID INFORMATION back surgery IOF CT T SPINE WO CONTRAST 10/27/2017 no fx, [facility] MISCELLANEOUS ORDER ([facility] ONLY) lithotripsy done three times MISCELLANEOUS ORDER ([facility] ONLY) left index finger repair 2001 NECK/CHEST SURGERY PROCEDURE NEC REPAIR INITIAL INGUINAL HERNIA REDUCIBLE AGE 7 OR MORE left done more than 30 years ago REPAIR RECURRENT INGUINAL HERNIA 01/27/2007 REPAIR RECURRENT INGUINAL HERNIA REDUCIBLE performed by NAY PEREZ at [facility] SURGICAL PROCEDURE ONLY 06/17/2023 Laparoscopic inguinal hernia by Dr. Emiliano Tabraes. THROMBOENDARECTOMY W/PATCH,NECK INCISION UMBIL HERNIA REPAIR (INCARCERATED) [...] COPD, group B, by GOLD 2017 classification ([facility]) - Budesonide-Formoterol Fumarate 160-4.5 MCG/ACT Inhalation [...] With me Nate Melendrez MD Family medicine, [address] [address] documented in this encounter Nursing Notes * Barb Mcdaniel CMA - 02/11/2024 1:07 PM EST [...] Care Team (Late st Contact Info) Description 02/11/2024 2:40 PM EST Laboratory Laboratory [address] [place] [phone] [address] [place] [address] Arrived 02/12/2024 12:00 PM EST Office Visit [address] Medicine [address] [phone] Nate Melendrez MD [address] [place] [address] [place] [address] Scheduled Orders Name Type Priority Associated Diagnoses Orde r Schedule EKG EKG Routine Chest pain, unspecified type Expected: 02/11/2024 (Approximate), Expires: 03/12/2025 LIPID PANEL WITHOUT DIRECT LDL Lab Routine Hyperlipidemia with target LDL less than 100 Ordered: 02/11/2024 HEMOGLOBIN A1C Lab Routine Chronic heart failure with preserved ejection fraction (HCC) Elevated glucose Ordered: 02/11/2024 CBC WITH WBC DIFFERENTIAL Lab Routine Chronic heart failure with preserved ejection fraction (HCC) Ordered: 02/11/2024 COMPREHENSIVE METABOLIC PANEL Lab Routine Chronic heart failure with preserved ejection fraction (HCC) Ordered: 02/11/2024 ALBUMIN / CREATININE RATIO, URINE Lab Routine Chronic heart failure with preserved ejection fraction (HCC) Ordered: 02/11/2024 US ABDOMEN LIMITED Medical Imaging Routine Abdominal pain, [...] 6:07 PM 01/28/2007 3:50 PM Care Teams Gusset Folder Relationship Specialty Start Date End Date Nate Melendrez MD [address] [place] [address] [place] [address] PCP - General Family Medicine 04/25/23 documented as of this encounter
--- OUTSIDE RECORDS SUMMARY | 2024-02-29 14:29 | External Medical Summary ---
Author Name Unknown Address Unknown Organization K01[place] [place] [address] [place] [address] [place] [address] Laboratory Report Ordering Provider Test Date Status CHRISTIANO PELAEZ 02/11/2024 14:28:14 Mitzy l Observation Date Value Abnormality Reference (Units ) Status HbA1C 02/11/2024 14:28:14 4.8 4.0-5.6 (% ) Final The use of HbA1c to monitor glycemic status is based on normal hemoglobin and HbA composition. This test should not be used in patients with abnormal hemoglobin that affects the half life of the red blood cell or the in vivo glycation rates. Glucose, estimated average 02/11/2024 14:28:14 91 <126 (mg/dL) Final Performing Location [facility] [place] [address] [facility] [address]
--- OUTSIDE RECORDS SUMMARY | 2024-02-29 14:29 | External Medical Summary | Summary of Care ---
Author Name Unknown Organization [facility] Address [address] [place] [address] Phone [phone] Care Team Providers Care Investigative Assistant Name Role Phone Nate Melendrez MD Primary Care Provide r Reason for Visit * Reason Comments Acute Pt c/o back pain, pt states he needs approval to see a chiropractor (Nanci Salazar in [place]) before they will see him. Pt brought a note from his niece asking about gabapentin or a muscle relaxer. Encounter Details Date Type Department Care Team (Latest Contact Info) Description 11/28/2023 12:00 PM EDT Office Visit Family Medicine [address] [place] [address] Murtaza Aguero MD [address] [place] [address] [place] [address] Other osteoarthritis of spine, lumbosacral region*; Alcohol abuse; Spinal stenosis of lumbar region without neurogenic claudication; S/P lumbar spinal fusion Allergies No known active allergiesdocumented as of this encounter (statuses as of 11/28/2023) Medications Medication Sig Dispensed Refills Start Date [...] not cut, crush or chew. 30 Tablet 05/02/2023 Active Furosemide 40 MG Oral Tablet (Lasix)Indications: Chronic diastolic congestive heart failure (HCC) Take 0.5 Tablets by mouth in the morning and 0.5 Tablets before bedtime. 35 Tablet 10 05/02/2023 Active Pravastatin Sodium 40 MG Oral Tablet (Pravachol)Indicati ons:Hyperlipidemia with target LDL less than 100 Take 1 Tablet by mouth at bedtime. 30 Tablet 05/02/2023 Active Budesonide-Formoter ol Fumarate 160-4.5 MCG/ACT Inhalation Aerosol (Symbicort)Indicati ons:COPD, group B, by GOLD 2017 classification ([facility]) Inhale 2 Puffs by mouth in the morning and 2 Puffs before bedtime. 6 g 3 05/02/2023 Active Ipratropium-Albuter ol 0.5-2.5 (3) MG/3ML Inhalation Solution (Duoneb)Indications :COPD, group B, by GOLD 2017 classification ([facility]) Inhale 3 mL by mouth every 6 hours as needed for Shortness of Breath. 100 mL 5 05/02/2023 Active Combivent Respimat 20-100 MCG/ACT Inhalation Aerosol Solution (Ipratropium-Albute rol)Indications:FILM SORTER D, group B, by GOLD 2017 classification ([facility]) Inhale 1 Puff by mouth in the morning and 1 Puff at noon and 1 Puff in the evening and 1 Puff before bedtime. 4 g 3 05/02/2023 Active Potassium Chloride Katelyn ER 20 MEQ Oral Tablet Extended Release (Klor-Con M20)Indications:Chr onic diastolic congestive heart failure (HCC) Take 1 Tablet by mouth in the morning. 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 60 Capsule 11/28/2023 Active Baclofen 10 MG Oral Tablet (Lioresal)Indicatio ns:Other osteoarthritis of spine, lumbosacral region Take 1 Tablet by mouth in the morning and 1 Tablet before bedtime. As needed. 60 Tablet 11/28/2023 Active Diclofenac Sodium 75 MG Oral Tablet Delayed Release (Voltaren)Indicatio ns:Other osteoarthritis of spine, lumbosacral region Take 1 Tablet by mouth in the morning and 1 Tablet before bedtime. With food.. 60 Tablet 3 11/28/2023 Active Celecoxib 200 MG Oral Capsule (CeleBREX) TAKE 1 CAPSULE BY MOUTH 2 TIMES A DAY 08/13/2021 4 Discontinu ed(Medicat ion/Dose Changed) Naproxen 500 MG Oral Tablet (Naprosyn) Take 1 Tablet by mouth 2 times a day with morning and evening meals. 4 Discontinu ed(Medicat ion/Dose Changed) predniSONE 20 MG Oral Tablet (Deltasone)Indicati ons:Spinal stenosis of lumbar region without neurogenic claudication 1 tab 3 times a day for 3 days, then 1 tab 2 times a day for 3 days, then 1 tab daily for 3 days 18 Tablet 11/15/2023 4 Discontinu ed(End of Procedure) predniSONE 10 MG Oral Tablet (Deltasone)Indicati ons:Spinal stenosis of lumbar region without neurogenic claudication Take 5 tabs for 2 days, 4 tabs for 2 days, 3 tabs for 2 days, 2 tabs for 2 days 1 tab for 2 days 30 Tablet 11/18/2023 Discontinu ed(End of Procedure) documented as of this encounter (statuses as of 11/28/2023) Active Problems Problem Noted Date Diagnosed Date [...] as of this encounter (statuses as of 11/28/2023) Resolved Problems Problem Noted Date Diagnosed Date Resolved Date Chronic obstructive pulmonary disease 11/01/2017 03/08/2022 Overview: Per COPD GOLD Classification Asthma, allergic 01/31/2004 09/15/2009 COPD, severity to be determined 01/31/2004 03/08/2022 documented as of this encounter (statuses as of 11/28/2023) Immunizations Name Administration Dates Next Due COVID-19 mRNA, LNP-s, No Pre serve, 2-Dose Series (Moderna) 09/07/2020,08/09/2020 COVID-19, LNP-s, No Preserve , Navin-sucrose, Ages 12+ (Pfizer) 09/18/2021 Pneumococcal Conjugate Vacc, 13 Valent (Prevnar) 01/24/2017 Pneumococcal Polysaccharide PPV23 (Pneumovax) 02/22/2014,03/06/2013,02/04/2004 Seasonal Influenza, Trivalen t, (IIV3), with Preserv, (Fluzone) 01/17/2015,02/22/2014,11/24/2011 TD - Tetanus/Diptheria (ADULT) 12/04/2005 [...] Sign Reading Time Taken Comments Blood Pressure 112/60 11/28/2023 11:10 AM EDT Pulse 82 11/28/2023 11:10 AM EDT Temperature 36.3 C (97.4 F) 11/28/2023 1 1:10 AM EDT Respiratory Rate - - Oxygen Saturation 96% 11/28/2023 11: 10 AM EDT Inhaled Oxygen Concentration - - Weight 72.4 kg (159 lb 11.2 oz) 024 11:10 AM EDT Height - - Body Mass Index 24.28 11/15/2023 11:33 AM EDT documented in this encounter Progress Notes * Murtaza Aguero MD - 11/28/2023 11:12 AM EDT Yfn continues with the lumbar pain that he has been here, to ER and [facility] repeatedly for. He would like to see Dr Salazar but needs an ok. He is not interested in another procedure. He continues to use alcohol. He says he is out of pain meds. Denies nausea, vomiting, or diarrhea. He uses a cane to walk. He also has bad right foot pain and ankle pain. Patient Active Problem List Diagnosis Other allergic [...] intestine without hemorrhage Cholelithiasis Uncomplicated alcohol dependence (HCC) COPD, group B, by GOLD 2017 classification ([facility]) Spinal stenosis of lumbar region without neurogenic claudication S/P lumbar spinal fusion Past Medical History: Diagnosis Date Acute pancreatitis 10/27/2017 Alcohol abuse Anemia, unspecified Anxiety state, unspecified Arthropathy of multiple sites Asthma, allergic Calcium nephrolithiasis Cannabis abuse Cardiomegaly Carpal tunnel syndrome Chronic airway obstruction, not elsewhere classified Chronic pain disorder Clostridium difficile diarrhea Clostridium difficile infection COPD (chronic obstructive pulmonary disease) ([facility]) COPD, severity to be determined ([facility]) Depressive disorder, not elsewhere classified Diarrhea Diverticulosis [...] without mention of cerebral infarction 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 [facility] CT CHEST/ABD W IV CONTRAST - WO ORAL CONTRAST 10/27/2017 normal. [facility] CT L SPINE W WO CONTRAST 10/27/2017 DDD no fxs, [facility] EGD, FLEXIBLE, DIAGNOSTIC 06/13/2012 Dr. Martinez EGD, FLEXIBLE, DIAGNOSTIC 12/23/2014 Non-obstructing gastric ulcers with clean base. + hyplori. repeat in 3 months/ESOPHAGOGASTRODUODENOSCOPY (EGD), FLEXIBLE, TRANSORAL, DIAGNOSTIC performed by Jenaro Sánchez DO at [facility] EGD, FLEXIBLE, DIAGNOSTIC N/A 06/30/2015 biopsy shows h pylori/antibiotics/protonix there after/ESOPHAGOGASTRODUODENOSCOPY (EGD), FLEXIBLE, TRANSORAL, DIAGNOSTIC performed by Jenaro Sánchez DO at OR [facility] EGD, FLEXIBLE, DIAGNOSTIC N/A 12/31/2017 gastritis/biopsy from stomach show inflammation with intestinal metaplastia/recall 3 years/ESOPHAGOGASTRODUODENOSCOPY (EGD), FLEXIBLE, TRANSORAL, DIAGNOSTIC performed by Jenaro Sánchez DO at OR [facility] EKG 10/27/2017 NSR, RBBB. [facility] INCISION OF EXTERNAL HEMORRHOID INFORMATION back surgery IOF CT T SPINE WO CONTRAST 10/27/2017 no fx, [facility] MISCELLANEOUS ORDER ([facility] ONLY) lithotripsy done three times MISCELLANEOUS ORDER ([facility] ONLY) left index finger repair 2001 NECK/CHEST SURGERY PROCEDURE NEC REPAIR INITIAL INGUINAL HERNIA REDUCIBLE AGE 5 OR MORE left done more than 30 years ago REPAIR RECURRENT INGUINAL HERNIA 01/27/2007 REPAIR RECURRENT INGUINAL HERNIA REDUCIBLE performed by NAY PEREZ at OR [facility] SURGICAL PROCEDURE ONLY 06/17/20[address] hernia by Dr. Emiliano Tabares. 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 Tobacco Use Smoking status: Former Current packs/day: 0.00 Average packs/day: 1 pack/day for 64.0 years (64.0 ttl pk-yrs) Types: Cigarettes Start date: 08/17/1957 Quit date: 08/17/2021 Years since quittin.2 Smokeless tobacco: Former Types: Chew, Snuff Tobacco comments: been chewing for approx 48 yrs- quit chewing tobacco 12/01 Substance and Sexual Activity Alcohol use: Yes Alcohol/week: 28.0 standard drinks of alcohol Types: 28 12 oz of beer per week Comment: 4-6 beers a night Drug use: Yes Types: Marijuana Sexual activity: Yes Partners: Female Other Topics Concern Service Not Asked Blood Transfusions Yes Comment: July 2012 Caffeine Concern Not Asked Occupational Exposure Not Asked Hobby Hazards Not Asked Sleep Concern Not Asked Stress Concern Not Asked Weight Concern Not Asked Special Diet Not Asked Back Care Not Asked Exercise Not Asked Bike Helmet Not Asked Seat Belt Not Asked Self-Exams Not Asked Social History Narrative 2 dogs in his home. Mold is present in his home. Social Determinants of Health Financial Resource Strain: Not on file Food Insecurity: Not on file Transportation Needs: Not on file Social Connections: Unknown (11/28/2023) Social Connections How often do you feel lonely or isolated from those around you? (Adult - for ages 18 years and over): Not on file Housing Stability: Not on file O: Blood pressure 112/60, pulse 82, temperature 36.3 C (97.4 F), weight 72.4 kg (159 lb 11.2 oz), SpO2 96%. He stands with difficulty. He has lumbar scars. He has tenderness of the paraspinal muscles. He has no reflexes that I can find he has tenderness in right ankle A: Other osteoarthritis of spine, lumbosacral region (Primary) - RETURN TO WORK OR SCHOOL - Pregabalin 75 MG Oral Capsule (Lyrica); Take 1 Capsule by mouth in the morning and 1 Capsule before bedtime. - Baclofen 10 MG Oral Tablet (Lioresal); Take 1 Tablet by mouth in the morning and 1 Tablet before bedtime. As needed. - Diclofenac Sodium 75 MG Oral Tablet Delayed Release (Voltaren); Take 1 Tablet by mouth in the morning and 1 Tablet before bedtime. With food.. Alcohol abuse Spinal stenosis of lumbar region without neurogenic claudication S/P lumbar spinal fusion Follow Up: Return if symptoms worsen or fail to improve. documented in this encounter Plan of Treatment Upcoming Encounters Date Type Department Care Team (Late st Contact Info) Description 01/17/2024 11:25 AM EDT Office Visit Interventional [facility] Center, [facility] [address] [place] [address] Jovanna Murphy MD [address] [place] [address] [place] [address] 02/12/2024 12:00 PM EST Office Visit Family Medicine [address] [place] [phone] Nate Melendrez MD [address] [place] [address] [place] [phone] Scheduled Procedures Name Priority Associated Diagnoses Date/Ti [...] IN PAST YEAR FOR COPD 11/14/2024 11/15/2023 DTap/Tdap Vaccines (3 - Tdap) 11/23/2031 11/22/2021, [...] Diagnoses Diagnosis Other osteoarthritis of spine, lumbosacral region- Primary Alcohol abuse Alcohol abuse, unspecified Spinal stenosis of lumbar region without neurogenic claudication Spinal stenosis, lumbar region, without neurogenic claudication S/P lumbar spinal fusion Arthrodesis status documented in this encounter Advance Directives * [...] 6:07 PM 01/28/2007 3:50 PM Care Teams Investigative Assistant Relationship Specialty Start Date End Date Nate Melendrez MD [address] [place] [address] [place] [address] PCP - General Family Medicine 04/25/23 documented as of this encounter
--- OUTSIDE RECORDS SUMMARY | 2024-02-29 14:29 | External Medical Summary | Summary of Care ---
Author Name Unknown Organization [facility] Address [address] [facility] [address] Phone [phone] Care Team Providers Care Stacker Driver Name Role Phone Nate Melendrez MD Primary Care Provide r Reason for Visit * Reason Onset Date Comments Advice 02/05/2024 Appointment 02/05/2024 [facility] Encounter Details Date Type Department Care Team (Late st Contact Info) Description 02/05/2024 Telephone Family Medicine [address] [place] [address] Nate Melendrez MD [address] [place] [address] [place] [address] Advice; Appointment ([facility] ) Allergies No known active [...] ions:COPD, group B, by GOLD 2017 classification ([facility]) Inhale 2 Puffs by mouth in the morning and 2 Puffs before bedtime. 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 Call Nino @ [phone] * Telephone Encounter - Marybeth Pierre OSA - 02/05/2024 9:55 AM EST Reason for patient's call: Nino Protective services @ [phone] Caller was transferred to No Answer at the nurse line. documented in this encounter Plan of Treatment Upcoming Encounters Date Type Department Care Team (Late st Contact Info) Description 03/12/2024 1:00 PM EST Office Visit Family Medicine [address] [place] [phone] Nate Melendrez MD [address] [place] [address] [place] [address] Scheduled Procedures Name Priority Associated Diagnoses Date/Ti [...] 6:07 PM 01/28/2007 3:50 PM Care Teams Stacker Driver Relationship Specialty Start Date End Date Nate Melendrez MD [address] [place] [address] [place] [address] PCP - General Family Medicine 04/25/23 documented as of this encounter
--- OUTSIDE RECORDS SUMMARY | 2024-02-29 14:29 | External Medical Summary | Summary of Care ---
Author Name Unknown Organization [facility] Address [address] [facility] [address] Phone [phone] Care Team Providers Care Relay Worker Name Role Phone Nate Melendrez MD Primary Care Provide r Reason for Visit * Reason Onset Date Comments Advice 02/05/2024 Encounter Details Date Type Department Care Team (Late st Contact Info) Description 02/05/2024 Telephone Family Medicine [address] [place] [address] Naet Melendrez MD [address] [place] [address] [place] [address] Advice Allergies No known active allergiesdocumented as of [...] PAP therapy during sleep 1 Each 11/03/19 22 Discontin ued(Medic ation List Clean Up) Glucosamine [...] by mouth at bedtime. 30 Tablet 05/02/19 Discontin ued(Medic ation List Clean Up) Budesonide-Formote rol Fumarate 160-4.5 MCG/ACT Inhalation Aerosol (Symbicort)Indicat ions:COPD, group B, by GOLD 2017 classification ([facility]) Inhale 2 Puffs by mouth in the morning and 2 Puffs before bedtime. 6 g 3 05/02/19 24 Discontin ued(Refil l) Ipratropium-Albute rol 0.5-2.5 (3) MG/3ML Inhalation Solution (Duoneb)Indication s:COPD, group B, by GOLD 2017 classification ([facility]) Inhale 3 mL by mouth every 6 hours as needed for Shortness of Breath. 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 Call Nino @ [phone] * Telephone Encounter - Marybeth Pierre OSA - 02/05/2024 9:55 AM EST Reason for patient's call: Nino Protective shital @ [phone] Caller was transferred to No Answer at the nurse line. documented in this encounter Plan of Treatment Upcoming Encounters Date Type Department Care Team (Late st Contact Info) Description 03/12/2024 1:00 PM EST Office Visit Family Medicine [address] [place] [phone] Nate Melendrez MD [address] [place] [address] [place] [address] Scheduled Procedures Name Priority [...] 6:07 PM 01/28/2007 3:50 PM Care Teams Relay Worker Relationship Specialty Start Date End Date Nate Melendrez MD [address] [place] [address] [place] [address] PCP - General Family Medicine 04/25/23 documented as of this encounter
--- OUTSIDE RECORDS SUMMARY | 2024-02-29 14:29 | External Medical Summary | Summary of Care ---
Author Name Unknown Organization [facility] Address [address] [facility] [address] Phone [phone] Care Team Providers Care Industrial Maintenance Manager Name Role Phone Nate Melendrez MD Primary Care Provide r Reason for Visit * Reason Comments Outpatient Testing Encounter Details Date Type Department Care Team (Late st Contact Info) Description 02/11/2024 2:40 PM EST Laboratory Laboratory [address] [place] [phone] [place] [address] Arrived Allergies No known active allergiesdocumented as of this encounter (statuses as of 02/11/2024) Medications aspirin enteric coated 81 MG TBEC Take 1 Tab by mouth daily. 100 Tab 8 Active CPAP every night at bedtime . Active Budesonide-Formoter ol Fumarate 160-4.5 MCG/ACT Inhalation Aerosol (Symbicort)Indicati ons:COPD, group B, by GOLD 2017 classification ([facility]) Inhale 2 Puffs by mouth in the morning and 2 Puffs before bedtime. 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 4 g 3 4 Active Pantoprazole Sodium 40 MG Oral Tablet Delayed Release (Protonix)Indicatio ns:Abdominal pain, right upper quadrant,Gastroesop hageal reflux disease without esophagitis Take 1 Tablet by mouth in the morning. In the morning.. 90 Tablet 3 4 Active Atorvastatin Calcium 10 MG Oral Tablet (Lipitor)Indication s:Hyperlipidemia with target LDL less than 100,Chronic heart failure with preserved ejection fraction (HCC) Take 1 Tablet by mouth in the morning. 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 Not on file Not on file documented as of this encounter Plan of Treatment Upcoming Encounters Date Type Department Care Team (Late st Contact Info) Description 02/12/2024 12:00 PM EST Office Visit Family Medicine [address] [phone] Nate Melendrez MD [address] [place] [address] [place] [phone] Scheduled Procedures Name Priority Associated Diagnoses Date/Ti [...] 6:07 PM 01/28/2007 3:50 PM Care Teams Industrial Maintenance Manager Relationship Specialty Start Date End Date Nate Melendrez MD [address] [place] [address] [place] [address] PCP - General Family Medicine 04/25/23 documented as of this encounter
--- OUTSIDE RECORDS SUMMARY | 2024-02-29 14:29 | External Medical Summary | Summary of Care ---
Author Name Unknown Organization [facility] Address [address] [place] [address] Phone [phone] Care Team Providers Care Cupola Charger Name Role Phone Nate Melendrez MD Primary Care Provide r Reason for Visit * Reason Onset Date Comments Test Results 02/13/2024 Encounter Details Date Type Department Care Team (Late st Contact Info) Description 02/13/2024 Telephone [address] [place] [phone] Nate Melendrez MD [address] [place] [address] [place] [address] Test Results Allergies No known active allergiesdocumented as of this encounter (statuses as of 02/13/2024) Medications aspirin enteric coated 81 MG TBEC Take 1 Tab by mouth daily. 100 Tab 8 Active CPAP every night at bedtime . Active Budesonide-Formoter ol Fumarate 160-4.5 MCG/ACT Inhalation Aerosol (Symbicort)Indicati ons:COPD, group B, by GOLD 2017 classification ([facility]) Inhale 2 Puffs by mouth in the morning and 2 Puffs before bedtime. 6 g 3 4 Active Combivent Respimat 20-100 MCG/ACT Inhalation Aerosol Solution (Ipratropium-Albute rol)Indications:SDV PILOT/NAVIGATOR/DDS OPERATOR D, group B, by GOLD 2017 classification ([facility]) Inhale 1 Puff by mouth 4 times [...] as of this encounter (statuses as of 02/13/2024) Active Problems Problem Noted Date Diagnosed Date [...] as of this encounter (statuses as of 02/13/2024) Resolved Problems Problem Noted Date Diagnosed Date Resolved Date Chronic obstructive pulmonary disease 11/01/2017 03/08/2022 Overview: Per COPD GOLD Classification Asthma, allergic 01/31/2004 09/15/2009 COPD, severity to be determined 01/31/2004 03/08/2022 documented as of this encounter (statuses as of 02/13/2024) Immunizations Name Administration Dates Next Due COVID-19 [...] file Not on file Not on file 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 Not on file Not on file Not on file documented as of this encounter Miscellaneous Notes * Telephone Encounter - Nate Melendrez MD - 02/13/2024 10:54 AM EST Pt has a nuclear stress test on 09/2022 -- normal - during the clinic visit he was complaining about RUQ pain - will discuss further during clinic visit on 03/12 documented in this encounter Plan of Treatment Upcoming Encounters Date Type Department Care Team (Late st Contact Info) Description 03/12/2024 1:00 PM EST Office Visit Family Medicine [facility] [place] [phone] Nate Melendrez MD [address] [place] [address] [place] [address] Scheduled Procedures Name Priority Associated Diagnoses Date/Ti [...] 6:07 PM 01/28/2007 3:50 PM Care Teams Cupola Charger Relationship Specialty Start Date End Date Nate Melendrez MD [address] [place] [address] [place] [id number] PCP - General Family Medicine 04/25/23 documented as of this encounter
--- OUTSIDE RECORDS SUMMARY | 2024-02-29 14:30 | External Medical Summary | Summary of Care ---
Author Name Unknown Organization [facility] Address [address] [place] [address] Phone [phone] Care Team Providers Care Podiatry Assistant Name Role Phone Nate Melendrez MD Primary Care Provide r Reason for Visit * Reason Comments eRx-Medication Refill Encounter Details Date Type Department Care Team (Late st Contact Info) Description 10/11/2023 Refill Cardiology, [facility] [address] [place] [id number] Jayne Mai CRNP [address] [place] [id number] Chronic diastolic congestive heart failure (HCC) Allergies No known active allergiesdocumented as of this encounter (statuses as of 10/11/2023) Medications Medication Sig Dispensed Refills Start Date [...] CAPSULE BY MOUTH 2 TIMES A DAY 2 Active oxygen IN GAS 3 LPM bled [...] cut, crush or chew. 30 Tablet 11 4 Active Furosemide 40 MG Oral Tablet (Lasix)Indications: Chronic diastolic congestive heart failure (HCC) Take 0.5 Tablets by mouth in the morning and 0.5 Tablets before bedtime. 35 Tablet 10 4 Active Pravastatin Sodium 40 MG Oral Tablet (Pravachol)Indicati ons:Hyperlipidemia with target LDL less than 100 Take 1 Tablet by mouth at bedtime. 30 Tablet 11 4 Active Budesonide-Formoter ol Fumarate 160-4.5 MCG/ACT Inhalation Aerosol (Symbicort)Indicati ons:COPD, group B, by GOLD 2017 classification ([facility]) Inhale 2 Puffs by mouth in the morning and 2 Puffs before bedtime. 6 g 3 4 Active Ipratropium-Albuter ol 0.5-2.5 (3) MG/3ML Inhalation Solution (Duoneb)Indications :COPD, group B, by GOLD 2017 classification ([facility]) Inhale 3 mL by mouth every 6 hours as needed for Shortness of Breath. 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 4 g 3 4 Active Potassium Chloride Katelyn ER 20 MEQ Oral Tablet Extended Release (Klor-Con M20)Indications:Chr onic diastolic congestive heart failure (HCC) Take 1 Tablet by mouth in the morning. 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 malachi diastolic congestive heart failure (HCC) TAKE 1 TABLET BY MOUTH IN THE MORNIN G 30 Tablet 11 4 10/11/19 24 Discontinued documented as of this encounter (statuses as of 10/11/2023) Active Problems Problem Noted Date Diagnosed Date COPD, group B, by GOLD 2017 classification [...] as of this encounter (statuses as of 10/11/2023) Resolved Problems Problem Noted Date Diagnosed Date Resolved Date Chronic obstructive pulmonary disease 11/01/2017 03/08/2022 Overview: Per COPD GOLD Classification Asthma, allergic 01/31/2004 09/15/2009 COPD, severity to be determined 01/31/2004 03/08/2022 documented as of this encounter (statuses as of 10/11/2023) Immunizations Name Administration Dates Next Due COVID-19 mRNA, LNP-s, No Pre serve, 2-Dose Series (Moderna) 09/07/2020,08/09/2020 COVID-19, LNP-s, No Preserve , Naivn-sucrose, Ages 12+ (Pfizer) 09/18/2021 Pneumococcal Conjugate Vacc, [...] encounter Miscellaneous Notes * Telephone Encounter - Lay Davis CMA - 10/11/2023 1:44 PM EDTPending Prescriptions: Disp Refills Tamsulosin HCl 0.4 MG Oral Capsule (Flomax)90 Cap*1 Sig: in the evening Metoprolol Succinate ER 25 MG Oral Tablet *90 Tab*3 Sig: TAKE ONE TABLET BY MOUTH IN THE MORNING * Telephone Encounter - Lay Davis CMA - 10/11/2023 1:32 PM EDT *Request for tamsulosin refused due to being managed by a different provider, also appears that it's not a current rx, last ordered in 2018 with no refills. Did you pend patient's preferred pharmacy and medication before forwarding?yes [facility] [address] [place] Pending Prescriptions: Disp Refills Metoprolol Succinate ER 25 MG Oral Tablet*90 Tab*1 Sig: TAKE ONE TABLET BY MOUTH IN THE MORNING Last Visit: 05/02/2023 (in office), Visit date not found (telemedicine) Next Visit: Visit date not found If no future appointments scheduled, and last appointment is greater than a year ago, please schedule patient for a follow-up appointment Last date the medication was ordered: 05/02/23 Is this request for a controlled substance?No [...] Upcoming Encounters Date Type Department Care Team (Monserrat st Contact Info) Description 02/12/2024 12:00 PM EST Office Visit Family Medicine [facility] [place] [place] [phone] Nate Melendrez MD [address] [place] [address] [place] [id number] Scheduled Procedures Name Priority Associated Diagnoses Date/Ti me ESOPHAGOGASTRODUODENOSCOPY ( EGD), FLEXIBLE, TRANSORAL, DIAGNOSTIC Recall Intestinal metaplasia of gastric cardia Health Maintenance Due Date Last Done Comments Depression Screening 1959 Alpha-1 Antitrypsin 1965 Hepatitis C Screening 1965 Zoster Vaccines (1 of 2) 1997 DTaP,Tdap,and Td Vaccines (1 - Tdap) 12/05/2005 12/04/2005 COVID-19 Vaccine ( season) 2022 09/18/2021, 06/10/2021, 09/07/2020, Additional history exists *CXR OR CT FOR COPD EVER 10/06/2023 Influenza Vaccine (FLU shot) (#1) 2023 01/17/2015, 03/25/2014, 02/22/2014, Additional history exists O2 ASSESSMENT COMPLETED IN PAST YEAR FOR COPD 07/14/2024 07/15/2023 Colonoscopy Discontinued 12/29/2003 Colorectal Cancer Screening Discontinued [...] as of this encounter Visit Diagnoses Diagnosis Chronic diastolic congestive heart failure (HCC) Chronic diastolic heart failure documented in this encounter Advance Directives * [...] 6:07 PM 01/28/2007 3:50 PM Care Teams Podiatry Assistant Relationship Specialty Start Date End Date Nate Melendrez MD [address] [place] [address] [place] [phone] PCP - General Family Medicine 04/25/23 documented as of this encounter
--- OUTSIDE RECORDS SUMMARY | 2024-02-29 14:30 | External Medical Summary | Summary of Care ---
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 Do not cut, crush or chew. 30 Tablet 05/02/2023 Active Furosemide 40 MG Oral Tablet (Lasix)Indications:C hronic diastolic congestive heart failure (HCC) Take 0.5 Tablets by mouth in the morning and 0.5 Tablets before bedtime. 35 Tablet 05/02/2023 Active Pravastatin Sodium 40 MG Oral Tablet (Pravachol)Indicatio ns:Hyperlipidemia with target LDL less than 100 Take 1 Tablet by mouth at bedtime. 30 Tablet 05/02/2023 Active Budesonide-Formotero l Fumarate 160-4.5 MCG/ACT Inhalation Aerosol (Symbicort)Indicatio ns:COPD, group B, by GOLD 2017 classification ([facility]) Inhale 2 Puffs by mouth in the morning and 2 Puffs before bedtime. 6 g 05/02/2023 Active Ipratropium-Albutero l 0.5-2.5 (3) MG/3ML Inhalation Solution (Duoneb)Indications: COPD, group B, by GOLD 2017 classification ([facility]) Inhale 3 mL by mouth every 6 hours as needed for Shortness of Breath. 100 mL 05/02/2023 Active Combivent Respimat 20-100 MCG/ACT Inhalation Aerosol Solution (Ipratropium-Albuter ol)Indications:COPD, group B, by GOLD 2017 classification ([facility]) Inhale 1 Puff by mouth in the morning and 1 Puff at noon and 1 Puff in the evening and 1 Puff before bedtime. 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 30 Tablet 05/02/2023 Active Naproxen 500 MG Oral Tablet (Naprosyn) Take 1 Tablet by mouth 2 times a day with morning and evening meals. Active Pantoprazole Sodium 40 MG Oral Tablet Delayed Release (Protonix)Indication s:Gastroesophageal reflux disease without esophagitis TAKE ONE TABLET BY MOUTH IN THE MORNING 90 Tablet 07/19/2023 Active Montelukast Sodium 10 MG Oral Tablet (Singulair)Indicatio ns:Other allergic rhinitis TAKE 1 TABLET BY MOUTH EVERY MORNING 90 Tablet 07/19/2023 Active Tamsulosin HCl 0.4 MG Oral Capsule (Flomax) in the evening 90 Capsule 1 10/11/2023 Active Metoprolol Succinate ER 25 MG Oral Tablet Extended Release 24 Hour (toPROL XL)Indications:Chron ic diastolic congestive heart failure (HCC) TAKE ONE TABLET BY MOUTH IN THE MORNING 90 Tablet 3 10/11/2023 Active documented as of this encounter (statuses as of 11/12/2023) Active Problems Problem Noted Date Diagnosed Date [...] as of this encounter (statuses as of 11/12/2023) Resolved Problems Problem Noted Date Diagnosed Date Resolved Date Chronic obstructive pulmonary disease 11/01/2017 03/08/2022 Overview: Per COPD GOLD Classification Asthma, allergic 01/31/2004 09/15/2009 COPD, severity to be determined 01/31/2004 03/08/2022 documented as of this encounter (statuses as of 11/12/2023) Immunizations Name Administration Dates Next Due COVID-19 [...] 12:00 PM EST Office Visit Family Medicine [address] [place] [phone] Nate Melendrez MD [address] [place] [address] [place] [id number] Scheduled Procedures Name Priority Associated Diagnoses Date/Ti me ESOPHAGOGASTRODUODENOSCOPY ( EGD), FLEXIBLE, TRANSORAL, DIAGNOSTIC Recall Intestinal metaplasia of gastric cardia Health Maintenance Due Date Last Done Comments Depression Screening 1959 Alpha-1 Antitrypsin 1965 Hepatitis C Screening 1965 Zoster Vaccines (1 of 2) 1997 DTaP,Tdap,and Td Vaccines (1 - Tdap) 12/05/2005 12/04/2005 Adult Wellness Visit 2013 COVID-19 Vaccine ( season) 2022 09/18/2021, 06/10/2021, 09/07/2020, Additional history exists Influenza Vaccine (FLU shot) [...] Not on filedocumented as of this encounter Procedures Procedure Name Priority Date/Time Associated Diagnosis Comments OUTSIDE LAB RESULTS 11/11/2023 documented in this encounter Results * OUTSIDE LAB RESULTS (11/11/2023) 11/11/2023 No Physician Data Unknown LABORATORY documented in this encounter Advance Directives * [...] 6:07 PM 01/28/2007 3:50 PM Care Teams Enterprise Cloud Architect Relationship Specialty Start Date End Date Sellathurai, Thiviyanath, MD [address] [place] [address] [place] [address] PCP - General Family Medicine 04/25/23 documented as of this encounter
--- OUTSIDE RECORDS SUMMARY | 2024-02-29 14:30 | External Medical Summary | Summary of Care ---
Author Name Unknown Organization [facility] Address [address] [facility] [address] Phone [phone] Care Team Providers Care Cook Dinner Name Role Phone Nate Melendrez MD Primary Care Provide r Reason for Visit * Reason Onset Date Comments Medication Refill 09/09/2023 Encounter Details Date Type Department Care Team (Late st Contact Info) Description 09/09/2023 Telephone Family Medicine [address] [phone] Nate Melendrez MD [address] [place] [address] [place] [address] Medication Refill Allergies No known active allergiesdocumented as of this encounter (statuses as of 09/10/2023) Medications Medication Sig Dispensed Refills Start Date End Date Status aspirin enteric coated 81 MG TBEC Take 1 Tab by mouth daily. 100 Tab 11/01/2017 Active busPIRone (BUSPAR) 10 MG Tablet Take 1 Tab by mouth 2 times a day. 60 Tab 11/01/2017 Active Additional Information Patient taking differently: 5 mgOral BID (.AM/PM), Reported on 10/16/2022 tamsulosin (FLOMAX) 0.4 MG Capsule Take 1 Cap by mouth daily. 30 Cap 11/01/2017 Active Vitamin D, Cholecalciferol, 1000 units TABS Take [...] 30 MG Oral Tablet Extended Release 24 HourIndications:Chron ic diastolic congestive heart failure (HCC) Take 1 Tablet by mouth in the morning. Do not cut, crush or chew. 30 Tablet 05/02/2023 Active Furosemide 40 MG Oral Tablet (Lasix)Indications:Ch ronic diastolic congestive heart failure (HCC) Take 0.5 Tablets by mouth in the morning and 0.5 Tablets before bedtime. 35 Tablet 05/02/2023 Active Pravastatin Sodium 40 MG Oral Tablet (Pravachol)Indication s:Hyperlipidemia with target LDL less than 100 Take 1 Tablet by mouth at bedtime. 30 Tablet 05/02/2023 Active Budesonide-Formoterol Fumarate 160-4.5 MCG/ACT Inhalation Aerosol (Symbicort)Indication s:COPD, group B, by GOLD 2017 classification ([facility]) Inhale 2 Puffs by mouth in the morning and 2 Puffs before bedtime. 6 g 05/02/2023 Active Ipratropium-Albuterol 0.5-2.5 (3) MG/3ML Inhalation Solution (Duoneb)Indications:C OPD, group B, by GOLD 2017 classification ([facility]) Inhale 3 mL by mouth every 6 hours as needed for Shortness of Breath. 100 mL 05/02/2023 Active Combivent Respimat 20-100 MCG/ACT Inhalation Aerosol Solution (Ipratropium-Albutero l)Indications:COPD, group B, by GOLD 2017 classification ([facility]) Inhale 1 Puff by mouth in the morning and 1 Puff at noon and 1 Puff in the evening and 1 Puff before bedtime. 4 g 05/02/2023 Active Metoprolol Succinate ER 25 MG Oral Tablet Extended Release 24 Hour (toPROL XL)Indications:Chroni c diastolic congestive heart failure (HCC) TAKE 1 TABLET BY MOUTH IN THE MORNIN G 30 Tablet 05/02/2023 Active Potassium Chloride Katelyn ER 20 MEQ Oral Tablet Extended Release (Klor-Con M20)Indications:Chron ic diastolic congestive heart failure (HCC) Take 1 Tablet by mouth in the morning. 30 Tablet 11 05/02/2023 Active Naproxen 500 MG Oral Tablet (Naprosyn) Take 1 Tablet by mouth 2 times a day with morning and evening meals. Active Pantoprazole Sodium 40 MG Oral Tablet Delayed Release (Protonix)Indications :Gastroesophageal reflux disease without esophagitis TAKE ONE TABLET BY MOUTH IN THE MORNING 90 Tablet 3 07/19/2023 Active Montelukast Sodium 10 MG Oral Tablet (Singulair)Indication s:Other allergic rhinitis TAKE 1 TABLET BY MOUTH EVERY MORNING 90 Tablet 3 07/19/2023 Active documented as of this encounter (statuses as of 09/10/2023) Active Problems Problem Noted Date Diagnosed Date [...] as of this encounter (statuses as of 09/10/2023) Resolved Problems Problem Noted Date Diagnosed Date Resolved Date Chronic obstructive pulmonary disease 11/01/2017 03/08/2022 Overview: Per COPD GOLD Classification Asthma, allergic 01/31/2004 09/15/2009 COPD, severity to be determined 01/31/2004 03/08/2022 documented as of this encounter (statuses as of 09/10/2023) Immunizations Name Administration Dates Next Due COVID-19 [...] encounter Miscellaneous Notes * Telephone Encounter - Lori Foy CPhT - 09/09/2023 9:21 AM EDT Pharmacy calling in regards to Budesonide-Formoterol Fumarate 160-4.5 MCG/ACT Inhalation Aerosol (Symbicort), transferred to specialty tech line. Thank you, Lori Foy CPhT M[employer] And Service Supervisor II [facility] 09/09/2023,9:22 AM documented in this encounter Plan of Treatment Upcoming Encounters Date Type Department Care Team (Late st Contact Info) Description 02/12/2024 12:00 PM EST Office Visit Family Medicine [address] [place] [phone] Nate Melendrez MD [address] [place] [address] [place] [phone] Scheduled Procedures Name Priority Associated Diagnoses Date/Ti me ESOPHAGOGASTRODUODENOSCOPY ( EGD), FLEXIBLE, TRANSORAL, DIAGNOSTIC Recall Intestinal metaplasia of gastric cardia Health Maintenance Due Date Last Done Comments Depression Screening 1959 Alpha-1 Antitrypsin 1965 Hepatitis C Screening 1965 Zoster Vaccines (1 of 2) 1997 DTaP,Tdap,and Td Vaccines (1 - Tdap) 12/05/2005 12/04/2005 COVID-19 Vaccine (5 - season) 2022 09/18/2021, 06/10/2021, 09/07/2020, Additional history exists Influenza Vaccine (FLU shot) (Season Ended) 2023 01/17/2015, 03/25/2014, 02/22/2014, Additional history exists O2 ASSESSMENT COMPLETED IN PAST YEAR FOR COPD 07/14/2024 07/15/2023 Colonoscopy Discontinued 12/29/2003 Colorectal Cancer Screening Discontinued Pneumococcal Vaccine: 65+ Years Completed 01/24/2017, 03/25/2014, 02/22/2014, Additional history exists Lung Cancer Screening Completed 08/30/2021 Cologuard Discontinued Fecal Occult Blood Test Discontinued GARDASIL-HPV IMMUNIZATION SERIES Aged Out No longer eligible based on patient's age to complete this topic Hepatitis B Aged Out No longer eligi ble based on patient's age to complete this [...] 6:07 PM 01/28/2007 3:50 PM Care Teams Cook Dinner Relationship Specialty Start Date End Date Nate Melendrez MD [address] [place] [address] [place] [phone] PCP - General Family Medicine 04/25/23 documented as of this encounter
--- OUTSIDE RECORDS SUMMARY | 2024-02-29 14:30 | External Medical Summary | Summary of Care ---
Author Name Unknown Organization [facility] Address [address] [facility] [place] [address] Phone [phone] Care Team Providers Care Rubber Curer Name Role Phone Nate Melendrez MD Primary Care Provide r Reason for Referral * Evaluate & Treat - Unlimited Visits (Within 10 days (routine)) - Authorized Specialty Diagnoses / Procedures Referred By Contac t Referred To Contact Pain Management / Pain Medicine Diagnoses Spinal stenosis of lumbar region without neurogenic claudication Angela العراقي MD [address] [place] [address] [place] [address] Referral ID Status Reason Start Date Expiration Date Visits Requested Visits Authorized [id number] Authorized Specialty Services Required 11/15/2023 999 999 Question Answer Referral Priority Within 10 days (routine) Where should this appointment be scheduled? [facility] Reason for referral? Interventional Pain Management - (Injection) What condition is the patient being referred for? Lumbar Radiculopathy What is the preferred location to have this test performed? [facility] Comments Patient Name: Yfn Nagel JrJuan Date of : 1945 Department Phone Number: MRI or CT (if unable to have a MRI) is recommended if any of the following apply: 1. Patient has neck or back pain with radiation to extremities. A previous MRI will be accepted if symptoms unchanged since prior MRI. 2. Spinal surgery since last MRI. If yes, order a MRI with and without contrast. 3. Hx or ongoing cancer treatment. Patient will need spine x-ray (Ap/Lat) for axial neck or back pain if not done previously. Fax No. [facility] [phone] or contact desk pen set assembler [phone] Fax No. [facility] [phone] or contact desk pen set assembler [phone] Fax No. [facility] [phone] or contact desk pen set assembler [phone] Reason for Visit * Reason Comments Emergency Department Follow-Up Encounter Details Date Type Department Care Team (Late st Contact Info) Description 11/15/2023 11:40 AM EDT Office Visit Family Medicine [address] [place] [phone] Angela العراقي MD [address] [place] [address] [place] [phone] Spinal stenosis of lumbar region without neurogenic claudication*; S/P lumbar spinal fusion; Uncomplicated alcohol dependence (HCC) Allergies No known active allergiesdocumented as of this encounter (statuses as of 11/15/2023) Medications Medication Sig Dispensed Refills Start Date [...] 30 MG Oral Tablet Extended Release 24 HourIndications: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 diastolic congestive heart failure (HCC) Take [...] for 3 days 18 Tablet 11/15/2023 Active documented as of this encounter (statuses as of 11/15/2023) Active Problems Problem Noted Date Diagnosed Date [...] as of this encounter (statuses as of 11/15/2023) Resolved Problems Problem Noted Date Diagnosed Date Resolved Date Chronic obstructive pulmonary disease 11/01/2017 03/08/2022 Overview: Per COPD GOLD Classification Asthma, allergic 01/31/2004 09/15/2009 COPD, severity to be determined 01/31/2004 03/08/2022 documented as of this encounter (statuses as of 11/15/2023) Immunizations Name Administration Dates Next Due COVID-19 [...] Sign Reading Time Taken Comments Blood Pressure 104/56 11/15/2023 11:33 AM EDT Pulse 86 11/15/2023 11:33 AM EDT Temperature 36.7 C (98 F) 11/15/2023 11:33 AM EDT Respiratory Rate - - Oxygen Saturation 94% 11/15/2023 11:33 AM EDT Inhaled Oxygen Concentration - - Weight 70.8 kg (156 lb) 11/15/2023 11:33 AM EDT Height 172.7 cm (5' 8") 11/15/2023 11:33 AM EDT Body Mass Index 23.72 11/15/2023 11:33 AM EDT documented in this encounter Progress Notes * Angela العراقي MD - 11/15/2023 11:37 AM EDT Subjective: Yfn Nagel Jr. is a 78 year old male. Chief Complaint Patient presents with Emergency Department Follow-Up HPI: Brief Clinical History Mr. Nagel is a 78 year old male last seen in Family Medicine [facility] on 07/15/2023 by Sylvie Lopez He has a h/o the following chronic conditions indicated on the problem list: Chronic Conditions COPD, group B, by GOLD 2017 classification (HCC) Uncomplicated alcohol dependence (HCC) Patient of Dr. Melendrez here for ED follow-up. Was at [facility] on 11/11/23 with back pain. It is worsening of his chronic back pain. Had a lumbar spine x-ray that showed hardware intact but no acute changes. Was given an injection of Toradol and sent home with oxycodone and prednisone (10 mg daily x 7 days). The pain is mostly across the center of his back and is severe. Has had several back surgeries in the past, one being in [place]. No falls or recent injuries. Last lumbar MRI in 2021 showed hardware, DDD, and spinal stenosis. He denies loss of bowel or bladder control or leg weakness. States he is drinking about 3-4 beers a day, which is chronic. States several family members that used to help him have . He states he is to start having Meals on wheels soon. Results for orders placed or performed in visit on 05/22/23 BASIC METABOLIC PANEL Result Value Ref Range BUN 19 6 - 20 mg/dL Creatinine 1.0 0.6 - 1.2 mg/dL Estimated Glomerular Filtration Rate 82 >=60 mL/min Sodium 141 135 - 146 mmol/L Potassium 4.7 3.5 - 5.1 mmol/L Chloride 104 98 - 107 mmol/L CO2 28 22 - 32 mmol/L Anion Gap 9 7 - 15 mmol/L Glucose 86 70 - 120 mg/dL Calcium 9.2 8.4 - 10.2 mg/dL CBC Result Value Ref Range WBC 4.50 4.00 - 10.80 K/uL RBC 4.51 4.50 - 5.25 M/uL HGB 12.6 (L) 14.0 - 16.8 g/dL HCT 37.7 (L) 40.0 - 48.4 % MCV 83.6 82.0 - 99.5 fL MCH 27.9 27.0 - 34.0 pg MCHC 33.4 32.0 - 36.0 g/dL RDW 16.1 11.5 - 15.5 % PLT 262 140 - 400 K/uL MPV 10.1 6.6 - 11.1 fL PHM: Patient Active Problem List Diagnosis Other allergic [...] group B, by GOLD 2017 classification (HCC) Spinal stenosis of lumbar region without neurogenic claudication S/P lumbar spinal fusion Current Outpatient Medications Medication Sig Dispense Refill aspirin enteric coated 81 MG TBEC Take 1 Tab by mouth daily. 100 Tab 0 busPIRone (BUSPAR) 10 MG Tablet Take 1 Tab by mouth 2 times a day. (Patient taking differently: Take 0.5 Tablets by mouth in the morning and 0.5 Tablets before bedtime.) 60 Tab 0 Vitamin D, Cholecalciferol, 1000 units TABS Take 1 Tab by mouth daily. 30 Tab 0 docusate sodium (COLACE) 100 MG Capsule Take 1 Capsule by mouth in the morning and 1 Capsule beforebedtime. CPAP every night at bedtime . Celecoxib 200 MG Oral Capsule (CeleBREX) TAKE 1 CAPSULE BY MOUTH 2 TIMES A DAY oxygen IN GAS 3 LPM bled through PAP therapy during sleep 1 Each 0 Glucosamine HCl 1000 MG Oral Tablet Take 1 Tablet by mouth in the morning. Isosorbide Mononitrate ER 30 MG Oral Tablet Extended Release 24 Hour Take 1 Tablet by mouth in the morning. Do not cut, crush or chew. 30 Tablet 11 Furosemide 40 MG Oral Tablet (Lasix) Take 0.5 Tablets by mouth in the morning and 0.5 Tablets before bedtime. 35 Tablet 10 Pravastatin Sodium 40 MG Oral Tablet (Pravachol) Take 1 Tablet by mouth at bedtime. 30 Tablet 11 Budesonide-Formoterol Fumarate 160-4.5 MCG/ACT Inhalation Aerosol (Symbicort) Inhale 2 Puffs by mouth in the morning and 2 Puffs before bedtime. 6 g 3 Ipratropium-Albuterol 0.5-2.5 (3) MG/3ML Inhalation Solution (Duoneb) Inhale 3 mL by mouth every 6 hours as needed for Shortness of Breath. 100 mL 5 Combivent Respimat 20-100 MCG/ACT Inhalation Aerosol Solution (Ipratropium- Albuterol) Inhale 1 Puffby mouth in the morning and 1 Puff at noon and 1 Puff in the evening and 1 Puff before bedtime. 4 g3 Potassium Chloride Katelyn ER 20 MEQ Oral Tablet Extended Release (Klor-Con M20) Take 1 Tablet by mouth in the morning. 30 Tablet 11 Naproxen 500 MG Oral Tablet (Naprosyn) Take 1 Tablet by mouth 2 times a day with morning and evening meals. Pantoprazole Sodium 40 MG Oral Tablet Delayed Release (Protonix) TAKE ONE TABLET BY MOUTH IN THE MORNING 90 Tablet 3 Montelukast Sodium 10 MG Oral Tablet (Singulair) TAKE 1 TABLET BY MOUTH EVERY MORNING 90 Tablet 3 Tamsulosin HCl 0.4 MG Oral Capsule (Flomax) in the evening 90 Capsule 1 Metoprolol Succinate ER 25 MG Oral Tablet Extended Release 24 Hour (toPROL XL) TAKE ONE TABLET BY MOUTH IN THE MORNING 90 Tablet 3 predniSONE 20 MG Oral Tablet (Deltasone) 1 tab 3 times a day for 3 days, then 1 tab 2 times a day for 3 days, then 1 tab daily for 3 days 18 Tablet 0 No current facility-administered medications for this visit. Past Medical History: Diagnosis Date Acute pancreatitis 10/27/2017 Alcohol abuse Anemia, unspecified Anxiety state, unspecified Arthropathy of multiple sites Asthma, allergic Calcium nephrolithiasis Cannabis abuse Cardiomegaly Carpal tunnel syndrome Chronic airway obstruction, not elsewhere classified Chronic pain disorder Clostridium difficile diarrhea Clostridium difficile infection COPD (chronic obstructive pulmonary disease) (HCC) COPD, severity to be determined ([facility] [...] without mention of cerebral infarction Other hemoglobinopathies (HCC) Primary localized osteoarthrosis, hand Pure hypercholesterolemia RBBB [...] CONTRAST 10/27/2017 mild ileus, no acute process. [facility] CT CHEST/ABD W IV CONTRAST - WO ORAL CONTRAST 10/27/2017 normal. [facility] CT L SPINE W WO CONTRAST 10/27/2017 DDD no fxs, [facility] EGD, FLEXIBLE, DIAGNOSTIC 06/13/2012 Dr. Martinez EGD, FLEXIBLE, DIAGNOSTIC 12/23/2014 Non-obstructing gastric ulcers with clean base. + hyplori. repeat in 3 months/ESOPHAGOGASTRODUODENOSCOPY (EGD), FLEXIBLE, TRANSORAL, DIAGNOSTIC performed by Jenaro Sánchez DO at [facility] EGD, FLEXIBLE, DIAGNOSTIC N/A 06/30/2015 biopsy shows h pylori/antibiotics/protonix there after/ESOPHAGOGASTRODUODENOSCOPY (EGD), FLEXIBLE, TRANSORAL, DIAGNOSTIC performed by Jenaro Sánchez DO at OR [facility] EGD, FLEXIBLE, DIAGNOSTIC N/A 12/31/2017 gastritis/biopsy from stomach show inflammation with intestinal metaplastia/recall 3 years/ESOPHAGOGASTRODUODENOSCOPY (EGD), FLEXIBLE, TRANSORAL, DIAGNOSTIC performed by Jenaro Sánchez DO at OR [facility] EKG 10/27/2017 NSR, RBBB. [facility] INCISION OF EXTERNAL HEMORRHOID INFORMATION back surgery IOF CT T SPINE WO CONTRAST 10/27/2017 no fx, [facility] MISCELLANEOUS ORDER ([facility] ONLY) lithotripsy done three times MISCELLANEOUS ORDER ([facility] ONLY) left index finger repair 2001 NECK/CHEST SURGERY PROCEDURE NEC REPAIR INITIAL INGUINAL HERNIA REDUCIBLE AGE 5 OR MORE left done more than 30 years ago REPAIR RECURRENT INGUINAL HERNIA 01/27/2007 REPAIR RECURRENT INGUINAL HERNIA REDUCIBLE performed by NAY PEREZ at [facility] SURGICAL PROCEDURE ONLY 06/17/2023 Laparoscopic inguinal hernia by Dr. Emiliano Tabares. 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 (Adult - for ages 18 years and over): Not on file Housing Stability: Not on file Review of patient's allergies indicates: No Known Allergies Objective: BP 104/56 | Pulse 86 | Temp 36.7 C (98 F) (Tympanic) | Ht 1.727 m (5' 8") | Wt 70.8 kg (156 lb)| SpO2 94% | BMI 23.72 kg/m | BSA 1.84 m Physical Exam: General: alert, no distress, well nourished, well developed, and malodorous Head: Normocephalic, No masses, lesions, tenderness or abnormalities Heart: regular rate & rhythm, no murmur, and no gallops Lungs: chest symmetric with normal AP diameter, no chest deformities noted, no chest wall tenderness, lungs clear to auscultation Back: back symmetric, no curvature, range of motion is normal, +tender to palpation over right SI joint area Extremities: no edema, no clubbing, no cyanosis Neuro Exam: alert & oriented x 3 with fluent speech, no focal motor/sensory deficits, +ambulates slowly with cane Extensive ROS Constitutional (f/c/wt/vision/hearing): Negative Resp (cough/sob/cordova): +COPD CV (cp/palp/fluttering/diaphoresis/cordova/pnd):Negative GI (n/v/d/hrtburn): Negative Endo (hair/cold or heat intol/ 3 p's): Negative Neuro (shaking/weak/fatigu/parasthesi/): see above hpi Skin (rash/easy bruis/xerosis): Negative Psy (si/hi/halluc/): Negative (nocturia/hesit/drib/sexual review): Negative Lymph (swollen glands/b sx's/: Negative ASSESSMENT: Spinal stenosis of lumbar region without neurogenic claudication (Primary) - predniSONE 20 MG Oral Tablet (Deltasone); 1 tab 3 times a day for 3 days, then 1 tab 2 times a day for 3 days, then 1 tab daily for 3 days - PAIN MEDICINE REFERRAL OP S/P lumbar spinal fusion Uncomplicated alcohol dependence (HCC) Follow Up: Return as scheduled. PLAN: Continue present medication(s): Begin medication(s): Stronger prednisone taper for flare of chronic back pain. Referral(s) to: Pain medicine referral. Interested in injections. Patient education: Discussed prednisone taper and referral to pain medicine. He is to have Meals onWheels start soon. Follow up: As scheduled. Angela العراقي MD documented in this encounter Nursing Notes * Lyubov Du LPN - 11/15/2023 11:32 AM EDT [facility] Back pain Has had 4 surgeries on back previously Given pain meds for a couple days & an injection at the ER Pain is very severe documented in this encounter Plan of Treatment Upcoming Encounters Date Type Department Care Team (Late st Contact Info) Description 01/17/2024 11:25 AM EDT Office Visit Interventional Pain Center, [facility] [address] [facility] [place] [address] Jovanna Murphy MD [address] [place] [address] [place] [phone] 02/12/2024 12:00 PM EST Office Visit Family Medicine [address] [place] [phone] Nate Melendrez MD [address] [place] [address] [place] [phone] Scheduled Procedures Name Priority Associated Diagnoses Date/Ti me ESOPHAGOGASTRODUODENOSCOPY ( EGD), FLEXIBLE, TRANSORAL, DIAGNOSTIC Recall Intestinal metaplasia of gastric cardia Scheduled Referrals Name Type Priority Associated Diagnoses Orde r Schedule PAIN MEDICINE REFERRAL OP Referral Within 10 days (routine) Spinal stenosis of lumbar region without neurogenic claudication Ordered: 11/15/2023 Health Maintenance Due Date Last Done Comments [...] Spinal stenosis of lumbar region without neurogenic claudication- Primary Spinal stenosis, lumbar region, without neurogenic claudication S/P lumbar spinal fusion Arthrodesis status Uncomplicated alcohol dependence (HCC) Other and unspecified alcohol dependence, unspecified drinking behavior documented in this encounter Advance Directives * [...] 6:07 PM 01/28/2007 3:50 PM Care Teams Rubber Curer Relationship Specialty Start Date End Date Nate Melendrez MD [address] [place] [address] [place] [phone] PCP - General Family Medicine 04/25/23 documented as of this encounter
--- OUTSIDE RECORDS SUMMARY | 2024-02-29 14:30 | External Medical Summary | Summary of Care ---
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 6 g 3 05/02/2023 Active Ipratropium-Albutero l 0.5-2.5 (3) MG/3ML Inhalation Solution (Duoneb)Indications: COPD, group B, by GOLD 2017 classification ([facility]) Inhale 3 mL by mouth every 6 hours as needed for Shortness of Breath. 100 mL 5 05/02/2023 Active Combivent Respimat 20-100 MCG/ACT Inhalation Aerosol Solution (Ipratropium-Albuter ol)Indications:COPD, group B, by GOLD 2017 classification ([facility]) Inhale 1 Puff by mouth in the morning and 1 Puff at noon and 1 Puff in the evening and 1 Puff before bedtime. 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 diastolic congestive heart failure (HCC) Take [...] encounter Miscellaneous Notes * Telephone Encounter - Barb Mcdaniel CMA [...] preferred pharmacy and medication before forwarding?yes [facility] [address] [place] Pending Prescriptions: Disp Refills [...] AM EDT Office Visit Interventional Pain Center, [address] [place] [address] Jovanna Murphy MD [address] [place] [address] [place] [address] 02/12/2024 12:00 PM EST Office Visit Family Medicine [address] [place] [phone] Nate Melendrez MD [address] [place] [address] [place] [address] Scheduled Procedures Name Priority Associated Diagnoses Date/Ti [...] 6:07 PM 01/28/2007 3:50 PM Care Teams Audio Technician Relationship Specialty Start Date End Date Nate Melendrez MD [address] [place] [address] [place] [address] PCP - General Family Medicine 04/25/23 documented as of this encounter
--- OUTSIDE RECORDS SUMMARY | 2024-02-29 14:30 | External Medical Summary | Summary of Care ---
Author Name Unknown Organization [facility] Address [address] [facility] [place] [address] Phone [phone] Care Team Providers Care Neuropsychologist Name Role Phone Nate Melendrez MD Primary Care Provide r Reason for Visit * Reason Onset Date Comments Medication Refill 11/18/2023 Encounter Details Date Type Department Care Team (Late st Contact Info) Description 11/18/2023 Refill Family Medicine [address] [place] [phone] Nate Melendrez MD [address] [place] [address] [place] [address] Spinal stenosis of lumbar [...] 30 MG Oral Tablet Extended Release 24 HourIndications: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 6 g 3 05/02/2023 Active Ipratropium-Albutero l 0.5-2.5 (3) MG/3ML Inhalation Solution (Duoneb)Indications: COPD, group B, by GOLD 2017 classification ([facility]) Inhale 3 mL by mouth every 6 hours as needed for Shortness of Breath. 100 mL 5 05/02/2023 Active Combivent Respimat 20-100 MCG/ACT Inhalation Aerosol Solution (Ipratropium-Albuter ol)Indications:COPD, group B, by GOLD 2017 classification ([facility]) Inhale 1 Puff by mouth in the morning and 1 Puff at noon and 1 Puff in the evening and 1 Puff before bedtime. 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 diastolic congestive heart failure (HCC) Take [...] pharmacy and medication before forwarding?yes Pharmacy: [facility], [address] [place] Pending Prescriptions: Disp Refills [...] AM EDT Office Visit [facility] Center, [address] [place] [address] Jovanna Murphy MD [address] [place] [address] [place] [phone] 02/12/2024 12:00 PM EST Office Visit Family Medicine [address] [place] [phone] Nate Melendrez MD [address] [place] [address] [place] [address] Scheduled Procedures Name Priority Associated Diagnoses Date/Ti [...] 6:07 PM 01/28/2007 3:50 PM Care Teams Neuropsychologist Relationship Specialty Start Date End Date Nate Melendrez MD [address] [place] [address] [place] [phone] PCP - General Family Medicine 04/25/23 documented as of this encounter
[2024-03-01] MEDS: GABAPENTIN 600 MG TAB PO SCH (12:05)
--- NOTE | 2024-03-01 12:11 | Hospitalist Progress Note ---
Date of Service March 01, 2024 Assessment & Plan (1) Arthritis of right ankle: (2) Alcohol use disorder: (3) (HFpEF) heart failure with preserved ejection fraction: (4) Chronic obstructive pulmonary disease: (5) Unable to care for self: Plan: He was 19 by the adult protective services due to poor living condition and inability of the patient to take care of self He wants to go home today and awaiting high risk case manager evaluation before he can leave the hospital (6) Asthma: (7) HLD (hyperlipidemia): (8) Hypertension: Plan Right ankle pain Abnormal right ankle x-ray Right ankle x-ray with loss of Talar bone height, avascular necrosis cannot be excluded. Severe osteoarthritis noted. Patient presented with right ankle pain and the pain has been ongoing Continue pain management, orthopedic consult. 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 He drinks about 4 to 5 cans of beer a day. - c/w Gabapentin withdrawal protocol - UDS + for marijuana, negative for alcohol on 02/25 - Nicotine patch for smoking 1 ppd cigarettes - No recent abd US for review as pt apparently reported abd pain to PCP about 2 weeks ago, no abd pain today. Monitor. - CXR reviewed showing possible RLL pna - started on ceftriaxone and doxy in the ER 02/25, will continue x 5-7 days depending on clinical course. No WBC, afebrile. reports chronic cough, concern for possible aspiration pneumonia. Await speech therapy to [place]. - Add probiotic - has been requiring occasional doses of Ativan for withdrawal symptoms Does not have any signs or symptoms of withdrawal - strongly advised to quit drinking and also smoking Chronic DVT, RLE: Patient did get BLE venous Doppler at admission to rule out DVT due to complaint of RLE pain. Venous Doppler positive for small amount of chronic appearing thrombus within incompletely compressible right common femoral, femoral and popliteal veins. patient asymptomatic, no thigh and calf pain. Discussed the case with hematology, no anticoagulation needed due to chronic nature of DVT. COPD TANO not on CPAP - Does not use O2 at baseline - Pt has perviously used nebs but is not using any other home inhalers - c/w Symbicort and duonebs prn here - COPD remains stable at this time HFpEF HLD - Last echo was [place] mycoard per study in June 2021 with EF of 65%. - Recent cholesterol panel as OP: Triglycerides 78, cholesterol 136, HDL 57, LDL 63. No need for statin. Hx of DVT - Will check doppler BLE to r/o DVT with hx of such, he is not on blood thinner, mild peripheral edema - asa 81 mg daily Other chronic medical issues: Degenerative disc disease BPH GERD- Protonix degenerative disc disease and spinal stenosis status post lumbar spine fusion - PT/OT DVT ppx: Hep sc Lines: PIV x 1 FEN/GI: Regular diet, speech therapy evaluation CODE: Full code Dispo: From home, Has had physical therapy and recommended home Admission and Anticipated Discharge Date Admission Date: February 26, 2024 Subjective 02/28/2024 Patient was seen and examined in medical telemetry unit He has been out of bed on a chair and denies any significant discomfort Complains to have pain in the right ankle which has been ongoing No significant restlessness, anxiety or agitation during my examination 02/29/2024 The patient was seen and examined in medical telemetry unit He has been stable and does not have any withdrawal symptoms He is right ankle pain is tolerable and he wants to go home 03/01/2024 The patient was seen and examined in medical telemetry unit He denies any symptoms today and has been ambulating in the hallway without any difficulties He wants to go home- likely discharge tomorrow Review of Systems Review of Systems: All systems reviewed and are unremarkable except as noted below Physical Exam Physical Exam: Sitting on a chair without any acute distress Constitutional: + ill appearing and average body habitus Eyes: PERRL, conjunctivae normal, anicteric sclerae ENMT: external ear and nose normal, oropharynx normal Neck: trachea midline, no thyromegaly Respiratory: no respiratory distress Auscultation: lungs clear to auscultation bilaterally Cardiovascular: Rate/Rhythm: regular rate and regular rhythm Heart Sounds: normal S1 and normal S2; no murmur Extremities: no edema Gastrointestinal (Abdomen): Inspection/Auscultation: normal bowel sounds; abdomen not distended Percussion/Palpation: abdomen soft; abdomen nontender Musculoskeletal: Ankle: + ankle abnormal to inspection ( right ankle is minimally swollen), + deformity ( minimal deformity involving the right ankle) and + joint line tenderness (ankle) ( mild to moderate pain with movement of the right ankle joint) Neurologic: normal touch/pain/proprioception and moves all extremities; no focal motor deficits Lymphatic: no cervical or axillary lymphadenopathy Results & Data Results & Data Vital Signs (Past 12 Hours) Vital Signs Temp Pulse Resp BP BP Pulse Ox O2 Del Method 03/01/24 11:15 36.6 C 62 20 141/75 H 98 Room Air 03/01/24 07:50 Room Air 03/01/24 07:08 36.4 C L 76 20 135/78 95 Room Air 03/01/24 01:42 36.4 C L 71 18 131/71 90 Room Air Medications Administered Current Inpatient Medications Acetaminophen (Acetaminophen 325 Mg Tab) 650 mg PO Q4H PRN PRN Reason: Moderate Pain (Scale 4, 5, 6) Stop: 03/27/24 20:51 Last Admin: 03/01/24 04:46 Dose: 650 mg Albuterol (Albuterol Hfa Inhaler 8.5 Gm) 1 puffs INH QIDR PRN PRN Reason: Shortness Of Breath Stop: 03/27/24 21:23 Aspirin (Aspirin 81 Mg Ectab) 81 mg PO QAM [facility] Stop: 03/28/24 08:59 Last Admin: 03/01/24 09:47 Dose: 81 mg Atorvastatin Calcium (Atorvastatin 10 Mg Tab) 10 mg PO DAILY [facility] Stop: 03/28/24 08:59 Last Admin: 02/29/24 08:27 Dose: 10 mg Fluticasone/Vilanterol (Fluticasone/Vilanterol 100/25mcg 14 Puffs/Inhaler) 1 puffs INH DAILY [facility]; Protocol Stop: 03/27/24 21:29 Last Admin: 03/01/24 09:48 Dose: 1 puffs Folic Acid (Folic Acid 1 Mg Tab) 1 mg PO QAM [facility] Stop: 03/28/24 08:59 Last Admin: 03/01/24 09:47 Dose: 1 mg Ceftriaxone Sodium (Rocephin) 2,000 mg in 50 mls @ 100 mls/hr IV Q24H [facility]; Protocol Stop: 03/03/24 16:29 Last Infusion: 02/29/24 19:31 Dose: Infused Ipratropium [place] (Ipratropium [place] Hfa Inhaler) 1 puffs INH QIDR PRN PRN Reason: Shortness Of Breath Stop: 03/27/24 21:23 Lactobacillus Acidophilus (Advanced Probiotic 625 Mg Capsule) 1,250 mg PO DAILY [facility] Stop: 03/29/24 08:59 Last Admin: 03/01/24 09:47 Dose: 1,250 mg Miscellaneous (Remove Nicoderm Patch) 1 each N/A DAILY@0859 [facility] Stop: 03/28/24 08:58 Last Admin: 03/01/24 09:49 Dose: 1 each Multivitamins (Multivitamin Tab) [facility] [place] Stop: 03/28/24 08:59 Last Admin: 03/01/24 09:47 Dose: 1 tab Nicotine (Nicotine 21 Mg/24 Hr Tdsy) 1 patch TD [facility] Stop: 03/27/24 16:59 Last Admin: 03/01/24 09:44 Dose: 1 patch Nicotine Polacrilex (Nicotine Polacrilex 2 Mg Gum) 1 piece MT Q2H PRN PRN Reason: Agitation Stop: 03/29/24 10:22 Last Admin: 02/28/24 13:43 Dose: 1 piece Ondansetron HCl (Ondansetron Inj 2 Mg/Ml 2 Ml Vial) 4 mg IV Q4H PRN PRN Reason: Nausea And Vomiting Stop: 03/27/24 20:51 Pantoprazole Sodium (Pantoprazole 40 Mg Tab) 40 mg PO [facility] Stop: 03/28/24 08:59 Last Admin: 03/01/24 09:47 Dose: 40 mg Thiamine HCl (Thiamine Hcl 100 Mg Tab) 100 mg PO [facility] Stop: 03/28/24 08:59 Last Admin: 03/01/24 09:47 Dose: 100 mg
--- NOTE | 2024-03-02 10:42 | Hospitalist Progress Note ---
Date of Service March 02, 2024 Assessment & Plan (1) Arthritis of right ankle: (2) Alcohol use disorder: (3) (HFpEF) heart failure with preserved ejection fraction: (4) Chronic obstructive pulmonary disease: (5) Unable to care for self: Plan: He was 19 by the adult protective services due to poor living condition and inability of the patient to take care of self He wants to go home today and awaiting trimming caser evaluation before he can leave the hospital (6) Asthma: (7) HLD (hyperlipidemia): (8) Hypertension: Plan Right ankle pain Abnormal right ankle x-ray Right ankle x-ray with loss of Talar bone height, avascular necrosis cannot be excluded. Severe osteoarthritis noted. Patient presented with right ankle pain and the pain has been ongoing Continue pain management, orthopedic consult. Appreciate orthopedic input and recommendation for conservative management now Pain is reasonably controlled with current pain medications Will need PT and OT evaluation prior to discharge His right ankle pain is reasonable and he has been ambulating in the hallway without any difficulties He wants to go home and awaiting trimming caser evaluation before discharge Does not have any ankle pain with movement He will be discharged home tomorrow following intervention by social service His ankle pain is controlled with current medications and he has been ambulating in the hallway without any difficulties Alcohol Use Chronic Tobacco Use Chronic marijuana 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 He drinks about 4 to 5 cans of beer a day. - c/w Gabapentin withdrawal protocol - UDS + for marijuana, negative for alcohol on 02/25 - Nicotine patch for smoking 1 ppd cigarettes - No recent abd US for review as pt apparently reported abd pain to PCP about 2 weeks ago, no abd pain today. Monitor. - CXR reviewed showing possible RLL pna - started on ceftriaxone and doxy in the ER 02/25, will continue x 5-7 days depending on clinical course. No WBC, afebrile. reports chronic cough, concern for possible aspiration pneumonia. Await speech therapy to ary. - Add probiotic - has been requiring occasional doses of Ativan for withdrawal symptoms Does not have any signs or symptoms of withdrawal - strongly advised to quit drinking and also smoking Does not have any symptoms of withdrawal Chronic DVT, RLE: Patient did get BLE venous Doppler at admission to rule out DVT due to complaint of RLE pain. Venous Doppler positive for small amount of chronic appearing thrombus within incompletely compressible right common femoral, femoral and popliteal veins. patient asymptomatic, no thigh and calf pain. Discussed the case with hematology, no anticoagulation needed due to chronic nature of DVT. COPD TANO not on CPAP - Does not use O2 at baseline - Pt has perviously used nebs but is not using any other home inhalers - c/w Symbicort and duonebs prn here - COPD remains stable at this time HFpEF HLD - Last echo was [place] mycoard per study in June 2021 with EF of 65%. - Recent cholesterol panel as OP: Triglycerides 78, cholesterol 136, HDL 57, LDL 63. No need for statin. Hx of DVT - Will check doppler BLE to r/o DVT with hx of such, he is not on blood thinner, mild peripheral edema - asa 81 mg daily Other chronic medical issues: Degenerative disc disease BPH GERD- Protonix degenerative disc disease and spinal stenosis status post lumbar spine fusion - PT/OT DVT ppx: Hep sc Lines: PIV x 1 FEN/GI: Regular diet, speech therapy evaluation CODE: Full code Dispo: From home, Has had physical therapy and recommended home global marketing manager will need to be involved regarding discharge Admission and Anticipated Discharge Date Admission Date: February 26, 2024 Subjective 02/28/2024 Patient was seen and examined in medical telemetry unit He has been out of bed on a chair and denies any significant discomfort Complains to have pain in the right ankle which has been ongoing No significant restlessness, anxiety or agitation during my examination 02/29/2024 The patient was seen and examined in medical telemetry unit He has been stable and does not have any withdrawal symptoms He is right ankle pain is tolerable and he wants to go home 03/01/2024 The patient was seen and examined in medical telemetry unit He denies any symptoms today and has been ambulating in the hallway without any difficulties He wants to go home- likely discharge tomorrow 03/02/2024 The patient was seen and examined in medical telemetry unit He has been stable and wants to go home The trimming caser is working on him regarding home and management and discharge planning Review of Systems Review of Systems: All systems reviewed and are unremarkable except as noted below Physical Exam 2 Physical Exam: Sitting on a chair without any acute distress Constitutional: + ill appearing and average body habitus Eyes: PERRL, conjunctivae normal, anicteric sclerae ENMT: external ear and nose normal, oropharynx normal Neck: trachea midline, no thyromegaly Respiratory: no respiratory distress Auscultation: lungs clear to auscultation bilaterally Cardiovascular: Rate/Rhythm: regular rate and regular rhythm Heart Sounds: normal S1 and normal S2; no murmur Extremities: no edema Gastrointestinal (Abdomen): Inspection/Auscultation: normal bowel sounds; abdomen not distended Percussion/Palpation: abdomen soft; abdomen nontender Musculoskeletal: Ankle: + ankle abnormal to inspection ( right ankle is minimally swollen), + deformity ( minimal deformity involving the right ankle) and + joint line tenderness (ankle) ( mild to moderate pain with movement of the right ankle joint) Neurologic: normal touch/pain/proprioception and moves all extremities; no focal motor deficits Lymphatic: no cervical or axillary lymphadenopathy Results & Data Results & Data Vital Signs (Past 12 Hours) Vital Signs Temp Pulse Resp BP BP Pulse Ox O2 Del Method 03/02/24 08:00 36.4 C L 62 18 100/61 96 Room Air 03/02/24 04:00 36.8 C 66 18 125/70 94 Room Air 03/01/24 23:00 36.8 C 62 18 112/60 94 Room Air Medications Administered Current Inpatient Medications Acetaminophen (Acetaminophen 325 Mg Tab) 650 mg PO Q4H PRN PRN Reason: Moderate Pain (Scale 4, 5, 6) Stop: 03/27/24 20:51 Last Admin: 03/01/24 04:46 Dose: 650 mg Albuterol (Albuterol Hfa Inhaler 8.5 Gm) 1 puffs INH QIDR PRN PRN Reason: Shortness Of Breath Stop: 03/27/24 21:23 Aspirin (Aspirin 81 Mg Ectab) 81 mg PO QAM [facility] Stop: 03/28/24 08:59 Last Admin: 03/02/24 10:18 Dose: 81 mg Atorvastatin Calcium (Atorvastatin 10 Mg Tab) 10 mg PO DAILY [facility] Stop: 03/28/24 08:59 Last Admin: 03/02/24 10:18 Dose: 10 mg Fluticasone/Vilanterol (Fluticasone/Vilanterol 100/25mcg 14 Puffs/Inhaler) 1 puffs INH DAILY [facility]; Protocol Stop: 03/27/24 21:29 Last Admin: 03/02/24 10:18 Dose: 1 puffs Folic Acid (Folic Acid 1 Mg Tab) [facility] [place] Stop: 03/28/24 08:59 Last Admin: 03/02/24 10:18 Dose: 1 mg Ipratropium [place] (Ipratropium [place] Hfa Inhaler) 1 puffs INH QIDR PRN PRN Reason: Shortness Of Breath Stop: 03/27/24 21:23 Lactobacillus Acidophilus (Advanced Probiotic 625 Mg Capsule) 1,250 mg PO DAILY [facility] Stop: 03/29/24 08:59 Last Admin: 03/02/24 10:18 Dose: 1,250 mg Miscellaneous (Remove Nicoderm Patch) 1 each N/A DAILY@0859 [facility] Stop: 03/28/24 08:58 Last Admin: 03/02/24 10:17 Dose: 1 each Multivitamins (Multivitamin Tab) [facility] [place] Stop: 03/28/24 08:59 Last Admin: 03/02/24 10:18 Dose: 1 tab Nicotine (Nicotine 21 Mg/24 Hr Tdsy) 1 patch TD [facility] Stop: 03/27/24 16:59 Last Admin: 03/02/24 10:18 Dose: 1 patch Nicotine Polacrilex (Nicotine Polacrilex 2 Mg Gum) 1 piece MT Q2H PRN PRN Reason: Agitation Stop: 03/29/24 10:22 Last Admin: 02/28/24 13:43 Dose: 1 piece Ondansetron HCl (Ondansetron Inj 2 Mg/Ml 2 Ml Vial) 4 mg IV Q4H PRN PRN Reason: Nausea And Vomiting Stop: 03/27/24 20:51 Pantoprazole Sodium (Pantoprazole 40 Mg Tab) 40 mg PO [facility] Stop: 03/28/24 08:59 Last Admin: 03/02/24 10:19 Dose: 40 mg Thiamine HCl (Thiamine Hcl 100 Mg Tab) 100 mg PO [facility] Stop: 03/28/24 08:59 Last Admin: 03/02/24 10:19 Dose: 100 mg
[2024-03-02 20:02] VITALS: O2SAT 98
[2024-03-03 07:40] VITALS: BP 112/67; PULSE 67; RESP 18; TEMP 98.1
--- NOTE | 2024-03-03 09:13 | Hospitalist Progress Note ---
Date of Service March 03, 2024 Assessment & Plan (1) Arthritis of right ankle: (2) Alcohol use disorder: (3) (HFpEF) heart failure with preserved ejection fraction: (4) Chronic obstructive pulmonary disease: (5) Unable to care for self: Plan: He was 19 by the adult protective services due to poor living condition and inability of the patient to take care of self He wants to go home today and awaiting mental health case manager evaluation before he can leave the hospital He will be discharged this morning and protective service will see him at his house today (6) Asthma: Plan: No acute symptoms (7) HLD (hyperlipidemia): (8) Hypertension: Plan Right ankle pain Abnormal right ankle x-ray Right ankle x-ray with loss of Talar bone height, avascular necrosis cannot be excluded. Severe osteoarthritis noted. Patient presented with right ankle pain and the pain has been ongoing Continue pain management, orthopedic consult. Appreciate orthopedic input and recommendation for conservative management now Pain is reasonably controlled with current pain medications Will need PT and OT evaluation prior to discharge His right ankle pain is reasonable and he has been ambulating in the hallway without any difficulties He wants to go home and awaiting mental health case manager evaluation before discharge Does not have any ankle pain with movement He will be discharged home tomorrow following intervention by social service His ankle pain is controlled with current medications and he has been ambulating in the hallway without any difficulties Denies any pain with ambulation Alcohol Use Chronic Tobacco Use Chronic marijuana Use Hx of IVDA at age 20-40s - Admit to med [facility] for possible etoh withdrawal, Last drink 02/25/2024 per patient. He drinks about 4 to 5 cans of beer a day. - c/w Gabapentin withdrawal protocol - UDS + for marijuana, negative for alcohol on 02/25 - Nicotine patch for smoking 1 ppd cigarettes - No recent abd US for review as pt apparently reported abd pain to PCP about 2 weeks ago, no abd pain today. Monitor. - CXR reviewed showing possible RLL pna - started on ceftriaxone and doxy in the ER 02/25, will continue x 5-7 days depending on clinical course. No WBC, afebrile. reports chronic cough, concern for possible aspiration pneumonia. Await speech therapy to eval. - Add probiotic - has been requiring occasional doses of Ativan for withdrawal symptoms Does not have any signs or symptoms of withdrawal - strongly advised to quit drinking and also smoking Does not have any symptoms of withdrawal -Strongly advised to quit drinking and also smoking Chronic DVT, RLE: Patient did get BLE venous Doppler at admission to rule out DVT due to complaint of RLE pain. Venous Doppler positive for small amount of chronic appearing thrombus within incompletely compressible right common femoral, femoral and popliteal veins. patient asymptomatic, no thigh and calf pain. Discussed the case with hematology, no anticoagulation needed due to chronic nature of DVT. COPD TANO not on CPAP - Does not use O2 at baseline - Pt has perviously used nebs but is not using any other home inhalers - c/w Symbicort and duonebs prn here - COPD remains stable at this time HFpEF HLD - Last echo was [place] mycoard per study in June 2021 with EF of 65%. - Recent cholesterol panel as OP: Triglycerides 78, cholesterol 136, HDL 57, LDL 63. No need for statin. Hx of DVT - Will check doppler BLE to r/o DVT with hx of such, he is not on blood thinner, mild peripheral edema - asa 81 mg daily Other chronic medical issues: Degenerative disc disease BPH GERD- Protonix degenerative disc disease and spinal stenosis status post lumbar spine fusion - PT/OT DVT ppx: Hep sc Lines: PIV x 1 FEN/GI: Regular diet, speech therapy evaluation CODE: Full code Dispo: From home, Has had physical therapy and recommended home lands resource manager met the necessary arrangements as an outpatient for discharge He will be discharged this morning Admission and Anticipated Discharge Date Admission Date: February 26, 2024 Subjective 02/28/2024 Patient was seen and examined in medical telemetry unit He has been out of bed on a chair and denies any significant discomfort Complains to have pain in the right ankle which has been ongoing No significant restlessness, anxiety or agitation during my examination 02/29/2024 The patient was seen and examined in medical telemetry unit He has been stable and does not have any withdrawal symptoms He is right ankle pain is tolerable and he wants to go home 03/01/2024 The patient was seen and examined in medical telemetry unit He denies any symptoms today and has been ambulating in the hallway without any difficulties He wants to go home- likely discharge tomorrow 03/02/2024 The patient was seen and examined in medical telemetry unit He has been stable and wants to go home The mental health case manager is working on him regarding home and management and discharge planning 03/03/2024 The patient was seen and examined in medical telemetry unit He does not have any complaints and wants to go home He will be discharged this morning Strongly advised to have follow-up appointments with the medical provider and also with protective service Review of Systems Review of Systems: All systems reviewed and are unremarkable except as noted below Physical Exam Physical Exam: Sitting on a chair without any acute distress Constitutional: + ill appearing and average body habitus Eyes: PERRL, conjunctivae normal, anicteric sclerae ENMT: external ear and nose normal, oropharynx normal Neck: trachea midline, no thyromegaly Respiratory: no respiratory distress Auscultation: lungs clear to auscultation bilaterally Cardiovascular: Rate/Rhythm: regular rate and regular rhythm Heart Sounds: normal S1 and normal S2; no murmur Extremities: no edema Gastrointestinal (Abdomen): Inspection/Auscultation: normal bowel sounds; abdomen not distended Percussion/Palpation: abdomen soft; abdomen nontender Musculoskeletal: Ankle: + ankle abnormal to inspection ( right ankle is minimally swollen), + deformity ( minimal deformity involving the right ankle) and + joint line tenderness (ankle) ( mild to moderate pain with movement of the right ankle joint) Neurologic: normal touch/pain/proprioception and moves all extremities; no focal motor deficits Lymphatic: no cervical or axillary lymphadenopathy Results & Data Results & Data Vital Signs (Past 12 Hours) Vital Signs Temp Pulse Resp BP Pulse Ox O2 Del Method 03/03/24 07:39 36.7 C 67 18 112/67 98 Room Air
--- NOTE | 2024-03-03 17:42 | Discharge Summary ---
Date of Service March 03, 2024 Admission HPI Per Admitting Provider This is a 78-year-old man with PMHx of COPD, HLD, HFpEF, TANO on CPAP, degenerative disc disease, BPH, GERD, spinal stenosis status post lumbar spine fusion who recently established with Kenneth PCP and outpatient at the end of January this year. He is a chronic alcohol user, previously drinking 5-10 beers per night on EMR review. He is also a chronic tobacco smoker. He has not taken any of his home medications include inhalers for at least 1 month. He had presented to the clinic for complaints of abdominal pain and due to his EtOH abuse history PCP ordered an ultrasound of the abdomen and labs. Appears labs were completed and were fairly normal but ultrasound was not completed. Patient is a case for Adult Protective Services/welfare. Medical request was filled out on 02/11. A member from Adult Protective Services had concerns that the patient was withdrawing money from back multiple times daily, hoarding. He was noted in outpatient EMR to be a habitual heavy cocaine and medical marijuana user, friend recently stopped helping him because it has become overwhelming for him, confusing/dangerous so removed himself from the situation. Family is estranged. History of family member overdosing on drugs and is on home and there while he was present. Poor oral intake, patient states that he only has alcohol in his house, no food. Today the pt reports having issues with mobility in the R ankle, he can bear weight without any issue but it is difficult to move the ankle. Denies any recent falls. Pt reports having a chronic cough, sputum production but denies any shortness of breath today or chest pain. He is tolerating oral intake without difficulty and denies issues with swallowing or food getting stuck. He continues to smoke 1 PPD cigarettes and has since in his 20s. Pt admits to drinking minimum of 6 beers daily, normally more. He cannot recall having withdrawal symptoms because he drinks as previously stated. Pt also admits to hx of IVDA with multiple different hard drugs when he was in his 30s and 40s. Admission Exam Per Admitting Provider Vitals signs as noted above General Appearance:Moderately built and nourished, no apparent distress Head: normocephalic, Atraumatic Eyes: normal inspection, EOMI Neck: supple, Trachea midline Respiratory/Chest: Decreased breath sounds, CTA, No accessory muscle use Cardiovascular: S1, S2, No murmur Abdomen/GI:Soft, Non tender, Bowel sounds present Extremities/Musculoskeletal:normal inspection, RLE edema Neurologic/Psych:AAOX2, grossly no focal neurological deficits Skin: normal color, warm Principal Diagnosis Severe arthritis of right ankle, alcohol use disorder, hypertension, unable to take care of self Discharge Exam Sitting on a chair without any acute distress Constitutional + ill appearing and average body habitus Eyes PERRL, conjunctivae normal, anicteric sclerae ENMT external ear and nose normal, oropharynx normal Neck trachea midline, no thyromegaly Respiratory no respiratory distress Auscultation: lungs clear to auscultation bilaterally Cardiovascular Rate/Rhythm: regular rate and regular rhythm Heart Sounds: normal S1 and normal S2; no murmur Extremities: no edema Gastrointestinal (Abdomen) Inspection/Auscultation: normal bowel sounds; abdomen not distended Percussion/Palpation: abdomen soft; abdomen nontender Musculoskeletal Ankle: + ankle abnormal to inspection ( right ankle is minimally swollen), + deformity ( minimal deformity involving the right ankle) and + joint line tenderness (ankle) ( mild to moderate pain with movement of the right ankle joint) Neurologic normal touch/pain/proprioception and moves all extremities; no focal motor deficits Lymphatic no cervical or axillary lymphadenopathy Discharge Data Allergies Allergy/AdvReac Type Severity Reaction Status Date / Time morphine Allergy Mild Rash Verified 02/26/24 13:51 levofloxacin AdvReac Intermediate "Gets mean" Verified 02/26/24 13:51 Quinolones AdvReac Intermediate "Gets Verified 02/26/24 13:51 looney" Consultations 02/26/24 17:21 ED Decision to Admit Stat 02/27/24 12:08 Consult Orthopedic Surgery Routine Ordered Studies 02/26/24 13:32 CT head/brain wo con Stat 02/26/24 16:58 US venous doppler LE BI Routine Hospital Course (1) Arthritis of right ankle: (2) Alcohol use disorder: (3) (HFpEF) heart failure with preserved ejection fraction: (4) Chronic obstructive pulmonary disease: (5) Unable to care for self: He was 17 by the adult protective services due to poor living condition and inability of the patient to take care of self He wants to go home today and awaiting watch caser evaluation before he can leave the hospital He will be discharged this morning and protective service will see him at his ho use today (6) Asthma: No acute symptoms (7) HLD (hyperlipidemia): (8) Hypertension: Plan Right ankle pain Abnormal right ankle x-ray Right ankle x-ray with loss of Talar bone height, avascular necrosis cannot be excluded. Severe osteoarthritis noted. Patient presented with right ankle pain and the pain has been ongoing Continue pain management, orthopedic consult. Appreciate orthopedic input and recommendation for conservative management now Pain is reasonably controlled with current pain medications Will need PT and OT evaluation prior to discharge His right ankle pain is reasonable and he has been ambulating in the hallway without any difficulties He wants to go home and awaiting watch caser evaluation before discharge Does not have any ankle pain with movement He will be discharged home tomorrow following intervention by social service His ankle pain is controlled with current medications and he has been ambulating in the hallway without any difficulties Denies any pain with ambulation Alcohol Use Chronic Tobacco Use Chronic marijuana Use Hx of IVDA at age 20-40s - Admit to med tele for possible etoh withdrawal, Last drink 02/25/2024 per patient. He drinks about 4 to 5 cans of beer a day. - c/w Gabapentin withdrawal protocol - UDS + for marijuana, negative for alcohol on 02/25 - Nicotine patch for smoking 1 ppd cigarettes - No recent abd US for review as pt apparently reported abd pain to PCP about 2 weeks ago, no abd pain today. Monitor. - CXR reviewed showing possible RLL pna - started on ceftriaxone and doxy in the ER 02/25, will continue x 5-7 days depending on clinical course. No WBC, afebrile. reports chronic cough, concern for possible aspiration pneumonia. Await speech therapy to evelijah. - Add probiotic - has been requiring occasional doses of Ativan for withdrawal symptoms Does not have any signs or symptoms of withdrawal - strongly advised to quit drinking and also smoking Does not have any symptoms of withdrawal -Strongly advised to quit drinking and also smoking Chronic DVT, RLE: Patient did get BLE venous Doppler at admission to rule out DVT due to complaint of RLE pain. Venous Doppler positive for small amount of chronic appearing thrombus within incompletely compressible right common femoral, femoral and popliteal veins. patient asymptomatic, no thigh and calf pain. Discussed the case with hematology, no anticoagulation needed due to chronic nature of DVT. COPD TANO not on CPAP - Does not use O2 at baseline - Pt has perviously used nebs but is not using any other home inhalers - c/w Symbicort and duonebs prn here - COPD remains stable at this time HFpEF HLD - Last echo was NM mycoard per study in June 2021 with EF of 65%. - Recent cholesterol panel as OP: Triglycerides 78, cholesterol 136, HDL 57, LDL 63. No need for statin. Hx of DVT - Will check doppler BLE to r/o DVT with hx of such, he is not on blood thinner, mild peripheral edema - asa 81 mg daily Other chronic medical issues: Degenerative disc disease BPH GERD- Protonix degenerative disc disease and spinal stenosis status post lumbar spine fusion - PT/OT DVT ppx: Hep sc Lines: PIV x 1 FEN/GI: Regular diet, speech therapy evaluation CODE: Full code Dispo: From home, Has had physical therapy and recommended home strategic marketing manager met the necessary arrangements as an outpatient for discharge He will be discharged this morning Total Time Total Time Spent Total Time Spent (In Minutes): 40 minutes Discharge Plan Discharge Items Patient Disposition: Home - Home Health Services Reason For Visit: INABILITY TO CARE FOR SELF, PNA Discharge Diagnosis: severe arthritis of right ankle, alcohol use disorder, hypertension, unable to take care of self Condition on Discharge: Good Activity: Resume your previous activity Non-emergency contact: Primary Care Provider Call non-emergency contact if: you have any medication questions and your sympto ms worsen Follow-up/Referrals: Nate Melendrez MD [Primary Care Provider] - ( your doctor's office will give you a call with an appointment within 7 days) Diet: Regular Addtl Attending Provider Instructions: Please take precautions to avoid fall Take your medications as advised Please give appointment with your healthcare provider Strongly advised to quit drinking and also smoking Pending Studies at Discharge: No Stand-Alone Forms: My Offsite Care Resources, Smoking Cessation Medications and DC Order Prescriptions: New nicotine [Nicoderm CQ] 21 mg/24 hr Patch 24 Hour 1 patch transdermal QAM Qty: 28 0RF folic acid 1 mg Tablet 1 mg PO QAM Qty: 30 0RF multivitamin with folic acid [Daily-Oumou (with folic acid)] 400 mcg Tablet 1 tab PO QAM Qty: 30 0RF thiamine HCl (vitamin B1) 100 mg Tablet 100 mg PO QAM Qty: 30 0RF Continued pantoprazole 40 mg tablet,delayed release (DR/EC) 40 mg PO QAM Qty: 90 2RF aspirin [Katie Low Dose Aspirin] 81 mg tablet,delayed release (DR/EC) 81 mg PO QAM Qty: 90 0RF Symbicort 160-4.5 mcg/actuation HFA aerosol inhaler 2 puff INH BID Qty: 1 11RF Medical Marijauna 1 dose inhalation UD PRN (Reason: PAIN/ANXIETY) atorvastatin 10 mg tablet 10 mg PO DAILY Combivent Respimat 20-100 mcg/actuation mist 1 puff INHALATION QID PRN (Reason: Wheezing) Discharge Orders: Discharge Order (Routine); Ordered 03/03/24 Ordered By: Mai Arenas Admission Data Admit Date/Time: 02/26/24 16:31 Attending Provider: Mai Arenas Admit Provider: Андрей Rodriguez Primary Care Provider: Nate Melendrez Other Providers: Андрей Rodriguez; Saqib Mckeon; Ana Rodríguez Other Interventions: Discharge Summary Assessment (RN) Last Done: 03/02/24 16:39
== END 2024-03-03 10:16 | disposition home health service (06) | DRG 896 ==
LOC: MERGE 13:20 → ED 13:20 → SUATTDRO 16:31 → 2N 16:31

== ENCOUNTER 2024-09-16 22:52 | Inpatient (IN) ==
[2024-09-16 23:36] LABS: Basophils # (auto) 0.02 K/uL (0.00-0.20); Basophils % (auto) 0.3 %; Eosinophils # (auto) 0.11 K/uL (0.00-0.50); Eosinophils % (auto) 1.6 %; Hematocrit (blood only) 32.6 % (42.0-52.0); Hemoglobin 10.7 g/dl (14.0-18.0); Immature Granulocytes # (auto) 0.02 K/uL (0.01-0.20); Immature Granulocytes % (auto) 0.3 %; Lymphocytes # (auto) 0.69 K/uL (1.20-3.40); Lymphocytes % (auto) 9.7 %; Mean Corpuscular Hemoglobin 27.4 pg (25.0-34.0); Mean Corpuscular Hgb Conc 32.8 g/dL (32.0-36.0); Mean Corpuscular Volume 83.4 fL (80.0-100.0); Mean Platelet Volume 9.8 fL (9.4-12.4); Monocytes # (auto) 0.61 K/uL (0.11-0.59); Monocytes % (auto) 8.6 %; Neutrophils # (auto) 5.63 K/uL (1.40-6.50); Neutrophils % (auto) 79.5 %; Platelet Count 227 K/uL (130-400); RDW Coefficient of Variation 14.6 % (11.5-14.5); RDW Standard Deviation 44.1 fL (36.4-46.3); Red Blood Count 3.91 M/uL (4.70-6.10); White Blood Count 7.08 K/ul (4.8-10.8)
[2024-09-17] LABS: Alanine Aminotransferase 13 U/L (7-52); Albumin Globulin Ratio 1.3 (0.9-2); Alkaline Phosphatase 70 U/L (34-104); Anion Gap 7 (3-11); Aspartate Aminotransferase 21 U/L (13-39); BUN Creatinine Ratio 24.7 (10-20); Blood Urea Nitrogen 20 mg/dl (6-23); Calcium 8.8 mg/dl (8.6-10.3); Carbon Dioxide 28 mmol/L (21-32); Chloride 103 mmol/L (98-107); Globulin 2.7 gm/dl (2.5-4.0); Glucose 103 mg/dl (70-99(Fasting)); Lipase 60 U/L (11-82); Potassium 4.3 mmol/L (3.5-5.1); Sodium 138 mmol/L (136-145); Total Protein 6.3 gm/dl (6.0-8.3)
[2024-09-17 00:04] LABS: Troponin I High Sensitivity 9.4 pg/ml (0-20)
[2024-09-17] MEDS: cefTRIAXone SODIUM 2,000 MG/50 ML BAG IV STA (00:08)
[2024-09-17 00:15] LABS: Appearance Urine Clear (Clear); Bacteria Urine Automated None Seen (None Seen); Bilirubin Urine Negative (Negative); Blood Urine Negative (Negative); Cast Urine Automated 0-2 /lpf (0-2); Color Urine Yellow; Epithelial Cell Urine Auto 0-2 /hpf (0-2); Glucose Urine UA Negative (Negative); Ketones Urine Negative (Negative); Leukocyte Esterase Urine 1+ (Negative); Nitrite Urine Negative (Negative); Protein Urine Negative (Negative); RBC Urine Automated 0-2 /hpf (0-2); Specific Gravity Urine 1.019 (1.000-1.030); Urobilinogen Urine Negative (Negative); WBC Urine Automated 0-5 /hpf (0-5)
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
--- NOTE | 2024-09-17 00:39 | XRay Report ---
Exam(s): XR CXR 1 VIEW EXAM: XR Chest, 1 View CLINICAL HISTORY: Reason for exam: Chest pain, nonspecific. TECHNIQUE: Frontal view of the chest. COMPARISON: XR Chest dated 02/26/2024 FINDINGS: Lungs: Mild patchy opacities in the left lower lobe. Pleural space: Unremarkable. No pneumothorax. Heart: Unremarkable. No cardiomegaly. Mediastinum: Unremarkable. Normal mediastinal contour. Bones/joints: Bilateral shoulder arthroplasties. Partially visualized hardware in the lower thoracic and thoracolumbar spine. No acute fracture. IMPRESSION: Mild patchy opacities in the left lower lobe. May represent atelectasis or airspace disease. Electronically signed by: Abi Andersen M.D. 09/17/24 00:38 AM
[2024-09-17] MEDS: AZITHROMYCIN 500 MG/255 ML BAG IV ONE (00:55)
[2024-09-17 00:58] LABS: Adenovirus PCR Not Detected (NotDetected); Bordetella parapertussis PCR Not Detected (NotDetected); Bordetella pertussis PCR Not Detected (NotDetected); Chlamydia pneumoniae PCR Not Detected (NotDetected); Coronavirus 229E PCR Not Detected (NotDetected); Coronavirus CoV-2 (COVID19)PCR Not Detected (NotDetected); Coronavirus HKU1 PCR Not Detected (NotDetected); Coronavirus NL63 PCR Not Detected (NotDetected); Coronavirus OC43PCR Not Detected (NotDetected); Human Metapneumovirus PCR Not Detected (NotDetected); Influenza A PCR Not Detected (NotDetected); Influenza B PCR Not Detected (NotDetected); Mycoplasma pneumoniae PCR Not Detected (NotDetected); Parainfluenza Virus 1 PCR Not Detected (NotDetected); Parainfluenza Virus 2 PCR Not Detected (NotDetected); Parainfluenza Virus 3 PCR Not Detected (NotDetected); Parainfluenza Virus 4 PCR Not Detected (NotDetected); Respiratory Syncytial VirusPCR Not Detected (NotDetected); Rhinovirus/Enterovirus PCR Not Detected (NotDetected)
[2024-09-17 00:59] LABS: Magnesium 1.9 mg/dl (1.7-2.4)
[2024-09-17] MEDS: SODIUM CHLORIDE 0.9% 1,000 ML IV STA (01:03)
[2024-09-17] MEDS: DOXYCYCLINE HYCLATE 100 MG in DEXTROSE 5% MINI-B 100 ML IV STA (01:03)
[2024-09-17] MEDS: ACETAMINOPHEN 325 MG TAB PO STA (01:04)
[2024-09-17] MEDS ORDERED: LEVALBUTEROL 1.25 MG/3 ML NEB NEB PRN (01:12)
[2024-09-17] MEDS ORDERED: PROMETHAZINE 6.25 MG/50.25 ML BAG IV PRN (01:12)
[2024-09-17] MEDS ORDERED: IPRATROPIUM BROMIDE NEB SOLN 0.02% 0.5MG/2.5ML VIAL INH PRN (01:12)
[2024-09-17] MEDS ORDERED: QUEtiapine FUMARATE 25 MG TABLET PO SCH (01:15)
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
[2024-09-17] MEDS: CEFEPIME 2000MG 2,000 MG/20 ML SYR IV STA (01:46)
[2024-09-17] MEDS: NITROGLYCERIN SL 0.4 MG/TAB TAB ONE (01:48)
[2024-09-17] MEDS: NITROGLYCERIN SL 0.4 MG/TAB TAB SL STA (03:02)
[2024-09-17] MEDS: LIDOCAINE 5% 1 PATCH TD SCH (05:13)
[2024-09-17] MEDS: KETOROLAC TROMETHAMINE 15 MG/ML VIAL IV ONE (05:38)
[2024-09-17 08:06] LABS: Basophils # (auto) 0.02 K/uL (0.00-0.20); Basophils % (auto) 0.3 %; Eosinophils % (auto) 1.3 %; Hematocrit (blood only) 33.5 % (42.0-52.0); Hemoglobin 11.1 g/dl (14.0-18.0); Immature Granulocytes # (auto) 0.03 K/uL (0.01-0.20); Immature Granulocytes % (auto) 0.4 %; Lymphocytes # (auto) 0.77 K/uL (1.20-3.40); Lymphocytes % (auto) 10.2 %; Mean Corpuscular Hemoglobin 27.3 pg (25.0-34.0); Mean Corpuscular Hgb Conc 33.1 g/dL (32.0-36.0); Mean Corpuscular Volume 82.5 fL (80.0-100.0); Mean Platelet Volume 9.9 fL (9.4-12.4); Monocytes # (auto) 0.87 K/uL (0.11-0.59); Monocytes % (auto) 11.6 %; Neutrophils # (auto) 5.73 K/uL (1.40-6.50); Neutrophils % (auto) 76.2 %; Platelet Count 221 K/uL (130-400); RDW Coefficient of Variation 14.6 % (11.5-14.5); RDW Standard Deviation 43.7 fL (36.4-46.3); Red Blood Count 4.06 M/uL (4.70-6.10); Reticulocyte % 1.77 % (0.50-2.00); White Blood Count 7.52 K/ul (4.8-10.8)
[2024-09-17 08:27] LABS: BUN Creatinine Ratio 23.3 (10-20); Calcium 8.7 mg/dl (8.6-10.3); Potassium 3.9 mmol/L (3.5-5.1)
[2024-09-17 08:34] LABS: Troponin I High Sensitivity 9.8 pg/ml (0-20)
[2024-09-17 08:44] LABS: Folate (Folic Acid),Ser orPlas > 22.30 ng/ml (>5.38); Vitamin B12 1179 pg/ml (180-914)
[2024-09-17 08:48] LABS: Ferritin 43.9 ng/ml (8-388)
[2024-09-17] MEDS ORDERED: NON-FORMULARY MEDICATION (Fluticasone-Umeclidin-Vilanter [Trelegy Ellipta] 100-62.5-25 mcg INH SCH (09:00)
[2024-09-17] MEDS: FLUTICASONE FUROATE 100MCG 14 PUFFS/INHALER INH SCH (09:26)
[2024-09-17] MEDS: UMECLIDINIUM/VILANTEROL 62.5/25MCG 7 PUFFS/INHALER INH SCH (09:27)
[2024-09-17] MEDS: CEROVITE ADV FORMULA TAB PO SCH (09:28)
[2024-09-17] MEDS: DIVALPROEX SODIUM SPRINKLE/DEL-REL 125 MG CAP PO SCH (09:28)
[2024-09-17] MEDS: QUEtiapine FUMARATE 25 MG TABLET PO SCH ×2 (09:28→20:52)
[2024-09-17] MEDS: APIXABAN 5 MG TABLET PO SCH (09:28)
[2024-09-17] MEDS: dilTIAZem HCL 120 MG CAPCR PO SCH (09:28)
[2024-09-17] MEDS: TAMSULOSIN HCL 0.4 MG CAP PO SCH (09:29)
[2024-09-17] MEDS: FOLIC ACID 1 MG TAB PO SCH (09:29)
[2024-09-17] MEDS: PANTOprazole 40 MG TAB PO SCH (09:29)
[2024-09-17] MEDS: THIAMINE HCL 100 MG TAB PO SCH (09:30)
[2024-09-17] MEDS: CEFEPIME 2000MG 2,000 MG/20 ML SYR IV SCH (10:30)
--- NOTE | 2024-09-17 13:36 | CT Scan Report ---
CHEST CT WITH CONTRAST CT DOSE: 809.29 mGy.cm HISTORY: L cp, pnx TECHNIQUE: Multiaxial CT images of the chest were performed following the IV administration of 90 cc of Optiray. A dose lowering technique was utilized adhering to the principles of ALARA. COMPARISON STUDY: 02/15/2021 FINDINGS: There is bronchial wall thickening consistent with bronchitis. There is reticular and patch y consolidation in the lingula and at the left lung base consistent with pneumonia. There is a pulmon sharyn nodule at the posterior right lung base which is obscured by motion, measuring approximately 1.1 cm, could be mildly increased in size but not certain due to the motion. There is a trace left pleura l effusion. No pneumothorax. There is mild subcarinal and hilar adenopathy, likely reactive due to th e pneumonia. No pericardial effusion. There are coronary artery calcifications. No acute osseous find ings. IMPRESSION: 1. Acute pneumonia on the left. 2. Recommend follow-up chest CT in 3 months to make sure the pneumonia completely resolves and to ree valuate the right lung base pulmonary nodule and the lymphadenopathy. ACT 112: Positive. There are findings on this exam that require communication between the performing entity and the patient following Patient Test Result Information Act ([place] Act 112) guidelines. Electronically signed by: Mikey Vila M.D. 09/17/2024 1:35 PM
--- NOTE | 2024-09-17 14:40 | Hospitalist Progress Note ---
Date of Service September 17, 2024 Assessment & Plan (1) Pneumonia: Plan: Healthcare associated pneumonia Possible sepsis Pulmonary nodule --CT chest: Acute pneumonia on the left. Recommend follow-up chest CT in 3 months to make sure the pneumonia completely resolves and to reevaluate the right lung base pulmonary nodule and the lymphadenopathy. -- Respiratory BioFire negative --Blood cultures pending --Sputum culture pending --Nasal MRSA negative --Continue cefepime, doxycycline --Saturating well on room air Chest pain Likely due to above Troponin X2: negative ECHO: No wall motion abnormality Chronic diastolic heart failure No signs of volume overload Reviewed ECHO Not on diuretics at home Monitor volume status CVA/PVD as per records Continue atorvastatin, apixaban Hypertension Continue Cardizem Also on tamsulosin Monitor blood pressure Hyperlipidemia Continue atorvastatin COPD No signs of exacerbation Continue home inhalers TANO not on CPAP H/O DVT Continue Eliquis Acute on chronic anemia FOBT negative Iron deficiency Normal ferritin, B12 levels Start on iron supplements Dementia Past tobacco abuse Continue home medications Delirium precautions Reorient frequently DVT Px: Eliquis Code Status Full code Family Contact: Patient's daughter Ms. Tiff Sandy, contact #[phone]. Admission and Anticipated Discharge Date Admission Date: September 17, 2024 Subjective Patient is seen and examined at bedside Poor historian secondary to dementia, decreased hearing Admits to have some cough with expectoration associated with some left-sided chest pain No other complaints today Denies any nausea, vomiting, abdominal pain, dizziness Review of Systems Review of Systems: All systems reviewed & are unremarkable except as noted in Subjective Physical Exam Physical Exam: Physical Exam: Vitals signs as noted above General Appearance:Moderately built and nourished, no apparent distress Head: normocephalic, Atraumatic Eyes: normal inspection, EOMI Neck: supple, Trachea midline Respiratory/Chest:Decreased breath sounds, CTA, No accessory muscle use Cardiovascular: S1, S2, +murmur Abdomen/GI:Soft, Non tender, Bowel sounds present Extremities/Musculoskeletal:normal inspection, Trace edema Neurologic/Psych:Alert, awake, dementia, grossly no focal neurological deficits Skin: normal color, warm Results & Data Results & Data Vital Signs (Past 12 Hours) Vital Signs Temp Pulse Pulse Resp BP BP Pulse Ox 09/17/24 13:21 09/17/24 11:22 36.6 C 84 18 129/74 93 09/17/24 10:05 77 09/17/24 07:14 36.8 C 82 18 124/62 91 09/17/24 04:29 36.9 C 81 16 120/74 95 09/17/24 04:06 81 09/17/24 04:00 09/17/24 03:47 09/17/24 03:06 86 23 91 09/17/24 03:00 112/65 09/17/24 02:54 91 H 09/17/24 02:30 91 H 20 92 09/17/24 02:30 122/63 O2 Del Method 09/17/24 13:21 Room Air 09/17/24 11:22 Room Air 09/17/24 10:05 09/17/24 07:14 Room Air 09/17/24 04:29 Room Air 09/17/24 04:06 09/17/24 04:00 Room Air 09/17/24 03:47 Room Air 09/17/24 03:06 Room Air 09/17/24 03:00 09/17/24 02:54 09/17/24 02:30 Room Air 09/17/24 02:30 Laboratory Results Short CBC 09/16/24 09/17/24 Range/Units 23:00 07:43 WBC 7.08 7.52 (4.8-10.8) K/ul Hgb 10.7 L 11.1 L (14.0-18.0) g/dl Hct 32.6 L 33.5 L (42.0-52.0) % Plt Count 227 221 (130-400) K/uL [facility] 09/16/24 09/17/24 23:00 07:43 Sodium 138 142 Potassium 4.3 3.9 Chloride 103 108 H Carbon Dioxide 28 27 BUN 20 17 Creatinine 0.81 0.73 Glucose 103 H 96 Calcium 8.8 8.7 Liver Function 09/16/24 Range/Units 23:00 Total Bilirubin 1.0 (0.2-1.0) mg/dl AST 21 (13-39) U/L ALT 13 (7-52) U/L Alkaline Phosphatase 70 (34-104) U/L Albumin 3.6 (3.4-5.0) gm/dl Urine 09/17/24 Range/Units 00:00 Urine Color Yellow Urine Appearance Clear (Clear) Urine pH 7.0 (4.5-7.5) Ur Specific [place] 1.019 (1.000-1.030) Urine Protein Negative (Negative) Urine Glucose (UA) Negative (Negative) (1) Pneumonia Laterality: bilateral Lung location: lower lobe of lung Pneumonia type: due to other aerobic Gram-negative bacteria Qualified Code(s): J15.69 - Pneumonia due to other Gram-negative bacteria
--- NOTE | 2024-09-17 15:46 | Electrocardiogram Report ---
Test Reason : Blood Pressure : */* mmHG Vent. Rate : 95 BPM Atrial Rate : 95 BPM P-R Int : 162 ms QRS Dur : 132 ms QT Int : 348 ms P-R-T Axes : 20 -17 31 degrees QTcB Int : 437 ms Normal sinus rhythm Right bundle branch block Abnormal ECG When compared with ECG of 26-Feb-2024 15:20, Vent. rate has increased by 34 bpm Confirmed by Carlos Palacios ([id number]) on 09/17/2024 3:45:30 PM Referred By: REFERRED SELF Confirmed By: Carlos Palacios
--- NOTE | 2024-09-17 15:49 | Electrocardiogram Report ---
Test Reason : Blood Pressure : */* mmHG Vent. Rate : 79 BPM Atrial Rate : 79 BPM P-R Int : 194 ms QRS Dur : 140 ms QT Int : 386 ms P-R-T Axes : 52 -42 26 degrees QTcB Int : 442 ms Normal sinus rhythm Left axis deviation Right bundle branch block Septal infarct , age undetermined Inferior infarct , age undetermined Abnormal ECG When compared with ECG of 16-Sep-2024 23:02, (unconfirmed) Inferior infarct is now Present Confirmed by Carlos Palacios ([id number]) on 09/17/2024 3:49:24 PM Referred By: REFERRED SELF Confirmed By: Carlos Palacios
[2024-09-17] MEDS: FERROUS SULFATE 325 MG TAB PO SCH (16:56)
[2024-09-17] MEDS: OLANZapine 10 MG/2.1 ML SDV IM PRN (18:40)
[2024-09-17] MEDS: ACETAMINOPHEN 325 MG TAB PO PRN (20:50)
[2024-09-17] MEDS: DOXYCYCLINE HYCLATE 100 MG CAP PO SCH (20:52)
[2024-09-17] MEDS: ATORVASTATIN 40 MG TAB PO SCH (20:52)
[2024-09-18] MEDS: oxyCODONE HCL IR 5 MG TAB (IMMEDIATE RELEASE) PO PRN (01:50)
[2024-09-18 06:54] LABS: Hematocrit (blood only) 34.1 % (42.0-52.0); Hemoglobin 11.1 g/dl (14.0-18.0); Mean Corpuscular Hemoglobin 27.5 pg (25.0-34.0); Mean Corpuscular Hgb Conc 32.6 g/dL (32.0-36.0); Mean Corpuscular Volume 84.6 fL (80.0-100.0); Mean Platelet Volume 10.1 fL (9.4-12.4); Platelet Count 228 K/uL (130-400); RDW Coefficient of Variation 14.3 % (11.5-14.5); RDW Standard Deviation 44.1 fL (36.4-46.3); Red Blood Count 4.03 M/uL (4.70-6.10); White Blood Count 5.08 K/ul (4.8-10.8)
[2024-09-18 07:17] LABS: Calcium 8.7 mg/dl (8.6-10.3); Creatinine Clr Calc Pharmacy 73.9 ml/min; Potassium 4.1 mmol/L (3.5-5.1)
[2024-09-18] MEDS ORDERED: FERROUS SULFATE 325 MG TAB PO SCH (09:00)
--- NOTE | 2024-09-18 15:31 | XRay Report ---
XR lumbar spine 2-3V CLINICAL HISTORY: lower back pain COMPARISON STUDY: 02/20/2020 FINDINGS: There is posterior metallic fusion from T11 through the sacrum. No hardware complication se en. Stable minimal retrolisthesis of L2 on 3. Otherwise normal alignment. No fracture seen. IMPRESSION: No acute findings. ACT 112: Negative or not required by law. Electronically signed by: Mikey Vila M.D. 09/18/2024 3:30 PM
--- NOTE | 2024-09-18 16:07 | Hospitalist Progress Note ---
Date of Service September 18, 2024 Assessment & Plan (1) Pneumonia: Plan: Healthcare associated pneumonia Possible sepsis Pulmonary nodule --CT chest: Acute pneumonia on the left. Recommend follow-up chest CT in 3 months to make sure the pneumonia completely resolves and to reevaluate the right lung base pulmonary nodule and the lymphadenopathy. -- Respiratory BioFire negative --Blood cultures-- negative to date --Sputum culture--preliminary: Normal merced --Nasal MRSA negative --Continue cefepime, doxycycline --Saturating well on room air Continue current management Plan to transition to oral antibiotics likely tomorrow Plan to discharge to [facility] as able likely in next 24 to 48 hours Chest pain Likely due to above Troponin X2: negative ECHO: No wall motion abnormality Resolved Chronic diastolic heart failure No signs of volume overload Reviewed ECHO Not on diuretics at home Monitor volume status CVA/PVD as per records Continue atorvastatin, apixaban Hypertension Continue Cardizem Also on tamsulosin Blood pressure stable Hyperlipidemia Continue atorvastatin COPD No signs of exacerbation Continue home inhalers TANO not on CPAP H/O DVT Continue Eliquis Acute on chronic anemia FOBT negative Iron deficiency Normal ferritin, B12 levels Continue iron supplements Dementia Past tobacco abuse Continue home medications Delirium precautions Reorient frequently DVT Px: Eliquis Code Status Full code Family Contact: Patient's daughter Ms. Tiff Sandy, contact #[phone]. Admission and Anticipated Discharge Date Admission Date: September 17, 2024 Subjective Patient is seen and examined at bedside Poor historian secondary to dementia, decreased hearing Tried to reach patient's daughter over the phone--unable to discuss, left voicemail Saturating well on room air Patient states having some lower back pain, x-ray showed no acute process Patient believes cough is improving No chest pain today Denies any dyspnea, nausea, vomiting, abdominal pain, dizziness Review of Systems Review of Systems: All systems reviewed & are unremarkable except as noted in Subjective Physical Exam Physical Exam: Physical Exam: Vitals signs as noted above General Appearance:Moderately built and nourished, no apparent distress Head: normocephalic, Atraumatic Eyes: normal inspection, EOMI Neck: supple, Trachea midline Respiratory/Chest:Decreased breath sounds, CTA, No accessory muscle use Cardiovascular: S1, S2, +murmur Abdomen/GI:Soft, Non tender, Bowel sounds present Extremities/Musculoskeletal:normal inspection, Trace edema Neurologic/Psych:Alert, awake, dementia, grossly no focal neurological deficits Skin: normal color, warm Results & Data Results & Data Vital Signs (Past 12 Hours) Vital Signs Temp Pulse Pulse Resp BP Pulse Ox O2 Del Method 09/18/24 15:06 74 09/18/24 12:14 36.5 C 74 18 111/61 95 Room Air 09/18/24 10:30 Room Air 09/18/24 07:54 37.1 C 76 19 128/74 94 Room Air 09/18/24 07:20 69 Laboratory Results Short CBC 09/18/24 Range/Units 06:37 WBC 5.08 (4.8-10.8) K/ul Hgb 11.1 L (14.0-18.0) g/dl Hct 34.1 L (42.0-52.0) % Plt Count 228 (130-400) K/uL BMP 09/18/24 06:37 Sodium 143 Potassium 4.1 Chloride 108 H Carbon Dioxide 30 BUN 17 Creatinine 0.81 Glucose 96 Calcium 8.7 (1) Pneumonia Laterality: bilateral Lung location: lower lobe of lung Pneumonia type: due to other aerobic Gram-negative bacteria Qualified Code(s): J15.69 - Pneumonia due to other Gram-negative bacteria
[2024-09-19] MEDS ORDERED: Ativan IV Alcohol Withdrawal--Active Protocol IV PRN (02:56)
[2024-09-19] MEDS ORDERED: LORazepam 2 MG/1 ML VIAL IV PRN ×3 (02:56)
[2024-09-19] MEDS ORDERED: GABAPENTIN 1200MG ALCOHOL WITHDRAWAL LOAD PO STA (03:12)
[2024-09-19] MEDS: LORazepam 2 MG/1 ML VIAL IM STA ×2 (03:17→06:36)
[2024-09-19] MEDS: GABAPENTIN 600 MG TAB PO ONE (04:19)
[2024-09-19] MEDS ORDERED: LORazepam 2 MG/1 ML VIAL IM PRN (06:12)
[2024-09-19] MEDS: HALOPERIDOL LACTATE 5 MG/ML 1 ML VIAL IM PRN (07:32)
[2024-09-19] MEDS: cefTRIAXone SODIUM 1,000 MG/50 ML BAG IV SCH (08:53)
[2024-09-19] MEDS ORDERED: GABAPENTIN 600 MG TAB PO SCH ×2 (09:15→23:15)
--- NOTE | 2024-09-19 15:34 | Hospitalist Progress Note ---
Date of Service September 19, 2024 Assessment & Plan (1) Pneumonia: Plan: Healthcare associated pneumonia Possible sepsis Pulmonary nodule --CT chest: Acute pneumonia on the left. Recommend follow-up chest CT in 3 months to make sure the pneumonia completely resolves and to reevaluate the right lung base pulmonary nodule and the lymphadenopathy. -- Respiratory BioFire negative --Blood cultures-- negative to date --Sputum culture--preliminary: Normal merced --Nasal MRSA negative --Continue cefepime, doxycycline>> transition to Rocephin, doxycycline --Saturating well on room air Plan to discharge to [facility] as able Delirium with agitation In setting of dementia Delirium precautions Reorient frequently Zyprexa as needed Chest pain Likely due to above Troponin X2: negative ECHO: No wall motion abnormality Resolved Chronic diastolic heart failure No signs of volume overload Reviewed ECHO Not on diuretics at home Monitor volume status CVA/PVD as per records Continue atorvastatin, apixaban Hypertension Continue Cardizem Also on tamsulosin Monitor blood pressure Hyperlipidemia Continue atorvastatin COPD No signs of exacerbation Continue home inhalers TANO not on CPAP H/O DVT Continue Eliquis Acute on chronic anemia FOBT negative Iron deficiency Normal ferritin, B12 levels Continue iron supplements DVT Px: Eliquis Code Status Full code Family Contact: Patient's daughter Ms. Tiff Sandy, contact #[phone]. Admission and Anticipated Discharge Date Admission Date: September 17, 2024 Subjective Patient is seen and examined at bedside Unable to obtain much history due to delirium/drowsiness Was agitated overnight and this morning requiring medications to help with de lirium Called both patient's son and daughter --no reply, left voicemail Pleasantly confused during my encounter Review of Systems Review of Systems: All systems reviewed & are unremarkable except as noted in Subjective Physical Exam Physical Exam: Physical Exam: Vitals signs as noted above General Appearance:Moderately built and nourished, no apparent distress Head: normocephalic, Atraumatic Eyes: normal inspection, EOMI Neck: supple, Trachea midline Respiratory/Chest:Decreased breath sounds, CTA, No accessory muscle use Cardiovascular: S1, S2, +murmur Abdomen/GI:Soft, Non tender, Bowel sounds present Extremities/Musculoskeletal:normal inspection, Trace edema Neurologic/Psych:Alert, awake, dementia, grossly no focal neurological deficits Skin: normal color, warm Results & Data Results & Data Vital Signs (Past 12 Hours) Vital Signs Temp Pulse Pulse Resp BP Pulse Ox O2 Del Method 09/19/24 13:58 85 09/19/24 11:02 36.5 C 78 20 141/80 H 93 Room Air 09/19/24 10:41 Room Air 09/19/24 09:28 83 09/19/24 07:59 36.5 C 83 20 132/80 95 Room Air 09/19/24 06:39 85 18 141/73 H 95 Room Air (1) Pneumonia Laterality: bilateral Lung location: lower lobe of lung Pneumonia type: due to other aerobic Gram-negative bacteria Qualified Code(s): J15.69 - Pneumonia due to other Gram-negative bacteria
[2024-09-20 06:41] LABS: Hematocrit (blood only) 37.1 % (42.0-52.0); Hemoglobin 12.1 g/dl (14.0-18.0); Mean Corpuscular Hemoglobin 27.1 pg (25.0-34.0); Mean Corpuscular Hgb Conc 32.6 g/dL (32.0-36.0); Platelet Count 318 K/uL (130-400); RDW Coefficient of Variation 14.1 % (11.5-14.5); RDW Standard Deviation 42.5 fL (36.4-46.3); Red Blood Count 4.47 M/uL (4.70-6.10); White Blood Count 5.23 K/ul (4.8-10.8)
[2024-09-20 07:03] LABS: BUN Creatinine Ratio 27.1 (10-20); Calcium 9.3 mg/dl (8.6-10.3); Creatinine Clr Calc Pharmacy 85.5 ml/min; Potassium 4.1 mmol/L (3.5-5.1)
[2024-09-20] MEDS: OLANZapine 10 MG/2.1 ML SDV IM PRN (10:27)
[2024-09-20] MEDS: NICOTINE 14 MG/24 HR PATCH TD SCH (11:18)
--- NOTE | 2024-09-20 15:01 | Hospitalist Progress Note ---
Date of Service September 20, 2024 Assessment & Plan (1) Pneumonia: Plan: Healthcare associated pneumonia Possible sepsis Pulmonary nodule --CT chest: Acute pneumonia on the left. Recommend follow-up chest CT in 3 months to make sure the pneumonia completely resolves and to reevaluate the right lung base pulmonary nodule and the lymphadenopathy. -- Respiratory BioFire negative --Blood cultures-- negative to date --Sputum culture--Normal merced --Nasal MRSA negative --Continue cefepime, doxycycline>> transition to Rocephin, doxycycline --Saturating well on room air Plan to discharge to [facility] as [facility] Saturating well on room air Needs repeat CT chest as outpatient on discharge Delirium with agitation In setting of dementia Delirium precautions Reorient frequently Zyprexa as needed Chest pain Likely due to above Troponin X2: negative ECHO: No wall motion abnormality Resolved Chronic diastolic heart failure No signs of volume overload Reviewed ECHO Not on diuretics at home Monitor volume status CVA/PVD as per records Continue atorvastatin, apixaban Hypertension Continue Cardizem Also on tamsulosin Monitor blood pressure Hyperlipidemia Continue atorvastatin COPD No signs of exacerbation Continue home inhalers TANO not on CPAP H/O DVT Continue Eliquis Acute on chronic anemia FOBT negative Iron deficiency Normal ferritin, B12 levels Continue iron supplements DVT Px: Eliquis Code Status Full code Family Contact: Patient's daughter Ms. Tiff Sandy, contact #[phone]. Admission and Anticipated Discharge Date Admission Date: September 17, 2024 Subjective Patient is seen and examined at bedside Unable to obtain much history due to delirium/dementia Intermittently agitated requiring Zyprexa Off restraints today No family at bedside Review of Systems Review of Systems: Other Physical Exam Physical Exam: Physical Exam: Vitals signs as noted above General Appearance:Moderately built and nourished, no apparent distress Head: normocephalic, Atraumatic Eyes: normal inspection, EOMI Neck: supple, Trachea midline Respiratory/Chest:Decreased breath sounds, CTA, No accessory muscle use Cardiovascular: S1, S2, +murmur Abdomen/GI:Soft, Non tender, Bowel sounds present Extremities/Musculoskeletal:normal inspection, Trace edema Neurologic/Psych:Alert, awake, dementia, grossly no focal neurological deficits Skin: normal color, warm Results & Data Results & Data Vital Signs (Past 12 Hours) Vital Signs Temp Pulse Resp BP Pulse Ox O2 Del Method 09/20/24 14:26 36.6 C 96 H 16 128/73 96 Room Air 09/20/24 07:36 36.4 C L 89 16 115/73 93 Room Air Laboratory Results Short CBC 09/20/24 Range/Units 06:11 WBC 5.23 (4.8-10.8) K/ul Hgb 12.1 L (14.0-18.0) g/dl Hct 37.1 L (42.0-52.0) % Plt Count 318 (130-400) K/uL BMP 09/20/24 06:11 Sodium 144 Potassium 4.1 Chloride 107 Carbon Dioxide 30 BUN 19 Creatinine 0.70 Glucose 92 Calcium 9.3 (1) Pneumonia Laterality: bilateral Lung location: lower lobe of lung Pneumonia type: due to other aerobic Gram-negative bacteria Qualified Code(s): J15.69 - Pneumonia due to other Gram-negative bacteria
[2024-09-20 20:10] VITALS: O2SAT 95
[2024-09-21] MEDS ORDERED: GABAPENTIN 600 MG TAB PO SCH (03:15)
[2024-09-21 07:00] VITALS: RESP 16; TEMP 98.2
--- NOTE | 2024-09-21 10:55 | Hospitalist Progress Note ---
Date of Service September 21, 2024 Assessment & Plan (1) Pneumonia: Plan: Healthcare associated pneumonia Possible sepsis Pulmonary nodule --CT chest: Acute pneumonia on the left. Recommend follow-up chest CT in 3 months to make sure the pneumonia completely resolves and to reevaluate the right lung base pulmonary nodule and the lymphadenopathy. -- Respiratory BioFire negative --Blood cultures-- negative to date --Sputum culture--Normal merced --Nasal MRSA negative --Continue cefepime, doxycycline>> transition to Rocephin, doxycycline --Saturating well on room air Will transition to oral antibiotics to complete the course Needs repeat CT chest as outpatient on discharge Plan to discharge to personal care facility today Delirium with agitation In setting of dementia Delirium precautions Reorient frequently Zyprexa as needed Mental status seem to be back to baseline Chest pain Likely due to above Troponin X2: negative ECHO: No wall motion abnormality Resolved Chronic diastolic heart failure No signs of volume overload Reviewed ECHO Not on diuretics at home Monitor volume status CVA/PVD as per records Continue atorvastatin, apixaban Hypertension Continue Cardizem Also on tamsulosin Monitor blood pressure Hyperlipidemia Continue atorvastatin COPD No signs of exacerbation Continue home inhalers TANO not on CPAP H/O DVT Continue Eliquis Acute on chronic anemia FOBT negative Iron deficiency Normal ferritin, B12 levels Continue iron supplements DVT Px: Eliquis Code Status Full code Family Contact: Patient's daughter Ms. Tiff Sandy, contact #[phone]. Admission and Anticipated Discharge Date Admission Date: September 17, 2024 Subjective Patient is seen and examined at bedside Pleasant with no agitation issues today Sitting in chair in having breakfast during my encounter States having minimal lower back pain but otherwise no complaints Plan to discharge back to personal care facility today Review of Systems Review of Systems: All systems reviewed & are unremarkable except as noted in Subjective Physical Exam Physical Exam: Physical Exam: Vitals signs as noted above General Appearance:Moderately built and nourished, no apparent distress Head: normocephalic, Atraumatic Eyes: normal inspection, EOMI Neck: supple, Trachea midline Respiratory/Chest:Decreased breath sounds, CTA, No accessory muscle use Cardiovascular: S1, S2, +murmur Abdomen/GI:Soft, Non tender, Bowel sounds present Extremities/Musculoskeletal:normal inspection, Trace edema Neurologic/Psych:Alert, awake, dementia, grossly no focal neurological deficits Skin: normal color, warm Results & Data Results & Data Vital Signs (Past 12 Hours) Vital Signs Temp Pulse Resp BP Pulse Ox O2 Del Method 09/21/24 07:00 36.8 C 85 16 144/80 H 95 Room Air (1) Pneumonia Laterality: bilateral Lung location: lower lobe of lung Pneumonia type: due to other aerobic Gram-negative bacteria Qualified Code(s): J15.69 - Pneumonia due to other Gram-negative bacteria
--- NOTE | 2024-09-21 10:57 | Discharge Summary ---
Date of Service September 21, 2024 Admission HPI Per Admitting Provider History obtained from patient and records. Limited history from patient secondary to mild hearing impairment and dementia. Medical history significant for chronic diastolic heart failure (EF 50%, TTE 2024), CVA, PVD status post surgery, hypertension, hyperlipidemia, COPD, TANO not on CPAP, history of DVT on Eliquis, chronic anemia (baseline hemoglobin of 13), GERD, history of C. difficile, BPH, chronic back pain status post surgery, dementia, anxiety/mood disorder, history of substance abuse as per records, past tobacco abuse. Last confinement February 2024 for right ankle arthritis and inability to care for self. Patient eventually placed at [facility]. Few days history of cough symptoms productive of junky green sputum associated with left-sided chest pain. Patient denies aspiration. No fever, no chills. Ceftriaxone administered at the ER. 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 Admission Exam Per Admitting Provider GENERAL: Demented, slightly hard of hearing, no respiratory distress SKIN: Pallor, warm HEENT: Pale palpebral conjunctivae, no ptosis, dry buccal mucosa NECK : Supple, no tenderness CHEST : Decreased breath sounds, no tenderness HEART : RRR, no obvious murmurs ABDOMEN: Some distention, nontender RECTAL : Intact sphincter, brown stool (FOBT negative) EXTREMITIES : No LE swelling/tenderness, palpable pulses, no other conspicuous deformities noted NEUROLOGIC : Demented, no facial asymmetry, no other gross focality Principal Diagnosis Healthcare associated pneumonia Possible sepsis Pulmonary nodule Iron deficiency anemia Delirium with agitation Discharge Data Allergies Allergy/AdvReac Type Severity Reaction Status Date / Time morphine Allergy Mild Rash Verified 09/16/24 23:50 levofloxacin AdvReac Intermediate "Gets mean" Verified 09/16/24 23:50 Quinolones AdvReac Intermediate "Gets Verified 02/26/24 13:51 ben" Consultations 09/17/24 00:29 ED Decision to Admit Stat Procedures Performed Laboratory Results WBC 5.23 K/ul (4.8-10.8) 09/20/24 06:11 RBC 4.47 M/uL (4.70-6.10) L 09/20/24 06:11 Hgb 12.1 g/dl (14.0-18.0) L 09/20/24 06:11 Hct 37.1 % (42.0-52.0) L 09/20/24 06:11 MCV 83.0 fL (80.0-100.0) 09/20/24 06:11 MCH 27.1 pg (25.0-34.0) 09/20/24 06:11 MCHC 32.6 g/dL (32.0-36.0) 09/20/24 06:11 RDW Std Deviation 42.5 fL (36.4-46.3) 09/20/24 06:11 RDW Coeff of Eduardo 14.1 % (11.5-14.5) 09/20/24 06:11 Plt Count 318 K/uL (130-400) 09/20/24 06:11 MPV 10.0 fL (9.4-12.4) 09/20/24 06:11 Immature Gran % (Auto) 0.4 % 09/17/24 07:43 Neut % (Auto) 76.2 % 09/17/24 07:43 Lymph % (Auto) 10.2 % 09/17/24 07:43 [place] % (Auto) 11.6 % 09/17/24 07:43 Eos % (Auto) 1.3 % 09/17/24 07:43 Baso % (Auto) 0.3 % 09/17/24 07:43 Reticulocyte % (Auto) 1.77 % (0.50-2.00) 09/17/24 07:43 Neut # (Auto) 5.73 K/uL (1.40-6.50) 09/17/24 07:43 Lymph # (Auto) 0.77 K/uL (1.20-3.40) L 09/17/24 07:43 [place] # (Auto) 0.87 K/uL (0.11-0.59) H 09/17/24 07:43 Eos # (Auto) 0.10 K/uL (0.00-0.50) 09/17/24 07:43 Baso # (Auto) 0.02 K/uL (0.00-0.20) 09/17/24 07:43 Reticulocyte # 0.070 10^6/uL (0.020-0.100) 09/17/24 07:43 Immature Gran # (Auto) 0.03 K/uL (0.01-0.20) 09/17/24 07:43 Sodium 144 mmol/L (136-145) 09/20/24 06:11 Potassium 4.1 mmol/L (3.5-5.1) 09/20/24 06:11 Chloride 107 mmol/L (98-107) 09/20/24 06:11 Carbon Dioxide 30 mmol/L (21-32) 09/20/24 06:11 Anion Gap 7 (3-11) 09/20/24 06:11 BUN 19 mg/dl (6-23) 09/20/24 06:11 Creatinine 0.70 mg/dl (0.6-1.4) 09/20/24 06:11 Est Cr Clr Drug Dosing 85.5 ml/min 09/20/24 06:11 eGFR 94.90 09/20/24 06:11 BUN/Creatinine Ratio 27.1 (10-20) H 09/20/24 06:11 Glucose 92 mg/dl (70-99(Fasting)) 09/20/24 06:11 Lactate 0.5 mmol/L (0.4-2.0) 09/17/24 01:52 Calcium 9.3 mg/dl (8.6-10.3) 09/20/24 06:11 Magnesium 1.9 mg/dl (1.7-2.4) 09/16/24 23:00 Iron 19 mcg/dl (35-175) L 09/17/24 07:43 Transferrin 293 mg/dl (200-360) 09/17/24 07:43 Ferritin 43.9 ng/ml (8-388) 09/17/24 07:43 Total Bilirubin 1.0 mg/dl (0.2-1.0) 09/16/24 23:00 AST 21 U/L (13-39) 09/16/24 23:00 ALT 13 U/L (7-52) 09/16/24 23:00 Alkaline Phosphatase 70 U/L (34-104) 09/16/24 23:00 Troponin I High Sens 9.8 pg/ml (0-20) 09/17/24 07:43 Total Protein 6.3 gm/dl (6.0-8.3) 09/16/24 23:00 Albumin 3.6 gm/dl (3.4-5.0) 09/16/24 23:00 Globulin 2.7 gm/dl (2.5-4.0) 09/16/24 23:00 Albumin/Globulin Ratio 1.3 (0.9-2) 09/16/24 23:00 Lipase 60 U/L (11-82) 09/16/24 23:00 Vitamin B12 1179 pg/ml (180-914) H 09/17/24 07:43 Folate > 22.30 ng/ml (>5.38) 09/17/24 07:43 Procalcitonin 0.16 ng/ml (0-0.5) 09/18/24 06:37 Urine Color Yellow 09/17/24 00:00 Urine Appearance Clear (Clear) 09/17/24 00:00 Urine pH 7.0 (4.5-7.5) 09/17/24 00:00 Ur Specific [place] 1.019 (1.000-1.030) 09/17/24 00:00 Urine Protein Negative (Negative) 09/17/24 00:00 Urine Glucose (UA) Negative (Negative) 09/17/24 00:00 Urine Ketones Negative (Negative) 09/17/24 00:00 Urine Blood Negative (Negative) 09/17/24 00:00 Urine Nitrite Negative (Negative) 09/17/24 00:00 Urine Bilirubin Negative (Negative) 09/17/24 00:00 Urine Urobilinogen Negative (Negative) 09/17/24 00:00 Ur Leukocyte Esterase 1+ (Negative) H 09/17/24 00:00 Urine WBC (Auto) 0-5 /hpf (0-5) 09/17/24 00:00 Urine RBC (Auto) 0-2 /hpf (0-2) 09/17/24 00:00 U Hyaline Cast (Auto) 0-2 /lpf (0-2) 09/17/24 00:00 U Epithel Cells (Auto) 0-2 /hpf (0-2) 09/17/24 00:00 Urine Bacteria (Auto) None Seen (None Seen) 09/17/24 00:00 Urine Comment 09/17/24 00:00 Nasal Screen MRSA (PCR) Negative (Negative) 09/17/24 01:48 Valproic Acid 32 mcg/ml (50-100) L 09/16/24 23:11 Adenovirus (PCR) Not Detected (NotDetected) 09/16/24 23:35 B. pertussis DNA (PCR) Not Detected (NotDetected) 09/16/24 23:35 B.parapertussis DNA PCR Not Detected (NotDetected) 09/16/24 23:35 C. pneumoniae DNA (PCR) Not Detected (NotDetected) 09/16/24 23:35 Coronavirus OC43 (PCR) Not Detected (NotDetected) 09/16/24 23:35 Coronavirus HKU1 (PCR) Not Detected (NotDetected) 09/16/24 23:35 Coronavirus 229E (PCR) Not Detected (NotDetected) 09/16/24 23:35 SARS-CoV-2 (PCR) Not Detected (NotDetected) 09/16/24 23:35 Coronavirus NL63 (PCR) Not Detected (NotDetected) 09/16/24 23:35 Human Metapneumovir PCR Not Detected (NotDetected) 09/16/24 23:35 Influenza Type A (PCR) Not Detected (NotDetected) 09/16/24 23:35 Influenza Type B (PCR) Not Detected (NotDetected) 09/16/24 23:35 M. pneumoniae (PCR) Not Detected (NotDetected) 09/16/24 23:35 Parainfluenza 1 (PCR) Not Detected (NotDetected) 09/16/24 23:35 Parainfluenza 2 (PCR) Not Detected (NotDetected) 09/16/24 23:35 Parainfluenza 3 (PCR) Not Detected (NotDetected) 09/16/24 23:35 Parainfluenza 4 (PCR) Not Detected (NotDetected) 09/16/24 23:35 RSV (PCR) Not Detected (NotDetected) 09/16/24 23:35 Entero/Rhino (PCR) Not Detected (NotDetected) 09/16/24 23:35 Impressions Chest X-Ray 09/16/24 23:00 Exam(s): XR CXR 1 VIEW EXAM: XR Chest, 1 View CLINICAL HISTORY: Reason for exam: Chest pain, nonspecific. TECHNIQUE: Frontal view of the chest. COMPARISON: XR Chest dated 02/26/2024 FINDINGS: Lungs: Mild patchy opacities in the left lower lobe. Pleural space: Unremarkable. No pneumothorax. Heart: Unremarkable. No cardiomegaly. Mediastinum: Unremarkable. Normal mediastinal contour. Bones/joints: Bilateral shoulder arthroplasties. Partially visualized hardware in the lower thoracic and thoracolumbar spine. No acute fracture. IMPRESSION: Mild patchy opacities in the left lower lobe. May represent atelectasis or airspace disease. Electronically signed by: Abi Andersen M.D. 09/17/24 00:[address] 09/17/24 06:[address] WITH CONTRAST CT DOSE: 809.29 mGy.cm HISTORY: L cp, pnx TECHNIQUE: Multiaxial CT images of the chest were performed following the IV administration of 90 cc of Optiray. A dose lowering technique was utilized adhering to the principles of ALARA. COMPARISON STUDY: 02/15/2021 FINDINGS: There is bronchial wall thickening consistent with bronchitis. There is reticular and patchy consolidation in the lingula and at the left lung base consistent with pneumonia. There is a pulmonary nodule at the posterior right lung base which is obscured by motion, measuring approximately 1.1 cm, could be mildly increased in size but not certain due to the motion. There is a trace left pleural effusion. No pneumothorax. There is mild subcarinal and hilar adenopathy, likely reactive due to the pneumonia. No pericardial effusion. There are coronary artery calcifications. No acute osseous findings. IMPRESSION: 1. Acute pneumonia on the left. 2. Recommend follow-up chest CT in 3 months to make sure the pneumonia completely resolves and to reevaluate the right lung base pulmonary nodule and the lymphadenopathy. ACT 112: Positive. There are findings on this exam that require communication between the performing entity and the patient following Patient Test Result Information Act ([place] Act 112) guidelines. Electronically signed by: Mikey Vila M.D. 09/17/2024 1:35 PM Lumbar Spine X-Ray 09/18/24 13:52 XR lumbar spine 2-3V CLINICAL HISTORY: lower back pain COMPARISON STUDY: 02/20/2020 FINDINGS: There is posterior metallic fusion from T11 through the sacrum. No hardware complication seen. Stable minimal retrolisthesis of L2 on 3. Otherwise normal alignment. No fracture seen. IMPRESSION: No acute findings. ACT 112: Negative or not required by law. Electronically signed by: Mikey Vila M.D. 09/18/2024 3:30 PM Ordered Studies 09/17/24 06:01 CT chest with contrast [CT chest diagnostic w con] Stat Hospital Course (1) Pneumonia: Healthcare associated pneumonia Possible sepsis Pulmonary nodule --CT chest: Acute pneumonia on the left. Recommend follow-up chest CT in 3 months to make sure the pneumonia completely resolves and to reevaluate the right lung base pulmonary nodule and the lymphadenopathy. -- Respiratory BioFire negative --Blood cultures-- negative to date --Sputum culture--Normal merced --Nasal MRSA negative --Continue cefepime, doxycycline>> transition to Rocephin, doxycycline --Saturating well on room air Will transition to oral antibiotics to complete the course Needs repeat CT chest as outpatient on discharge Plan to discharge to personal care facility today Delirium with agitation In setting of dementia Delirium precautions Reorient frequently Zyprexa as needed Mental status seem to be back to baseline Chest pain Likely due to above Troponin X2: negative ECHO: No wall motion abnormality Resolved Chronic diastolic heart failure No signs of volume overload Reviewed ECHO Not on diuretics at home Monitor volume status CVA/PVD as per records Continue atorvastatin, apixaban Hypertension Continue Cardizem Also on tamsulosin Monitor blood pressure Hyperlipidemia Continue atorvastatin COPD No signs of exacerbation Continue home inhalers TANO not on CPAP H/O DVT Continue Eliquis Acute on chronic anemia FOBT negative Iron deficiency Normal ferritin, B12 levels Continue iron supplements DVT Px: Eliquis Code Status Full code Family Contact: Patient's daughter Ms. Tiff Sandy, contact #[phone]. Total Time Total Time Spent Total Time Spent (In Minutes): 54 minutes Discharge Plan Discharge Items Patient Disposition: Personal Longterm Reason For Visit: CP, HCAP Discharge Diagnosis: Healthcare associated pneumonia Possible sepsis Pulmonary nodule Iron deficiency anemia Delirium with agitation Condition on Discharge: Fair Activity: Per Instructions section Exercise/Sports: Gradually increase as tolerated Non-emergency contact: Primary Care Provider Call non-emergency contact if: you have any medication questions, your symptoms worsen, your pain is concerning for you and you have a fever Follow-up/Referrals: Yohan Alex MD [Primary Care Provider] - Diet: Heart Healthy Diet Texture: Dental soft (bite-sized) Addtl Attending Provider Instructions: Follow-up with your primary care physician in 1 week Consider following with a primary mill roller if needed based on repeat CT chest -- Your final blood cultures are pending at the time of discharge. Follow-up with your physician for results. -- Complete the antibiotic course as prescribed --Obtain repeat CT chest in 3 months to ensure resolution of pneumonia and monitor pulmonary nodule. Seek immediate medical attention if your symptoms reoccur or worsen Please review medication list provided on discharge for any medication changes as instructed. Please call if you have any questions or problems. You can reach a [facility] hospitalist on duty at [facility] 24 hours a day by calling [phone] Pending Studies at Discharge: Yes Studies:: Blood Cultures Stand-Alone Forms: [facility] [employer], Smoking Cessation Skilled Items Patient informed of condition?: Yes DNR: No Discharge Level of Care: Other Communicable Disease: No Discharge Prognosis: Stable Lines: None Urinary Catheter: No Medications and DC Order Prescriptions: New doxycycline hyclate 100 mg Capsule 100 mg PO BID Qty: 6 0RF ferrous sulfate 325 mg (65 mg iron) Tablet,Delayed Release (Dr/Ec) 325 mg PO DAILYBD Qty: 30 0RF cefuroxime axetil 500 mg tablet 500 mg PO BID Qty: 6 0RF Continued albuterol sulfate 90 mcg/actuation HFA aerosol inhaler 2 puff INHALATION Q6 PRN (Reason: Shortness Of Breath Or Wheezing) atorvastatin 40 mg tablet 40 mg PO HS acetaminophen 325 mg Tablet 650 mg PO Q6 MDD 3g PRN (Reason: Pain) acetaminophen 325 mg Tablet 650 mg PO Q6 MDD 3g PRN (Reason: temp>101) Eliquis 5 mg tablet 5 mg PO BID diltiazem HCl 120 mg tablet extended release 24 hr 120 mg PO DAILY magnesium oxide 400 mg (241.3 mg magnesium) tablet 400 mg PO BID multivitamin with minerals Tablet 1 tab PO DAILY folic acid 1 mg tablet 1 mg PO DAILY tamsulosin 0.4 mg capsule 0.4 mg PO DAILY divalproex [Depakote Sprinkles] 125 mg Capsule, Delayed Rel Sprinkle 125 mg PO BID pantoprazole 40 mg tablet,delayed release (DR/EC) 40 mg PO DAILY quetiapine 25 mg tablet 25 mg PO QAM quetiapine 25 mg tablet 25 mg PO .DAILY AT NOON quetiapine 50 mg tablet 50 mg PO HS Trelegy Ellipta 100-62.5-25 mcg blister with device 1 inh inhalation DAILY thiamine HCl (vitamin B1) 100 mg tablet 100 mg PO DAILY Discharge Orders: Discharge Order (Routine); Ordered 09/21/24 Ordered By: Андрей Rodriguez Admission Data Admit Date/Time: 09/17/24 00:42 Attending Provider: Андрей Rodriguez Admit Provider: Martir Solorzano Primary Care Provider: Yohan Alex Other Providers: [facility],; Martir Solorzano
[2024-09-21 11:48] VITALS: BP 143/76; PULSE 80
[2024-09-22] MEDS ORDERED: GABAPENTIN 600 MG TAB PO SCH (15:15)
== END 2024-09-21 12:37 | DRG 871 ==
LOC: ED 22:52 → 2S 09-17 00:42 → 3W 09-19 15:37